=== PATIENT | male | born 1955 | race Caucasian/White ===

== ENCOUNTER 2017-02-25 15:40 | Inpatient (IN) | payer BC ==
[~2017-02-25] VITALS: Ht 188 cm; Wt 105.0 kg
[2017-02-25] MEDS ORDERED: DOPamine-D5W 1.6 MG/ML 250 ML ONE (15:47)
[2017-02-25 16:14] LABS: ABNORMAL IP MESSAGE 1; BASOPHIL # 0.1 10^3/ul (0.0-0.1); BASOPHILS % 0.8 % (0.0-2.0); EOSINOPHILS # 0.5 10^3/ul (0.0-0.5); EOSINOPHILS % 4.4 % (0.0-7.0); HEMOGLOBIN 13.5 g/dl (14.0-18.0); LYMPHOCYTES # 4.6 10^3/ul (0.8-2.9); LYMPHOCYTES % 40.2 % (15.0-51.0); MEAN CORPUSCULAR HEMOGLOBIN 30.1 pg (29.0-33.0); MEAN CORPUSCULAR VOLUME 100.4 fl (82.0-101.0); MEAN PLATELET VOLUME 11.3 fl (7.4-10.4); MONOCYTE # 1.1 10^3/ul (0.3-0.9); MONOCYTES % 9.4 % (0.0-11.0); NEUTROPHIL # 4.4 10^3/ul (1.6-7.5); NEUTROPHILS % 38.7 % (39.0-77.0); NUCLEATED RED BLOOD CELLS # 0.1 10^3/ul (0.0-0.0); NUCLEATED RED BLOOD CELLS% 0.4 /100WBC (0.0-0.0); PLATELET COUNT 245 10^3/UL (140-415); POSITIVE DIFF @See below; RED BLOOD COUNT 4.48 10^6/ul (4.70-6.10); RED CELL DISTRIBUTION WIDTH 12.8 % (11.5-14.5); WHITE BLOOD COUNT 11.4 10^3/ul (4.8-10.8)
[2017-02-25] MEDS ORDERED: NORepinephrine 8MG/250 ML (PMX 250 ML ONE (16:23)
[2017-02-25 16:29] LABS: INR 1.53; PROTIME 18.5 Sec (12.2-14.2); PT RATIO 1.4
[2017-02-25 16:30] LABS: AADO2 Arterial 571.3 mmHg (7.0-24.0); Arterial Base Excess -26.3 mmol/L (-3.0-3); Arterial COHb 0.3 % (0.0-3.0); Arterial Fraction of Oxyhgb 66.9 % (93.0-99.0); Arterial HCO3 10.1 mmol/L (22.0-26.0); Arterial MetHb 0.5 % (0.0-1.5); Arterial Total Hemglobin 13.4 g/dl (12.0-18.0); MODE VENT - AC
[2017-02-25 16:30] LABS: PARTIAL THROMBOPLASTIN TIME 65.5 Sec (25.0-35.0)
[2017-02-25] MEDS ORDERED: DOPamine-D5W 1.6 MG/ML 250 ML IV SCH (16:30)
[2017-02-25] MEDS ORDERED: NORepinephrine 8MG/250 ML (PMX 250 ML IV SCH (16:30)
[2017-02-25] MEDS ORDERED: NA BICARBONATE 8.4% 50 ML SYG IV STA (16:36)
--- NOTE | 2017-02-25 16:47 | RADRPT ---
PROCEDURE: XR Chest. CLINICAL INDICATION: Cardiac arrest. Shortness of breath TECHNIQUE: Single frontal chest x-ray. COMPARISON: None available FINDINGS: The patient is status post intubation with endotracheal tube 3.9 cm above the melvin. The heart siz e is enlarged. There are scattered interstitial opacities throughout the left lung and right upper lobe. Right mid lung subsegmental plate-like atelectasis is present. There is no evidence of effus ion or pneumothorax. A defibrillator pad overlies the left lower thorax. Tubing and a metallic dev ice overlying the lower thoracic spine is of uncertain significance. The osseous structures are phi sly intact. IMPRESSION: 1. Status post intubation with endotracheal tube in the mid thoracic trachea, 3.9 cm above the minerva na. 2. Cardiomegaly with scattered diffuse left lung and right upper lobe interstitial opacities which may represent congestion/edema or infection. 3. Right mid lung subsegmental plate-like atelectasis. RPTAT: HH .Wiliam Posada MD, MD Date Time Electronically viewed and signed by .Wiliam Posada MD, on 02/25/2017 16:47 .A/
[2017-02-25 16:52] LABS: ALANINE AMINOTRANSFERASE 108 IU/L (13-69); ALBUMIN/GLOBULIN RATIO 1.42; ALKALINE PHOSPHATASE 76 IU/L (42-121); ANION GAP 41 (8-16); ASPARTATE AMINO TRANSFERASE 108 IU/L (15-46); BILIRUBIN,INDIRECT 0.1 mg/dl (0-1.1); BILIRUBIN,TOTAL 0.1 mg/dl (0.2-1.3); BLOOD UREA NITROGEN 12 mg/dl (7-20); CALCIUM 9.8 mg/dl (8.4-10.2); CARBON DIOXIDE 14 mmol/L (21-31); CHLORIDE 100 mmol/L (97-110); CREATININE 1.34 mg/dl (0.61-1.24); GLUCOSE 284 mg/dl (70-220); POTASSIUM 4.9 mmol/L (3.5-5.1); SODIUM 150 mmol/L (135-144); TOTAL PROTEIN 6.8 g/dl (6.1-8.1)
[2017-02-25 17:10] LABS: TROPONIN-I < 0.012 ng/ml (0.00-0.12)
[2017-02-25 17:27] LABS: ETHANOL < 10.0 mg/dl
[2017-02-25] MEDS ORDERED: LORAZEPAM 2 MG INJ ONE (17:33)
[2017-02-25] MEDS ORDERED: PROPOFOL 100 ML ONE (17:46)
[2017-02-25 17:49] LABS: ADD UMIC YES; UR ASCORBIC ACID 20 mg/dL (NEGATIVE); UR BILIRUBIN (Dip) NEGATIVE (NEGATIVE); UR BLOOD (Dip) NEGATIVE (NEGATIVE); UR CLARITY SLIGHTLY CLOUDY (CLEAR); UR COLOR YELLOW (YELLOW); UR GLUCOSE (Dip) NEGATIVE (NEGATIVE); UR KETONES (Dip) TRACE mg/dL (NEGATIVE); UR LEUKOCYTE ESTERASE (Dip) NEGATIVE Leu/ul (NEGATIVE); UR MUCUS FEW /HPF (NONE SEEN); UR NITRITE (Dip) NEGATIVE (NEGATIVE); UR RBC 3 /HPF (0-5); UR SPECIFIC GRAVITY (Dip) 1.021 (1.003-1.030); UR TOTAL PROTEIN (Dip) 1+ mg/dl (NEGATIVE); UR UROBILINOGEN (Dip) NEGATIVE (NEGATIVE)
[2017-02-25] MEDS ORDERED: SOD CHLORIDE 0.9% IV ONE (18:00)
[2017-02-25] MEDS ORDERED: LORAZEPAM 2 MG INJ IV ONE (18:00)
[2017-02-25] MEDS ORDERED: PROPOFOL 100 ML IV ONE (18:00)
[2017-02-25] MEDS ORDERED: VANCOMYCIN 1 GM (PMX) 250 ML IVPB SCH ×2 (18:00→21:30)
[2017-02-25] MEDS ORDERED: PIPER-TAZO 3.375 GM IV (PMX) 100 ML IVPB ONE (18:00)
[2017-02-25] MEDS ORDERED: ROCURONIUM 50 MG INJ IV ONE (18:00)
[2017-02-25 18:11] LABS: AADO2 Arterial 553.8 mmHg (7.0-24.0); Arterial Base Excess -6.6 mmol/L (-3.0-3); Arterial COHb 0.3 % (0.0-3.0); Arterial Fraction of Oxyhgb 96.8 % (93.0-99.0); Arterial HCO3 18.8 mmol/L (22.0-26.0); Arterial MetHb 0.5 % (0.0-1.5); Arterial Total Hemglobin 14.9 g/dl (12.0-18.0); Blood Gas Low PEEP Setting 0 cmH2O; MODE VENT - AC
[2017-02-25 18:13] LABS: BARBITURATES Negative (NEGATIVE)
[2017-02-25 18:17] LABS: BENZODIAZEPINES Negative (NEGATIVE); CANNABINOIDS Negative (NEGATIVE); COCAINE Positive (NEGATIVE); OPIATES Positive (NEGATIVE)
[2017-02-25] MEDS ORDERED: DEXTROSE 50% 50 ML SYRINGE IV PRN ×2 (19:30)
[2017-02-25] MEDS ORDERED: ACETAMINOPHEN 650 MG SUPP PR PRN (19:30)
[2017-02-25] MEDS ORDERED: NA PHOSPHATE/BIPHOS 133 ML ENEMA PR PRN (19:30)
[2017-02-25] MEDS ORDERED: NACL 0.9% 3 ML SYG IV SCH (19:30)
[2017-02-25] MEDS ORDERED: VANCOMYCIN IV PER PHARMACY XX SCH (19:30)
[2017-02-25] MEDS ORDERED: INSULIN HUMAN REGULAR 100 UNIT in SOD CHLORIDE 0.9% 99 ML IV SCH (19:30)
[2017-02-25] MEDS ORDERED: ACETAMINOPHEN 650MG/20.3ML CUP PO PRN (19:30)
[2017-02-25] MEDS ORDERED: ACETAMINOPHEN 325 MG TAB PO PRN (19:30)
[2017-02-25] MEDS ORDERED: MAGNESIUM HYDROXIDE 30ML CUP PO PRN (19:30)
[2017-02-25] MEDS ORDERED: MEPERIDINE 25 MG INJ IV PRN ×2 (19:30)
[2017-02-25] MEDS ORDERED: DOCUSATE SODIUM 100 MG CAP PO PRN (19:30)
[2017-02-25] MEDS ORDERED: morphine 2 MG INJ IV PRN (19:30)
[2017-02-25] MEDS ORDERED: HYDROCODONE/APAP (5/325) TAB PO PRN (19:30)
[2017-02-25] MEDS ORDERED: NITROGLYCERIN (SL) 0.4 MG TAB SL PRN (19:30)
[2017-02-25] MEDS ORDERED: ALBUTEROL/IPRATROPIUM (NEB) 3 ML AMP HHN PRN (19:30)
[2017-02-25] MEDS ORDERED: ONDANSETRON 4 MG INJ IV PRN (19:30)
[2017-02-25] MEDS ORDERED: LORAZEPAM 2 MG INJ IV PRN (19:30)
--- NOTE | 2017-02-25 19:30 | HP ---
Date/Time of Note Date/Time of Note DATE: 02/25/17 TIME: 19:28 Assessment/Plan VTE Prophylaxis VTE Prophylaxis Intervention: heparin Lines/Catheters Central line still needed: Yes Reason Cath still needed: urinary retention Assessment/Plan Chief Complaint/Hosp Course Assessment and plan: 61-year-old male status post cardiac arrest, septic shock, lactic acidosis, intubated, on pressors. 1. Cardiac arrest: Admit patient to intensive care unit, get cardiology consult. Check echocardiogram, check TSH A1c lipid panel. Follow cardiology recommendations, continue to monitor vital signs very carefully. Hypothermia protocol as well. EEG will be ordered to be performed after hypothermia protocol. We will also get neurology consult. 2. Respiratory failure: Secondary to #1. Continue intubation, pulmonary consult, duo nebs as needed. Follow-up culture results. Given questional chest x-ray findings, start broad-spectrum antibiotics. Mechanical ventilation 3. Septic shock with lactic acidosis: Again broad-spectrum antibiotic, continue pressor support, monitor vital signs very carefully. Monitor BMP, continue aggressive IV fluid hydration, trend lactic acid levels. 4. IV drug abuse: Again monitor for signs of withdrawal. Again patient is intubated however. 5. Bipolar disorder: Continue monitor for now, again intubated 6. GI prophylaxis: H2 lora Problems: HPI/ROS Admit Date/Time Admit Date/Time ROS 61-year-old male past medical history based on ER records of bipolar disorder and IV drug abuse. Patient came in with cardiac arrest. Most of the information is obtained from the ER documentation and speaking with ER staff as the patient is presently intubated and sedated. Patient also has history of of Adderal, cocaine, viagara use. According to documentation, patient was having sexual intercourse with girlfriend when became apneic and unresponsive. EMS was called to residence. Patient became asystolic and resuscitation was started. Patient was intubated in the ER. He was found with a lactic acid of 20, given IV fluids and 3 Amps of bicarb, and started on levo fed and dopamine pressor support. Also given IV antibiotics. Head CT was performed results are still pending at this time. Full review of systems cannot be obtained at this time. U tox found to be positive for cocaine, methamphetamine, and opiates. Blood alcohol level and chest x-ray are both negative. Central line was placed in the emergency room as well. PMH/Family/Social Past Surgical History Unknown Family History Significant Family History: other (Unknown) Social History Alcohol Use: other Drug Use: cocaine, other (Opiates, methamphetamine) Exam/Review of Systems Vital Signs Vitals Vital Signs Date Time Temp Pulse Resp B/P Pulse Ox O2 Delivery O2 Flow Rate FiO2 02/25/17 18:30 89 16 113/62 100 Mechanical Ventilator 02/25/17 18:19 100 02/25/17 16:00 15.0 Exam Exam General: Lying in bed, intubated HEENT: Unable to fully assess Neck: Supple Respiratory: Distant breath sounds bilaterally Cardiovascular: S1-S2 heard GI: Soft, nontender, nondistended, normal bowel sounds Muscular skeletal: No lower extremity bilaterally Neurologic: Unable to fully assess because patient intubated Labs Result Diagram: 02/25/17 1600 02/25/17 1600 Medications Medications Current Medications Epinephrine 4 mg/ Dextrose 250 ml @ 0 mls/hr TITRATE IV ; Start 02/25/17 at 16: 30 Dopamine HCl/ Dextrose 250 ml @ 0 mls/hr TITRATE IV ; Start 02/25/17 at 16:30 Norepinephrine 250 ml @ 1.875 mls/ hr TITRATE IV ; Start 02/25/17 at 16:30 Vancomycin HCl (Vancocin) 250 ml @ 125 mls/hr ONCE IVPB ; Start 02/25/17 at 18: 00; Stop 02/25/17 at 19:59 Ondansetron HCl (Zofran Inj) 4 mg Q6H PRN IV NAUSEA AND/OR VOMITING; Start at 19:30; Status UNV Acetaminophen (Tylenol Tab) 650 mg Q6H PRN PO PAIN LEVEL 1-3 OR FEVER; Start at 19:30; Status UNV Acetaminophen/ Hydrocodone Bitart ([place] (5/325)) 1 tab Q6H PRN PO MODERATE PAIN LEVEL 4-6; Start 02/25/17 at 19:30; Status UNV Morphine Sulfate (morphine) 2 mg Q4H PRN IV SEVERE PAIN LEVEL 7-10; Start 02/25 at 19:30; Status UNV Docusate Sodium (Colace) 100 mg Q12H PRN PO CONSTIPATION; Start 02/25/17 at 19: 30; Status UNV Magnesium Hydroxide (Milk Of Mag) 30 ml DAILY PRN PO CONSTIPATION; Start at 19:30; Status UNV Sodium Biphosphate/ Sodium Phosphate (Fleet Enema) [address] CONSTIPATION; Start 02/25/17 at 19:30; Status UNV Famotidine 20 mg 20 mg Q12 IV ; Start 02/25/17 at 21:00; Status UNV Sodium Chloride (1/2 NS) 1,000 ml @ 125 mls/hr Q8H IV ; Start 02/25/17 at 19:09 Lorazepam (Ativan) 0.5 mg Q6H PRN IV ANXIETY; Start 02/25/17 at 19:30; Status UNV Vancomycin HCl (Vanco Iv Per Pharmacy) VANCOMYCIN PER PHARMACY NOTE XX ; Start 02/25/17 at 19:30; Status UNV Nitroglycerin (Nitroglycerin (Sl Tab) 0.4 Mg) 1 tab Q5M PRN SL ANGINA; Start at 19:30; Status UNV Acetaminophen (Tylenol Supp) [address] TEMP > 37C; Start 02/25/17 at 19 :30; Status UNV Acetaminophen (Tylenol Liquid) 650 mg Q4H PRN PO TEMP > 37C; Start 02/25/17 at 19:30; Status UNV Acetaminophen (Tylenol Supp) [address] ; Start 02/26/17 at 19:30; Status UNV Acetaminophen (Tylenol Liquid) 500 mg Q6H PO ; Start 02/26/17 at 19:30; Status UNV Meperidine HCl (Demerol) 12.5 mg Q4H PRN IV POST OPERATIVE SHIVERING; Start at 19:30; Status UNV Meperidine HCl (Demerol) 25 mg Q4H PRN IV POST OPERATIVE SHIVERING; Start 02/25 at 19:30; Status UNV Eye Lubricant (Akwa Oint) 1 applic Q6 BOTH EYES ; Start 02/26/17 at 00:00; Status UNV Eye Lubricant (Artificial Tears Oph) 2 drop Q6 BOTH EYES ; Start 02/26/17 at 00: 00; Status UNV Miscellaneous Information (* Miscellaneous Pharmacy Order) Discontinue all previ... PROTOCOL ONCE XX ; Start 02/25/17 at 19:30; Stop 02/25/17 at 19:31; Status UNV Diagnostic Test (Pha) (Accu-Chek) 1 ea Q1H XX ; Start 02/25/17 at 19:30; Status UNV Dextrose (D50w Syringe) 25 ml Q15M PRN IV Till BS 80 mg/dL or above x2; Start 02/25/17 at 19:30; Status UNV Dextrose 50 ml 50 ml Q15M PRN IV Till BS 80 mg/dL or above x2; Start 02/25/17 at 19:30; Status UNV Cefepime HCl (Maxipime 2gm/50 ml (Pmx)) 50 ml @ 100 mls/hr Q12 IVPB ; Start at 21:00; Status UNV YANET MTZ Feb 25, 2017 19:30
--- NOTE | 2017-02-25 19:55 | RADRPT ---
PROCEDURE: CT Head without. CLINICAL INDICATION: Altered level of consciousness. TECHNIQUE: The study was performed utilizing a multi-slice, multidetector CT scanner. Direct spira l 1 mm axial sections were obtained through the head without the use of intravenous contrast materia l. 1 or more of the following dose reduction techniques were utilized: Automated exposure control, adjustment of the mA and/or kV according to patient's size, iterative reconstruction technique. Co anny and sagittal reformations were obtained. The images were reviewed on a PACS workstation. RADIATION DOSE: CTDIvol: 44.8 mGyDLP: 720.2 mGy-cm COMPARISON: No prior studies are available for comparison. FINDINGS: There is diffuse loss of herrmann-white matter differentiation throughout the bilateral cerebral and cer ebellar hemispheres, suggestive of severe diffuse cerebral edema. There is increased density involv ing the bilateral middle and anterior cerebral arteries, suggestive of pseudo-subarachnoid hemorrhag e sign. There is no intracranial hemorrhage, extra-axial fluid collection, mass lesion, midline grey ft or hydrocephalus. There is diffuse sulcal and ventricular effacement of the cerebral edema. No definite transtentorial or foramen magnum herniation is seen at this time. The white matter is unre markable. The herrmann-white matter differentiation is preserved. The basal cisterns are patent. The midline structures are intact. The orbits, calvarium and extracranial soft tissues are normal in ap pearance. The visualized paranasal sinuses, mastoid air cells and middle ear cavities are normally a erated. IMPRESSION: 1. Diffuse severe cerebral edema with loss of herrmann-white matter differentiation throughout the bila teral cerebral and cerebellar hemispheres. MRI may be helpful for further characterization. 2. Hyperdense intracranial vessels, consistent with pseudo-subarachnoid hemorrhage sign. 3. No intracranial hemorrhage, extra-axial fluid collection, mass lesion or hydrocephalous. The above findings were discussed with Patient's physician Francis Solis by telephone on 02/25/2017 7:53:16 PM. RPTAT: [facility] .Hugo Moreland MD, Date Time Electronically viewed and signed by .Hugo Moreland MD, on 02/25/2017 19:55 .S/
--- NOTE | 2017-02-25 20:03 | ERA ---
ER Documentation Chief Complaint Date/Time DATE: 02/25/17 TIME: On arrival Chief Complaint Cardiac Arrest, BIB EMS Rescue 88, Pulseless, Apneic HPI The patient is a 61-year-old male, presenting to the ER because of cardiac arrest. 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 He took amphetamine and cocaine and alcohol prior to having sex. He collapsed during sexual activity. He was brought to the ER by ambulance. He was intubated, received epinephrine 1 mg IV 4 and sodium bicarb IV 1 prior to arrival. He was in asystole on arrival to the ER. He has history of bipolar. No further history is available ROS All systems reviewed and are negative except as per history of present illness. Medications Home Meds Unable to Obtain Active Prescriptions or Reported Meds Allergies Allergies: Coded Allergies: Unable to Assess (Verified Allergy, Severe, 02/25/17) Physical Exam Vitals Vital Signs Date Time Temp Pulse Resp B/P Pulse Ox O2 Delivery O2 Flow Rate FiO2 02/25/17 18:30 89 16 113/62 100 Mechanical Ventilator 02/25/17 18:19 97 24 96 100 02/25/17 18:00 98 24 117/41 100 Mechanical Ventilator 02/25/17 17:45 95 26 107/41 100 Mechanical Ventilator 02/25/17 17:30 93 24 112/41 98 Mechanical Ventilator 02/25/17 17:15 92 24 107/39 96 Mechanical Ventilator 02/25/17 17:00 88 24 114/43 96 Mechanical Ventilator 02/25/17 16:45 80 24 105/41 92 Mechanical Ventilator 02/25/17 16:37 67 24 86 100 02/25/17 16:30 57 16 74/45 82 Mechanical Ventilator 02/25/17 16:14 59 16 86 100 02/25/17 16:00 59 16 84/43 86 BIPAP 15.0 02/25/17 15:50 58 22 92/41 86 Ambu Bag 15.0 02/25/17 15:41 Bag Valve Mask Physical Exam Const: Acute respiratory distress Head: Atraumatic. Eyes: Normal Conjunctiva. ENT: Normal External Ears, Nose and Mouth. Neck: Full range of motion. No meningismus. Resp: Clear to auscultation bilaterally anterior and lateral Cardio: asystole Abd: Soft, non distended, non tender. Skin: No petechiae or rashes. Back: No midline or flank tenderness. Ext: No cyanosis, or edema. Neur: Unable to obtain due to his condition Psych: Unable to obtain due to his condition Result Diagram: 02/25/17 1600 02/25/17 1600 Results 24 hrs Laboratory Tests Test 02/25/17 16:00 02/25/17 16:25 02/25/17 17:10 02/25/17 17:15 White Blood Count 11.410^3/ul Red Blood Count 4.4810^6/ul Hemoglobin 13.5g/dl Hematocrit 45.0% Mean Corpuscular Volume 100.4fl Mean Corpuscular Hemoglobin 30.1pg Mean Corpuscular Hemoglobin Concent 30.0g/dl Red Cell Distribution Width 12.8% Platelet Count 78530^3/UL Mean Platelet Volume 11.3fl Neutrophils % 38.7% Lymphocytes % 40.2% Monocytes % 9.4% Eosinophils % 4.4% Basophils % 0.8% Nucleated Red Blood Cells % 0.4/100WBC Neutrophils # 4.410^3/ul Lymphocytes # 4.610^3/ul Monocytes # 1.110^3/ul Eosinophils # 0.510^3/ul Basophils # 0.110^3/ul Nucleated Red Blood Cells # 0.110^3/ul Prothrombin Time 18.5Sec Prothrombin Time Ratio 1.4 INR International Normalized Ratio 1.53 Activated Partial Thromboplast Time 65.5Sec Sodium Level 150mmol/L Potassium Level 4.9mmol/L Chloride Level 100mmol/L Carbon Dioxide Level 14mmol/L Anion Gap 41 Blood Urea Nitrogen 12mg/dl Creatinine 1.34mg/dl Glucose Level 284mg/dl Lactic Acid Level 20.2mmol/L Calcium Level 9.8mg/dl Total Bilirubin 0.1mg/dl Direct Bilirubin 0.00mg/dl Indirect Bilirubin 0.1mg/dl Aspartate Amino Transf (AST/SGOT) 108IU/L Alanine Aminotransferase (ALT/SGPT) 108IU/L Alkaline Phosphatase 76IU/L Troponin I < 0.012ng/ml Total Protein 6.8g/dl Albumin 4.0g/dl Globulin 2.80g/dl Albumin/Globulin Ratio 1.42 Ethyl Alcohol Level < 10.0mg/dl Blood Gas Specimen Source Blood arterial Blood arterial Arterial Blood Date Drawn 02/25/2017 4:20:40 PM 02/25/2017 6:00:59 PM Arterial Blood pH (Temp corrected) 6.742 7.320 Arterial Blood pCO2 (Temp correct) 75.8mmhg 37.4mmhg Arterial Blood pO2 (Temp corrected) 65.9mmHG 121.8mmHG Arterial Blood HCO3 10.1mmol/L 18.8mmol/L Arterial Blood Base Excess -26.3mmol/L -6.6mmol/L Arterial Blood Oxygen Saturation 67.4mmHG 97.6mmHG Cooper Test N/A N/A Arterial Blood Gas Puncture Site Right Brachial Right Brachial Arterial Blood Carboxyhemoglobin 0.3% 0.3% Arterial Blood Methemoglobin 0.5% 0.5% Blood Gas A-a O2 Differential 571.3mmHg 553.8mmHg Oxyhemoglobin Percent 66.9% 96.8% Total Hemoglobin 13.4g/dl 14.9g/dl Blood Gas Temperature 37.0C 37.0C Blood Gas Respiration Rate 16.0 24.0 Blood Gas Actual Respiration Rate 16 24 Blood Gas Modality VENT - AC VENT - AC FiO2 100.0% 100.0% Blood Gas Tidal Volume 600.0mL 600.0mL Blood Gas Critical Value Read Back DR. CHAN Blood Gas Notified Whom Laurie Sullivan Blood Gas Notified Time 02/25/2017 4:30:25 PM 02/25/2017 6:11:38 PM Urine Color YELLOW Urine Clarity SLIGHTLY CLOUDY Urine pH 5.0 Urine Specific [place] 1.021 Urine Ketones TRACEmg/dL Urine Nitrite NEGATIVEmg/dL Urine Bilirubin NEGATIVEmg/dL Urine Urobilinogen NEGATIVEmg/dL Urine Leukocyte Esterase NEGATIVELeu/ul Urine Microscopic RBC 3/HPF Urine Microscopic WBC 2/HPF Urine Mucus FEW/HPF Urine Hemoglobin NEGATIVEmg/dL Urine Glucose NEGATIVEmg/dL Urine Total Protein 1+mg/dl Urine Opiates Screen Positive Urine Barbiturates Negative Urine Amphetamines Screen Positive Urine Benzodiazepines Screen Negative Urine Cocaine Screen Positive Urine Cannabinoids Negative Blood Gas Low PEEP Setting 0cmH2O Test 02/25/17 18:10 Lactic Acid Level 9.7mmol/L Current Medications Medications (Trade) Dose Ordered Sig/Blanca Route PRN Reason Start Time Stop Time Status Last Admin Dose Admin Epinephrine 4 mg/ Dextrose 250 ml @ 0 mls/hr TITRATE IV 02/25/17 16:30 Dopamine HCl/ Dextrose 250 ml @ 0 mls/hr TITRATE IV 02/25/17 16:30 Norepinephrine (Levophed) 250 ml @ 1.875 mls/ hr TITRATE IV 02/25/17 16:30 Sodium Bicarbonate (Na Bicarb 8.4% Syg) 150 ml ONCE STAT IV 02/25/17 16:36 02/25/17 16:39 DC 02/25/17 18:11 Lorazepam (Ativan) 2 mg STK-MED ONCE .ROUTE 02/25/17 17:33 02/25/17 17:34 DC Lorazepam (Ativan) 2 mg ONCE ONCE IV 02/25/17 18:00 02/25/17 18:01 DC 02/25/17 18:05 Rocuronium [place] 80 mg 80 mg ONCE ONCE IV 02/25/17 18:00 02/25/17 18:01 DC 02/25/17 18:05 Propofol 100 ml @ 0 mls/hr TITRATE ONCE IV 02/25/17 18:00 02/25/17 18:01 DC 02/25/17 18:29 Sodium Chloride 3,260 ml @ 3,260 mls/hr BOLUS X1 ONCE IV 02/25/17 18:00 02/25/17 18:59 DC 02/25/17 18:06 Vancomycin HCl 250 ml @ 125 mls/hr ONCE IVPB 02/25/17 18:00 02/25/17 21:29 Piperacillin Sod/ Tazobactam Sod (Zosyn 3.375gm/ 100 ml (Pmx)) 100 ml @ 200 mls/hr ONCE ONCE IVPB 02/25/17 18:00 02/25/17 18:29 DC 02/25/17 18:14 IV Flush (NS 3 ml) 3 ml PER PROTOCOL IV 02/25/17 19:30 Ondansetron HCl (Zofran Inj) 4 mg Q6H PRN IV NAUSEA AND/OR VOMITING 02/25/17 19:30 Acetaminophen (Tylenol Tab) 650 mg Q6H PRN PO PAIN LEVEL 1-3 OR FEVER 02/25/17 19:30 Acetaminophen/ Hydrocodone Bitart ([place] (5/325)) 1 tab Q6H PRN PO MODERATE PAIN LEVEL 4-6 02/25/17 19:30 Morphine Sulfate (morphine) 2 mg Q4H PRN IV SEVERE PAIN LEVEL 7-10 02/25/17 19:30 Docusate Sodium (Colace) 100 mg Q12H PRN PO CONSTIPATION 02/25/17 19:30 Magnesium Hydroxide (Milk Of Mag) 30 ml DAILY PRN PO CONSTIPATION 02/25/17 19:30 Sodium Biphosphate/ Sodium Phosphate (Fleet Enema) 133 ml DAILY PRN TX CONSTIPATION 02/25/17 19:30 Famotidine 20 mg 20 mg Q12 IV 02/25/17 21:00 Sodium Chloride (1/2 NS) 1,000 ml @ 125 mls/hr Q8H IV 02/25/17 19:09 Lorazepam (Ativan) 0.5 mg Q6H PRN IV ANXIETY 02/25/17 19:30 Albuterol/ Ipratropium (Duoneb) 3 ml Q4H RESP THERAPY PRN HHN SHORTNESS OF BREATH 02/25/17 19:30 Vancomycin HCl (Vanco Iv Per Pharmacy) VANCOMYCIN PER PHARMACY NOTE XX 02/25/17 19:30 Nitroglycerin (Nitroglycerin (Sl Tab) 0.4 Mg) 1 tab Q5M PRN SL ANGINA 02/25/17 19:30 Acetaminophen (Tylenol Supp) 650 mg Q4H PRN TX TEMP > 37C 02/25/17 19:30 Acetaminophen (Tylenol Liquid) 650 mg Q4H PRN PO TEMP > 37C 02/25/17 19:30 Acetaminophen (Tylenol Supp) 500 mg Q6H TX 02/26/17 19:30 Acetaminophen (Tylenol Liquid) 500 mg Q6H PO 02/26/17 19:30 Meperidine HCl (Demerol) 12.5 mg Q4H PRN IV POST OPERATIVE SHIVERING 02/25/17 19:30 Meperidine HCl (Demerol) 25 mg Q4H PRN IV POST OPERATIVE SHIVERING 02/25/17 19:30 Eye Lubricant (Akwa Oint) 1 applic Q6 BOTH EYES 02/26/17 00:00 Eye Lubricant (Artificial Tears Oph) 2 drop Q6 BOTH EYES 02/26/17 00:00 Miscellaneous Information (* Miscellaneous Pharmacy Order) Discontinue all previ... PROTOCOL ONCE XX 02/25/17 19:30 02/25/17 19:32 DC Diagnostic Test (Pha) 1 ea 1 ea Q1H XX 02/25/17 19:30 Insulin Human Regular/Sodium Chloride (Novolin-R/NS) 100 ml @ 0 mls/hr PER PROTOCOL IV 02/25/17 19:30 Miscellaneous Information (* Miscellaneous Pharmacy Order) Treatment of Hypoglycemia: 1.BG 51... Per protocol XX 02/25/17 19:30 Dextrose (D50w Syringe) 25 ml Q15M PRN IV Till BS 80 mg/dL or above x2 02/25/17 19:30 Dextrose 50 ml 50 ml Q15M PRN IV Till BS 80 mg/dL or above x2 02/25/17 19:30 Cefepime HCl (Maxipime 2gm/50 ml (Pmx)) 50 ml @ 100 mls/hr Q12 IVPB 02/25/17 21:00 Heparin Sodium (Porcine) 5000 unit 5,000 unit BID SC 02/25/17 21:00 UNV Vancomycin HCl (Vancocin) 250 ml @ 125 mls/hr ONCE IVPB 02/25/17 21:30 02/25/17 23:29 Procedures/[place] [id number] Radiology Main Line: [phone] DIAGNOSTIC IMAGING REPORT Patient: YOSHI SNIDER : 1955 Age: 61 Sex: M MR #: [id number] DOS: 02/25/17 1550 Ordering MD: MARCELO CHAN MD Location: E/R Room/Bed: PROCEDURE: XR Chest. CLINICAL INDICATION: Cardiac arrest. Shortness of breath TECHNIQUE: Single frontal chest x-ray. COMPARISON: None available FINDINGS: The patient is status post intubation with endotracheal tube 3.9 cm above the melvin. The heart size is enlarged. There are scattered interstitial opacities throughout the left lung and right upper lobe. Right mid lung subsegmental plate-like atelectasis is present. There is no evidence of effusion or pneumothorax. A defibrillator pad overlies the left lower thorax. Tubing and a metallic device overlying the lower thoracic spine is of uncertain significance. The osseous structures are grossly intact. IMPRESSION: 1. Status post intubation with endotracheal tube in the mid thoracic trachea, 3.9 cm above the melvin. 2. Cardiomegaly with scattered diffuse left lung and right upper lobe interstitial opacities which may represent congestion/edema or infection. 3. Right mid lung subsegmental plate-like atelectasis. RPTAT: HH .Wiliam Posada MD, Date Time Electronically viewed and signed by .Wiliam Posada MD, MD on 02/25/2017 16:47 .A/ CC: MARCELO CHAN MD Brain CT is pending EK:13 hrs Read by emergency physician Rate/Rhythm: Normal Sinus Rhythm 62 beats/min QRS, ST, T-waves: No ST elevation, no T inversion, sinus arrhythmia, nonspecific intraventricular conduction block Impression: Abnormal EKG MEDICAL MAKING DECISION: The patient is 61-year-old male, presenting with acute cardiac arrest, acute metabolic acidosis, acute septic shock, acute hyperglycemia, acute hypernatremia. Endotracheal tube was confirmed with no breath sounds on the left lung. The endotracheal tube was pulled back d from 28 cm to 23 mm centimeter with good bilateral symmetrical breath sound and positive end-tidal CO2 He went to cardiac arrest 3 times in the ER First code began at 1537 hr and ended at 1553 hr. He received epinephrine 1 mg IV 3, Narcan 2 mg IV 1, atropine 0.5 mg IV 2 when he became sinus bradycardia and he was started on dopamine drip, Accu-Chek was 267 Second code began at 1554 and ended at 1557 hr. He received epinephrine 1 mg IV 1 and sodium bicarb IV 1 with good response. Dopamine gtt was titrated up Third code began at 1603 and ended at 1610 hrs.. He received epinephrine 1 mg IV 1 with good response. Levophed gtt was started together with dopamine drip ABG shows severe metabolic acidosis with pH of 6.7 he was treated with 3 ampule of Na bicarb IV with good response, repeat pH was 7.3 He was treated with vancomycin IV, Zosyn IV for acute septic shock and put on propofol drip for sedation Admit MDM: Patient's infectious symptoms have not stabilized and the patient is at risk of rapid decompensation. The patient will be admitted for careful hydration, antibiotic therapy, and infectious source control. Severe Sepsis criteria: Infectious source: Unknown End organ damage indicated by: Lactate > 2.0 mmol/L Hypotension (SBP < 90 or >40 mmHG drop or MAP < 65) Acute Resp Failure (sat < 92% w/o oxygen) Sepsis Management: Time of recognition of severe sepsis/septic shock:1730 Within 3 hours of recognition: Blood cultures x 2 before broad-spectrum antibiotics: Yes 30 ml/kg NS bolus completed Initial lactate 20.2 Repeat lactate pending Critical Care: Critical care time 75 minutes excluding billable procedure Emergent fluid management while maintaining close respiratory support. Provision of immediate and broad-spectrum antibiotic therapy. Simultaneous assessment for possible sources in order to direct targeted therapy. Consideration for invasive and chemical support to prevent cardiopulmonary collapse. Septic Shock Assessment: Any lactic acid > 4.0 yes Persistent hypotension (SBP < 90 or 40 mmHg drop, MAP < 65) despite 30 mL/kg IV fluid bolusyes Volume Re-assessment for Septic Shock (post 30 ml/kg bolus): Temp95, BP113/62, HR100, RR16, Pox100 Heart tachycardic & rhythm Lungs no crackles Skin Warm & dry & pink Cap Refill less than 2 seconds Peripheral pulses radially present Persistent Hypotension Treatment: Comfort care no Central line yes Vasopressor started Norepinehrine, Dopamine I considered further perfusion assessment with CVP measurement, SCVO2, bedside ultrasound volume assessment, passive leg raise, trial of further fluid bolus. And proceeded withIVF Hypothermia protocol was started. Central Line Placement by me: Patient consented, sterilely draped, full prep, gown, glove, mask, time out performed. Anesthesia: 1% lidocaine locally Location: Rt femoral v Device: Multiple lumen Technique: Seldinger technique. Secured with suture. Results: Venous return from all ports with easy saline flush. No complications. Guide wire retrieved and disposed of. [ED Ultrasound: Central line placed by me using concurrent ultrasound guidance. Real time image archived in the medical record confirms vascular anatomy. Departure Diagnosis: Primary Impression: Cardiac arrest Additional Impressions: Metabolic acidosis Septic shock Hyperglycemia Hypernatremia Anemia Transaminitis Condition: Good Patient Instructions: Laceration, All Additional Instructions: I discussed the findings with the patient family. I discussed the patient with the on-call hospitalist Dr. Hauser at 7 PM. who was made aware of the lab, the treatment, the patient condition, pending brain CT. The patient is admitted to ICU MARCELO CHAN MD Feb 25, 2017 19:49
[2017-02-25 20:55] LABS: AADO2 Arterial 608.5 mmHg (7.0-24.0); Allen Test ACCEPTAB; Arterial Base Excess -3.6 mmol/L (-3.0-3); Arterial COHb 0.3 % (0.0-3.0); Arterial Fraction of Oxyhgb 87.6 % (93.0-99.0); Arterial HCO3 22.7 mmol/L (22.0-26.0); Arterial MetHb 0.4 % (0.0-1.5); Arterial Total Hemglobin 16.4 g/dl (12.0-18.0); MODE VENT - AC
[2017-02-25] MEDS ORDERED: CEFEPIME 2GM/50 ML (PMX) 50 ML IVPB SCH (21:00)
[2017-02-25] MEDS: FAMOTIDINE 20 MG INJ IV SCH (21:00)
[2017-02-25] MEDS: SOD CHLORIDE 0.45% 1,000 ML IV SCH (21:00)
[2017-02-25] MEDS: HEPARIN 5,000 UNIT/0.5 ML VIAL SC SCH (21:00)
--- NOTE | 2017-02-25 21:42 | RADRPT ---
PROCEDURE: XR Chest. CLINICAL INDICATION: NG tube placement TECHNIQUE: 2 frontal views of the chest were obtained COMPARISON: 02/25/2017 at 04:01 p.m. FINDINGS: Nasogastric tube is coiled in the region of the cervical esophagus. The tip of the endotracheal tub e is approximately 3.2 cm above the melvin. The patient is mildly rotated to the right. There is h ypoinflation of the lungs and bibasilar atelectasis and possible infiltrates. Chronic interstitial lung changes accentuated by hypoinflation lungs are again apparent. Hypoinflation lungs and portabl e AP technique accentuates the size of the cardiac silhouette. Likely old right posterior lateral second rib fracture. External cardiac pacemaker pad projected over left lower chest left upper abdom en. IMPRESSION: Nasogastric tube is coiled in the region of the cervical esophagus. Hypoinflation of the lungs and b ibasilar atelectasis and possible infiltrates. Please see above. Discussed with Dr. Matias at 09: 40 p.m. on 02/25/2017. RPTAT: HJES .Johnathan Jiménez MD, MD Date Time Electronically viewed and signed by .Johnathan Jiménez MD, on 02/25/2017 21:42 .S/
[2017-02-25] MEDS ORDERED: VECURONIUM 100 MG in DEXTROSE 5% 100 ML IV ONE (22:14)
[2017-02-25 22:30] LABS: INR 1.25; PROTIME 15.8 Sec (12.2-14.2); PT RATIO 1.2
[2017-02-25] MEDS ORDERED: VECURONIUM 10 MG VIAL IV ONE (22:30)
[2017-02-25 22:31] LABS: PARTIAL THROMBOPLASTIN TIME 46.2 Sec (25.0-35.0)
[2017-02-25 22:47] LABS: AADO2 Arterial 596.7 mmHg (7.0-24.0); Allen Test ACCEPTAB; Arterial Base Excess -2.8 mmol/L (-3.0-3); Arterial COHb 0.3 % (0.0-3.0); Arterial Fraction of Oxyhgb 96.6 % (93.0-99.0); Arterial HCO3 22.2 mmol/L (22.0-26.0); Arterial MetHb 0.5 % (0.0-1.5); Arterial Total Hemglobin 16.3 g/dl (12.0-18.0); MODE VENT - AC
[2017-02-26] VITALS (71 sets, daily range): BP systolic 79–130; BP diastolic 32–93; PULSE 71–96; RESP 24; TEMP 89; Ht 188 cm; Wt 105.0 kg
--- NOTE | 2017-02-26 00:12 | RADRPT ---
PROCEDURE: XR Chest. CLINICAL INDICATION: NG tube placement TECHNIQUE: Single AP portable chest. COMPARISON: 02/25/2017 Chest x-ray FINDINGS: The cardiomediastinal silhouette is within normal limits of size. Endotracheal tube tip 5.3 cm above the melvin. NG tube tip overlying the fundus of the stomach. Atherosclerotic calcification of th e aorta. Marked pulmonary vascular prominence compatible with congestion. Left base linear scarring and subsegmental atelectasis. No pneumothorax. The osseous structures and soft tissues are unremark able. IMPRESSION: 1. Cardiomegaly with vascular congestion. 2. Support devices in satisfactory position as detailed above the . RPTAT:AAJJ Physician Rosa Maria Date Time Electronically viewed and signed by Physician Rosa Maria on 02/26/2017 00:12 KORY/
[2017-02-26] MEDS: ACCU-CHEK XX SCH ×5 (01:00→22:48)
[2017-02-26] MEDS: ARTIFICIAL TEARS 15 ML OPH BOTH EYES SCH ×4 (06:08→18:00)
[2017-02-26] MEDS: OCULAR LUBRICANT 3.5 GM OPH OINT BOTH EYES SCH ×4 (06:08→18:00)
[2017-02-26 06:24] LABS: CHOL/HDL RATIO 3.6 RATIO
[2017-02-26 06:53] LABS: ABNORMAL IP MESSAGE 1; BASOPHIL # 0.1 10^3/ul (0.0-0.1); BASOPHILS % 0.3 % (0.0-2.0); EOSINOPHILS % 0.2 % (0.0-7.0); HEMATOCRIT 52.1 % (42.0-52.0); HEMOGLOBIN 17.4 g/dl (14.0-18.0); LYMPHOCYTES % 5.8 % (15.0-51.0); MEAN CORPUSCULAR HEMOGLOBIN 29.6 pg (29.0-33.0); MEAN CORPUSCULAR HGB CONC 33.4 g/dl (32.0-37.0); MEAN CORPUSCULAR VOLUME 88.6 fl (82.0-101.0); MEAN PLATELET VOLUME 10.1 fl (7.4-10.4); MONOCYTE # 1.9 10^3/ul (0.3-0.9); MONOCYTES % 11.1 % (0.0-11.0); NEUTROPHIL # 14.2 10^3/ul (1.6-7.5); NEUTROPHILS % 81.6 % (39.0-77.0); PLATELET COUNT 310 10^3/UL (140-415); POSITIVE DIFF @See below; RED BLOOD COUNT 5.88 10^6/ul (4.70-6.10); RED CELL DISTRIBUTION WIDTH 12.6 % (11.5-14.5); WHITE BLOOD COUNT 17.4 10^3/ul (4.8-10.8)
[2017-02-26 06:55] LABS: THYROID STIMULATING HORMONE 1.26 MIU/L (0.465-4.680)
[2017-02-26] MEDS: SOD CHLORIDE 0.45% 1,000 ML IV SCH ×3 (07:11→19:20)
[2017-02-26 07:15] LABS: CK-MB 31.5 ng/ml (0.0-2.4)
[2017-02-26 07:16] LABS: TROPONIN-I 0.416 ng/ml (0.00-0.12)
[2017-02-26 07:24] LABS: CALCIUM 8.1 mg/dl (8.4-10.2); CREATININE 2.45 mg/dl (0.61-1.24); MAGNESIUM 2.4 mg/dl (1.7-2.5); PHOSPHORUS 1.5 mg/dl (2.5-4.9); POTASSIUM 3.5 mmol/L (3.5-5.1)
[2017-02-26] MEDS ORDERED: PROPOFOL 100 ML IV ONE (07:30)
[2017-02-26] MEDS ORDERED: DOPamine-D5W 1.6 MG/ML 250 ML ONE (07:47)
--- NOTE | 2017-02-26 08:19 | CONS ---
DATE OF ADMISSION: 02/25/2017 DATE OF CONSULTATION: 02/25/2017 REFERRING PHYSICIAN: Dr. Hauser. REASON FOR CONSULTATION: Cardiopulmonary arrest. CHIEF COMPLAINT: Cardiopulmonary arrest. HISTORY OF PRESENT ILLNESS: Thank you for this referral. History was obtained from extensive review of the chart, discussion with multiple physicians and staff. Patient, himself, on the vent and . This is an unfortunate 61-year-old gentleman with history of reportedly bipolar disorder and drug abuse, who was brought in by paramedics after a cardiac arrest. Based on information I could obtain from multiple discussions with multiple physicians and the staff and review of the chart, patient has a history of Adderall, cocaine and Viagra use. He was reportedly having sexual intercourse with his mistress and he became unresponsive. Paramedics were called. At that time, he is in asystole. CPR was done. Return of spontaneous circulation was obtained. Patient, however, was unresponsive, has been intubated and has been on the ventilator, currently placed on hypothermia protocol, nonverbal. PAST MEDICAL HISTORY: As above. FAMILY HISTORY: Unable to obtain. SOCIAL HISTORY: Patient apparently has a history of cocaine use and methamphetamine use and opiate use. ALLERGIES: UNABLE TO OBTAIN AT THIS POINT. MEDICATION: At home, unable to obtain. REVIEW OF SYSTEMS: Unable to obtain. PHYSICAL EXAMINATION: VITAL SIGNS: not available. On initial admission, heart rate was 58, blood pressure 92/40, respirations of 22, satting 86 percent. Currently intubated on the vent, status post intubation. HEENT: Eyes: Pupils are fixed and dilated. CARDIAC: rhythm. LUNGS: Mild rhonchi, diffuse. ABDOMEN: Soft, obese. EXTREMITIES: Positive for pedal edema. NEUROLOGIC: No response to verbal or painful stimuli. LABORATORY: WBC 11.4, hemoglobin 13.5, platelet of 245. Sodium 150, potassium 4.9, BUN of 12, creatinine is 1.34, glucose of 284. Lactic acid was 20. ALT of 108, AST of 108. Troponin of less than 0.012. ABG initially showed a pH of 6.7, pCO2 of 75, PO2 of 65. Chest x-ray has shown status post intubation, cardiomegaly, diffuse left lung and right upper lobe interstitial opacities. A CT of the brain shows diffuse, severe cerebral edema and loss of herrmann-white matter differentiation throughout the bilateral cerebral and cerebellar hemispheres. Hyperdense intracranial vessels consistent with pseudo-subarachnoid hemorrhage sign. EKG showed intraventricular conduction delay. ASSESSMENT AND PLAN: 1. Cardiopulmonary arrest. 2. Respiratory failure. 3. Severe encephalopathy, anoxic brain injury. 4. Shock, currently on Levophed drip. 5. History of intravenous drug abuse. 6. History of drug abuse and bipolar disorder. 7. Severe metabolic acidosis. RECOMMENDATION: The patient has been intubated, will be closely monitored on the vent, pressors as needed. Prognosis appears to be very poor. Hypothermia protocol will be completed. Echocardiogram will be checked. We will check a troponin level and check a CK-MB tomorrow. We will check the patient's also cardiac enzymes tomorrow given his clinical presentation. Prognosis appears to be very poor and not a candidate at this point for any surgery, taken to the cardiac catheterization lab. Antibiotic as needed as per Internal Medicine. We will continue to follow along with you. More than 45 minutes of critical care time was spent on management of this patient for any procedures. Dictated By: Med aKur MD /gil/tiffanie /Document#: [id number] ; Dr. Hauser
[2017-02-26 09:29] LABS: AADO2 Arterial 251.3 mmHg (7.0-24.0); Allen Test ACCEPTAB; Arterial COHb 0.3 % (0.0-3.0); Arterial Fraction of Oxyhgb 95.6 % (93.0-99.0); Arterial MetHb 0.5 % (0.0-1.5); Arterial Total Hemglobin 18.1 g/dl (12.0-18.0); MODE VENT - AC
[2017-02-26] MEDS ORDERED: POTASSIUM PHOSPHATE 40 MEQ in SOD CHLORIDE 0.9% 250 ML IVPB ONE (10:00)
[2017-02-26] MEDS: FAMOTIDINE 20 MG INJ IV SCH ×2 (10:13→20:50)
[2017-02-26] MEDS: HEPARIN 5,000 UNIT/0.5 ML VIAL SC SCH ×2 (10:16→20:51)
[2017-02-26] MEDS: CEFEPIME 2GM/50 ML (PMX) 50 ML IVPB SCH (10:34)
[2017-02-26] MEDS: NORepinephrine 32 MG in DEXTROSE 5% 218 ML IV SCH (10:44)
[2017-02-26] MEDS: DOPamine 1,600 MG in DEXTROSE 5% 210 ML IV SCH (10:46)
[2017-02-26] MEDS ORDERED: VANCOMYCIN 1.25 GM in SOD CHLORIDE 0.9% 250 ML IVPB SCH (11:00)
[2017-02-26] MEDS ORDERED: VANCOMYCIN 1 GM in NS 250 ML IVPB SCH (11:00)
--- NOTE | 2017-02-26 11:38 | CONS ---
Date/Time of Note Date/Time of Note DATE: 02/26/17 TIME: 11:32 Assessment/Plan Assessment/Plan Chief Complaint/Hosp Course 61 yo male with drug abuse history admitted with asystole, lactic acidosis. CTH shows changes consistent with diffuse edema and hypoxic injury, poor neurologic exam with absent brain stem reflexes. Recommendations: MRI Brain w/o contrast to further evaluate EEG- ECS protocol prognosis appears to be extremely poor based on exam and initial Head CT, will follow up again tomorrow Problems: Consultation Date/Type/Reason Admit Date/Time 02/26/17 Date of Consultation: Feb 26, 2017 Type of Consultation: Neurology Reason for Consultation cardiac arrest hypoxic injury Referring Provider: YANET MTZ Hx of Present Illness 61 year old male with history of IV drug abuse, bipolar disorder admitted with cardiac arrest treated with hypothermia protocol. Per history obtained from chart, patient was admitted after sexual intercourse with significant other, became apneic and unresponsive was in asystole. In the ER lactic acidosis of 20 given IV fluids started on pressors Levophed and Dopamine, IV abx. CTH: diffuse cerebral edema, possible SAH hyperdense vessels seen. No seizure activity has been seen. U tox + for cocaine, methaphetamine, opiates. Subjective hx not possible: pt non-verbal, pt critical Social History Alcohol Use: other Drug Use: cocaine, other (Opiates, methamphetamine) Exam/Review of Systems Vital Signs Vitals Vital Signs Date Time Temp Pulse Resp B/P Pulse Ox O2 Delivery O2 Flow Rate FiO2 02/26/17 11:00 89.9 82 24 102/64 96 Mechanical Ventilator 02/26/17 07:30 50 02/25/17 16:00 15.0 Exam intubated on pressors unresponsive pupils are dilated unresponsive absent corneals absent gag no withdrawal to noxious stimuli Results Result Diagram: 02/26/17 0644 02/26/17 0531 Results 24 hrs Laboratory Tests Test 02/25/17 16:00 02/25/17 16:25 02/25/17 17:10 02/25/17 17:15 White Blood Count 11.4 H Red Blood Count 4.48 L Hemoglobin 13.5 L Hematocrit 45.0 Mean Corpuscular Volume 100.4 Mean Corpuscular Hemoglobin 30.1 Mean Corpuscular Hemoglobin Concent 30.0 L Red Cell Distribution Width 12.8 Platelet Count 245 Mean Platelet Volume 11.3 H Neutrophils % 38.7 L Lymphocytes % 40.2 Monocytes % 9.4 Eosinophils % 4.4 Basophils % 0.8 Nucleated Red Blood Cells % 0.4 H Neutrophils # 4.4 Lymphocytes # 4.6 H Monocytes # 1.1 H Eosinophils # 0.5 Basophils # 0.1 Nucleated Red Blood Cells # 0.1 H Prothrombin Time 18.5 H Prothrombin Time Ratio 1.4 INR International Normalized Ratio 1.53 Activated Partial Thromboplast Time 65.5 H Sodium Level 150 H Potassium Level 4.9 Chloride Level 100 Carbon Dioxide Level 14 L Anion Gap 41 H Blood Urea Nitrogen 12 Creatinine 1.34 H Glucose Level 284 H Lactic Acid Level 20.2 *H Calcium Level 9.8 Total Bilirubin 0.1 L Direct Bilirubin 0.00 Indirect Bilirubin 0.1 Aspartate Amino Transf (AST/SGOT) 108 H Alanine Aminotransferase (ALT/SGPT) 108 H Alkaline Phosphatase 76 Troponin I < 0.012 Total Protein 6.8 Albumin 4.0 Globulin 2.80 Albumin/Globulin Ratio 1.42 Ethyl Alcohol Level < 10.0 Blood Gas Specimen Source Blood arterial Blood arterial Arterial Blood Date Drawn 02/25/2017 4:20:40 PM 02/25/2017 6:00:59 PM Arterial Blood pH (Temp corrected) 6.742 *L 7.320 L Arterial Blood pCO2 (Temp correct) 75.8 H 37.4 Arterial Blood pO2 (Temp corrected) 65.9 L 121.8 H Arterial Blood HCO3 10.1 L 18.8 L Arterial Blood Base Excess -26.3 L -6.6 L Arterial Blood Oxygen Saturation 67.4 L 97.6 Cooper Test N/A N/A Arterial Blood Gas Puncture Site Right Brachial Right Brachial Arterial Blood Carboxyhemoglobin 0.3 0.3 Arterial Blood Methemoglobin 0.5 0.5 Blood Gas A-a O2 Differential 571.3 H 553.8 H Oxyhemoglobin Percent 66.9 L 96.8 Total Hemoglobin 13.4 14.9 Blood Gas Temperature 37.0 37.0 Blood Gas Respiration Rate 16.0 24.0 Blood Gas Actual Respiration Rate 16 24 Blood Gas Modality VENT - AC VENT - AC FiO2 100.0 100.0 Blood Gas Tidal Volume 600.0 600.0 Blood Gas Critical Value Read Back DR. CHAN Blood Gas Notified Whom Laurie Sullivan Blood Gas Notified Time 02/25/2017 4:30:25 PM 02/25/2017 6:11:38 PM Urine Color YELLOW Urine Clarity SLIGHTLY CLOUDY A Urine pH 5.0 Urine Specific [place] 1.021 Urine Ketones TRACE A Urine Nitrite NEGATIVE Urine Bilirubin NEGATIVE Urine Urobilinogen NEGATIVE Urine Leukocyte Esterase NEGATIVE Urine Microscopic RBC 3 Urine Microscopic WBC 2 Urine Mucus FEW A Urine Hemoglobin NEGATIVE Urine Glucose NEGATIVE Urine Total Protein 1+ H Urine Opiates Screen Positive Urine Barbiturates Negative Urine Amphetamines Screen Positive Urine Benzodiazepines Screen Negative Urine Cocaine Screen Positive Urine Cannabinoids Negative Blood Gas Low PEEP Setting 0 Test 02/25/17 18:10 02/25/17 19:09 02/25/17 20:11 02/25/17 21:27 Lactic Acid Level 9.7 *H 4.2 *H Blood Gas Specimen Source Blood arterial Blood arterial Arterial Blood Date Drawn 02/25/2017 10:40:35 PM 02/25/2017 8:40:04 PM Arterial Blood pH (Temp corrected) 7.404 7.317 L Arterial Blood pCO2 (Temp correct) 35.3 45.4 H Arterial Blood pO2 (Temp corrected) 87.1 59.1 L Arterial Blood HCO3 22.2 22.7 Arterial Blood Base Excess -2.8 -3.6 L Arterial Blood Oxygen Saturation 97.4 88.2 L Cooper Test ACCEPTAB ACCEPTAB Arterial Blood Gas Puncture Site Right Brachial Right Radial Arterial Blood Carboxyhemoglobin 0.3 0.3 Arterial Blood Methemoglobin 0.5 0.4 Blood Gas A-a O2 Differential 596.7 H 608.5 H Oxyhemoglobin Percent 96.6 87.6 L Total Hemoglobin 16.3 16.4 Blood Gas Temperature 34.5 37.0 Blood Gas Respiration Rate 24.0 24.0 Blood Gas Actual Respiration Rate 24 24 Blood Gas Modality VENT - AC VENT - AC FiO2 100.0 100.0 Blood Gas Tidal Volume 600.0 Blood Gas High PEEP Setting 8.0 Blood Gas Notified Whom Toro MELARA Blood Gas Notified Time 02/25/2017 10:47:13 PM 02/25/2017 8:54:55 PM Prothrombin Time 15.8 H Prothrombin Time Ratio 1.2 INR International Normalized Ratio 1.25 Activated Partial Thromboplast Time 46.2 H Free Thyroxine 1.40 Test 02/26/17 00:49 02/26/17 03:23 02/26/17 05:31 02/26/17 06:44 Bedside Glucose 186 Lactic Acid Level 3.0 *H 3.9 *H Sodium Level 143 Potassium Level 3.5 Chloride Level 104 Carbon Dioxide Level 19 L Anion Gap 24 #H Blood Urea Nitrogen 25 #H Creatinine 2.45 #H Glucose Level 211 Hemoglobin A1c 5.6 Calcium Level 8.1 L Phosphorus Level 1.5 L Magnesium Level 2.4 Creatine Kinase 1325 H Creatine Kinase Index 2.4 Creatinine Kinase MB (Mass) 31.50 H Troponin I 0.416 *H Triglycerides Level 72 Cholesterol Level 173 LDL Cholesterol, Calculated 112 HDL Cholesterol 47 Cholesterol/HDL Ratio 3.6 Thyroid Stimulating Hormone (TSH) 1.260 White Blood Count 17.4 #H Red Blood Count 5.88 # Hemoglobin 17.4 # Hematocrit 52.1 H Mean Corpuscular Volume 88.6 Mean Corpuscular Hemoglobin 29.6 Mean Corpuscular Hemoglobin Concent 33.4 Red Cell Distribution Width 12.6 Platelet Count 310 # Mean Platelet Volume 10.1 Neutrophils % 81.6 H Lymphocytes % 5.8 L Monocytes % 11.1 H Eosinophils % 0.2 Basophils % 0.3 Nucleated Red Blood Cells % 0.0 Neutrophils # 14.2 H Lymphocytes # 1.0 Monocytes # 1.9 H Eosinophils # 0.0 Basophils # 0.1 Nucleated Red Blood Cells # 0.0 Test 02/26/17 07:09 02/26/17 08:51 02/26/17 10:38 Blood Gas Specimen Source Blood arterial Arterial Blood Date Drawn 02/26/2017 9:20:48 AM Arterial Blood pH (Temp corrected) 7.378 Arterial Blood pCO2 (Temp correct) 31.9 L Arterial Blood pO2 (Temp corrected) 73.1 L Arterial Blood HCO3 19.0 L Arterial Blood Base Excess -6.0 L Arterial Blood Oxygen Saturation 96.4 Cooper Test ACCEPTAB Arterial Blood Gas Puncture Site Right Radial Arterial Blood Carboxyhemoglobin 0.3 Arterial Blood Methemoglobin 0.5 Blood Gas A-a O2 Differential 251.3 H Oxyhemoglobin Percent 95.6 Total Hemoglobin 18.1 H Blood Gas Temperature 33.8 Blood Gas Respiration Rate 24.0 Blood Gas Actual Respiration Rate 24 Blood Gas Modality VENT - AC FiO2 50.0 Blood Gas Tidal Volume 600.0 Blood Gas High PEEP Setting 8.0 Blood Gas Notified Whom TM Blood Gas Notified Time 02/26/2017 9:29:29 AM Bedside Glucose 175 162 Medications Medications Current Medications Epinephrine/ Dextrose (EPINEPHrine/D5W) 250 ml @ 0 mls/hr TITRATE IV ; Start at 16:30 Ondansetron HCl (Zofran Inj) 4 mg Q6H PRN IV NAUSEA AND/OR VOMITING; Start at 19:30 Acetaminophen (Tylenol Tab) 650 mg Q6H PRN PO PAIN LEVEL 1-3 OR FEVER; Start at 19:30 Acetaminophen/ Hydrocodone Bitart ([place] (5/325)) 1 tab Q6H PRN PO MODERATE PAIN LEVEL 4-6; Start 02/25/17 at 19:30 Morphine Sulfate (morphine) 2 mg Q4H PRN IV SEVERE PAIN LEVEL 7-10; Start 02/25 at 19:30 Docusate Sodium (Colace) 100 mg Q12H PRN PO CONSTIPATION; Start 02/25/17 at 19: 30 Magnesium Hydroxide (Milk Of Mag) 30 ml DAILY PRN PO CONSTIPATION; Start at 19:30 Sodium Biphosphate/ Sodium Phosphate (Fleet Enema) 133 ml DAILY PRN NE CONSTIPATION; Start 02/25/17 at 19:30 Famotidine 20 mg 20 mg Q12 IV Last administered on 02/26/17 10:13; Admin Dose 20 MG; Start 02/25/17 at 21:00 Sodium Chloride (1/2 NS) 1,000 ml @ 125 mls/hr Q8H IV Last administered on 02/26 07:11; Admin Dose 125 MLS/HR; Start 02/25/17 at 19:09 Lorazepam (Ativan) 0.5 mg Q6H PRN IV ANXIETY; Start 02/25/17 at 19:30 Vancomycin HCl (Vanco Iv Per Pharmacy) VANCOMYCIN PER PHARMACY NOTE XX ; Start 02/25/17 at 19:30 Nitroglycerin (Nitroglycerin (Sl Tab) 0.4 Mg) 1 tab Q5M PRN SL ANGINA; Start at 19:30 Acetaminophen (Tylenol Supp) 650 mg Q4H PRN NE TEMP > 37C; Start 02/25/17 at 19 :30 Acetaminophen (Tylenol Liquid) 650 mg Q4H PRN PO TEMP > 37C; Start 02/25/17 at 19:30 Acetaminophen (Tylenol Supp) 500 mg Q6H NE ; Start 02/26/17 at 19:30 Acetaminophen (Tylenol Liquid) 500 mg Q6H PO ; Start 02/26/17 at 19:30 Meperidine HCl (Demerol) 12.5 mg Q4H PRN IV POST OPERATIVE SHIVERING; Start at 19:30 Meperidine HCl (Demerol) 25 mg Q4H PRN IV POST OPERATIVE SHIVERING; Start 02/25 at 19:30 Eye Lubricant (Akwa Oint) 1 applic Q6 BOTH EYES Last administered on 02/26/17 06:08; Admin Dose 1 APPLIC; Start 02/26/17 at 00:00 Eye Lubricant (Artificial Tears Oph) 2 drop Q6 BOTH EYES Last administered on 06:08; Admin Dose 2 DROP; Start 02/26/17 at 00:00 Diagnostic Test (Pha) (Accu-Chek) 1 ea Q1H XX Last administered on 02/26/17 10: 56; Admin Dose 1 EA; Start 02/25/17 at 19:30 Dextrose (D50w Syringe) 25 ml Q15M PRN IV Till BS 80 mg/dL or above x2; Start 02/25/17 at 19:30 Dextrose (D50w Syringe) 50 ml Q15M PRN IV Till BS 80 mg/dL or above x2; Start 02/25/17 at 19:30 Heparin Sodium (Porcine) 5000 unit 5,000 unit BID SC Last administered on 10:16; Admin Dose 5,000 UNIT; Start 02/25/17 at 21:00 Vecuronium Trilla 100 mg/ Dextrose 100 ml @ 6.3 mls/hr [id number] ONCE IV Last administered on 02/25/17 01:20; Admin Dose 6.3 MLS/HR; Start 02/25/17 at 22:14 ; Stop 02/26/17 at 14:06 Propofol 100 ml @ 3.15 mls/hr TITRATE ONCE IV Last administered on 02/26/17 07:10; Admin Dose 3.15 MLS/HR; Start 02/26/17 at 07:30; Stop 02/27/17 at 15:14 Norepinephrine 32 mg/Dextrose 250 ml @ 0.46 mls/hr TITRATE IV Last administered on 02/26/17 10:44; Admin Dose 9.37 MLS/HR; Start 02/26/17 at 09:30 Dopamine HCl 1600 mg/Dextrose 250 ml @ 1.96 mls/hr TITRATE IV Last administered on 02/26/17 10:46; Admin Dose 19.68 MLS/HR; Start 02/26/17 at 09:30 Cefepime HCl 50 ml @ 100 mls/hr Q24H IVPB Last administered on 02/26/17 10:34 ; Admin Dose 100 MLS/HR; Start 02/26/17 at 10:00 Vancomycin HCl 1.25 gm/Sodium Chloride 250 ml @ 83.333 mls/ hr Q24H IVPB Last administered on 02/26/17 10:34; Admin Dose 83.333 MLS/HR; Start 02/26/17 at 11:00 Potassium Phosphate/Sodium Chloride (K Phos (Meq)/NS) 259.0909 ml @ 64.773 m... ONCE ONCE IVPB Last administered on 02/26/17 10:33; Admin Dose 64.773 MLS /HR; Start 02/26/17 at 10:00; Stop 02/26/17 at 13:59 KIARA SANCHEZ MD Feb 26, 2017 11:38
[2017-02-26 12:25] LABS: BASOPHILS % 0.4 % (0.0-2.0); EOSINOPHILS % 0.6 % (0.0-7.0); HEMATOCRIT 48.4 % (42.0-52.0); HEMOGLOBIN 16.4 g/dl (14.0-18.0); LYMPHOCYTES # 0.7 10^3/ul (0.8-2.9); LYMPHOCYTES % 10.6 % (15.0-51.0); MEAN CORPUSCULAR HEMOGLOBIN 29.9 pg (29.0-33.0); MEAN CORPUSCULAR HGB CONC 33.9 g/dl (32.0-37.0); MEAN CORPUSCULAR VOLUME 88.3 fl (82.0-101.0); MEAN PLATELET VOLUME 10.3 fl (7.4-10.4); MONOCYTE # 0.7 10^3/ul (0.3-0.9); MONOCYTES % 9.4 % (0.0-11.0); NEUTROPHIL # 5.4 10^3/ul (1.6-7.5); NEUTROPHILS % 78.4 % (39.0-77.0); PLATELET COUNT 271 10^3/UL (140-415); RED BLOOD COUNT 5.48 10^6/ul (4.70-6.10); RED CELL DISTRIBUTION WIDTH 12.5 % (11.5-14.5); WHITE BLOOD COUNT 6.9 10^3/ul (4.8-10.8)
--- NOTE | 2017-02-26 12:57 | RADRPT ---
Echocardiogram Report Patient Name: YOSHI SNIDER Gender: Male Date: 1955 Study Date: 26-Feb-2017 Jewel Bearing Maker: Sravani Estrella RDCS Location: [facility] Ref. Physician: YANET MTZ Quality: Adequate Procedures: Transthoracic echocardiogram with complete 2D, M-Mode, and doppler examination. Indications: Cardiac Arrest. 2D/M Mode Doppler Measurement Value Normal Ranges Measurement Value Normal Ranges LVIDd 2D 3.6 3.5 - 5.6 cm AV Peak Stephen 1.1 m/sec LVIDs 2D 2.5 2.1 - 4.1 cm AV Peak PG 4.8 mmHg LVPWd 2D 1.3 0.6 - 1.1 cm LVOT Peak Stephen 0.9 m/sec IVSd 2D 1.6 0.6 - 1.1 cm LVOT Peak PG 3.1 mmHg AoR Diam 2D 3.4 2.0 - 3.7 cm MV E Peak Stephen 0.5 m/sec EDV 2D 55.9 cm3 MV A Peak Stephen 0.7 m/sec ESV 2D 15.7 cm3 MV E/A 0.7 LA Dimen 2D 2.8 2.3 - 4.0 cm MV Decel Time 143 msec MV Decel [place] 3 MV E/A 0.7 TR Peak Stephen 3.0 m/sec TR Peak PG 35.1 mmHg RVSP 45.0 mmHg Findings Left Ventricle: Hyperdynamic left ventricular systolic function. Normal left ventricular cavity size. Moderate concentric left ventricular hypertrophy. Ejection fraction is visually estimated at 70 %. Tissue Doppler/Mitral Doppler indices are consistent with impaired relaxation (Stage I diastolic dysfunction). Right Ventricle: Normal right ventricular size. Normal right ventricular systolic function. Left Atrium: The left atrium is normal in size. Right Atrium: The right atrium is normal in size. Mitral Valve: Normal appearance and function of the mitral valve with trace physiologic regurgitation. Aortic Valve: No significant aortic stenosis or insufficiency. Aortic cusps appear mildly calcified. Tricuspid Valve: Normal appearance of the tricuspid valve. Estimated peak PA systolic pressure 45 mmHg. There is mild tricuspid regurgitation. Pulmonic Valve: Pulmonic valve not well visualized. Pericardium: Normal pericardium with no significant pericardial effusion. Aorta: Normal aortic root. IVC: Dilated IVC without respiratory collapse, however, patient on ventilator. Conclusions 1.Hyperdynamic left ventricular systolic function. Normal left ventricular cavity size. Moderate concentric left ventricular hypertrophy. Ejection fraction is visually estimated at 70 %. Tissue Doppler/Mitral Doppler indices are consistent with impaired relaxation (Stage I diastolic dysfunction). 2.The left atrium is normal in size. 3.Normal appearance and function of the mitral valve with trace physiologic regurgitation. 4.No significant aortic stenosis or insufficiency. Aortic cusps appear mildly calcified. 5.Normal appearance of the tricuspid valve. Estimated peak PA systolic pressure 45 mmHg. There is mild tricuspid regurgitation. 6.Dilated IVC without respiratory collapse, however, patient on ventilator. Electronically Signed By: Med Kaur 26-Feb-2017 12:56:47 -0700 Patient Name: YOSHI SNIDER Study Date: 26-Feb-[id number]
[2017-02-26 12:58] LABS: INR 1.24; PROTIME 15.7 Sec (12.2-14.2); PT RATIO 1.2
[2017-02-26 12:59] LABS: PARTIAL THROMBOPLASTIN TIME 45.1 Sec (25.0-35.0)
[2017-02-26 13:04] LABS: CREATININE 2.75 mg/dl (0.61-1.24); MAGNESIUM 2.1 mg/dl (1.7-2.5); POTASSIUM 3.9 mmol/L (3.5-5.1)
[2017-02-26 13:15] LABS: CK-MB 34.2 ng/ml (0.0-2.4); TROPONIN-I 0.321 ng/ml (0.00-0.12)
--- NOTE | 2017-02-26 13:21 | PN ---
Date/Time of Note Date/Time of Note DATE: 02/26/17 TIME: 13:16 Assessment/Plan VTE Prophylaxis VTE Prophylaxis Intervention: other Lines/Catheters Urinary Cath still in place: Yes Reason Cath still needed: other (indicate) Assessment/Plan Assessment/Plan 1. Cardiopulmonary arrest. 2. Respiratory failure. 3. Severe encephalopathy, anoxic brain injury. 4. Shock, currently on Levophed drip. 5. History of intravenous drug abuse. 6. History of drug abuse and bipolar disorder. 7. Severe metabolic acidosis. 8. mildly abnormal troponin due to above 9. LVH on echo RECOMMENDATION: complete hypothermia protocol pressors as needed EF is normal Prognosis appears to be very poor DVT prophylaxis as per IM ABX as per IM CONT ICU CARE D/W More than 40 minutes critical care time spent in management of this patient excluding procedures. Thank you. Ashley Kaur MD [facility] Subjective 24 Hr Interval Summary Free Text/Dictation d/w staff and pt is still on hypothermia protocol in ICU on multiple pressors. nonverbal. OBJECTIVE: GEN: intubated on vent. obese man HEENT: NCAT. pupils are dilated. NECK: no stridor CV RRR. systolic murmur. PULM: no wheezes anteriorly GI; SOFT, NT EXT + LE edema neuro: sedated. ECHO personally reviewed; 1. Hyperdynamic left ventricular systolic function. Normal left ventricular cavity size. Moderate concentric left ventricular hypertrophy. Ejection fraction is visually estimated at 70 %. Tissue Doppler/Mitral Doppler indices are consistent with impaired relaxation (Stage I diastolic dysfunction). 2. The left atrium is normal in size. 3. Normal appearance and function of the mitral valve with trace physiologic regurgitation. 4. No significant aortic stenosis or insufficiency. Aortic cusps appear mildly calcified. 5. Normal appearance of the tricuspid valve. Estimated peak PA systolic pressure 45 mmHg. There is mild tricuspid regurgitation. 6. Dilated IVC without respiratory collapse, however, patient on ventilator. Exam/Review of Systems Vital Signs Vitals Vital Signs Date Time Temp Pulse Resp B/P Pulse Ox O2 Delivery O2 Flow Rate FiO2 02/26/17 11:00 89.9 82 24 102/64 96 Mechanical Ventilator 02/26/17 07:30 50 02/25/17 16:00 15.0 Results Result Diagram: 02/26/17 1213 02/26/17 0531 Results 24 hrs Laboratory Tests Test 02/25/17 16:00 7/31/17 16:25 02/25/17 17:10 02/25/17 17:15 White Blood Count 11.4 H Red Blood Count 4.48 L Hemoglobin 13.5 L Hematocrit 45.0 Mean Corpuscular Volume 100.4 Mean Corpuscular Hemoglobin 30.1 Mean Corpuscular Hemoglobin Concent 30.0 L Red Cell Distribution Width 12.8 Platelet Count 245 Mean Platelet Volume 11.3 H Neutrophils % 38.7 L Lymphocytes % 40.2 Monocytes % 9.4 Eosinophils % 4.4 Basophils % 0.8 Nucleated Red Blood Cells % 0.4 H Neutrophils # 4.4 Lymphocytes # 4.6 H Monocytes # 1.1 H Eosinophils # 0.5 Basophils # 0.1 Nucleated Red Blood Cells # 0.1 H Prothrombin Time 18.5 H Prothrombin Time Ratio 1.4 INR International Normalized Ratio 1.53 Activated Partial Thromboplast Time 65.5 H Sodium Level 150 H Potassium Level 4.9 Chloride Level 100 Carbon Dioxide Level 14 L Anion Gap 41 H Blood Urea Nitrogen 12 Creatinine 1.34 H Glucose Level 284 H Lactic Acid Level 20.2 *H Calcium Level 9.8 Total Bilirubin 0.1 L Direct Bilirubin 0.00 Indirect Bilirubin 0.1 Aspartate Amino Transf (AST/SGOT) 108 H Alanine Aminotransferase (ALT/SGPT) 108 H Alkaline Phosphatase 76 Troponin I < 0.012 Total Protein 6.8 Albumin 4.0 Globulin 2.80 Albumin/Globulin Ratio 1.42 Ethyl Alcohol Level < 10.0 Blood Gas Specimen Source Blood arterial Blood arterial Arterial Blood Date Drawn 02/25/2017 4:20:40 PM 02/25/2017 6:00:59 PM Arterial Blood pH (Temp corrected) 6.742 *L 7.320 L Arterial Blood pCO2 (Temp correct) 75.8 H 37.4 Arterial Blood pO2 (Temp corrected) 65.9 L 121.8 H Arterial Blood HCO3 10.1 L 18.8 L Arterial Blood Base Excess -26.3 L -6.6 L Arterial Blood Oxygen Saturation 67.4 L 97.6 Cooper Test N/A N/A Arterial Blood Gas Puncture Site Right Brachial Right Brachial Arterial Blood Carboxyhemoglobin 0.3 0.3 Arterial Blood Methemoglobin 0.5 0.5 Blood Gas A-a O2 Differential 571.3 H 553.8 H Oxyhemoglobin Percent 66.9 L 96.8 Total Hemoglobin 13.4 14.9 Blood Gas Temperature 37.0 37.0 Blood Gas Respiration Rate 16.0 24.0 Blood Gas Actual Respiration Rate 16 24 Blood Gas Modality VENT - AC VENT - AC FiO2 100.0 100.0 Blood Gas Tidal Volume 600.0 600.0 Blood Gas Critical Value Read Back DR. CHAN Blood Gas Notified Whom Laurie Sullivan Blood Gas Notified Time 02/25/2017 4:30:25 PM 02/25/2017 6:11:38 PM Urine Color YELLOW Urine Clarity SLIGHTLY CLOUDY A Urine pH 5.0 Urine Specific [place] 1.021 Urine Ketones TRACE A Urine Nitrite NEGATIVE Urine Bilirubin NEGATIVE Urine Urobilinogen NEGATIVE Urine Leukocyte Esterase NEGATIVE Urine Microscopic RBC 3 Urine Microscopic WBC 2 Urine Mucus FEW A Urine Hemoglobin NEGATIVE Urine Glucose NEGATIVE Urine Total Protein 1+ H Urine Opiates Screen Positive Urine Barbiturates Negative Urine Amphetamines Screen Positive Urine Benzodiazepines Screen Negative Urine Cocaine Screen Positive Urine Cannabinoids Negative Blood Gas Low PEEP Setting 0 Test 02/25/17 18:10 02/25/17 19:09 02/25/17 20:11 02/25/17 21:27 Lactic Acid Level 9.7 *H 4.2 *H Blood Gas Specimen Source Blood arterial Blood arterial Arterial Blood Date Drawn 02/25/2017 10:40:35 PM 02/25/2017 8:40:04 PM Arterial Blood pH (Temp corrected) 7.404 7.317 L Arterial Blood pCO2 (Temp correct) 35.3 45.4 H Arterial Blood pO2 (Temp corrected) 87.1 59.1 L Arterial Blood HCO3 22.2 22.7 Arterial Blood Base Excess -2.8 -3.6 L Arterial Blood Oxygen Saturation 97.4 88.2 L Cooper Test ACCEPTAB ACCEPTAB Arterial Blood Gas Puncture Site Right Brachial Right Radial Arterial Blood Carboxyhemoglobin 0.3 0.3 Arterial Blood Methemoglobin 0.5 0.4 Blood Gas A-a O2 Differential 596.7 H 608.5 H Oxyhemoglobin Percent 96.6 87.6 L Total Hemoglobin 16.3 16.4 Blood Gas Temperature 34.5 37.0 Blood Gas Respiration Rate 24.0 24.0 Blood Gas Actual Respiration Rate 24 24 Blood Gas Modality VENT - AC VENT - AC FiO2 100.0 100.0 Blood Gas Tidal Volume 600.0 Blood Gas High PEEP Setting 8.0 Blood Gas Notified Whom T SARITHA T KASSAII Blood Gas Notified Time 02/25/2017 10:47:13 PM 02/25/2017 8:54:55 PM Prothrombin Time 15.8 H Prothrombin Time Ratio 1.2 INR International Normalized Ratio 1.25 Activated Partial Thromboplast Time 46.2 H Free Thyroxine 1.40 Test 02/26/17 00:49 02/26/17 03:23 02/26/17 05:31 02/26/17 06:44 Bedside Glucose 186 Lactic Acid Level 3.0 *H 3.9 *H Sodium Level 143 Potassium Level 3.5 Chloride Level 104 Carbon Dioxide Level 19 L Anion Gap 24 #H Blood Urea Nitrogen 25 #H Creatinine 2.45 #H Glucose Level 211 Hemoglobin A1c 5.6 Calcium Level 8.1 L Phosphorus Level 1.5 L Magnesium Level 2.4 Creatine Kinase 1325 H Creatine Kinase Index 2.4 Creatinine Kinase MB (Mass) 31.50 H Troponin I 0.416 *H Triglycerides Level 72 Cholesterol Level 173 LDL Cholesterol, Calculated 112 HDL Cholesterol 47 Cholesterol/HDL Ratio 3.6 Thyroid Stimulating Hormone (TSH) 1.260 White Blood Count 17.4 #H Red Blood Count 5.88 # Hemoglobin 17.4 # Hematocrit 52.1 H Mean Corpuscular Volume 88.6 Mean Corpuscular Hemoglobin 29.6 Mean Corpuscular Hemoglobin Concent 33.4 Red Cell Distribution Width 12.6 Platelet Count 310 # Mean Platelet Volume 10.1 Neutrophils % 81.6 H Lymphocytes % 5.8 L Monocytes % 11.1 H Eosinophils % 0.2 Basophils % 0.3 Nucleated Red Blood Cells % 0.0 Neutrophils # 14.2 H Lymphocytes # 1.0 Monocytes # 1.9 H Eosinophils # 0.0 Basophils # 0.1 Nucleated Red Blood Cells # 0.0 Test 02/26/17 07:09 02/26/17 08:51 02/26/17 10:38 02/26/17 12:13 Blood Gas Specimen Source Blood arterial Arterial Blood Date Drawn 02/26/2017 9:20:48 AM Arterial Blood pH (Temp corrected) 7.378 Arterial Blood pCO2 (Temp correct) 31.9 L Arterial Blood pO2 (Temp corrected) 73.1 L Arterial Blood HCO3 19.0 L Arterial Blood Base Excess -6.0 L Arterial Blood Oxygen Saturation 96.4 Cooper Test ACCEPTAB Arterial Blood Gas Puncture Site Right Radial Arterial Blood Carboxyhemoglobin 0.3 Arterial Blood Methemoglobin 0.5 Blood Gas A-a O2 Differential 251.3 H Oxyhemoglobin Percent 95.6 Total Hemoglobin 18.1 H Blood Gas Temperature 33.8 Blood Gas Respiration Rate 24.0 Blood Gas Actual Respiration Rate 24 Blood Gas Modality VENT - AC FiO2 50.0 Blood Gas Tidal Volume 600.0 Blood Gas High PEEP Setting 8.0 Blood Gas Notified Whom TM Blood Gas Notified Time 02/26/2017 9:29:29 AM Bedside Glucose 175 162 White Blood Count 6.9 # Red Blood Count 5.48 Hemoglobin 16.4 Hematocrit 48.4 Mean Corpuscular Volume 88.3 Mean Corpuscular Hemoglobin 29.9 Mean Corpuscular Hemoglobin Concent 33.9 Red Cell Distribution Width 12.5 Platelet Count 271 Mean Platelet Volume 10.3 Neutrophils % 78.4 H Lymphocytes % 10.6 L Monocytes % 9.4 Eosinophils % 0.6 Basophils % 0.4 Nucleated Red Blood Cells % 0.0 Neutrophils # 5.4 Lymphocytes # 0.7 L Monocytes # 0.7 Eosinophils # 0.0 Basophils # 0.0 Nucleated Red Blood Cells # 0.0 Prothrombin Time 15.7 H Prothrombin Time Ratio 1.2 INR International Normalized Ratio 1.24 Activated Partial Thromboplast Time 45.1 H Sodium Level 142 Potassium Level 3.9 Chloride Level 103 Carbon Dioxide Level 20 L Anion Gap 23 H Blood Urea Nitrogen 27 H Creatinine 2.75 H Glucose Level 168 Lactic Acid Level 4.0 *H Calcium Level 8.0 L Phosphorus Level 3.0 Magnesium Level 2.1 Creatine Kinase 1087 H Creatine Kinase Index 3.1 Creatinine Kinase MB (Mass) 34.20 H Troponin I 0.321 *H Amylase Level 142 H Lipase 56 Medications Medications Current Medications Epinephrine/ Dextrose (EPINEPHrine/D5W) 250 ml @ 0 mls/hr TITRATE IV ; Start at 16:30 Ondansetron HCl (Zofran Inj) 4 mg Q6H PRN IV NAUSEA AND/OR VOMITING; Start at 19:30 Acetaminophen (Tylenol Tab) 650 mg Q6H PRN PO PAIN LEVEL 1-3 OR FEVER; Start at 19:30 Acetaminophen/ Hydrocodone Bitart ([place] (5/325)) 1 tab Q6H PRN PO MODERATE PAIN LEVEL 4-6; Start 02/25/17 at 19:30 Morphine Sulfate (morphine) 2 mg Q4H PRN IV SEVERE PAIN LEVEL 7-10; Start 02/25 at 19:30 Docusate Sodium (Colace) 100 mg Q12H PRN PO CONSTIPATION; Start 02/25/17 at 19: 30 Magnesium Hydroxide (Milk Of Mag) 30 ml DAILY PRN PO CONSTIPATION; Start at 19:30 Sodium Biphosphate/ Sodium Phosphate (Fleet Enema) 133 ml DAILY PRN VT CONSTIPATION; Start 02/25/17 at 19:30 Famotidine 20 mg 20 mg Q12 IV Last administered on 02/26/17 10:13; Admin Dose 20 MG; Start 02/25/17 at 21:00 Sodium Chloride (1/2 NS) 1,000 ml @ 125 mls/hr Q8H IV Last administered on 02/26 07:11; Admin Dose 125 MLS/HR; Start 02/25/17 at 19:09 Lorazepam (Ativan) 0.5 mg Q6H PRN IV ANXIETY; Start 02/25/17 at 19:30 Vancomycin HCl (Vanco Iv Per Pharmacy) VANCOMYCIN PER PHARMACY NOTE XX ; Start 02/25/17 at 19:30 Nitroglycerin (Nitroglycerin (Sl Tab) 0.4 Mg) 1 tab Q5M PRN SL ANGINA; Start at 19:30 Acetaminophen (Tylenol Supp) 650 mg Q4H PRN VT TEMP > 37C; Start 02/25/17 at 19 :30 Acetaminophen (Tylenol Liquid) 650 mg Q4H PRN PO TEMP > 37C; Start 02/25/17 at 19:30 Acetaminophen (Tylenol Supp) 500 mg Q6H VT ; Start 02/26/17 at 19:30 Acetaminophen (Tylenol Liquid) 500 mg Q6H PO ; Start 02/26/17 at 19:30 Meperidine HCl (Demerol) 12.5 mg Q4H PRN IV POST OPERATIVE SHIVERING; Start at 19:30 Meperidine HCl (Demerol) 25 mg Q4H PRN IV POST OPERATIVE SHIVERING; Start 02/25 at 19:30 Eye Lubricant ([place] Oint) 1 applic Q6 BOTH EYES Last administered on 02/26/17 06:08; Admin Dose 1 APPLIC; Start 02/26/17 at 00:00 Eye Lubricant (Artificial Tears Oph) 2 drop Q6 BOTH EYES Last administered on 06:08; Admin Dose 2 DROP; Start 02/26/17 at 00:00 Diagnostic Test (Pha) (Accu-Chek) 1 ea Q1H XX Last administered on 02/26/17 10: 56; Admin Dose 1 EA; Start 02/25/17 at 19:30 Dextrose (D50w Syringe) 25 ml Q15M PRN IV Till BS 80 mg/dL or above x2; Start 02/25/17 at 19:30 Dextrose (D50w Syringe) 50 ml Q15M PRN IV Till BS 80 mg/dL or above x2; Start 02/25/17 at 19:30 Heparin Sodium (Porcine) 5000 unit 5,000 unit BID SC Last administered on 10:16; Admin Dose 5,000 UNIT; Start 02/25/17 at 21:00 Vecuronium [place] 100 mg/ Dextrose 100 ml @ 6.3 mls/hr [id number] ONCE IV Last administered on 02/25/17 01:20; Admin Dose 6.3 MLS/HR; Start 02/25/17 at 22:14 ; Stop 02/26/17 at 14:06 Propofol 100 ml @ 3.15 mls/hr TITRATE ONCE IV Last administered on 02/26/17 07:10; Admin Dose 3.15 MLS/HR; Start 02/26/17 at 07:30; Stop 02/27/17 at 15:14 Norepinephrine 32 mg/Dextrose 250 ml @ 0.46 mls/hr TITRATE IV Last administered on 02/26/17 10:44; Admin Dose 9.37 MLS/HR; Start 02/26/17 at 09:30 Dopamine HCl 1600 mg/Dextrose 250 ml @ 1.96 mls/hr TITRATE IV Last administered on 02/26/17 10:46; Admin Dose 19.68 MLS/HR; Start 02/26/17 at 09:30 Cefepime HCl 50 ml @ 100 mls/hr Q24H IVPB Last administered on 02/26/17 10:34 ; Admin Dose 100 MLS/HR; Start 02/26/17 at 10:00 Vancomycin HCl 1.25 gm/Sodium Chloride 250 ml @ 83.333 mls/ hr Q24H IVPB Last administered on 02/26/17 10:34; Admin Dose 83.333 MLS/HR; Start 02/26/17 at 11:00 Potassium Phosphate/Sodium Chloride (K Phos (Meq)/NS) 259.0909 ml @ 64.773 m... ONCE ONCE IVPB Last administered on 02/26/17 10:33; Admin Dose 64.773 MLS /HR; Start 02/26/17 at 10:00; Stop 02/26/17 at 13:59 ASHLEY KAUR MD Feb 26, 2017 13:21
--- NOTE | 2017-02-26 14:47 | CONS ---
Date/Time of Note Date/Time of Note DATE: 02/26/17 TIME: 14:45 Assessment/Plan Assessment/Plan Chief Complaint/Hosp Course A/P CARDIAC ARREST\ DEVORA VDRF HX BIPOLAR DISORDER PLAN PER ORDER IV FLUID Problems: Consultation Date/Type/Reason Admit Date/Time Feb 25, 2017 at 21:43 Initial Consult Date 02/26/17 Type of Consultation: renal Referring Provider: YANET MTZ 24 HR Interval Summary Subjective hx not possible: pt non-verbal Constitutional: no complaints, other (on vent) Exam/Review of Systems Vital Signs Vitals Vital Signs Date Time Temp Pulse Resp B/P Pulse Ox O2 Delivery O2 Flow Rate FiO2 02/26/17 12:00 84 02/26/17 11:00 89.9 24 102/64 96 Mechanical Ventilator 02/26/17 07:30 50 02/25/17 16:00 15.0 Exam Neck: supple Respiratory: clear to auscultation Cardiovascular: regular rate and rhythm Gastrointestinal: nl liver, spleen, non-tender, soft Musculoskeletal: nl extremities to inspection Extremities: normal pulses, other (on vent) Results Result Diagram: 02/26/17 1213 02/26/17 1213 Results 24 hrs Laboratory Tests Test 02/25/17 16:00 02/25/17 16:25 02/25/17 17:10 02/25/17 17:15 White Blood Count 11.4 H Red Blood Count 4.48 L Hemoglobin 13.5 L Hematocrit 45.0 Mean Corpuscular Volume 100.4 Mean Corpuscular Hemoglobin 30.1 Mean Corpuscular Hemoglobin Concent 30.0 L Red Cell Distribution Width 12.8 Platelet Count 245 Mean Platelet Volume 11.3 H Neutrophils % 38.7 L Lymphocytes % 40.2 Monocytes % 9.4 Eosinophils % 4.4 Basophils % 0.8 Nucleated Red Blood Cells % 0.4 H Neutrophils # 4.4 Lymphocytes # 4.6 H Monocytes # 1.1 H Eosinophils # 0.5 Basophils # 0.1 Nucleated Red Blood Cells # 0.1 H Prothrombin Time 18.5 H Prothrombin Time Ratio 1.4 INR International Normalized Ratio 1.53 Activated Partial Thromboplast Time 65.5 H Sodium Level 150 H Potassium Level 4.9 Chloride Level 100 Carbon Dioxide Level 14 L Anion Gap 41 H Blood Urea Nitrogen 12 Creatinine 1.34 H Glucose Level 284 H Lactic Acid Level 20.2 *H Calcium Level 9.8 Total Bilirubin 0.1 L Direct Bilirubin 0.00 Indirect Bilirubin 0.1 Aspartate Amino Transf (AST/SGOT) 108 H Alanine Aminotransferase (ALT/SGPT) 108 H Alkaline Phosphatase 76 Troponin I < 0.012 Total Protein 6.8 Albumin 4.0 Globulin 2.80 Albumin/Globulin Ratio 1.42 Ethyl Alcohol Level < 10.0 Blood Gas Specimen Source Blood arterial Blood arterial Arterial Blood Date Drawn 02/25/2017 4:20:40 PM 02/25/2017 6:00:59 PM Arterial Blood pH (Temp corrected) 6.742 *L 7.320 L Arterial Blood pCO2 (Temp correct) 75.8 H 37.4 Arterial Blood pO2 (Temp corrected) 65.9 L 121.8 H Arterial Blood HCO3 10.1 L 18.8 L Arterial Blood Base Excess -26.3 L -6.6 L Arterial Blood Oxygen Saturation 67.4 L 97.6 Cooper Test N/A N/A Arterial Blood Gas Puncture Site Right Brachial Right Brachial Arterial Blood Carboxyhemoglobin 0.3 0.3 Arterial Blood Methemoglobin 0.5 0.5 Blood Gas A-a O2 Differential 571.3 H 553.8 H Oxyhemoglobin Percent 66.9 L 96.8 Total Hemoglobin 13.4 14.9 Blood Gas Temperature 37.0 37.0 Blood Gas Respiration Rate 16.0 24.0 Blood Gas Actual Respiration Rate 16 24 Blood Gas Modality VENT - AC VENT - AC FiO2 100.0 100.0 Blood Gas Tidal Volume 600.0 600.0 Blood Gas Critical Value Read Back DR. CHAN Blood Gas Notified Whom Laurie Sullivan Blood Gas Notified Time 02/25/2017 4:30:25 PM 02/25/2017 6:11:38 PM Urine Color YELLOW Urine Clarity SLIGHTLY CLOUDY A Urine pH 5.0 Urine Specific [place] 1.021 Urine Ketones TRACE A Urine Nitrite NEGATIVE Urine Bilirubin NEGATIVE Urine Urobilinogen NEGATIVE Urine Leukocyte Esterase NEGATIVE Urine Microscopic RBC 3 Urine Microscopic WBC 2 Urine Mucus FEW A Urine Hemoglobin NEGATIVE Urine Glucose NEGATIVE Urine Total Protein 1+ H Urine Opiates Screen Positive Urine Barbiturates Negative Urine Amphetamines Screen Positive Urine Benzodiazepines Screen Negative Urine Cocaine Screen Positive Urine Cannabinoids Negative Blood Gas Low PEEP Setting 0 Test 02/25/17 18:10 02/25/17 19:09 02/25/17 20:11 02/25/17 21:27 Lactic Acid Level 9.7 *H 4.2 *H Blood Gas Specimen Source Blood arterial Blood arterial Arterial Blood Date Drawn 02/25/2017 10:40:35 PM 02/25/2017 8:40:04 PM Arterial Blood pH (Temp corrected) 7.404 7.317 L Arterial Blood pCO2 (Temp correct) 35.3 45.4 H Arterial Blood pO2 (Temp corrected) 87.1 59.1 L Arterial Blood HCO3 22.2 22.7 Arterial Blood Base Excess -2.8 -3.6 L Arterial Blood Oxygen Saturation 97.4 88.2 L Cooper Test ACCEPTAB ACCEPTAB Arterial Blood Gas Puncture Site Right Brachial Right Radial Arterial Blood Carboxyhemoglobin 0.3 0.3 Arterial Blood Methemoglobin 0.5 0.4 Blood Gas A-a O2 Differential 596.7 H 608.5 H Oxyhemoglobin Percent 96.6 87.6 L Total Hemoglobin 16.3 16.4 Blood Gas Temperature 34.5 37.0 Blood Gas Respiration Rate 24.0 24.0 Blood Gas Actual Respiration Rate 24 24 Blood Gas Modality VENT - AC VENT - AC FiO2 100.0 100.0 Blood Gas Tidal Volume 600.0 Blood Gas High PEEP Setting 8.0 Blood Gas Notified Whom T KASII T KASFELICITAS Blood Gas Notified Time 02/25/2017 10:47:13 PM 02/25/2017 8:54:55 PM Prothrombin Time 15.8 H Prothrombin Time Ratio 1.2 INR International Normalized Ratio 1.25 Activated Partial Thromboplast Time 46.2 H Free Thyroxine 1.40 Test 02/26/17 00:49 02/26/17 03:23 02/26/17 05:31 02/26/17 06:44 Bedside Glucose 186 Lactic Acid Level 3.0 *H 3.9 *H Sodium Level 143 Potassium Level 3.5 Chloride Level 104 Carbon Dioxide Level 19 L Anion Gap 24 #H Blood Urea Nitrogen 25 #H Creatinine 2.45 #H Glucose Level 211 Hemoglobin A1c 5.6 Calcium Level 8.1 L Phosphorus Level 1.5 L Magnesium Level 2.4 Creatine Kinase 1325 H Creatine Kinase Index 2.4 Creatinine Kinase MB (Mass) 31.50 H Troponin I 0.416 *H Triglycerides Level 72 Cholesterol Level 173 LDL Cholesterol, Calculated 112 HDL Cholesterol 47 Cholesterol/HDL Ratio 3.6 Thyroid Stimulating Hormone (TSH) 1.260 White Blood Count 17.4 #H Red Blood Count 5.88 # Hemoglobin 17.4 # Hematocrit 52.1 H Mean Corpuscular Volume 88.6 Mean Corpuscular Hemoglobin 29.6 Mean Corpuscular Hemoglobin Concent 33.4 Red Cell Distribution Width 12.6 Platelet Count 310 # Mean Platelet Volume 10.1 Neutrophils % 81.6 H Lymphocytes % 5.8 L Monocytes % 11.1 H Eosinophils % 0.2 Basophils % 0.3 Nucleated Red Blood Cells % 0.0 Neutrophils # 14.2 H Lymphocytes # 1.0 Monocytes # 1.9 H Eosinophils # 0.0 Basophils # 0.1 Nucleated Red Blood Cells # 0.0 Test 02/26/17 07:09 02/26/17 08:51 02/26/17 10:38 02/26/17 12:13 Blood Gas Specimen Source Blood arterial Arterial Blood Date Drawn 02/26/2017 9:20:48 AM Arterial Blood pH (Temp corrected) 7.378 Arterial Blood pCO2 (Temp correct) 31.9 L Arterial Blood pO2 (Temp corrected) 73.1 L Arterial Blood HCO3 19.0 L Arterial Blood Base Excess -6.0 L Arterial Blood Oxygen Saturation 96.4 Cooper Test ACCEPTAB Arterial Blood Gas Puncture Site Right Radial Arterial Blood Carboxyhemoglobin 0.3 Arterial Blood Methemoglobin 0.5 Blood Gas A-a O2 Differential 251.3 H Oxyhemoglobin Percent 95.6 Total Hemoglobin 18.1 H Blood Gas Temperature 33.8 Blood Gas Respiration Rate 24.0 Blood Gas Actual Respiration Rate 24 Blood Gas Modality VENT - AC FiO2 50.0 Blood Gas Tidal Volume 600.0 Blood Gas High PEEP Setting 8.0 Blood Gas Notified Whom TM Blood Gas Notified Time 02/26/2017 9:29:29 AM Bedside Glucose 175 162 White Blood Count 6.9 # Red Blood Count 5.48 Hemoglobin 16.4 Hematocrit 48.4 Mean Corpuscular Volume 88.3 Mean Corpuscular Hemoglobin 29.9 Mean Corpuscular Hemoglobin Concent 33.9 Red Cell Distribution Width 12.5 Platelet Count 271 Mean Platelet Volume 10.3 Neutrophils % 78.4 H Lymphocytes % 10.6 L Monocytes % 9.4 Eosinophils % 0.6 Basophils % 0.4 Nucleated Red Blood Cells % 0.0 Neutrophils # 5.4 Lymphocytes # 0.7 L Monocytes # 0.7 Eosinophils # 0.0 Basophils # 0.0 Nucleated Red Blood Cells # 0.0 Prothrombin Time 15.7 H Prothrombin Time Ratio 1.2 INR International Normalized Ratio 1.24 Activated Partial Thromboplast Time 45.1 H Sodium Level 142 Potassium Level 3.9 Chloride Level 103 Carbon Dioxide Level 20 L Anion Gap 23 H Blood Urea Nitrogen 27 H Creatinine 2.75 H Glucose Level 168 Lactic Acid Level 4.0 *H Calcium Level 8.0 L Phosphorus Level 3.0 Magnesium Level 2.1 Creatine Kinase 1087 H Creatine Kinase Index 3.1 Creatinine Kinase MB (Mass) 34.20 H Troponin I 0.321 *H Amylase Level 142 H Lipase 56 Medications Medications Current Medications Epinephrine/ Dextrose (EPINEPHrine/D5W) 250 ml @ 0 mls/hr TITRATE IV ; Start at 16:30 Ondansetron HCl (Zofran Inj) 4 mg Q6H PRN IV NAUSEA AND/OR VOMITING; Start at 19:30 Acetaminophen (Tylenol Tab) 650 mg Q6H PRN PO PAIN LEVEL 1-3 OR FEVER; Start at 19:30 Acetaminophen/ Hydrocodone Bitart ([place] (5/325)) 1 tab Q6H PRN PO MODERATE PAIN LEVEL 4-6; Start 02/25/17 at 19:30 Morphine Sulfate (morphine) 2 mg Q4H PRN IV SEVERE PAIN LEVEL 7-10; Start 02/25 at 19:30 Docusate Sodium (Colace) 100 mg Q12H PRN PO CONSTIPATION; Start 02/25/17 at 19: 30 Magnesium Hydroxide (Milk Of Mag) 30 ml DAILY PRN PO CONSTIPATION; Start at 19:30 Sodium Biphosphate/ Sodium Phosphate (Fleet Enema) 133 ml DAILY PRN [place] CONSTIPATION; Start 02/25/17 at 19:30 Famotidine 20 mg 20 mg Q12 IV Last administered on 02/26/17 10:13; Admin Dose 20 MG; Start 02/25/17 at 21:00 Sodium Chloride (1/2 NS) 1,000 ml @ 125 mls/hr Q8H IV Last administered on 02/26 07:11; Admin Dose 125 MLS/HR; Start 02/25/17 at 19:09 Lorazepam (Ativan) 0.5 mg Q6H PRN IV ANXIETY; Start 02/25/17 at 19:30 Vancomycin HCl (Vanco Iv Per Pharmacy) VANCOMYCIN PER PHARMACY NOTE XX ; Start 02/25/17 at 19:30 Nitroglycerin (Nitroglycerin (Sl Tab) 0.4 Mg) 1 tab Q5M PRN SL ANGINA; Start at 19:30 Acetaminophen (Tylenol Supp) 650 mg Q4H PRN [place] TEMP > 37C; Start 02/25/17 at 19 :30 Acetaminophen (Tylenol Liquid) 650 mg Q4H PRN PO TEMP > 37C; Start 02/25/17 at 19:30 Acetaminophen (Tylenol Supp) 500 mg Q6H [place] ; Start 02/26/17 at 19:30 Acetaminophen (Tylenol Liquid) 500 mg Q6H PO ; Start 02/26/17 at 19:30 Meperidine HCl (Demerol) 12.5 mg Q4H PRN IV POST OPERATIVE SHIVERING; Start at 19:30 Meperidine HCl (Demerol) 25 mg Q4H PRN IV POST OPERATIVE SHIVERING; Start 02/25 at 19:30 Eye Lubricant (Akwa Oint) 1 applic Q6 BOTH EYES Last administered on 02/26/17 06:08; Admin Dose 1 APPLIC; Start 02/26/17 at 00:00 Eye Lubricant (Artificial Tears Oph) 2 drop Q6 BOTH EYES Last administered on 06:08; Admin Dose 2 DROP; Start 02/26/17 at 00:00 Diagnostic Test (Pha) (Accu-Chek) 1 ea Q1H XX Last administered on 02/26/17 10: 56; Admin Dose 1 EA; Start 02/25/17 at 19:30 Dextrose (D50w Syringe) 25 ml Q15M PRN IV Till BS 80 mg/dL or above x2; Start 02/25/17 at 19:30 Dextrose (D50w Syringe) 50 ml Q15M PRN IV Till BS 80 mg/dL or above x2; Start 02/25/17 at 19:30 Heparin Sodium (Porcine) 5000 unit 5,000 unit BID SC Last administered on 10:16; Admin Dose 5,000 UNIT; Start 02/25/17 at 21:00 Propofol 100 ml @ 3.15 mls/hr TITRATE ONCE IV Last administered on 02/26/17 07:10; Admin Dose 3.15 MLS/HR; Start 02/26/17 at 07:30; Stop 02/27/17 at 15:14 Norepinephrine 32 mg/Dextrose 250 ml @ 0.46 mls/hr TITRATE IV Last administered on 02/26/17 10:44; Admin Dose 9.37 MLS/HR; Start 02/26/17 at 09:30 Dopamine HCl 1600 mg/Dextrose 250 ml @ 1.96 mls/hr TITRATE IV Last administered on 02/26/17 10:46; Admin Dose 19.68 MLS/HR; Start 02/26/17 at 09:30 Cefepime HCl 50 ml @ 100 mls/hr Q24H IVPB Last administered on 02/26/17 10:34 ; Admin Dose 100 MLS/HR; Start 02/26/17 at 10:00 Vancomycin HCl/ Sodium Chloride (Vancocin/NS) 250 ml @ 83.333 mls/ hr Q24H IVPB Last administered on 02/26/17 10:34; Admin Dose 83.333 MLS/HR; Start at 11:00 MORRIS ANDERSON MD Feb 26, 2017 14:47
[2017-02-26 15:23] LABS: AADO2 Arterial 227.4 mmHg (7.0-24.0); Allen Test ACCEPTAB; Arterial Base Excess -5.3 mmol/L (-3.0-3); Arterial COHb 0 % (0.0-3.0); Arterial Fraction of Oxyhgb 96.8 % (93.0-99.0); Arterial HCO3 18.7 mmol/L (22.0-26.0); Arterial MetHb 0.4 % (0.0-1.5); Arterial Total Hemglobin 17.5 g/dl (12.0-18.0); MODE VENT - AC
--- NOTE | 2017-02-26 16:41 | PN ---
Date/Time of Note Date/Time of Note DATE: 02/26/17 TIME: 16:37 Assessment/Plan VTE Prophylaxis VTE Prophylaxis Intervention: heparin Lines/Catheters Urinary Cath still in place: Yes Reason Cath still needed: urinary retention Assessment/Plan Chief Complaint/Hosp Course Assessment and plan: 61-year-old male acute drug toxicity, status post cardiac arrest, septic shock, lactic acidosis, intubated, on pressors. 1. Cardiac arrest-on hypothermia protocol. Appreciate cardiology consult. Patient apparently with poor neurologic exam with absent brain stem reflexes. -Follow-up echocardiogram, TSH A1c lipid panel. - Follow cardiology recommendations, continue to monitor vital signs very carefully. - Hypothermia protocol as well. - EEG will be ordered to be performed after hypothermia protocol. -Follow-up MRI of the brain as well, per neurology consult recommendations per 2. Respiratory failure: Secondary to #1. - Continue intubation, pulmonary consult, duo nebs as needed. Follow-up culture results. Given questional chest x-ray findings, start broad-spectrum antibiotics. Mechanical ventilation 3. Septic shock with lactic acidosis: Lactic acid is trending down now, no fevers. Still on pressor support. -Continue broad-spectrum antibiotic, continue pressor support, monitor vital signs very carefully. - Monitor BMP, continue aggressive IV fluid hydration, trend lactic acid levels. 4. IV drug abuse: Positive for cocaine, methamphetamines, opiates on admission. - Again monitor for signs of withdrawal. Again patient is intubated however. 5. Bipolar disorder: Continue monitor for now, again intubated 6. GI prophylaxis: H2 lora 7. Renal failure: Likely ATN, secondary to patient's arrest. Creatinine is increasing, appreciate renal consult -Monitor urine output, follow renal recommendations. Monitor creatinine levels. Problems: Subjective 24 Hr Interval Summary Free Text/Dictation Patient still intubated, on hypothermia protocol. Seen by neurology, renal, cardiology teams. Exam/Review of Systems Vital Signs Vitals Vital Signs Date Time Temp Pulse Resp B/P Pulse Ox O2 Delivery O2 Flow Rate FiO2 02/26/17 15:00 77 24 106/57 100 Mechanical Ventilator 02/26/17 14:00 92.0 02/26/17 07:30 50 02/25/17 16:00 15.0 Exam General: Lying in bed, intubated HEENT: Unable to fully assess Neck: Supple Respiratory: Distant breath sounds bilaterally Cardiovascular: S1-S2 heard GI: Soft, nontender, nondistended, normal bowel sounds Muscular skeletal: No lower extremity bilaterally Neurologic: Unable to fully assess because patient intubated Results Result Diagram: 02/26/17 1213 02/26/17 1213 Results 24 hrs Laboratory Tests Test 02/25/17 17:10 02/25/17 17:15 02/25/17 18:10 02/25/17 19:09 Urine Color YELLOW Urine Clarity SLIGHTLY CLOUDY A Urine pH 5.0 Urine Specific [place] 1.021 Urine Ketones TRACE A Urine Nitrite NEGATIVE Urine Bilirubin NEGATIVE Urine Urobilinogen NEGATIVE Urine Leukocyte Esterase NEGATIVE Urine Microscopic RBC 3 Urine Microscopic WBC 2 Urine Mucus FEW A Urine Hemoglobin NEGATIVE Urine Glucose NEGATIVE Urine Total Protein 1+ H Urine Opiates Screen Positive Urine Barbiturates Negative Urine Amphetamines Screen Positive Urine Benzodiazepines Screen Negative Urine Cocaine Screen Positive Urine Cannabinoids Negative Blood Gas Specimen Source Blood arterial Blood arterial Arterial Blood Date Drawn 02/25/2017 6:00:59 PM 02/25/2017 10:40:35 PM Arterial Blood pH (Temp corrected) 7.320 L 7.404 Arterial Blood pCO2 (Temp correct) 37.4 35.3 Arterial Blood pO2 (Temp corrected) 121.8 H 87.1 Arterial Blood HCO3 18.8 L 22.2 Arterial Blood Base Excess -6.6 L -2.8 Arterial Blood Oxygen Saturation 97.6 97.4 Cooper Test N/A ACCEPTAB Arterial Blood Gas Puncture Site Right Brachial Right Brachial Arterial Blood Carboxyhemoglobin 0.3 0.3 Arterial Blood Methemoglobin 0.5 0.5 Blood Gas A-a O2 Differential 553.8 H 596.7 H Oxyhemoglobin Percent 96.8 96.6 Total Hemoglobin 14.9 16.3 Blood Gas Temperature 37.0 34.5 Blood Gas Respiration Rate 24.0 24.0 Blood Gas Actual Respiration Rate 24 24 Blood Gas Modality VENT - AC VENT - AC FiO2 100.0 100.0 Blood Gas Tidal Volume 600.0 600.0 Blood Gas Low PEEP Setting 0 Blood Gas Notified Franklyn MELARA Blood Gas Notified Time 02/25/2017 6:11:38 PM 02/25/2017 10:47:13 PM Lactic Acid Level 9.7 *H Blood Gas High PEEP Setting 8.0 Test 02/25/17 20:11 02/25/17 21:27 02/26/17 00:49 02/26/17 03:23 Blood Gas Specimen Source Blood arterial Arterial Blood Date Drawn 02/25/2017 8:40:04 PM Arterial Blood pH (Temp corrected) 7.317 L Arterial Blood pCO2 (Temp correct) 45.4 H Arterial Blood pO2 (Temp corrected) 59.1 L Arterial Blood HCO3 22.7 Arterial Blood Base Excess -3.6 L Arterial Blood Oxygen Saturation 88.2 L Cooper Test ACCEPTAB Arterial Blood Gas Puncture Site Right Radial Arterial Blood Carboxyhemoglobin 0.3 Arterial Blood Methemoglobin 0.4 Blood Gas A-a O2 Differential 608.5 H Oxyhemoglobin Percent 87.6 L Total Hemoglobin 16.4 Blood Gas Temperature 37.0 Blood Gas Respiration Rate 24.0 Blood Gas Actual Respiration Rate 24 Blood Gas Modality VENT - AC FiO2 100.0 Blood Gas Notified Whom Toro MELARA Blood Gas Notified Time 02/25/2017 8:54:55 PM Prothrombin Time 15.8 H Prothrombin Time Ratio 1.2 INR International Normalized Ratio 1.25 Activated Partial Thromboplast Time 46.2 H Lactic Acid Level 4.2 *H 3.0 *H Free Thyroxine 1.40 Bedside Glucose 186 Test 02/26/17 05:31 02/26/17 06:44 02/26/17 07:09 02/26/17 08:51 Sodium Level 143 Potassium Level 3.5 Chloride Level 104 Carbon Dioxide Level 19 L Anion Gap 24 #H Blood Urea Nitrogen 25 #H Creatinine 2.45 #H Glucose Level 211 Hemoglobin A1c 5.6 Lactic Acid Level 3.9 *H Calcium Level 8.1 L Phosphorus Level 1.5 L Magnesium Level 2.4 Creatine Kinase 1325 H Creatine Kinase Index 2.4 Creatinine Kinase MB (Mass) 31.50 H Troponin I 0.416 *H Triglycerides Level 72 Cholesterol Level 173 LDL Cholesterol, Calculated 112 HDL Cholesterol 47 Cholesterol/HDL Ratio 3.6 Thyroid Stimulating Hormone (TSH) 1.260 White Blood Count 17.4 #H Red Blood Count 5.88 # Hemoglobin 17.4 # Hematocrit 52.1 H Mean Corpuscular Volume 88.6 Mean Corpuscular Hemoglobin 29.6 Mean Corpuscular Hemoglobin Concent 33.4 Red Cell Distribution Width 12.6 Platelet Count 310 # Mean Platelet Volume 10.1 Neutrophils % 81.6 H Lymphocytes % 5.8 L Monocytes % 11.1 H Eosinophils % 0.2 Basophils % 0.3 Nucleated Red Blood Cells % 0.0 Neutrophils # 14.2 H Lymphocytes # 1.0 Monocytes # 1.9 H Eosinophils # 0.0 Basophils # 0.1 Nucleated Red Blood Cells # 0.0 Blood Gas Specimen Source Blood arterial Arterial Blood Date Drawn 02/26/2017 9:20:48 AM Arterial Blood pH (Temp corrected) 7.378 Arterial Blood pCO2 (Temp correct) 31.9 L Arterial Blood pO2 (Temp corrected) 73.1 L Arterial Blood HCO3 19.0 L Arterial Blood Base Excess -6.0 L Arterial Blood Oxygen Saturation 96.4 Cooper Test ACCEPTAB Arterial Blood Gas Puncture Site Right Radial Arterial Blood Carboxyhemoglobin 0.3 Arterial Blood Methemoglobin 0.5 Blood Gas A-a O2 Differential 251.3 H Oxyhemoglobin Percent 95.6 Total Hemoglobin 18.1 H Blood Gas Temperature 33.8 Blood Gas Respiration Rate 24.0 Blood Gas Actual Respiration Rate 24 Blood Gas Modality VENT - AC FiO2 50.0 Blood Gas Tidal Volume 600.0 Blood Gas High PEEP Setting 8.0 Blood Gas Notified Whom TM Blood Gas Notified Time 02/26/2017 9:29:29 AM Bedside Glucose 175 Test 02/26/17 10:38 02/26/17 12:13 02/26/17 13:09 02/26/17 15:38 Bedside Glucose 162 113 White Blood Count 6.9 # Red Blood Count 5.48 Hemoglobin 16.4 Hematocrit 48.4 Mean Corpuscular Volume 88.3 Mean Corpuscular Hemoglobin 29.9 Mean Corpuscular Hemoglobin Concent 33.9 Red Cell Distribution Width 12.5 Platelet Count 271 Mean Platelet Volume 10.3 Neutrophils % 78.4 H Lymphocytes % 10.6 L Monocytes % 9.4 Eosinophils % 0.6 Basophils % 0.4 Nucleated Red Blood Cells % 0.0 Neutrophils # 5.4 Lymphocytes # 0.7 L Monocytes # 0.7 Eosinophils # 0.0 Basophils # 0.0 Nucleated Red Blood Cells # 0.0 Prothrombin Time 15.7 H Prothrombin Time Ratio 1.2 INR International Normalized Ratio 1.24 Activated Partial Thromboplast Time 45.1 H Sodium Level 142 Potassium Level 3.9 Chloride Level 103 Carbon Dioxide Level 20 L Anion Gap 23 H Blood Urea Nitrogen 27 H Creatinine 2.75 H Glucose Level 168 Lactic Acid Level 4.0 *H Calcium Level 8.0 L Phosphorus Level 3.0 Magnesium Level 2.1 Creatine Kinase 1087 H Creatine Kinase Index 3.1 Creatinine Kinase MB (Mass) 34.20 H Troponin I 0.321 *H Amylase Level 142 H Lipase 56 Blood Gas Specimen Source Blood arterial Arterial Blood Date Drawn 02/26/2017 3:00:31 PM Arterial Blood pH (Temp corrected) 7.373 Arterial Blood pCO2 (Temp correct) 32.9 L Arterial Blood pO2 (Temp corrected) 92.1 Arterial Blood HCO3 18.7 L Arterial Blood Base Excess -5.3 L Arterial Blood Oxygen Saturation 97.2 Cooper Test ACCEPTAB Arterial Blood Gas Puncture Site Right Radial Arterial Blood Carboxyhemoglobin 0 Arterial Blood Methemoglobin 0.4 Blood Gas A-a O2 Differential 227.4 H Oxyhemoglobin Percent 96.8 Total Hemoglobin 17.5 Blood Gas Temperature 37.0 Blood Gas Respiration Rate 24.0 Blood Gas Actual Respiration Rate 24 Blood Gas Modality VENT - AC FiO2 50.0 Blood Gas Tidal Volume 600.0 Blood Gas Low PEEP Setting 8.0 Blood Gas Notified Whom TAVARES REYES Blood Gas Notified Time 02/26/2017 3:22:56 PM Medications Medications Current Medications Epinephrine/ Dextrose (EPINEPHrine/D5W) 250 ml @ 0 mls/hr TITRATE IV ; Start at 16:30 Ondansetron HCl (Zofran Inj) 4 mg Q6H PRN IV NAUSEA AND/OR VOMITING; Start at 19:30 Acetaminophen (Tylenol Tab) 650 mg Q6H PRN PO PAIN LEVEL 1-3 OR FEVER; Start at 19:30 Acetaminophen/ Hydrocodone Bitart ([place] (5/325)) 1 tab Q6H PRN PO MODERATE PAIN LEVEL 4-6; Start 02/25/17 at 19:30 Morphine Sulfate (morphine) 2 mg Q4H PRN IV SEVERE PAIN LEVEL 7-10; Start 02/25 at 19:30 Docusate Sodium (Colace) 100 mg Q12H PRN PO CONSTIPATION; Start 02/25/17 at 19: 30 Magnesium Hydroxide (Milk Of Mag) 30 ml DAILY PRN PO CONSTIPATION; Start at 19:30 Sodium Biphosphate/ Sodium Phosphate (Fleet Enema) 133 ml DAILY PRN [place] CONSTIPATION; Start 02/25/17 at 19:30 Famotidine 20 mg 20 mg Q12 IV Last administered on 02/26/17 10:13; Admin Dose 20 MG; Start 02/25/17 at 21:00 Sodium Chloride (1/2 NS) 1,000 ml @ 125 mls/hr Q8H IV Last administered on 02/26 07:11; Admin Dose 125 MLS/HR; Start 02/25/17 at 19:09 Lorazepam (Ativan) 0.5 mg Q6H PRN IV ANXIETY; Start 02/25/17 at 19:30 Vancomycin HCl (Vanco Iv Per Pharmacy) VANCOMYCIN PER PHARMACY NOTE XX ; Start 02/25/17 at 19:30 Nitroglycerin (Nitroglycerin (Sl Tab) 0.4 Mg) 1 tab Q5M PRN [place] ANGINA; Start at 19:30 Acetaminophen (Tylenol Supp) 650 mg Q4H PRN [place] TEMP > 37C; Start 02/25/17 at 19 :30 Acetaminophen (Tylenol Liquid) 650 mg Q4H PRN PO TEMP > 37C; Start 02/25/17 at 19:30 Acetaminophen (Tylenol Supp) 500 mg Q6H [place] ; Start 02/26/17 at 19:30 Acetaminophen (Tylenol Liquid) 500 mg Q6H PO ; Start 02/26/17 at 19:30 Meperidine HCl (Demerol) 12.5 mg Q4H PRN IV POST OPERATIVE SHIVERING; Start at 19:30 Meperidine HCl (Demerol) 25 mg Q4H PRN IV POST OPERATIVE SHIVERING; Start 02/25 at 19:30 Eye Lubricant (Akwa Oint) 1 applic Q6 BOTH EYES Last administered on 02/26/17 12:00; Admin Dose 1 APPLIC; Start 02/26/17 at 00:00 Eye Lubricant (Artificial Tears Oph) 2 drop Q6 BOTH EYES Last administered on 12:00; Admin Dose 2 DROP; Start 02/26/17 at 00:00 Dextrose (D50w Syringe) 25 ml Q15M PRN IV Till BS 80 mg/dL or above x2; Start 02/25/17 at 19:30 Dextrose (D50w Syringe) 50 ml Q15M PRN IV Till BS 80 mg/dL or above x2; Start 02/25/17 at 19:30 Heparin Sodium (Porcine) 5000 unit 5,000 unit BID SC Last administered on 10:16; Admin Dose 5,000 UNIT; Start 02/25/17 at 21:00 Propofol 100 ml @ 3.15 mls/hr TITRATE ONCE IV Last administered on 02/26/17 07:10; Admin Dose 3.15 MLS/HR; Start 02/26/17 at 07:30; Stop 02/27/17 at 15:14 Norepinephrine 32 mg/Dextrose 250 ml @ 0.46 mls/hr TITRATE IV Last administered on 02/26/17 10:44; Admin Dose 9.37 MLS/HR; Start 02/26/17 at 09:30 Dopamine HCl 1600 mg/Dextrose 250 ml @ 1.96 mls/hr TITRATE IV Last administered on 02/26/17 10:46; Admin Dose 19.68 MLS/HR; Start 02/26/17 at 09:30 Cefepime HCl 50 ml @ 100 mls/hr Q24H IVPB Last administered on 02/26/17 10:34 ; Admin Dose 100 MLS/HR; Start 02/26/17 at 10:00 Vancomycin HCl/ Sodium Chloride (Vancocin/NS) 250 ml @ 83.333 mls/ hr Q24H IVPB Last administered on 02/26/17 10:34; Admin Dose 83.333 MLS/HR; Start at 11:00 Diagnostic Test (Pha) (Accu-Chek) 1 ea Q2H XX ; Start 02/26/17 at 18:00 YANET MTZ Feb 26, 2017 16:41
[2017-02-26 17:41] LABS: BASOPHILS % 0.6 % (0.0-2.0); EOSINOPHILS # 0.2 10^3/ul (0.0-0.5); EOSINOPHILS % 3.2 % (0.0-7.0); HEMATOCRIT 47.6 % (42.0-52.0); HEMOGLOBIN 16.3 g/dl (14.0-18.0); LYMPHOCYTES # 0.9 10^3/ul (0.8-2.9); LYMPHOCYTES % 17.3 % (15.0-51.0); MEAN CORPUSCULAR HGB CONC 34.2 g/dl (32.0-37.0); MEAN CORPUSCULAR VOLUME 87.5 fl (82.0-101.0); MEAN PLATELET VOLUME 10.5 fl (7.4-10.4); MONOCYTE # 0.7 10^3/ul (0.3-0.9); MONOCYTES % 12.4 % (0.0-11.0); NEUTROPHIL # 3.5 10^3/ul (1.6-7.5); NEUTROPHILS % 65.9 % (39.0-77.0); PLATELET COUNT 259 10^3/UL (140-415); RED BLOOD COUNT 5.44 10^6/ul (4.70-6.10); RED CELL DISTRIBUTION WIDTH 12.9 % (11.5-14.5); WHITE BLOOD COUNT 5.3 10^3/ul (4.8-10.8)
[2017-02-26] MEDS ORDERED: ACCU-CHEK XX SCH (18:00)
[2017-02-26 18:05] LABS: INR 1.2; PROTIME 15.3 Sec (12.2-14.2); PT RATIO 1.2
[2017-02-26 18:06] LABS: PARTIAL THROMBOPLASTIN TIME 45.4 Sec (25.0-35.0)
[2017-02-26 18:08] LABS: CALCIUM 7.8 mg/dl (8.4-10.2); CREATININE 3.02 mg/dl (0.61-1.24); PHOSPHORUS 3.8 mg/dl (2.5-4.9); POTASSIUM 3.9 mmol/L (3.5-5.1)
[2017-02-26 18:24] LABS: TROPONIN-I 0.266 ng/ml (0.00-0.12)
[2017-02-26] MEDS: ACETAMINOPHEN 650 MG SUPP PR SCH (19:30)
[2017-02-26] MEDS: ACETAMINOPHEN 650MG/20.3ML CUP PO SCH (20:50)
[2017-02-26] MEDS: PROPOFOL 100 ML IV SCH (22:57)
[2017-02-26] MEDS ORDERED: SOD CHLORIDE 0.9% 500 ML IV ONE (23:00)
[2017-02-26] MEDS ORDERED: VECURONIUM 100 MG in DEXTROSE 5% 100 ML IV SCH (23:00)
[2017-02-26] MEDS: EPINEPHrine 4 MG in DEXTROSE 5% 246 ML IV SCH (23:06)
[2017-02-27] VITALS (101 sets, daily range): BP systolic 58–131; BP diastolic 36–67; PULSE 80–92; RESP 24
[2017-02-27] MEDS: DOPamine 1,600 MG in DEXTROSE 5% 210 ML IV SCH ×2 (01:00→23:25)
[2017-02-27 01:10] LABS: BASOPHILS % 0.7 % (0.0-2.0); EOSINOPHILS # 0.3 10^3/ul (0.0-0.5); EOSINOPHILS % 5.6 % (0.0-7.0); HEMATOCRIT 45.2 % (42.0-52.0); HEMOGLOBIN 15.6 g/dl (14.0-18.0); LYMPHOCYTES % 17.1 % (15.0-51.0); MEAN CORPUSCULAR HGB CONC 34.5 g/dl (32.0-37.0); MEAN CORPUSCULAR VOLUME 86.9 fl (82.0-101.0); MEAN PLATELET VOLUME 10.6 fl (7.4-10.4); MONOCYTE # 0.5 10^3/ul (0.3-0.9); MONOCYTES % 8.6 % (0.0-11.0); NEUTROPHIL # 4.1 10^3/ul (1.6-7.5); NEUTROPHILS % 67.3 % (39.0-77.0); PLATELET COUNT 255 10^3/UL (140-415); RED CELL DISTRIBUTION WIDTH 12.9 % (11.5-14.5)
[2017-02-27] MEDS: SOD CHLORIDE 0.45% 1,000 ML IV SCH ×3 (01:22→20:47)
[2017-02-27] MEDS: ACETAMINOPHEN 650MG/20.3ML CUP PO SCH ×4 (01:22→20:45)
[2017-02-27] MEDS: ACCU-CHEK XX SCH ×6 (01:24→22:00)
[2017-02-27] MEDS: ACETAMINOPHEN 650 MG SUPP PR SCH ×4 (01:24→19:30)
[2017-02-27 01:25] LABS: INR 1.29; PROTIME 16.2 Sec (12.2-14.2); PT RATIO 1.3
[2017-02-27 01:26] LABS: PARTIAL THROMBOPLASTIN TIME 42.8 Sec (25.0-35.0)
[2017-02-27] MEDS ORDERED: SOD CHLORIDE 0.9% 1,000 ML IV ONE (01:30)
[2017-02-27 01:34] LABS: CALCIUM 7.6 mg/dl (8.4-10.2); CREATININE 3.34 mg/dl (0.61-1.24); MAGNESIUM 1.9 mg/dl (1.7-2.5); PHOSPHORUS 4.9 mg/dl (2.5-4.9); POTASSIUM 3.8 mmol/L (3.5-5.1)
[2017-02-27 01:52] LABS: CK-MB 27.5 ng/ml (0.0-2.4); TROPONIN-I 0.249 ng/ml (0.00-0.12)
[2017-02-27 05:32] LABS: BASOPHILS % 0.4 % (0.0-2.0); EOSINOPHILS # 0.3 10^3/ul (0.0-0.5); EOSINOPHILS % 5.3 % (0.0-7.0); HEMATOCRIT 44.6 % (42.0-52.0); HEMOGLOBIN 14.9 g/dl (14.0-18.0); LYMPHOCYTES # 0.7 10^3/ul (0.8-2.9); LYMPHOCYTES % 13.6 % (15.0-51.0); MEAN CORPUSCULAR HEMOGLOBIN 29.4 pg (29.0-33.0); MEAN CORPUSCULAR HGB CONC 33.4 g/dl (32.0-37.0); MEAN CORPUSCULAR VOLUME 88.1 fl (82.0-101.0); MONOCYTE # 0.3 10^3/ul (0.3-0.9); MONOCYTES % 5.9 % (0.0-11.0); NEUTROPHIL # 3.8 10^3/ul (1.6-7.5); PLATELET COUNT 239 10^3/UL (140-415); POSITIVE DIFF @See below; RED BLOOD COUNT 5.06 10^6/ul (4.70-6.10); RED CELL DISTRIBUTION WIDTH 13.2 % (11.5-14.5); WHITE BLOOD COUNT 5.1 10^3/ul (4.8-10.8)
[2017-02-27 05:45] LABS: INR 1.38; PT RATIO 1.3
[2017-02-27 05:46] LABS: PARTIAL THROMBOPLASTIN TIME 44.2 Sec (25.0-35.0)
[2017-02-27] MEDS: ARTIFICIAL TEARS 15 ML OPH BOTH EYES SCH ×4 (05:59→17:21)
[2017-02-27] MEDS: OCULAR LUBRICANT 3.5 GM OPH OINT BOTH EYES SCH ×4 (05:59→17:21)
[2017-02-27 06:05] LABS: ALBUMIN 2.7 g/dl (3.3-4.9); ALBUMIN/GLOBULIN RATIO 1.03; BILIRUBIN,INDIRECT 0.1 mg/dl (0-1.1); BILIRUBIN,TOTAL 0.1 mg/dl (0.2-1.3); CALCIUM 7.4 mg/dl (8.4-10.2); CREATININE 3.51 mg/dl (0.61-1.24); POTASSIUM 4.1 mmol/L (3.5-5.1); TOTAL PROTEIN 5.3 g/dl (6.1-8.1)
[2017-02-27] MEDS ORDERED: ALBUMIN HUMAN 25% 100 ML ONE (06:50)
[2017-02-27] MEDS ORDERED: ALBUMIN HUMAN 25% 100 ML IV ONE (07:00)
[2017-02-27] MEDS: VASOPRESSIN 60 UNIT in DEXTROSE 5% 57 ML IV SCH ×2 (07:00→18:58)
[2017-02-27 07:02] LABS: MAGNESIUM 1.8 mg/dl (1.7-2.5); PHOSPHORUS 5.6 mg/dl (2.5-4.9)
[2017-02-27] MEDS: EPINEPHrine 4 MG in DEXTROSE 5% 246 ML IV SCH (07:13)
[2017-02-27 07:15] LABS: CK-MB 25.1 ng/ml (0.0-2.4); TROPONIN-I 0.228 ng/ml (0.00-0.12)
--- NOTE | 2017-02-27 07:48 | CONS ---
DATE OF ADMISSION: 02/25/2017 DATE OF CONSULTATION: 02/26/[address] Raza Hauser for kindly asking me to see this patient in nephrology consultation. HISTORY OF PRESENT ILLNESS: The patient is a 61-year-old male who presented with cardiac arrest. The patient has a history of psychiatric disorder. No history of CKD per family who is at bedside. The patient also has a history of IV drug abuse. The patient presented with cardiac arrest. The patient has a history of use of , cocaine, Viagra. The patient had lactic acidosis of 20. He received bicarb and started on levophed and dobutamine drip. The patient is currently on hypokalemia protocol. In view of patient's abnormal electrolytes, a nephrology consultation was requested. PAST MEDICAL HISTORY: Bipolar disorder. ALLERGIES: CANNOT BE OBTAINED. SOCIAL HISTORY: Cannot be obtained. FAMILY HISTORY: Cannot be obtained. MEDICATION: Patient is on: 1. [place]. 2. DuoNeb. 3. Patient is on Colace. 4. Patient is on Pepcid. 5. Ativan. 6. Milk of magnesia. 7. Demerol. 8. Nitro. 9. Zofran. 10. Patient is on vancomycin. REVIEW OF SYSTEMS: Cannot be obtained. PHYSICAL EXAMINATION: GENERAL: The patient is intubated and sedated. VITAL SIGNS: Pulse 75, blood pressure 111/93. HEENT: Head is atraumatic, normocephalic. Pupils are round, reactive minimally. NECK: Supple. LUNGS: Clear. CVS: S1, S2 normal. ABDOMEN: Soft, obese. Bowel sounds +. EXTREMITIES: No cyanosis, clubbing, or edema. LEAD DATA ARCHITECT: Patient is intubated and sedated. LABORATORY: WBC 11.4, hematocrit 45, platelet count of 245, hematocrit 48.4. Patient has normal LFTs. Lactic acid 20. Sodium 150, potassium . BUN 12, creatinine 1.34. Repeat one shows a sodium of 142, potassium 3.0, BUN 47, creatinine 2.75. Patient has calcium of 8.1, phosphorus of 1.5. Troponin 0.4, . Repeat magnesium 2.1, phosphorus 2.0. IMPRESSION: 1. Cardiorespiratory arrest. 2. Acute kidney injury. 3. Acute tubular necrosis. 4. The patient has metabolic acidosis, lactic acidosis, hypomagnesemia, hypophosphatemia, drug abuse, history of bipolar disorder. PLAN: Continue sodium and creatinine. Continue IV fluids. Hemodynamic support. The patient will have ultrasound of the kidney once stable. Other recommendations per neurologist and content architect on the case. CT of the brain shows diffuse severe cerebellar edema with loss of herrmann-white matter differentiation throughout the bilateral cerebellar hemisphere. Hyperdense intracranial vessels consistent with pseudocellular hemorrhage sign. Dictated By: Glen Rojas MD /gil/sukhi /Document#: [id number] CARLOS
--- NOTE | 2017-02-27 07:53 | PN ---
Date/Time of Note Date/Time of Note DATE: 02/27/17 TIME: 07:49 Assessment/Plan VTE Prophylaxis VTE Prophylaxis Intervention: other Lines/Catheters IV [facility] Type [facility] Peripheral IV Urinary Cath still in place: Yes Reason Cath still needed: other (indicate) Assessment/Plan Assessment/Plan Assessment/Plan 1. Cardiopulmonary arrest. 2. Respiratory failure. 3. Severe encephalopathy, anoxic brain injury. 4. Shock, currently on multiple pressors/ drip. 5. History of intravenous drug abuse. 6. History of drug abuse and bipolar disorder. 7. Severe metabolic acidosis. 8. mildly abnormal troponin due to above 9. LVH on echo 10. Acute renal failure RECOMMENDATION: complete hypothermia protocol cont pressors and IV fluid. EF is normal Prognosis appears to be very poor DVT prophylaxis as per IM ABX as per IM CONT ICU CARE neuro work up including EEG once completely off of pressors. consider CT head again if stable to go to CT. More than 35 minutes critical care time spent in management of this patient excluding procedures. Thank you. Subjective 24 Hr Interval Summary Free Text/Dictation d/w staff and pt is still on hypothermia protocol in ICU on multiple pressors now but remains hypotensive. nonverbal. OBJECTIVE: GEN: intubated on vent. obese man HEENT: NCAT. pupils are dilated. NECK: no stridor CV RRR. systolic murmur. PULM: no wheezes anteriorly GI; SOFT, NT EXT + LE edema neuro: sedated. ECHO personally reviewed; 1. Hyperdynamic left ventricular systolic function. Normal left ventricular cavity size. Moderate concentric left ventricular hypertrophy. Ejection fraction is visually estimated at 70 %. Tissue Doppler/Mitral Doppler indices are consistent with impaired relaxation (Stage I diastolic dysfunction). 2. The left atrium is normal in size. 3. Normal appearance and function of the mitral valve with trace physiologic regurgitation. 4. No significant aortic stenosis or insufficiency. Aortic cusps appear mildly calcified. 5. Normal appearance of the tricuspid valve. Estimated peak PA systolic pressure 45 mmHg. There is mild tricuspid regurgitation. 6. Dilated IVC without respiratory collapse, however, patient on ventilator. Exam/Review of Systems Vital Signs Vitals Vital Signs Date Time Temp Pulse Resp B/P Pulse Ox O2 Delivery O2 Flow Rate FiO2 02/27/17 06:30 87 109/60 96 02/27/17 06:17 60 02/27/17 06:00 95.9 24 02/27/17 01:00 Mechanical Ventilator 02/25/17 16:00 15.0 Intake and Output 02/26/17 02/26/17 02/27/17 15:00 23:00 07:00 Intake Total 1239.50 ml 831.80 ml 2894.2 ml Output Total 500 ml 30 ml 20 ml Balance 739.50 ml 801.80 ml 2874.2 ml Results Result Diagram: 02/27/17 0430 02/27/17 0430 Results 24 hrs Laboratory Tests Test 02/26/17 08:51 02/26/17 10:38 02/26/17 12:13 02/26/17 13:09 Bedside Glucose 175 162 White Blood Count 6.9 # Red Blood Count 5.48 Hemoglobin 16.4 Hematocrit 48.4 Mean Corpuscular Volume 88.3 Mean Corpuscular Hemoglobin 29.9 Mean Corpuscular Hemoglobin Concent 33.9 Red Cell Distribution Width 12.5 Platelet Count 271 Mean Platelet Volume 10.3 Neutrophils % 78.4 H Lymphocytes % 10.6 L Monocytes % 9.4 Eosinophils % 0.6 Basophils % 0.4 Nucleated Red Blood Cells % 0.0 Neutrophils # 5.4 Lymphocytes # 0.7 L Monocytes # 0.7 Eosinophils # 0.0 Basophils # 0.0 Nucleated Red Blood Cells # 0.0 Prothrombin Time 15.7 H Prothrombin Time Ratio 1.2 INR International Normalized Ratio 1.24 Activated Partial Thromboplast Time 45.1 H Sodium Level 142 Potassium Level 3.9 Chloride Level 103 Carbon Dioxide Level 20 L Anion Gap 23 H Blood Urea Nitrogen 27 H Creatinine 2.75 H Glucose Level 168 Lactic Acid Level 4.0 *H Calcium Level 8.0 L Phosphorus Level 3.0 Magnesium Level 2.1 Creatine Kinase 1087 H Creatine Kinase Index 3.1 Creatinine Kinase MB (Mass) 34.20 H Troponin I 0.321 *H Amylase Level 142 H Lipase 56 Blood Gas Specimen Source Blood arterial Arterial Blood Date Drawn 02/26/2017 3:00:31 PM Arterial Blood pH (Temp corrected) 7.373 Arterial Blood pCO2 (Temp correct) 32.9 L Arterial Blood pO2 (Temp corrected) 92.1 Arterial Blood HCO3 18.7 L Arterial Blood Base Excess -5.3 L Arterial Blood Oxygen Saturation 97.2 Cooper Test ACCEPTAB Arterial Blood Gas Puncture Site Right Radial Arterial Blood Carboxyhemoglobin 0 Arterial Blood Methemoglobin 0.4 Blood Gas A-a O2 Differential 227.4 H Oxyhemoglobin Percent 96.8 Total Hemoglobin 17.5 Blood Gas Temperature 37.0 Blood Gas Respiration Rate 24.0 Blood Gas Actual Respiration Rate 24 Blood Gas Modality VENT - AC FiO2 50.0 Blood Gas Tidal Volume 600.0 Blood Gas Low PEEP Setting 8.0 Blood Gas Notified Whom TAVARES REYES Blood Gas Notified Time 02/26/2017 3:22:56 PM Test 02/26/17 15:38 02/26/17 17:30 02/26/17 17:40 02/26/17 21:56 Bedside Glucose 113 92 116 White Blood Count 5.3 # Red Blood Count 5.44 Hemoglobin 16.3 Hematocrit 47.6 Mean Corpuscular Volume 87.5 Mean Corpuscular Hemoglobin 30.0 Mean Corpuscular Hemoglobin Concent 34.2 Red Cell Distribution Width 12.9 Platelet Count 259 Mean Platelet Volume 10.5 H Neutrophils % 65.9 Lymphocytes % 17.3 Monocytes % 12.4 H Eosinophils % 3.2 Basophils % 0.6 Nucleated Red Blood Cells % 0.0 Neutrophils # 3.5 Lymphocytes # 0.9 Monocytes # 0.7 Eosinophils # 0.2 Basophils # 0.0 Nucleated Red Blood Cells # 0.0 Prothrombin Time 15.3 H Prothrombin Time Ratio 1.2 INR International Normalized Ratio 1.20 Activated Partial Thromboplast Time 45.4 H Sodium Level 140 Potassium Level 3.9 Chloride Level 103 Carbon Dioxide Level 20 L Anion Gap 21 H Blood Urea Nitrogen 30 H Creatinine 3.02 H Glucose Level 114 # Lactic Acid Level 2.7 *H Calcium Level 7.8 L Phosphorus Level 3.8 Magnesium Level 2.0 Creatine Kinase 944 H Creatine Kinase Index 3.4 Creatinine Kinase MB (Mass) 32.00 H Troponin I 0.266 *H Amylase Level 158 H Lipase 48 Test 02/27/17 00:50 02/27/17 01:29 02/27/17 04:30 02/27/17 06:06 White Blood Count 6.0 5.1 Red Blood Count 5.20 5.06 Hemoglobin 15.6 14.9 Hematocrit 45.2 44.6 Mean Corpuscular Volume 86.9 88.1 Mean Corpuscular Hemoglobin 30.0 29.4 Mean Corpuscular Hemoglobin Concent 34.5 33.4 Red Cell Distribution Width 12.9 13.2 Platelet Count 255 239 Mean Platelet Volume 10.6 H 11.0 H Neutrophils % 67.3 74.0 Lymphocytes % 17.1 13.6 L Monocytes % 8.6 5.9 Eosinophils % 5.6 5.3 Basophils % 0.7 0.4 Nucleated Red Blood Cells % 0.0 0.0 Neutrophils # 4.1 3.8 Lymphocytes # 1.0 0.7 L Monocytes # 0.5 0.3 Eosinophils # 0.3 0.3 Basophils # 0.0 0.0 Nucleated Red Blood Cells # 0.0 0.0 Prothrombin Time 16.2 H 17.0 H Prothrombin Time Ratio 1.3 1.3 INR International Normalized Ratio 1.29 1.38 Activated Partial Thromboplast Time 42.8 H 44.2 H Sodium Level 139 138 Potassium Level 3.8 4.1 Chloride Level 101 101 Carbon Dioxide Level 20 L 18 L Anion Gap 22 H 23 H Blood Urea Nitrogen 33 H 34 H Creatinine 3.34 H 3.51 H Glucose Level 146 192 Calcium Level 7.6 L 7.4 L Phosphorus Level 4.9 5.6 H Magnesium Level 1.9 1.8 Creatine Kinase 749 H 635 H Creatine Kinase Index 3.7 4.0 Creatinine Kinase MB (Mass) 27.50 H 25.10 H Troponin I 0.249 *H 0.228 *H Amylase Level 158 H 148 H Lipase 60 71 Bedside Glucose 117 132 Total Bilirubin 0.1 L Direct Bilirubin 0.00 Indirect Bilirubin 0.1 Aspartate Amino Transf (AST/SGOT) 123 H Alanine Aminotransferase (ALT/SGPT) 126 H Alkaline Phosphatase 58 Total Protein 5.3 #L Albumin 2.7 #L Globulin 2.60 Albumin/Globulin Ratio 1.03 Medications Medications Current Medications Epinephrine/ Dextrose (EPINEPHrine/D5W) 250 ml @ 0 mls/hr TITRATE IV Last administered on 02/27/17t 07:13; Admin Dose 37.5 MLS/HR; Start 02/25/17 at 16:30 Ondansetron HCl (Zofran Inj) 4 mg Q6H PRN IV NAUSEA AND/OR VOMITING; Start at 19:30 Acetaminophen (Tylenol Tab) 650 mg Q6H PRN PO PAIN LEVEL 1-3 OR FEVER; Start at 19:30 Acetaminophen/ Hydrocodone Bitart ([place] (5/325)) 1 tab Q6H PRN PO MODERATE PAIN LEVEL 4-6; Start 02/25/17 at 19:30 Morphine Sulfate (morphine) 2 mg Q4H PRN IV SEVERE PAIN LEVEL 7-10; Start 02/25 at 19:30 Docusate Sodium (Colace) 100 mg Q12H PRN PO CONSTIPATION; Start 02/25/17 at 19: 30 Magnesium Hydroxide (Milk Of Mag) 30 ml DAILY PRN PO CONSTIPATION; Start at 19:30 Sodium Biphosphate/ Sodium Phosphate (Fleet Enema) 133 ml DAILY PRN [place] CONSTIPATION; Start 02/25/17 at 19:30 Famotidine 20 mg 20 mg Q12 IV Last administered on 02/26/17 20:50; Admin Dose 20 MG; Start 02/25/17 at 21:00 Sodium Chloride (1/2 NS) 1,000 ml @ 125 mls/hr Q8H IV Last administered on 02/27 01:22; Admin Dose 125 MLS/HR; Start 02/25/17 at 19:09 Lorazepam (Ativan) 0.5 mg Q6H PRN IV ANXIETY; Start 02/25/17 at 19:30 Vancomycin HCl (Vanco Iv Per Pharmacy) VANCOMYCIN PER PHARMACY NOTE XX ; Start 02/25/17 at 19:30 Nitroglycerin (Nitroglycerin (Sl Tab) 0.4 Mg) 1 tab Q5M PRN SL ANGINA; Start at 19:30 Acetaminophen (Tylenol Supp) 650 mg Q4H PRN [place] TEMP > 37C; Start 02/25/17 at 19 :30 Acetaminophen (Tylenol Liquid) 650 mg Q4H PRN PO TEMP > 37C; Start 02/25/17 at 19:30 Acetaminophen (Tylenol Supp) 500 mg Q6H [place] ; Start 02/26/17 at 19:30 Acetaminophen (Tylenol Liquid) 500 mg Q6H PO Last administered on 02/27/17 01: 22; Admin Dose 500 MG; Start 02/26/17 at 19:30 Meperidine HCl (Demerol) 12.5 mg Q4H PRN IV POST OPERATIVE SHIVERING; Start at 19:30 Meperidine HCl (Demerol) 25 mg Q4H PRN IV POST OPERATIVE SHIVERING; Start 02/25 at 19:30 Eye Lubricant ([place] Oint) 1 applic Q6 BOTH EYES Last administered on 02/27/17 05:59; Admin Dose 1 APPLIC; Start 02/26/17 at 00:00 Eye Lubricant (Artificial Tears Oph) 2 drop Q6 BOTH EYES Last administered on 05:59; Admin Dose 2 DROP; Start 02/26/17 at 00:00 Dextrose (D50w Syringe) 25 ml Q15M PRN IV Till BS 80 mg/dL or above x2; Start 02/25/17 at 19:30 Dextrose (D50w Syringe) 50 ml Q15M PRN IV Till BS 80 mg/dL or above x2; Start 02/25/17 at 19:30 Heparin Sodium (Porcine) 5000 unit 5,000 unit BID SC Last administered on 20:51; Admin Dose 5,000 UNIT; Start 02/25/17 at 21:00 Propofol 100 ml @ 3.15 mls/hr TITRATE ONCE IV Last administered on 02/26/17 07:10; Admin Dose 3.15 MLS/HR; Start 02/26/17 at 07:30; Stop 02/27/17 at 15:14 Norepinephrine 32 mg/Dextrose 250 ml @ 0.46 mls/hr TITRATE IV Last administered on 02/26/17 10:44; Admin Dose 9.37 MLS/HR; Start 02/26/17 at 09:30 Dopamine HCl 1600 mg/Dextrose 250 ml @ 1.96 mls/hr TITRATE IV Last administered on 02/27/17 01:00; Admin Dose 19.68 MLS/HR; Start 02/26/17 at 09:30 Cefepime HCl 50 ml @ 100 mls/hr Q24H IVPB Last administered on 02/26/17 10:34 ; Admin Dose 100 MLS/HR; Start 02/26/17 at 10:00 Vancomycin HCl/ Sodium Chloride (Vancocin/NS) 250 ml @ 83.333 mls/ hr Q24H IVPB Last administered on 02/26/17 10:34; Admin Dose 83.333 MLS/HR; Start at 11:00 Diagnostic Test (Pha) 1 ea 1 ea Q4H XX Last administered on 02/27/17 06:00; Admin Dose 1 EA; Start 02/26/17 at 22:00 Propofol 100 ml @ 3.15 mls/hr Q12H IV Last administered on 02/26/17 22:57; Admin Dose 3.15 MLS/HR; Start 02/26/17 at 23:00 Vecuronium [place] 100 mg/ Dextrose 100 ml @ 5.25 mls/hr TITRATE IV Last administered on 02/26/17 20:00; Admin Dose 5.25 MLS/HR; Start 02/26/17 at 23:00 Vasopressin 60 unit/Dextrose 60 ml @ 1.2 mls/hr Q12H IV ; Start 02/27/17 at 07: 00 Phenylephrine HCl 80 mg/Dextrose 250 ml @ 18.75 mls/ hr TITRATE IV ; Start 02/27 at 07:00 Albumin Human (Albumin Human 25%) 100 ml @ 100 mls/hr ONCE ONCE IV Last administered on 02/27/17 07:01; Admin Dose 100 MLS/HR; Start 02/27/17 at 07:00; Stop 02/27/17 at 07:59 ASHLEY DE DIOS MD Feb 27, 2017 07:52
[2017-02-27] MEDS: PHENYLephrine 80 MG in DEXTROSE 5% 242 ML IV SCH ×3 (07:58→19:31)
[2017-02-27] MEDS: FAMOTIDINE 20 MG INJ IV SCH ×2 (08:56→20:45)
[2017-02-27] MEDS: CEFEPIME 2GM/50 ML (PMX) 50 ML IVPB SCH (08:58)
[2017-02-27] MEDS: HEPARIN 5,000 UNIT/0.5 ML VIAL SC SCH ×2 (09:04→20:47)
--- NOTE | 2017-02-27 09:35 | CONS ---
Date/Time of Note Date/Time of Note DATE: 02/27/17 TIME: 09:28 Consultation Date/Type/Reason Admit Date/Time Feb 25, 2017 at 21:43 Date of Consultation: Feb 26, 2017 Reason for Consultation Palliative care Hx of Present Illness 61-year-old male admitted to the intensive care unit [facility] after found down for an unknown period of time. EMS called found to be pulseless ACLS begun patient was transferred to the emergency room coded once again. Patient was begun on hypothermia protocol. Patient's and son have been available since admission. We other dickson have a an incomplete database. Constitutional: no complaints, other (on vent) Social History Alcohol Use: other Smoking Status: Current some day smoker Drug Use: cocaine, other (Opiates, methamphetamine) Exam/Review of Systems Vital Signs Vitals Vital Signs Date Time Temp Pulse Resp B/P Pulse Ox O2 Delivery O2 Flow Rate FiO2 02/27/17 09:00 96.2 87 24 87/54 96 Mechanical Ventilator 02/27/17 06:17 60 02/25/17 16:00 15.0 Intake and Output 02/26/17 02/26/17 02/27/17 15:00 23:00 07:00 Intake Total 1239.50 ml 831.80 ml 2894.2 ml Output Total 500 ml 30 ml 20 ml Balance 739.50 ml 801.80 ml 2874.2 ml Exam Constitutional: other (Sedated) Respiratory: clear to auscultation, normal air movement Cardiovascular: nl pulses, regular rate and rhythm Extremities: No calf tenderness, No clubbing, No cyanosis, No edema, No normal pulses, No other, No palpable cord, No pitting pedal edema, No tenderness Neurological: other (Sluggish oculocephalics positive cough, ) Results Result Diagram: 02/27/17 0430 02/27/17 0430 Results 24 hrs Laboratory Tests Test 02/26/17 10:38 02/26/17 12:13 02/26/17 13:09 02/26/17 15:38 Bedside Glucose 162 113 White Blood Count 6.9 # Red Blood Count 5.48 Hemoglobin 16.4 Hematocrit 48.4 Mean Corpuscular Volume 88.3 Mean Corpuscular Hemoglobin 29.9 Mean Corpuscular Hemoglobin Concent 33.9 Red Cell Distribution Width 12.5 Platelet Count 271 Mean Platelet Volume 10.3 Neutrophils % 78.4 H Lymphocytes % 10.6 L Monocytes % 9.4 Eosinophils % 0.6 Basophils % 0.4 Nucleated Red Blood Cells % 0.0 Neutrophils # 5.4 Lymphocytes # 0.7 L Monocytes # 0.7 Eosinophils # 0.0 Basophils # 0.0 Nucleated Red Blood Cells # 0.0 Prothrombin Time 15.7 H Prothrombin Time Ratio 1.2 INR International Normalized Ratio 1.24 Activated Partial Thromboplast Time 45.1 H Sodium Level 142 Potassium Level 3.9 Chloride Level 103 Carbon Dioxide Level 20 L Anion Gap 23 H Blood Urea Nitrogen 27 H Creatinine 2.75 H Glucose Level 168 Lactic Acid Level 4.0 *H Calcium Level 8.0 L Phosphorus Level 3.0 Magnesium Level 2.1 Creatine Kinase 1087 H Creatine Kinase Index 3.1 Creatinine Kinase MB (Mass) 34.20 H Troponin I 0.321 *H Amylase Level 142 H Lipase 56 Blood Gas Specimen Source Blood arterial Arterial Blood Date Drawn 02/26/2017 3:00:31 PM Arterial Blood pH (Temp corrected) 7.373 Arterial Blood pCO2 (Temp correct) 32.9 L Arterial Blood pO2 (Temp corrected) 92.1 Arterial Blood HCO3 18.7 L Arterial Blood Base Excess -5.3 L Arterial Blood Oxygen Saturation 97.2 Cooper Test ACCEPTAB Arterial Blood Gas Puncture Site Right Radial Arterial Blood Carboxyhemoglobin 0 Arterial Blood Methemoglobin 0.4 Blood Gas A-a O2 Differential 227.4 H Oxyhemoglobin Percent 96.8 Total Hemoglobin 17.5 Blood Gas Temperature 37.0 Blood Gas Respiration Rate 24.0 Blood Gas Actual Respiration Rate 24 Blood Gas Modality VENT - AC FiO2 50.0 Blood Gas Tidal Volume 600.0 Blood Gas Low PEEP Setting 8.0 Blood Gas Notified Whom TAVARES REYES Blood Gas Notified Time 02/26/2017 3:22:56 PM Test 02/26/17 17:30 02/26/17 17:40 02/26/17 21:56 02/27/17 00:50 White Blood Count 5.3 # 6.0 Red Blood Count 5.44 5.20 Hemoglobin 16.3 15.6 Hematocrit 47.6 45.2 Mean Corpuscular Volume 87.5 86.9 Mean Corpuscular Hemoglobin 30.0 30.0 Mean Corpuscular Hemoglobin Concent 34.2 34.5 Red Cell Distribution Width 12.9 12.9 Platelet Count 259 255 Mean Platelet Volume 10.5 H 10.6 H Neutrophils % 65.9 67.3 Lymphocytes % 17.3 17.1 Monocytes % 12.4 H 8.6 Eosinophils % 3.2 5.6 Basophils % 0.6 0.7 Nucleated Red Blood Cells % 0.0 0.0 Neutrophils # 3.5 4.1 Lymphocytes # 0.9 1.0 Monocytes # 0.7 0.5 Eosinophils # 0.2 0.3 Basophils # 0.0 0.0 Nucleated Red Blood Cells # 0.0 0.0 Prothrombin Time 15.3 H 16.2 H Prothrombin Time Ratio 1.2 1.3 INR International Normalized Ratio 1.20 1.29 Activated Partial Thromboplast Time 45.4 H 42.8 H Sodium Level 140 139 Potassium Level 3.9 3.8 Chloride Level 103 101 Carbon Dioxide Level 20 L 20 L Anion Gap 21 H 22 H Blood Urea Nitrogen 30 H 33 H Creatinine 3.02 H 3.34 H Glucose Level 114 # 146 Lactic Acid Level 2.7 *H Calcium Level 7.8 L 7.6 L Phosphorus Level 3.8 4.9 Magnesium Level 2.0 1.9 Creatine Kinase 944 H 749 H Creatine Kinase Index 3.4 3.7 Creatinine Kinase MB (Mass) 32.00 H 27.50 H Troponin I 0.266 *H 0.249 *H Amylase Level 158 H 158 H Lipase 48 60 Bedside Glucose 92 116 Test 02/27/17 01:29 02/27/17 04:30 02/27/17 06:06 02/27/17 09:02 Bedside Glucose 117 132 150 White Blood Count 5.1 Red Blood Count 5.06 Hemoglobin 14.9 Hematocrit 44.6 Mean Corpuscular Volume 88.1 Mean Corpuscular Hemoglobin 29.4 Mean Corpuscular Hemoglobin Concent 33.4 Red Cell Distribution Width 13.2 Platelet Count 239 Mean Platelet Volume 11.0 H Neutrophils % 74.0 Lymphocytes % 13.6 L Monocytes % 5.9 Eosinophils % 5.3 Basophils % 0.4 Nucleated Red Blood Cells % 0.0 Neutrophils # 3.8 Lymphocytes # 0.7 L Monocytes # 0.3 Eosinophils # 0.3 Basophils # 0.0 Nucleated Red Blood Cells # 0.0 Prothrombin Time 17.0 H Prothrombin Time Ratio 1.3 INR International Normalized Ratio 1.38 Activated Partial Thromboplast Time 44.2 H Sodium Level 138 Potassium Level 4.1 Chloride Level 101 Carbon Dioxide Level 18 L Anion Gap 23 H Blood Urea Nitrogen 34 H Creatinine 3.51 H Glucose Level 192 Calcium Level 7.4 L Phosphorus Level 5.6 H Magnesium Level 1.8 Total Bilirubin 0.1 L Direct Bilirubin 0.00 Indirect Bilirubin 0.1 Aspartate Amino Transf (AST/SGOT) 123 H Alanine Aminotransferase (ALT/SGPT) 126 H Alkaline Phosphatase 58 Creatine Kinase 635 H Creatine Kinase Index 4.0 Creatinine Kinase MB (Mass) 25.10 H Troponin I 0.228 *H Total Protein 5.3 #L Albumin 2.7 #L Globulin 2.60 Albumin/Globulin Ratio 1.03 Amylase Level 148 H Lipase 71 Medications Medications Current Medications Epinephrine/ Dextrose (EPINEPHrine/D5W) 250 ml @ 0 mls/hr TITRATE IV Last administered on 02/27/17 07:13; Admin Dose 37.5 MLS/HR; Start 02/25/17 at 16:30 Ondansetron HCl (Zofran Inj) 4 mg Q6H PRN IV NAUSEA AND/OR VOMITING; Start at 19:30 Acetaminophen (Tylenol Tab) 650 mg Q6H PRN PO PAIN LEVEL 1-3 OR FEVER; Start at 19:30 Acetaminophen/ Hydrocodone Bitart ([place] (5/325)) 1 tab Q6H PRN PO MODERATE PAIN LEVEL 4-6; Start 02/25/17 at 19:30 Morphine Sulfate (morphine) 2 mg Q4H PRN IV SEVERE PAIN LEVEL 7-10; Start 02/25 at 19:30 Docusate Sodium (Colace) 100 mg Q12H PRN PO CONSTIPATION; Start 02/25/17 at 19: 30 Magnesium Hydroxide (Milk Of Mag) 30 ml DAILY PRN PO CONSTIPATION; Start at 19:30 Sodium Biphosphate/ Sodium Phosphate (Fleet Enema) 133 ml DAILY PRN [place] CONSTIPATION; Start 02/25/17 at 19:30 Famotidine 20 mg 20 mg Q12 IV Last administered on 02/27/17 08:56; Admin Dose 20 MG; Start 02/25/17 at 21:00 Sodium Chloride (1/2 NS) 1,000 ml @ 125 mls/hr Q8H IV Last administered on 02/27 01:22; Admin Dose 125 MLS/HR; Start 02/25/17 at 19:09 Lorazepam (Ativan) 0.5 mg Q6H PRN IV ANXIETY; Start 02/25/17 at 19:30 Vancomycin HCl (Vanco Iv Per Pharmacy) VANCOMYCIN PER PHARMACY NOTE XX ; Start 02/25/17 at 19:30 Nitroglycerin (Nitroglycerin (Sl Tab) 0.4 Mg) 1 tab Q5M PRN SL ANGINA; Start at 19:30 Acetaminophen (Tylenol Supp) 650 mg Q4H PRN NV TEMP > 37C; Start 02/25/17 at 19 :30 Acetaminophen (Tylenol Liquid) 650 mg Q4H PRN PO TEMP > 37C; Start 02/25/17 at 19:30 Acetaminophen (Tylenol Supp) 500 mg Q6H [place] ; Start 02/26/17 at 19:30 Acetaminophen (Tylenol Liquid) 500 mg Q6H PO Last administered on 02/27/17 08: 56; Admin Dose 500 MG; Start 02/26/17 at 19:30 Meperidine HCl (Demerol) 12.5 mg Q4H PRN IV POST OPERATIVE SHIVERING; Start at 19:30 Meperidine HCl (Demerol) 25 mg Q4H PRN IV POST OPERATIVE SHIVERING; Start 02/25 at 19:30 Eye Lubricant (Akwa Oint) 1 applic Q6 BOTH EYES Last administered on 02/27/17 05:59; Admin Dose 1 APPLIC; Start 02/26/17 at 00:00 Eye Lubricant (Artificial Tears Oph) 2 drop Q6 BOTH EYES Last administered on 05:59; Admin Dose 2 DROP; Start 02/26/17 at 00:00 Dextrose (D50w Syringe) 25 ml Q15M PRN IV Till BS 80 mg/dL or above x2; Start 02/25/17 at 19:30 Dextrose (D50w Syringe) 50 ml Q15M PRN IV Till BS 80 mg/dL or above x2; Start 02/25/17 at 19:30 Heparin Sodium (Porcine) 5000 unit 5,000 unit BID SC Last administered on 09:04; Admin Dose 5,000 UNIT; Start 02/25/17 at 21:00 Propofol 100 ml @ 3.15 mls/hr TITRATE ONCE IV Last administered on 02/26/17 07:10; Admin Dose 3.15 MLS/HR; Start 02/26/17 at 07:30; Stop 02/27/17 at 15:14 Norepinephrine 32 mg/Dextrose 250 ml @ 0.46 mls/hr TITRATE IV Last administered on 02/26/17 10:44; Admin Dose 9.37 MLS/HR; Start 02/26/17 at 09:30 Dopamine HCl 1600 mg/Dextrose 250 ml @ 1.96 mls/hr TITRATE IV Last administered on 02/27/17 01:00; Admin Dose 19.68 MLS/HR; Start 02/26/17 at 09:30 Cefepime HCl 50 ml @ 100 mls/hr Q24H IVPB Last administered on 02/27/17 08:58 ; Admin Dose 100 MLS/HR; Start 02/26/17 at 10:00 Vancomycin HCl/ Sodium Chloride (Vancocin/NS) 250 ml @ 83.333 mls/ hr Q24H IVPB Last administered on 02/26/17 10:34; Admin Dose 83.333 MLS/HR; Start at 11:00 Diagnostic Test (Pha) 1 ea 1 ea Q4H XX Last administered on 02/27/17 06:00; Admin Dose 1 EA; Start 02/26/17 at 22:00 Propofol 100 ml @ 3.15 mls/hr Q12H IV Last administered on 02/26/17 22:57; Admin Dose 3.15 MLS/HR; Start 02/26/17 at 23:00 Vecuronium [place] 100 mg/ Dextrose 100 ml @ 5.25 mls/hr TITRATE IV Last administered on 02/26/17 20:00; Admin Dose 5.25 MLS/HR; Start 02/26/17 at 23:00 Vasopressin 60 unit/Dextrose 60 ml @ 1.2 mls/hr Q12H IV ; Start 02/27/17 at 07: 00 Phenylephrine HCl/ Dextrose (Jr-Syneph/D5W) 250 ml @ 18.75 mls/ hr TITRATE IV Last administered on 02/27/17 07:58; Admin Dose 18.75 MLS/HR; Start 02/27/17 at 07:00 REED NIELSEN Feb 27, 2017 09:35
--- NOTE | 2017-02-27 09:43 | PN ---
Date/Time of Note Date/Time of Note DATE: 02/27/17 TIME: 09:38 Assessment/Plan VTE Prophylaxis VTE Prophylaxis Intervention: heparin Lines/Catheters IV C[facility] Type [facility] Peripheral IV Urinary Cath still in place: Yes Reason Cath still needed: urinary retention Assessment/Plan Chief Complaint/Hosp Course Assessment and plan: 61-year-old male acute drug toxicity, status post cardiac arrest, septic shock, lactic acidosis, intubated, on pressors. 1. Cardiac arrest-on hypothermia protocol. Appreciate cardiology consult. Patient apparently with poor neurologic exam with absent brain stem reflexes. - Follow cardiology recommendations, continue to monitor vital signs very carefully. -Weaning off hypothermia protocol as well. - EEG will be ordered to be performed after hypothermia protocol. -Follow-up MRI of the brain as well, per neurology consult recommendations ( pending) 2. Respiratory failure: Secondary to #1. - Continue intubation, pulmonary consult, duo nebs as needed. Follow-up culture results. Given questional chest x-ray findings, start broad-spectrum antibiotics. Mechanical ventilation 3. Septic shock with lactic acidosis: Lactic acid is trending down now, no fevers. Still on pressor support x 4 now. -Continue broad-spectrum antibiotic, continue pressor support, monitor vital signs very carefully. - Monitor BMP, continue aggressive IV fluid hydration, trend lactic acid levels. 4. IV drug abuse: Positive for cocaine, methamphetamines, opiates on admission. - Again monitor for signs of withdrawal. Again patient is intubated however. 5. Bipolar disorder: Continue monitor for now, again intubated 6. GI prophylaxis: H2 lora 7. Renal failure: Likely ATN, secondary to patient's arrest. Creatinine is increasing, appreciate renal consult. Overall very poor urine output. -Monitor urine output, follow renal recommendations. Monitor creatinine levels. Dispo: Overall very poor prognosis. Appreciate palliative care team consult. They have been speaking to the family as well. We will continue to follow their wishes. Patient is full code as of now. Problems: Subjective 24 Hr Interval Summary Free Text/Dictation Patient still intubated, still on hypothermia protocol. Had to be started on 2 more pressors since last night. Seen by cardiology team this morning. Exam/Review of Systems Vital Signs Vitals Vital Signs Date Time Temp Pulse Resp B/P Pulse Ox O2 Delivery O2 Flow Rate FiO2 02/27/17 09:00 96.2 87 24 87/54 96 Mechanical Ventilator 02/27/17 06:17 60 02/25/17 16:00 15.0 Intake and Output 02/26/17 02/26/17 02/27/17 15:00 23:00 07:00 Intake Total 1239.50 ml 831.80 ml 2894.2 ml Output Total 500 ml 30 ml 20 ml Balance 739.50 ml 801.80 ml 2874.2 ml Exam General: Lying in bed, intubated HEENT: Unable to fully assess Neck: Supple Respiratory: Distant breath sounds bilaterally Cardiovascular: S1-S2 heard GI: Soft, nontender, nondistended, normal bowel sounds Muscular skeletal: No lower extremity bilaterally Neurologic: Unable to fully assess because patient intubated Results Result Diagram: 02/27/17 0430 02/27/17 0430 Results 24 hrs Laboratory Tests Test 02/26/17 10:38 02/26/17 12:13 02/26/17 13:09 02/26/17 15:38 Bedside Glucose 162 113 White Blood Count 6.9 # Red Blood Count 5.48 Hemoglobin 16.4 Hematocrit 48.4 Mean Corpuscular Volume 88.3 Mean Corpuscular Hemoglobin 29.9 Mean Corpuscular Hemoglobin Concent 33.9 Red Cell Distribution Width 12.5 Platelet Count 271 Mean Platelet Volume 10.3 Neutrophils % 78.4 H Lymphocytes % 10.6 L Monocytes % 9.4 Eosinophils % 0.6 Basophils % 0.4 Nucleated Red Blood Cells % 0.0 Neutrophils # 5.4 Lymphocytes # 0.7 L Monocytes # 0.7 Eosinophils # 0.0 Basophils # 0.0 Nucleated Red Blood Cells # 0.0 Prothrombin Time 15.7 H Prothrombin Time Ratio 1.2 INR International Normalized Ratio 1.24 Activated Partial Thromboplast Time 45.1 H Sodium Level 142 Potassium Level 3.9 Chloride Level 103 Carbon Dioxide Level 20 L Anion Gap 23 H Blood Urea Nitrogen 27 H Creatinine 2.75 H Glucose Level 168 Lactic Acid Level 4.0 *H Calcium Level 8.0 L Phosphorus Level 3.0 Magnesium Level 2.1 Creatine Kinase 1087 H Creatine Kinase Index 3.1 Creatinine Kinase MB (Mass) 34.20 H Troponin I 0.321 *H Amylase Level 142 H Lipase 56 Blood Gas Specimen Source Blood arterial Arterial Blood Date Drawn 02/26/2017 3:00:31 PM Arterial Blood pH (Temp corrected) 7.373 Arterial Blood pCO2 (Temp correct) 32.9 L Arterial Blood pO2 (Temp corrected) 92.1 Arterial Blood HCO3 18.7 L Arterial Blood Base Excess -5.3 L Arterial Blood Oxygen Saturation 97.2 Cooper Test ACCEPTAB Arterial Blood Gas Puncture Site Right Radial Arterial Blood Carboxyhemoglobin 0 Arterial Blood Methemoglobin 0.4 Blood Gas A-a O2 Differential 227.4 H Oxyhemoglobin Percent 96.8 Total Hemoglobin 17.5 Blood Gas Temperature 37.0 Blood Gas Respiration Rate 24.0 Blood Gas Actual Respiration Rate 24 Blood Gas Modality VENT - AC FiO2 50.0 Blood Gas Tidal Volume 600.0 Blood Gas Low PEEP Setting 8.0 Blood Gas Notified Whom TAVARES REYES Blood Gas Notified Time 02/26/2017 3:22:56 PM Test 02/26/17 17:30 02/26/17 17:40 02/26/17 21:56 02/27/17 00:50 White Blood Count 5.3 # 6.0 Red Blood Count 5.44 5.20 Hemoglobin 16.3 15.6 Hematocrit 47.6 45.2 Mean Corpuscular Volume 87.5 86.9 Mean Corpuscular Hemoglobin 30.0 30.0 Mean Corpuscular Hemoglobin Concent 34.2 34.5 Red Cell Distribution Width 12.9 12.9 Platelet Count 259 255 Mean Platelet Volume 10.5 H 10.6 H Neutrophils % 65.9 67.3 Lymphocytes % 17.3 17.1 Monocytes % 12.4 H 8.6 Eosinophils % 3.2 5.6 Basophils % 0.6 0.7 Nucleated Red Blood Cells % 0.0 0.0 Neutrophils # 3.5 4.1 Lymphocytes # 0.9 1.0 Monocytes # 0.7 0.5 Eosinophils # 0.2 0.3 Basophils # 0.0 0.0 Nucleated Red Blood Cells # 0.0 0.0 Prothrombin Time 15.3 H 16.2 H Prothrombin Time Ratio 1.2 1.3 INR International Normalized Ratio 1.20 1.29 Activated Partial Thromboplast Time 45.4 H 42.8 H Sodium Level 140 139 Potassium Level 3.9 3.8 Chloride Level 103 101 Carbon Dioxide Level 20 L 20 L Anion Gap 21 H 22 H Blood Urea Nitrogen 30 H 33 H Creatinine 3.02 H 3.34 H Glucose Level 114 # 146 Lactic Acid Level 2.7 *H Calcium Level 7.8 L 7.6 L Phosphorus Level 3.8 4.9 Magnesium Level 2.0 1.9 Creatine Kinase 944 H 749 H Creatine Kinase Index 3.4 3.7 Creatinine Kinase MB (Mass) 32.00 H 27.50 H Troponin I 0.266 *H 0.249 *H Amylase Level 158 H 158 H Lipase 48 60 Bedside Glucose 92 116 Test 02/27/17 01:29 02/27/17 04:30 02/27/17 06:06 02/27/17 09:02 Bedside Glucose 117 132 150 White Blood Count 5.1 Red Blood Count 5.06 Hemoglobin 14.9 Hematocrit 44.6 Mean Corpuscular Volume 88.1 Mean Corpuscular Hemoglobin 29.4 Mean Corpuscular Hemoglobin Concent 33.4 Red Cell Distribution Width 13.2 Platelet Count 239 Mean Platelet Volume 11.0 H Neutrophils % 74.0 Lymphocytes % 13.6 L Monocytes % 5.9 Eosinophils % 5.3 Basophils % 0.4 Nucleated Red Blood Cells % 0.0 Neutrophils # 3.8 Lymphocytes # 0.7 L Monocytes # 0.3 Eosinophils # 0.3 Basophils # 0.0 Nucleated Red Blood Cells # 0.0 Prothrombin Time 17.0 H Prothrombin Time Ratio 1.3 INR International Normalized Ratio 1.38 Activated Partial Thromboplast Time 44.2 H Sodium Level 138 Potassium Level 4.1 Chloride Level 101 Carbon Dioxide Level 18 L Anion Gap 23 H Blood Urea Nitrogen 34 H Creatinine 3.51 H Glucose Level 192 Calcium Level 7.4 L Phosphorus Level 5.6 H Magnesium Level 1.8 Total Bilirubin 0.1 L Direct Bilirubin 0.00 Indirect Bilirubin 0.1 Aspartate Amino Transf (AST/SGOT) 123 H Alanine Aminotransferase (ALT/SGPT) 126 H Alkaline Phosphatase 58 Creatine Kinase 635 H Creatine Kinase Index 4.0 Creatinine Kinase MB (Mass) 25.10 H Troponin I 0.228 *H Total Protein 5.3 #L Albumin 2.7 #L Globulin 2.60 Albumin/Globulin Ratio 1.03 Amylase Level 148 H Lipase 71 Medications Medications Current Medications Epinephrine/ Dextrose (EPINEPHrine/D5W) 250 ml @ 0 mls/hr TITRATE IV Last administered on 02/27/17t 07:13; Admin Dose 37.5 MLS/HR; Start 02/25/17 at 16:30 Ondansetron HCl (Zofran Inj) 4 mg Q6H PRN IV NAUSEA AND/OR VOMITING; Start at 19:30 Acetaminophen (Tylenol Tab) 650 mg Q6H PRN PO PAIN LEVEL 1-3 OR FEVER; Start at 19:30 Acetaminophen/ Hydrocodone Bitart ([place] (5/325)) 1 tab Q6H PRN PO MODERATE PAIN LEVEL 4-6; Start 02/25/17 at 19:30 Morphine Sulfate (morphine) 2 mg Q4H PRN IV SEVERE PAIN LEVEL 7-10; Start 02/25 at 19:30 Docusate Sodium (Colace) 100 mg Q12H PRN PO CONSTIPATION; Start 02/25/17 at 19: 30 Magnesium Hydroxide (Milk Of Mag) 30 ml DAILY PRN PO CONSTIPATION; Start at 19:30 Sodium Biphosphate/ Sodium Phosphate (Fleet Enema) 133 ml DAILY PRN IN CONSTIPATION; Start 02/25/17 at 19:30 Famotidine 20 mg 20 mg Q12 IV Last administered on 02/27/17 08:56; Admin Dose 20 MG; Start 02/25/17 at 21:00 Sodium Chloride (1/2 NS) 1,000 ml @ 125 mls/hr Q8H IV Last administered on 02/27 01:22; Admin Dose 125 MLS/HR; Start 02/25/17 at 19:09 Lorazepam (Ativan) 0.5 mg Q6H PRN IV ANXIETY; Start 02/25/17 at 19:30 Vancomycin HCl (Vanco Iv Per Pharmacy) VANCOMYCIN PER PHARMACY NOTE XX ; Start 02/25/17 at 19:30 Nitroglycerin (Nitroglycerin (Sl Tab) 0.4 Mg) 1 tab Q5M PRN SL ANGINA; Start at 19:30 Acetaminophen (Tylenol Supp) 650 mg Q4H PRN IN TEMP > 37C; Start 02/25/17 at 19 :30 Acetaminophen (Tylenol Liquid) 650 mg Q4H PRN PO TEMP > 37C; Start 02/25/17 at 19:30 Acetaminophen (Tylenol Supp) 500 mg Q6H IN ; Start 02/26/17 at 19:30 Acetaminophen (Tylenol Liquid) 500 mg Q6H PO Last administered on 02/27/17 08: 56; Admin Dose 500 MG; Start 02/26/17 at 19:30 Meperidine HCl (Demerol) 12.5 mg Q4H PRN IV POST OPERATIVE SHIVERING; Start at 19:30 Meperidine HCl (Demerol) 25 mg Q4H PRN IV POST OPERATIVE SHIVERING; Start 02/25 at 19:30 Eye Lubricant (Akwa Oint) 1 applic Q6 BOTH EYES Last administered on 02/27/17 05:59; Admin Dose 1 APPLIC; Start 02/26/17 at 00:00 Eye Lubricant (Artificial Tears Oph) 2 drop Q6 BOTH EYES Last administered on 05:59; Admin Dose 2 DROP; Start 02/26/17 at 00:00 Dextrose (D50w Syringe) 25 ml Q15M PRN IV Till BS 80 mg/dL or above x2; Start 02/25/17 at 19:30 Dextrose (D50w Syringe) 50 ml Q15M PRN IV Till BS 80 mg/dL or above x2; Start 02/25/17 at 19:30 Heparin Sodium (Porcine) 5000 unit 5,000 unit BID SC Last administered on 09:04; Admin Dose 5,000 UNIT; Start 02/25/17 at 21:00 Propofol 100 ml @ 3.15 mls/hr TITRATE ONCE IV Last administered on 02/26/17 07:10; Admin Dose 3.15 MLS/HR; Start 02/26/17 at 07:30; Stop 02/27/17 at 15:14 Norepinephrine 32 mg/Dextrose 250 ml @ 0.46 mls/hr TITRATE IV Last administered on 02/26/17 10:44; Admin Dose 9.37 MLS/HR; Start 02/26/17 at 09:30 Dopamine HCl 1600 mg/Dextrose 250 ml @ 1.96 mls/hr TITRATE IV Last administered on 02/27/17 01:00; Admin Dose 19.68 MLS/HR; Start 02/26/17 at 09:30 Cefepime HCl 50 ml @ 100 mls/hr Q24H IVPB Last administered on 02/27/17 08:58 ; Admin Dose 100 MLS/HR; Start 02/26/17 at 10:00 Vancomycin HCl/ Sodium Chloride (Vancocin/NS) 250 ml @ 83.333 mls/ hr Q24H IVPB Last administered on 02/26/17 10:34; Admin Dose 83.333 MLS/HR; Start at 11:00 Diagnostic Test (Pha) 1 ea 1 ea Q4H XX Last administered on 02/27/17 06:00; Admin Dose 1 EA; Start 02/26/17 at 22:00 Propofol 100 ml @ 3.15 mls/hr Q12H IV Last administered on 02/26/17 22:57; Admin Dose 3.15 MLS/HR; Start 02/26/17 at 23:00 Vecuronium [place] 100 mg/ Dextrose 100 ml @ 5.25 mls/hr TITRATE IV Last administered on 02/26/17 20:00; Admin Dose 5.25 MLS/HR; Start 02/26/17 at 23:00 Vasopressin 60 unit/Dextrose 60 ml @ 1.2 mls/hr Q12H IV ; Start 02/27/17 at 07: 00 Phenylephrine HCl/ Dextrose (Jr-Syneph/D5W) 250 ml @ 18.75 mls/ hr TITRATE IV Last administered on 02/27/17 07:58; Admin Dose 18.75 MLS/HR; Start 02/27/17 at 07:00 Procedures Procedures 2D ECHO: Conclusions 1. Hyperdynamic left ventricular systolic function. Normal left ventricular cavity size. Moderate concentric left ventricular hypertrophy. Ejection fraction is visually estimated at 70 %. Tissue Doppler/Mitral Doppler indices are consistent with impaired relaxation (Stage I diastolic dysfunction). 2. The left atrium is normal in size. 3. Normal appearance and function of the mitral valve with trace physiologic regurgitation. 4. No significant aortic stenosis or insufficiency. Aortic cusps appear mildly calcified. 5. Normal appearance of the tricuspid valve. Estimated peak PA systolic pressure 45 mmHg. There is mild tricuspid regurgitation. 6. Dilated IVC without respiratory collapse, however, patient on ventilator. YANET MTZ Feb 27, 2017 09:43
--- NOTE | 2017-02-27 09:48 | CONS ---
Date/Time of Note Date/Time of Note DATE: 02/27/17 TIME: 09:48 Assessment/Plan Assessment/Plan Additional Assessment/Plan Assessment/Plan Chief Complaint/Hosp Course 61-year-old male admitted to the intensive care unit [facility] after found down for an unknown period of time. EMS called found to be pulseless ACLS begun patient was transferred to the emergency room coded once again. Patient was begun on hypothermia protocol. Patient's and son have been available since admission. We other d[place]on have a an incomplete database. Problems: Additional Assessment/Plan Spoke to patient's and brother who is a physician. We explained to him that patient is currently on 4 pressors is not expected to survive over the next 24 hours. Both he and patient's understand the severity of the situation and are on their way to the hospital. He is early in the course of patient's family's complete understanding of palliative care issues at this time however I will address his CODE STATUS since we are not expecting him to survive. Patient's is spokesperson for family and agent for his ongoing level of care once again she understands that he is critically ill and will not survive. When they arrived we will discuss acceptable quality of life there communications preference. Consultation Date/Type/Reason Admit Date/Time Feb 25, 2017 at 21:43 Initial Consult Date 02/26/17 Type of Consultation: Palliative Care Referring Provider: YANET MTZ Exam/Review of Systems Vital Signs Vitals Vital Signs Date Time Temp Pulse Resp B/P Pulse Ox O2 Delivery O2 Flow Rate FiO2 02/27/17 09:00 96.2 87 24 87/54 96 Mechanical Ventilator 02/27/17 06:17 60 02/25/17 16:00 15.0 Intake and Output 02/26/17 02/26/17 02/27/17 15:00 23:00 07:00 Intake Total 1239.50 ml 831.80 ml 2894.2 ml Output Total 500 ml 30 ml 20 ml Balance 739.50 ml 801.80 ml 2874.2 ml Results Result Diagram: 02/27/17 0430 02/27/17 0430 Results 24 hrs Laboratory Tests Test 02/26/17 10:38 02/26/17 12:13 02/26/17 13:09 02/26/17 15:38 Bedside Glucose 162 113 White Blood Count 6.9 # Red Blood Count 5.48 Hemoglobin 16.4 Hematocrit 48.4 Mean Corpuscular Volume 88.3 Mean Corpuscular Hemoglobin 29.9 Mean Corpuscular Hemoglobin Concent 33.9 Red Cell Distribution Width 12.5 Platelet Count 271 Mean Platelet Volume 10.3 Neutrophils % 78.4 H Lymphocytes % 10.6 L Monocytes % 9.4 Eosinophils % 0.6 Basophils % 0.4 Nucleated Red Blood Cells % 0.0 Neutrophils # 5.4 Lymphocytes # 0.7 L Monocytes # 0.7 Eosinophils # 0.0 Basophils # 0.0 Nucleated Red Blood Cells # 0.0 Prothrombin Time 15.7 H Prothrombin Time Ratio 1.2 INR International Normalized Ratio 1.24 Activated Partial Thromboplast Time 45.1 H Sodium Level 142 Potassium Level 3.9 Chloride Level 103 Carbon Dioxide Level 20 L Anion Gap 23 H Blood Urea Nitrogen 27 H Creatinine 2.75 H Glucose Level 168 Lactic Acid Level 4.0 *H Calcium Level 8.0 L Phosphorus Level 3.0 Magnesium Level 2.1 Creatine Kinase 1087 H Creatine Kinase Index 3.1 Creatinine Kinase MB (Mass) 34.20 H Troponin I 0.321 *H Amylase Level 142 H Lipase 56 Blood Gas Specimen Source Blood arterial Arterial Blood Date Drawn 02/26/2017 3:00:31 PM Arterial Blood pH (Temp corrected) 7.373 Arterial Blood pCO2 (Temp correct) 32.9 L Arterial Blood pO2 (Temp corrected) 92.1 Arterial Blood HCO3 18.7 L Arterial Blood Base Excess -5.3 L Arterial Blood Oxygen Saturation 97.2 Cooper Test ACCEPTAB Arterial Blood Gas Puncture Site Right Radial Arterial Blood Carboxyhemoglobin 0 Arterial Blood Methemoglobin 0.4 Blood Gas A-a O2 Differential 227.4 H Oxyhemoglobin Percent 96.8 Total Hemoglobin 17.5 Blood Gas Temperature 37.0 Blood Gas Respiration Rate 24.0 Blood Gas Actual Respiration Rate 24 Blood Gas Modality VENT - AC FiO2 50.0 Blood Gas Tidal Volume 600.0 Blood Gas Low PEEP Setting 8.0 Blood Gas Notified Whom TAVARES REYES Blood Gas Notified Time 02/26/2017 3:22:56 PM Test 02/26/17 17:30 02/26/17 17:40 02/26/17 21:56 02/27/17 00:50 White Blood Count 5.3 # 6.0 Red Blood Count 5.44 5.20 Hemoglobin 16.3 15.6 Hematocrit 47.6 45.2 Mean Corpuscular Volume 87.5 86.9 Mean Corpuscular Hemoglobin 30.0 30.0 Mean Corpuscular Hemoglobin Concent 34.2 34.5 Red Cell Distribution Width 12.9 12.9 Platelet Count 259 255 Mean Platelet Volume 10.5 H 10.6 H Neutrophils % 65.9 67.3 Lymphocytes % 17.3 17.1 Monocytes % 12.4 H 8.6 Eosinophils % 3.2 5.6 Basophils % 0.6 0.7 Nucleated Red Blood Cells % 0.0 0.0 Neutrophils # 3.5 4.1 Lymphocytes # 0.9 1.0 Monocytes # 0.7 0.5 Eosinophils # 0.2 0.3 Basophils # 0.0 0.0 Nucleated Red Blood Cells # 0.0 0.0 Prothrombin Time 15.3 H 16.2 H Prothrombin Time Ratio 1.2 1.3 INR International Normalized Ratio 1.20 1.29 Activated Partial Thromboplast Time 45.4 H 42.8 H Sodium Level 140 139 Potassium Level 3.9 3.8 Chloride Level 103 101 Carbon Dioxide Level 20 L 20 L Anion Gap 21 H 22 H Blood Urea Nitrogen 30 H 33 H Creatinine 3.02 H 3.34 H Glucose Level 114 # 146 Lactic Acid Level 2.7 *H Calcium Level 7.8 L 7.6 L Phosphorus Level 3.8 4.9 Magnesium Level 2.0 1.9 Creatine Kinase 944 H 749 H Creatine Kinase Index 3.4 3.7 Creatinine Kinase MB (Mass) 32.00 H 27.50 H Troponin I 0.266 *H 0.249 *H Amylase Level 158 H 158 H Lipase 48 60 Bedside Glucose 92 116 Test 02/27/17 01:29 02/27/17 04:30 02/27/17 06:06 02/27/17 09:02 Bedside Glucose 117 132 150 White Blood Count 5.1 Red Blood Count 5.06 Hemoglobin 14.9 Hematocrit 44.6 Mean Corpuscular Volume 88.1 Mean Corpuscular Hemoglobin 29.4 Mean Corpuscular Hemoglobin Concent 33.4 Red Cell Distribution Width 13.2 Platelet Count 239 Mean Platelet Volume 11.0 H Neutrophils % 74.0 Lymphocytes % 13.6 L Monocytes % 5.9 Eosinophils % 5.3 Basophils % 0.4 Nucleated Red Blood Cells % 0.0 Neutrophils # 3.8 Lymphocytes # 0.7 L Monocytes # 0.3 Eosinophils # 0.3 Basophils # 0.0 Nucleated Red Blood Cells # 0.0 Prothrombin Time 17.0 H Prothrombin Time Ratio 1.3 INR International Normalized Ratio 1.38 Activated Partial Thromboplast Time 44.2 H Sodium Level 138 Potassium Level 4.1 Chloride Level 101 Carbon Dioxide Level 18 L Anion Gap 23 H Blood Urea Nitrogen 34 H Creatinine 3.51 H Glucose Level 192 Calcium Level 7.4 L Phosphorus Level 5.6 H Magnesium Level 1.8 Total Bilirubin 0.1 L Direct Bilirubin 0.00 Indirect Bilirubin 0.1 Aspartate Amino Transf (AST/SGOT) 123 H Alanine Aminotransferase (ALT/SGPT) 126 H Alkaline Phosphatase 58 Creatine Kinase 635 H Creatine Kinase Index 4.0 Creatinine Kinase MB (Mass) 25.10 H Troponin I 0.228 *H Total Protein 5.3 #L Albumin 2.7 #L Globulin 2.60 Albumin/Globulin Ratio 1.03 Amylase Level 148 H Lipase 71 Medications Medications Current Medications Epinephrine/ Dextrose (EPINEPHrine/D5W) 250 ml @ 0 mls/hr TITRATE IV Last administered on 02/27/17t 07:13; Admin Dose 37.5 MLS/HR; Start 02/25/17 at 16:30 Ondansetron HCl (Zofran Inj) 4 mg Q6H PRN IV NAUSEA AND/OR VOMITING; Start at 19:30 Acetaminophen (Tylenol Tab) 650 mg Q6H PRN PO PAIN LEVEL 1-3 OR FEVER; Start at 19:30 Acetaminophen/ Hydrocodone Bitart ([place] (5/325)) 1 tab Q6H PRN PO MODERATE PAIN LEVEL 4-6; Start 02/25/17 at 19:30 Morphine Sulfate (morphine) 2 mg Q4H PRN IV SEVERE PAIN LEVEL 7-10; Start 02/25 at 19:30 Docusate Sodium (Colace) 100 mg Q12H PRN PO CONSTIPATION; Start 02/25/17 at 19: 30 Magnesium Hydroxide (Milk Of Mag) 30 ml DAILY PRN PO CONSTIPATION; Start at 19:30 Sodium Biphosphate/ Sodium Phosphate (Fleet Enema) 133 ml DAILY PRN [place] CONSTIPATION; Start 02/25/17 at 19:30 Famotidine 20 mg 20 mg Q12 IV Last administered on 02/27/17 08:56; Admin Dose 20 MG; Start 02/25/17 at 21:00 Sodium Chloride (1/2 NS) 1,000 ml @ 125 mls/hr Q8H IV Last administered on 02/27 01:22; Admin Dose 125 MLS/HR; Start 02/25/17 at 19:09 Lorazepam (Ativan) 0.5 mg Q6H PRN IV ANXIETY; Start 02/25/17 at 19:30 Vancomycin HCl (Vanco Iv Per Pharmacy) VANCOMYCIN PER PHARMACY NOTE XX ; Start 02/25/17 at 19:30 Nitroglycerin (Nitroglycerin (Sl Tab) 0.4 Mg) 1 tab Q5M PRN SL ANGINA; Start at 19:30 Acetaminophen (Tylenol Supp) 650 mg Q4H PRN [place] TEMP > 37C; Start 02/25/17 at 19 :30 Acetaminophen (Tylenol Liquid) 650 mg Q4H PRN PO TEMP > 37C; Start 02/25/17 at 19:30 Acetaminophen (Tylenol Supp) 500 mg Q6H [place] ; Start 02/26/17 at 19:30 Acetaminophen (Tylenol Liquid) 500 mg Q6H PO Last administered on 02/27/17 08: 56; Admin Dose 500 MG; Start 02/26/17 at 19:30 Meperidine HCl (Demerol) 12.5 mg Q4H PRN IV POST OPERATIVE SHIVERING; Start at 19:30 Meperidine HCl (Demerol) 25 mg Q4H PRN IV POST OPERATIVE SHIVERING; Start 02/25 at 19:30 Eye Lubricant (Akwa Oint) 1 applic Q6 BOTH EYES Last administered on 02/27/17 05:59; Admin Dose 1 APPLIC; Start 02/26/17 at 00:00 Eye Lubricant (Artificial Tears Oph) 2 drop Q6 BOTH EYES Last administered on 05:59; Admin Dose 2 DROP; Start 02/26/17 at 00:00 Dextrose (D50w Syringe) 25 ml Q15M PRN IV Till BS 80 mg/dL or above x2; Start 02/25/17 at 19:30 Dextrose (D50w Syringe) 50 ml Q15M PRN IV Till BS 80 mg/dL or above x2; Start 02/25/17 at 19:30 Heparin Sodium (Porcine) 5000 unit 5,000 unit BID SC Last administered on 09:04; Admin Dose 5,000 UNIT; Start 02/25/17 at 21:00 Propofol 100 ml @ 3.15 mls/hr TITRATE ONCE IV Last administered on 02/26/17 07:10; Admin Dose 3.15 MLS/HR; Start 02/26/17 at 07:30; Stop 02/27/17 at 15:14 Norepinephrine 32 mg/Dextrose 250 ml @ 0.46 mls/hr TITRATE IV Last administered on 02/26/17 10:44; Admin Dose 9.37 MLS/HR; Start 02/26/17 at 09:30 Dopamine HCl 1600 mg/Dextrose 250 ml @ 1.96 mls/hr TITRATE IV Last administered on 02/27/17 01:00; Admin Dose 19.68 MLS/HR; Start 02/26/17 at 09:30 Cefepime HCl 50 ml @ 100 mls/hr Q24H IVPB Last administered on 02/27/17 08:58 ; Admin Dose 100 MLS/HR; Start 02/26/17 at 10:00 Vancomycin HCl/ Sodium Chloride (Vancocin/NS) 250 ml @ 83.333 mls/ hr Q24H IVPB Last administered on 02/26/17 10:34; Admin Dose 83.333 MLS/HR; Start at 11:00 Diagnostic Test (Pha) 1 ea 1 ea Q4H XX Last administered on 02/27/17 06:00; Admin Dose 1 EA; Start 02/26/17 at 22:00 Propofol 100 ml @ 3.15 mls/hr Q12H IV Last administered on 02/26/17 22:57; Admin Dose 3.15 MLS/HR; Start 02/26/17 at 23:00 Vecuronium [place] 100 mg/ Dextrose 100 ml @ 5.25 mls/hr TITRATE IV Last administered on 02/26/17 20:00; Admin Dose 5.25 MLS/HR; Start 02/26/17 at 23:00 Vasopressin 60 unit/Dextrose 60 ml @ 1.2 mls/hr Q12H IV ; Start 02/27/17 at 07: 00 Phenylephrine HCl/ Dextrose (Jr-Syneph/D5W) 250 ml @ 18.75 mls/ hr TITRATE IV Last administered on 02/27/17 07:58; Admin Dose 18.75 MLS/HR; Start 02/27/17 at 07:00 REED NIELSEN Feb 27, 2017 09:48 00 Phenylephrine HCl/ Dextrose (Jr-Syneph/D5W) 250 ml @ 18.75 mls/ hr TITRATE IV Last administered on 02/27/17 07:58; Admin Dose 18.75 MLS/HR; Start 02/27/17 at 07:00 REED NIELSEN Feb 27, 2017 09:48
[2017-02-27] MEDS: PROPOFOL 100 ML IV SCH ×2 (11:00→23:00)
[2017-02-27] MEDS: NORepinephrine 32 MG in DEXTROSE 5% 218 ML IV SCH (12:00)
--- NOTE | 2017-02-27 12:32 | CONS ---
Date/Time of Note Date/Time of Note DATE: 02/27/17 TIME: 12:28 Assessment/Plan Assessment/Plan Additional Assessment/Plan Ventilator settings are AC of 24, tidal volume 600, PEEP of 5, 60% FiO2. Patient currently on phenylephrine drip to 50 mics per minute, Levophed 30 mics per minute, as well as epinephrine drip at 4 mics per minute. Patient is off Versed. Chest x-ray was reviewed from of last month which is showing patchy bilateral alveolar infiltrates. Assessment and recommendations; 1. Patient admitted for cardiac arrest with long CPR with likely resulting severe anoxic brain injury. 2. Bilateral pneumonia likely aspiration. 3. Worsening renal failure. 4. Profound shock. Continue current treatment. Will obtain follow-up chest x-ray. Obtain a follow -up ABG as well. I did have a very lengthy discussion with the patient's children at bedside and also patient's physician friend who is visiting from [place] and apprised him of the overall condition of the patient. Prognosis remains extremely guarded at this point. Consultation Date/Type/Reason Admit Date/Time Feb 25, 2017 at 21:43 Date of Consultation: Feb 27, 2017 Type of Consultation: Pulmonary/critical care Reason for Consultation Pulmonary consultation requested for evaluation of respiratory failure, status post cardiac arrest. 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 The patient however remains critically ill remains intubated requiring full ventilator support with multiple pressor agents for blood pressure maintenance. Patient has just been taken off hypothermia protocol and is currently exhibiting profound mental unresponsiveness. History was obtained from medical records as well as from patient's multiple children who were present in the room. Past medical history; 1. Patient with history of apparent drug abuse. 2. No other comorbid conditions. Medications; reviewed. Allergies; not available. Social history; positive for drug abuse. Family history; patient has multiple children. Most of them are present in the room currently. 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 Review of systems; unable to be obtained. General exam; elderly male, orally intubated, unresponsive. Currently in no distress. Constitutional: no complaints, other (on vent) Social History Alcohol Use: other Smoking Status: Current some day smoker Drug Use: cocaine, other (Opiates, methamphetamine) Exam/Review of Systems Vital Signs Vitals Vital Signs Date Time Temp Pulse Resp B/P Pulse Ox O2 Delivery O2 Flow Rate FiO2 02/27/17 09:00 96.2 87 24 87/54 96 Mechanical Ventilator 02/27/17 06:17 60 02/25/17 16:00 15.0 Intake and Output 02/26/17 02/26/17 02/27/17 15:00 23:00 07:00 Intake Total 1239.50 ml 831.80 ml 2894.2 ml Output Total 500 ml 30 ml 20 ml Balance 739.50 ml 801.80 ml 2874.2 ml Exam HEENT exam; supple neck, no JVD. No lymphadenopathy. Midline trachea. No thyromegaly. Pupils are dilated bilaterally and nonreactive to light. Patient has fair dentition. Orally intubated. Chest exam; diminished but clear breath sound. S1-S2 audible, no murmurs. Regular rhythm. Abdomen exam; soft, no organomegaly. Bowel sounds are absent. Extremity exam; no peripheral edema. 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 Results Result Diagram: 02/27/17 0430 02/27/17 0430 Results 24 hrs Laboratory Tests Test 02/26/17 13:09 02/26/17 15:38 02/26/17 17:30 02/26/17 17:40 Blood Gas Specimen Source Blood arterial Arterial Blood Date Drawn 02/26/2017 3:00:31 PM Arterial Blood pH (Temp corrected) 7.373 Arterial Blood pCO2 (Temp correct) 32.9 L Arterial Blood pO2 (Temp corrected) 92.1 Arterial Blood HCO3 18.7 L Arterial Blood Base Excess -5.3 L Arterial Blood Oxygen Saturation 97.2 Cooper Test ACCEPTAB Arterial Blood Gas Puncture Site Right Radial Arterial Blood Carboxyhemoglobin 0 Arterial Blood Methemoglobin 0.4 Blood Gas A-a O2 Differential 227.4 H Oxyhemoglobin Percent 96.8 Total Hemoglobin 17.5 Blood Gas Temperature 37.0 Blood Gas Respiration Rate 24.0 Blood Gas Actual Respiration Rate 24 Blood Gas Modality VENT - AC FiO2 50.0 Blood Gas Tidal Volume 600.0 Blood Gas Low PEEP Setting 8.0 Blood Gas Notified Whom TAVARES REYES Blood Gas Notified Time 02/26/2017 3:22:56 PM Bedside Glucose 113 92 White Blood Count 5.3 # Red Blood Count 5.44 Hemoglobin 16.3 Hematocrit 47.6 Mean Corpuscular Volume 87.5 Mean Corpuscular Hemoglobin 30.0 Mean Corpuscular Hemoglobin Concent 34.2 Red Cell Distribution Width 12.9 Platelet Count 259 Mean Platelet Volume 10.5 H Neutrophils % 65.9 Lymphocytes % 17.3 Monocytes % 12.4 H Eosinophils % 3.2 Basophils % 0.6 Nucleated Red Blood Cells % 0.0 Neutrophils # 3.5 Lymphocytes # 0.9 Monocytes # 0.7 Eosinophils # 0.2 Basophils # 0.0 Nucleated Red Blood Cells # 0.0 Prothrombin Time 15.3 H Prothrombin Time Ratio 1.2 INR International Normalized Ratio 1.20 Activated Partial Thromboplast Time 45.4 H Sodium Level 140 Potassium Level 3.9 Chloride Level 103 Carbon Dioxide Level 20 L Anion Gap 21 H Blood Urea Nitrogen 30 H Creatinine 3.02 H Glucose Level 114 # Lactic Acid Level 2.7 *H Calcium Level 7.8 L Phosphorus Level 3.8 Magnesium Level 2.0 Creatine Kinase 944 H Creatine Kinase Index 3.4 Creatinine Kinase MB (Mass) 32.00 H Troponin I 0.266 *H Amylase Level 158 H Lipase 48 Test 02/26/17 21:56 02/27/17 00:50 02/27/17 01:29 02/27/17 04:30 Bedside Glucose 116 117 White Blood Count 6.0 5.1 Red Blood Count 5.20 5.06 Hemoglobin 15.6 14.9 Hematocrit 45.2 44.6 Mean Corpuscular Volume 86.9 88.1 Mean Corpuscular Hemoglobin 30.0 29.4 Mean Corpuscular Hemoglobin Concent 34.5 33.4 Red Cell Distribution Width 12.9 13.2 Platelet Count 255 239 Mean Platelet Volume 10.6 H 11.0 H Neutrophils % 67.3 74.0 Lymphocytes % 17.1 13.6 L Monocytes % 8.6 5.9 Eosinophils % 5.6 5.3 Basophils % 0.7 0.4 Nucleated Red Blood Cells % 0.0 0.0 Neutrophils # 4.1 3.8 Lymphocytes # 1.0 0.7 L Monocytes # 0.5 0.3 Eosinophils # 0.3 0.3 Basophils # 0.0 0.0 Nucleated Red Blood Cells # 0.0 0.0 Prothrombin Time 16.2 H 17.0 H Prothrombin Time Ratio 1.3 1.3 INR International Normalized Ratio 1.29 1.38 Activated Partial Thromboplast Time 42.8 H 44.2 H Sodium Level 139 138 Potassium Level 3.8 4.1 Chloride Level 101 101 Carbon Dioxide Level 20 L 18 L Anion Gap 22 H 23 H Blood Urea Nitrogen 33 H 34 H Creatinine 3.34 H 3.51 H Glucose Level 146 192 Calcium Level 7.6 L 7.4 L Phosphorus Level 4.9 5.6 H Magnesium Level 1.9 1.8 Creatine Kinase 749 H 635 H Creatine Kinase Index 3.7 4.0 Creatinine Kinase MB (Mass) 27.50 H 25.10 H Troponin I 0.249 *H 0.228 *H Amylase Level 158 H 148 H Lipase 60 71 Total Bilirubin 0.1 L Direct Bilirubin 0.00 Indirect Bilirubin 0.1 Aspartate Amino Transf (AST/SGOT) 123 H Alanine Aminotransferase (ALT/SGPT) 126 H Alkaline Phosphatase 58 Total Protein 5.3 #L Albumin 2.7 #L Globulin 2.60 Albumin/Globulin Ratio 1.03 Test 02/27/17 06:06 02/27/17 09:02 Bedside Glucose 132 150 Medications Medications Current Medications Epinephrine/ Dextrose (EPINEPHrine/D5W) 250 ml @ 0 mls/hr TITRATE IV Last administered on 02/27/17t 07:13; Admin Dose 37.5 MLS/HR; Start 02/25/17 at 16:30 Ondansetron HCl (Zofran Inj) 4 mg Q6H PRN IV NAUSEA AND/OR VOMITING; Start at 19:30 Acetaminophen (Tylenol Tab) 650 mg Q6H PRN PO PAIN LEVEL 1-3 OR FEVER; Start at 19:30 Acetaminophen/ Hydrocodone Bitart ([place] (5/325)) 1 tab Q6H PRN PO MODERATE PAIN LEVEL 4-6; Start 02/25/17 at 19:30 Morphine Sulfate (morphine) 2 mg Q4H PRN IV SEVERE PAIN LEVEL 7-10; Start 02/25 at 19:30 Docusate Sodium (Colace) 100 mg Q12H PRN PO CONSTIPATION; Start 02/25/17 at 19: 30 Magnesium Hydroxide (Milk Of Mag) 30 ml DAILY PRN PO CONSTIPATION; Start at 19:30 Sodium Biphosphate/ Sodium Phosphate (Fleet Enema) 133 ml DAILY PRN [place] CONSTIPATION; Start 02/25/17 at 19:30 Famotidine 20 mg 20 mg Q12 IV Last administered on 02/27/17 08:56; Admin Dose 20 MG; Start 02/25/17 at 21:00 Sodium Chloride (1/2 NS) 1,000 ml @ 125 mls/hr Q8H IV Last administered on 02/27 01:22; Admin Dose 125 MLS/HR; Start 02/25/17 at 19:09 Lorazepam (Ativan) 0.5 mg Q6H PRN IV ANXIETY; Start 02/25/17 at 19:30 Vancomycin HCl (Vanco Iv Per Pharmacy) VANCOMYCIN PER PHARMACY NOTE XX ; Start 02/25/17 at 19:30 Nitroglycerin (Nitroglycerin (Sl Tab) 0.4 Mg) 1 tab Q5M PRN SL ANGINA; Start at 19:30 Acetaminophen (Tylenol Supp) 650 mg Q4H PRN [place] TEMP > 37C; Start 02/25/17 at 19 :30 Acetaminophen (Tylenol Liquid) 650 mg Q4H PRN PO TEMP > 37C; Start 02/25/17 at 19:30 Acetaminophen (Tylenol Supp) 500 mg Q6H [place] ; Start 02/26/17 at 19:30 Acetaminophen (Tylenol Liquid) 500 mg Q6H PO Last administered on 02/27/17 08: 56; Admin Dose 500 MG; Start 02/26/17 at 19:30 Meperidine HCl (Demerol) 12.5 mg Q4H PRN IV POST OPERATIVE SHIVERING; Start at 19:30 Meperidine HCl (Demerol) 25 mg Q4H PRN IV POST OPERATIVE SHIVERING; Start 02/25 at 19:30 Eye Lubricant (Akwa Oint) 1 applic Q6 BOTH EYES Last administered on 02/27/17 05:59; Admin Dose 1 APPLIC; Start 02/26/17 at 00:00 Eye Lubricant (Artificial Tears Oph) 2 drop Q6 BOTH EYES Last administered on 05:59; Admin Dose 2 DROP; Start 02/26/17 at 00:00 Dextrose (D50w Syringe) 25 ml Q15M PRN IV Till BS 80 mg/dL or above x2; Start 02/25/17 at 19:30 Dextrose (D50w Syringe) 50 ml Q15M PRN IV Till BS 80 mg/dL or above x2; Start 02/25/17 at 19:30 Heparin Sodium (Porcine) 5000 unit 5,000 unit BID SC Last administered on 09:04; Admin Dose 5,000 UNIT; Start 02/25/17 at 21:00 Propofol 100 ml @ 3.15 mls/hr TITRATE ONCE IV Last administered on 02/26/17 07:10; Admin Dose 3.15 MLS/HR; Start 02/26/17 at 07:30; Stop 02/27/17 at 15:14 Norepinephrine 32 mg/Dextrose 250 ml @ 0.46 mls/hr TITRATE IV Last administered on 02/26/17 10:44; Admin Dose 9.37 MLS/HR; Start 02/26/17 at 09:30 Dopamine HCl 1600 mg/Dextrose 250 ml @ 1.96 mls/hr TITRATE IV Last administered on 02/27/17 01:00; Admin Dose 19.68 MLS/HR; Start 02/26/17 at 09:30 Cefepime HCl (Maxipime 2gm/50 ml (Pmx)) 50 ml @ 100 mls/hr Q24H IVPB Last administered on 02/27/17 08:58; Admin Dose 100 MLS/HR; Start 02/26/17 at 10:00 Diagnostic Test (Pha) 1 ea 1 ea Q4H XX Last administered on 02/27/17 10:28; Admin Dose 1 EA; Start 02/26/17 at 22:00 Propofol 100 ml @ 3.15 mls/hr Q12H IV Last administered on 02/26/17 22:57; Admin Dose 3.15 MLS/HR; Start 02/26/17 at 23:00 Vecuronium [place] 100 mg/ Dextrose 100 ml @ 5.25 mls/hr TITRATE IV Last administered on 02/26/17 20:00; Admin Dose 5.25 MLS/HR; Start 02/26/17 at 23:00 Vasopressin 60 unit/Dextrose 60 ml @ 1.2 mls/hr Q12H IV ; Start 02/27/17 at 07: 00 Phenylephrine HCl/ Dextrose (Jr-Syneph/D5W) 250 ml @ 18.75 mls/ hr TITRATE IV Last administered on 02/27/17t 07:58; Admin Dose 18.75 MLS/HR; Start 02/27/17 at 07:00 JUAN R GRAVES Feb 27, 2017 12:32
[2017-02-27 13:25] LABS: BASOPHIL # 0.1 10^3/ul (0.0-0.1); BASOPHILS % 0.8 % (0.0-2.0); EOSINOPHILS # 0.4 10^3/ul (0.0-0.5); EOSINOPHILS % 5.2 % (0.0-7.0); HEMATOCRIT 42.1 % (42.0-52.0); LYMPHOCYTES % 12.1 % (15.0-51.0); MEAN CORPUSCULAR HEMOGLOBIN 29.3 pg (29.0-33.0); MEAN CORPUSCULAR HGB CONC 33.3 g/dl (32.0-37.0); MEAN CORPUSCULAR VOLUME 88.1 fl (82.0-101.0); MEAN PLATELET VOLUME 10.8 fl (7.4-10.4); MONOCYTE # 0.5 10^3/ul (0.3-0.9); MONOCYTES % 6.3 % (0.0-11.0); NEUTROPHIL # 5.9 10^3/ul (1.6-7.5); NEUTROPHILS % 75.1 % (39.0-77.0); PLATELET COUNT 231 10^3/UL (140-415); RED BLOOD COUNT 4.78 10^6/ul (4.70-6.10); RED CELL DISTRIBUTION WIDTH 13.4 % (11.5-14.5); WHITE BLOOD COUNT 7.9 10^3/ul (4.8-10.8)
--- NOTE | 2017-02-27 13:35 | CONS ---
Date/Time of Note Date/Time of Note DATE: 02/27/17 TIME: 13:33 Consult Date/Type/Reason Admit Date/Time Feb 25, 2017 at 21:43 Initial Consult Date 02/27/17 Type of Consultation: Neurology Reason for Consultation hypoxic injury Ordering Provider: YANET MTZ Subjective reexamined patient today absent brainstem responses EEG done- consistent with ECS, brain Objective Vital Signs Date Time Temp Pulse Resp B/P Pulse Ox O2 Delivery O2 Flow Rate FiO2 02/27/17 12:00 89 02/27/17 09:00 96.2 24 87/54 96 Mechanical Ventilator 02/27/17 06:17 60 02/25/17 16:00 15.0 Intake and Output 02/26/17 02/26/17 02/27/17 15:00 23:00 07:00 Intake Total 1239.50 ml 831.80 ml 2894.2 ml Output Total 500 ml 30 ml 20 ml Balance 739.50 ml 801.80 ml 2874.2 ml Exam absent responses pupils are dilated NR, EOMI absent Dolls absent corneals, absent gag absent withdrawal in extremities exam c/w brain (Cold-calorics not performed as propofol was held only 3 mins prior to exam) Results/Medications Result Diagram: 02/27/17 1254 02/27/17 0430 Results 24 hrs Laboratory Tests Test 02/26/17 15:38 02/26/17 17:30 02/26/17 17:40 02/26/17 21:56 Bedside Glucose 113 92 116 White Blood Count 5.3 # Red Blood Count 5.44 Hemoglobin 16.3 Hematocrit 47.6 Mean Corpuscular Volume 87.5 Mean Corpuscular Hemoglobin 30.0 Mean Corpuscular Hemoglobin Concent 34.2 Red Cell Distribution Width 12.9 Platelet Count 259 Mean Platelet Volume 10.5 H Neutrophils % 65.9 Lymphocytes % 17.3 Monocytes % 12.4 H Eosinophils % 3.2 Basophils % 0.6 Nucleated Red Blood Cells % 0.0 Neutrophils # 3.5 Lymphocytes # 0.9 Monocytes # 0.7 Eosinophils # 0.2 Basophils # 0.0 Nucleated Red Blood Cells # 0.0 Prothrombin Time 15.3 H Prothrombin Time Ratio 1.2 INR International Normalized Ratio 1.20 Activated Partial Thromboplast Time 45.4 H Sodium Level 140 Potassium Level 3.9 Chloride Level 103 Carbon Dioxide Level 20 L Anion Gap 21 H Blood Urea Nitrogen 30 H Creatinine 3.02 H Glucose Level 114 # Lactic Acid Level 2.7 *H Calcium Level 7.8 L Phosphorus Level 3.8 Magnesium Level 2.0 Creatine Kinase 944 H Creatine Kinase Index 3.4 Creatinine Kinase MB (Mass) 32.00 H Troponin I 0.266 *H Amylase Level 158 H Lipase 48 Test 02/27/17 00:50 02/27/17 01:29 02/27/17 04:30 02/27/17 06:06 White Blood Count 6.0 5.1 Red Blood Count 5.20 5.06 Hemoglobin 15.6 14.9 Hematocrit 45.2 44.6 Mean Corpuscular Volume 86.9 88.1 Mean Corpuscular Hemoglobin 30.0 29.4 Mean Corpuscular Hemoglobin Concent 34.5 33.4 Red Cell Distribution Width 12.9 13.2 Platelet Count 255 239 Mean Platelet Volume 10.6 H 11.0 H Neutrophils % 67.3 74.0 Lymphocytes % 17.1 13.6 L Monocytes % 8.6 5.9 Eosinophils % 5.6 5.3 Basophils % 0.7 0.4 Nucleated Red Blood Cells % 0.0 0.0 Neutrophils # 4.1 3.8 Lymphocytes # 1.0 0.7 L Monocytes # 0.5 0.3 Eosinophils # 0.3 0.3 Basophils # 0.0 0.0 Nucleated Red Blood Cells # 0.0 0.0 Prothrombin Time 16.2 H 17.0 H Prothrombin Time Ratio 1.3 1.3 INR International Normalized Ratio 1.29 1.38 Activated Partial Thromboplast Time 42.8 H 44.2 H Sodium Level 139 138 Potassium Level 3.8 4.1 Chloride Level 101 101 Carbon Dioxide Level 20 L 18 L Anion Gap 22 H 23 H Blood Urea Nitrogen 33 H 34 H Creatinine 3.34 H 3.51 H Glucose Level 146 192 Calcium Level 7.6 L 7.4 L Phosphorus Level 4.9 5.6 H Magnesium Level 1.9 1.8 Creatine Kinase 749 H 635 H Creatine Kinase Index 3.7 4.0 Creatinine Kinase MB (Mass) 27.50 H 25.10 H Troponin I 0.249 *H 0.228 *H Amylase Level 158 H 148 H Lipase 60 71 Bedside Glucose 117 132 Total Bilirubin 0.1 L Direct Bilirubin 0.00 Indirect Bilirubin 0.1 Aspartate Amino Transf (AST/SGOT) 123 H Alanine Aminotransferase (ALT/SGPT) 126 H Alkaline Phosphatase 58 Total Protein 5.3 #L Albumin 2.7 #L Globulin 2.60 Albumin/Globulin Ratio 1.03 Test 02/27/17 09:02 02/27/17 12:54 Bedside Glucose 150 White Blood Count 7.9 # Red Blood Count 4.78 Hemoglobin 14.0 Hematocrit 42.1 Mean Corpuscular Volume 88.1 Mean Corpuscular Hemoglobin 29.3 Mean Corpuscular Hemoglobin Concent 33.3 Red Cell Distribution Width 13.4 Platelet Count 231 Mean Platelet Volume 10.8 H Neutrophils % 75.1 Lymphocytes % 12.1 L Monocytes % 6.3 Eosinophils % 5.2 Basophils % 0.8 Nucleated Red Blood Cells % 0.0 Neutrophils # 5.9 Lymphocytes # 1.0 Monocytes # 0.5 Eosinophils # 0.4 Basophils # 0.1 Nucleated Red Blood Cells # 0.0 Medications Current Medications Epinephrine/ Dextrose (EPINEPHrine/D5W) 250 ml @ 0 mls/hr TITRATE IV Last administered on 02/27/17 07:13; Admin Dose 37.5 MLS/HR; Start 02/25/17 at 16:30 Ondansetron HCl (Zofran Inj) 4 mg Q6H PRN IV NAUSEA AND/OR VOMITING; Start at 19:30 Acetaminophen (Tylenol Tab) 650 mg Q6H PRN PO PAIN LEVEL 1-3 OR FEVER; Start at 19:30 Acetaminophen/ Hydrocodone Bitart ([place] (5/325)) 1 tab Q6H PRN PO MODERATE PAIN LEVEL 4-6; Start 02/25/17 at 19:30 Morphine Sulfate (morphine) 2 mg Q4H PRN IV SEVERE PAIN LEVEL 7-10; Start 02/25 at 19:30 Docusate Sodium (Colace) 100 mg Q12H PRN PO CONSTIPATION; Start 02/25/17 at 19: 30 Magnesium Hydroxide (Milk Of Mag) 30 ml DAILY PRN PO CONSTIPATION; Start at 19:30 Sodium Biphosphate/ Sodium Phosphate (Fleet Enema) 133 ml DAILY PRN [place] CONSTIPATION; Start 02/25/17 at 19:30 Famotidine 20 mg 20 mg Q12 IV Last administered on 02/27/17 08:56; Admin Dose 20 MG; Start 02/25/17 at 21:00 Sodium Chloride (1/2 NS) 1,000 ml @ 125 mls/hr Q8H IV Last administered on 02/27 11:09; Admin Dose 125 MLS/HR; Start 02/25/17 at 19:09 Lorazepam (Ativan) 0.5 mg Q6H PRN IV ANXIETY; Start 02/25/17 at 19:30 Vancomycin HCl (Vanco Iv Per Pharmacy) VANCOMYCIN PER PHARMACY NOTE XX ; Start 02/25/17 at 19:30 Nitroglycerin (Nitroglycerin (Sl Tab) 0.4 Mg) 1 tab Q5M PRN SL ANGINA; Start at 19:30 Acetaminophen (Tylenol Supp) 650 mg Q4H PRN OR TEMP > 37C; Start 02/25/17 at 19 :30 Acetaminophen (Tylenol Liquid) 650 mg Q4H PRN PO TEMP > 37C; Start 02/25/17 at 19:30 Acetaminophen (Tylenol Supp) 500 mg Q6H OR Last administered on 02/27/17 13:23 ; Admin Dose 500 MG; Start 02/26/17 at 19:30 Acetaminophen (Tylenol Liquid) 500 mg Q6H PO Last administered on 02/27/17 13: 23; Admin Dose 500 MG; Start 02/26/17 at 19:30 Meperidine HCl (Demerol) 12.5 mg Q4H PRN IV POST OPERATIVE SHIVERING; Start at 19:30 Meperidine HCl (Demerol) 25 mg Q4H PRN IV POST OPERATIVE SHIVERING; Start 02/25 at 19:30 Eye Lubricant (Akwa Oint) 1 applic Q6 BOTH EYES Last administered on 02/27/17 12:00; Admin Dose 1 APPLIC; Start 02/26/17 at 00:00 Eye Lubricant (Artificial Tears Oph) 2 drop Q6 BOTH EYES Last administered on 12:00; Admin Dose 2 DROP; Start 02/26/17 at 00:00 Dextrose (D50w Syringe) 25 ml Q15M PRN IV Till BS 80 mg/dL or above x2; Start 02/25/17 at 19:30 Dextrose (D50w Syringe) 50 ml Q15M PRN IV Till BS 80 mg/dL or above x2; Start 02/25/17 at 19:30 Heparin Sodium (Porcine) 5000 unit 5,000 unit BID SC Last administered on 09:04; Admin Dose 5,000 UNIT; Start 02/25/17 at 21:00 Propofol 100 ml @ 3.15 mls/hr TITRATE ONCE IV Last administered on 02/26/17 07:10; Admin Dose 3.15 MLS/HR; Start 02/26/17 at 07:30; Stop 02/27/17 at 15:14 Norepinephrine 32 mg/Dextrose 250 ml @ 0.46 mls/hr TITRATE IV Last administered on 02/26/17 10:44; Admin Dose 9.37 MLS/HR; Start 02/26/17 at 09:30 Dopamine HCl 1600 mg/Dextrose 250 ml @ 1.96 mls/hr TITRATE IV Last administered on 02/27/17 01:00; Admin Dose 19.68 MLS/HR; Start 02/26/17 at 09:30 Cefepime HCl (Maxipime 2gm/50 ml (Pmx)) 50 ml @ 100 mls/hr Q24H IVPB Last administered on 02/27/17 08:58; Admin Dose 100 MLS/HR; Start 02/26/17 at 10:00 Diagnostic Test (Pha) 1 ea 1 ea Q4H XX Last administered on 02/27/17 13:27; Admin Dose 1 EA; Start 02/26/17 at 22:00 Propofol 100 ml @ 3.15 mls/hr Q12H IV Last administered on 02/26/17 22:57; Admin Dose 3.15 MLS/HR; Start 02/26/17 at 23:00 Vecuronium [place] 100 mg/ Dextrose 100 ml @ 5.25 mls/hr TITRATE IV Last administered on 02/26/17 20:00; Admin Dose 5.25 MLS/HR; Start 02/26/17 at 23:00 Vasopressin 60 unit/Dextrose 60 ml @ 1.2 mls/hr Q12H IV ; Start 02/27/17 at 07: 00 Phenylephrine HCl/ Dextrose (Jr-Syneph/D5W) 250 ml @ 18.75 mls/ hr TITRATE IV Last administered on 8/2/17at 07:58; Admin Dose 18.75 MLS/HR; Start 02/27/17 at 07:00 Assessment/Plan Chief Complaint/Hosp Course 61 yo male with drug abuse history admitted with asystole, lactic acidosis. CTH shows changes consistent with diffuse edema and hypoxic injury, poor neurologic exam with absent brain stem reflexes. dc propofol Exam consistent with brain , EEG consistent with brain . Discussed with brother likelihood of brain , EEG had not been done to confirm at that time, appreciate palliative care involvement, may await further family members prior to palliative extubation. i will follow again tomorrow. Problems: KIARA SANCHEZ MD Feb 27, 2017 13:35
[2017-02-27 13:41] LABS: INR 1.43; PROTIME 17.5 Sec (12.2-14.2); PT RATIO 1.4
[2017-02-27 13:42] LABS: PARTIAL THROMBOPLASTIN TIME 43.9 Sec (25.0-35.0)
[2017-02-27 13:49] LABS: CALCIUM 7.5 mg/dl (8.4-10.2); CREATININE 4.27 mg/dl (0.61-1.24); MAGNESIUM 1.7 mg/dl (1.7-2.5); PHOSPHORUS 5.2 mg/dl (2.5-4.9); POTASSIUM 4.8 mmol/L (3.5-5.1)
[2017-02-27 14:10] LABS: CK-MB 18.8 ng/ml (0.0-2.4); TROPONIN-I 0.208 ng/ml (0.00-0.12)
--- NOTE | 2017-02-27 14:59 | RADRPT ---
PROCEDURE: Chest radiograph. CLINICAL INDICATION: Pneumonia. TECHNIQUE: Single portable frontal view. COMPARISON: Radiograph 02/25/2017. FINDINGS: The endotracheal tube terminates above 4 cm above the melvin. An enteric tube terminates in the gastric body. Cutaneous cardioverter defibrillator pad has been placed. Overall, decreased aeration of the left lung base since 02/25/2017. The left diaphragm and costophrenic sulcus as effaced which may be due to a small effusion, atelecta sis, pneumonia. The subsegmental linear atelectasis within the right lower lung. No suspicious bone lesion. Old right second rib fracture. IMPRESSION: Overall, decreased aeration in the left lung base since 02/25/2017. An opacity at the left lung bas e may represent any combination of pneumonia, pleural effusion, and atelectasis. RPTAT: PP Physician Winsome Date Time Electronically viewed and signed by Physician Winsome on 02/27/2017 14:58 LG/
--- NOTE | 2017-02-27 15:35 | RADRPT ---
Vent Rate: 84 bpm RR Interval: 0 msec MS Interval: 136 msec QRS Duration: 94 msec QT Interval: 414 msec QTC Interval: 489 msec P-R-T [place]: 61 - 57 - 41 degrees Normal sinus rhythm Prolonged QT Abnormal ECG Electronically Signed By: eRza Alfonso [id number]
[2017-02-27 17:54] LABS: BASOPHIL # 0.1 10^3/ul (0.0-0.1); BASOPHILS % 0.7 % (0.0-2.0); EOSINOPHILS # 0.5 10^3/ul (0.0-0.5); EOSINOPHILS % 5.4 % (0.0-7.0); HEMATOCRIT 40.9 % (42.0-52.0); HEMOGLOBIN 13.9 g/dl (14.0-18.0); MEAN CORPUSCULAR HEMOGLOBIN 29.4 pg (29.0-33.0); MEAN CORPUSCULAR VOLUME 86.7 fl (82.0-101.0); MEAN PLATELET VOLUME 10.5 fl (7.4-10.4); MONOCYTE # 0.7 10^3/ul (0.3-0.9); MONOCYTES % 7.5 % (0.0-11.0); NEUTROPHIL # 7.1 10^3/ul (1.6-7.5); NEUTROPHILS % 74.8 % (39.0-77.0); PLATELET COUNT 226 10^3/UL (140-415); RED BLOOD COUNT 4.72 10^6/ul (4.70-6.10); RED CELL DISTRIBUTION WIDTH 13.5 % (11.5-14.5); WHITE BLOOD COUNT 9.5 10^3/ul (4.8-10.8)
[2017-02-27 18:10] LABS: INR 1.49; PROTIME 18.1 Sec (12.2-14.2); PT RATIO 1.4
[2017-02-27 18:11] LABS: PARTIAL THROMBOPLASTIN TIME 45.1 Sec (25.0-35.0)
[2017-02-27 18:20] LABS: CALCIUM 7.6 mg/dl (8.4-10.2); CREATININE 4.69 mg/dl (0.61-1.24); MAGNESIUM 1.7 mg/dl (1.7-2.5); PHOSPHORUS 5.6 mg/dl (2.5-4.9); POTASSIUM 5.1 mmol/L (3.5-5.1)
[2017-02-27 18:38] LABS: CK-MB 15.7 ng/ml (0.0-2.4); TROPONIN-I 0.194 ng/ml (0.00-0.12)
[2017-02-28] VITALS (100 sets, daily range): BP systolic 70–147; BP diastolic 42–104; PULSE 89–105; RESP 24
--- NOTE | 2017-02-28 00:16 | CONS ---
Date/Time of Note Date/Time of Note DATE: 02/28/17 TIME: 00:15 Assessment/Plan Assessment/Plan Chief Complaint/Hosp Course A/P CARDIAC ARREST DEVORA ATN POST ARREST VDRF HX BIPOLAR DISORDER PLAN PER ORDER IV FLUID Problems: Consultation Date/Type/Reason Admit Date/Time Feb 25, 2017 at 21:43 Initial Consult Date 02/26/17 Type of Consultation: RENAL Referring Provider: YANET MTZ 24 HR Interval Summary Subjective hx not possible: pt non-verbal Exam/Review of Systems Vital Signs Vitals Vital Signs Date Time Temp Pulse Resp B/P Pulse Ox O2 Delivery O2 Flow Rate FiO2 02/27/17 23:05 86 24 100 50 02/27/17 22:15 106/49 02/27/17 22:00 Mechanical Ventilator 02/27/17 19:30 98.6 02/25/17 16:00 15.0 Intake and Output 02/27/17 02/27/17 02/28/17 15:00 23:00 07:00 Intake Total 923 ml 529 ml Output Total 0 ml 5 ml Balance 923 ml 524 ml Exam Respiratory: diminished breath sounds Cardiovascular: regular rate and rhythm Gastrointestinal: soft Musculoskeletal: nl extremities to inspection Extremities: normal pulses Results Result Diagram: 02/27/17 1747 02/27/17 1747 Results 24 hrs Laboratory Tests Test 02/27/17 00:50 02/27/17 01:29 02/27/17 04:30 02/27/17 06:06 White Blood Count 6.0 5.1 Red Blood Count 5.20 5.06 Hemoglobin 15.6 14.9 Hematocrit 45.2 44.6 Mean Corpuscular Volume 86.9 88.1 Mean Corpuscular Hemoglobin 30.0 29.4 Mean Corpuscular Hemoglobin Concent 34.5 33.4 Red Cell Distribution Width 12.9 13.2 Platelet Count 255 239 Mean Platelet Volume 10.6 H 11.0 H Neutrophils % 67.3 74.0 Lymphocytes % 17.1 13.6 L Monocytes % 8.6 5.9 Eosinophils % 5.6 5.3 Basophils % 0.7 0.4 Nucleated Red Blood Cells % 0.0 0.0 Neutrophils # 4.1 3.8 Lymphocytes # 1.0 0.7 L Monocytes # 0.5 0.3 Eosinophils # 0.3 0.3 Basophils # 0.0 0.0 Nucleated Red Blood Cells # 0.0 0.0 Prothrombin Time 16.2 H 17.0 H Prothrombin Time Ratio 1.3 1.3 INR International Normalized Ratio 1.29 1.38 Activated Partial Thromboplast Time 42.8 H 44.2 H Sodium Level 139 138 Potassium Level 3.8 4.1 Chloride Level 101 101 Carbon Dioxide Level 20 L 18 L Anion Gap 22 H 23 H Blood Urea Nitrogen 33 H 34 H Creatinine 3.34 H 3.51 H Glucose Level 146 192 Calcium Level 7.6 L 7.4 L Phosphorus Level 4.9 5.6 H Magnesium Level 1.9 1.8 Creatine Kinase 749 H 635 H Creatine Kinase Index 3.7 4.0 Creatinine Kinase MB (Mass) 27.50 H 25.10 H Troponin I 0.249 *H 0.228 *H Amylase Level 158 H 148 H Lipase 60 71 Bedside Glucose 117 132 Total Bilirubin 0.1 L Direct Bilirubin 0.00 Indirect Bilirubin 0.1 Aspartate Amino Transf (AST/SGOT) 123 H Alanine Aminotransferase (ALT/SGPT) 126 H Alkaline Phosphatase 58 Total Protein 5.3 #L Albumin 2.7 #L Globulin 2.60 Albumin/Globulin Ratio 1.03 Test 02/27/17 09:02 02/27/17 12:54 02/27/17 13:27 02/27/17 17:47 Bedside Glucose 150 130 White Blood Count 7.9 # 9.5 # Red Blood Count 4.78 4.72 Hemoglobin 14.0 13.9 L Hematocrit 42.1 40.9 L Mean Corpuscular Volume 88.1 86.7 Mean Corpuscular Hemoglobin 29.3 29.4 Mean Corpuscular Hemoglobin Concent 33.3 34.0 Red Cell Distribution Width 13.4 13.5 Platelet Count 231 226 Mean Platelet Volume 10.8 H 10.5 H Neutrophils % 75.1 74.8 Lymphocytes % 12.1 L 11.0 L Monocytes % 6.3 7.5 Eosinophils % 5.2 5.4 Basophils % 0.8 0.7 Nucleated Red Blood Cells % 0.0 0.0 Neutrophils # 5.9 7.1 Lymphocytes # 1.0 1.0 Monocytes # 0.5 0.7 Eosinophils # 0.4 0.5 Basophils # 0.1 0.1 Nucleated Red Blood Cells # 0.0 0.0 Prothrombin Time 17.5 H 18.1 H Prothrombin Time Ratio 1.4 1.4 INR International Normalized Ratio 1.43 1.49 Activated Partial Thromboplast Time 43.9 H 45.1 H Sodium Level 137 134 L Potassium Level 4.8 5.1 Chloride Level 100 100 Carbon Dioxide Level 20 L 20 L Anion Gap 22 H 19 H Blood Urea Nitrogen 38 H 40 H Creatinine 4.27 H 4.69 H Glucose Level 128 # 130 Calcium Level 7.5 L 7.6 L Phosphorus Level 5.2 H 5.6 H Magnesium Level 1.7 1.7 Creatine Kinase 438 #H 399 H Creatine Kinase Index 4.3 3.9 Creatinine Kinase MB (Mass) 18.80 H 15.70 H Troponin I 0.208 *H 0.194 *H Amylase Level 143 H 137 H Lipase 61 42 Test 02/27/17 20:35 02/27/17 23:27 Bedside Glucose 110 107 Medications Medications Current Medications Epinephrine/ Dextrose (EPINEPHrine/D5W) 250 ml @ 0 mls/hr TITRATE IV Last administered on 02/27/17 07:13; Admin Dose 37.5 MLS/HR; Start 02/25/17 at 16:30 Ondansetron HCl (Zofran Inj) 4 mg Q6H PRN IV NAUSEA AND/OR VOMITING; Start at 19:30 Acetaminophen (Tylenol Tab) 650 mg Q6H PRN PO PAIN LEVEL 1-3 OR FEVER; Start at 19:30 Acetaminophen/ Hydrocodone Bitart ([place] (5/325)) 1 tab Q6H PRN PO MODERATE PAIN LEVEL 4-6; Start 02/25/17 at 19:30 Morphine Sulfate (morphine) 2 mg Q4H PRN IV SEVERE PAIN LEVEL 7-10; Start 02/25 at 19:30 Docusate Sodium (Colace) 100 mg Q12H PRN PO CONSTIPATION; Start 02/25/17 at 19: 30 Magnesium Hydroxide (Milk Of Mag) 30 ml DAILY PRN PO CONSTIPATION; Start at 19:30 Sodium Biphosphate/ Sodium Phosphate (Fleet Enema) 133 ml DAILY PRN [place] CONSTIPATION; Start 02/25/17 at 19:30 Famotidine 20 mg 20 mg Q12 IV Last administered on 02/27/17 20:45; Admin Dose 20 MG; Start 02/25/17 at 21:00 Sodium Chloride (1/2 NS) 1,000 ml @ 125 mls/hr Q8H IV Last administered on 02/27 20:47; Admin Dose 125 MLS/HR; Start 02/25/17 at 19:09 Lorazepam (Ativan) 0.5 mg Q6H PRN IV ANXIETY; Start 02/25/17 at 19:30 Vancomycin HCl (Vanco Iv Per Pharmacy) VANCOMYCIN PER PHARMACY NOTE XX ; Start 02/25/17 at 19:30 Nitroglycerin (Nitroglycerin (Sl Tab) 0.4 Mg) 1 tab Q5M PRN SL ANGINA; Start at 19:30 Acetaminophen (Tylenol Supp) 650 mg Q4H PRN [place] TEMP > 37C; Start 02/25/17 at 19 :30 Acetaminophen (Tylenol Liquid) 650 mg Q4H PRN PO TEMP > 37C; Start 02/25/17 at 19:30 Acetaminophen (Tylenol Supp) 500 mg Q6H [place] Last administered on 02/27/17 13:23 ; Admin Dose 500 MG; Start 02/26/17 at 19:30 Acetaminophen (Tylenol Liquid) 500 mg Q6H PO Last administered on 02/27/17 20: 45; Admin Dose 500 MG; Start 02/26/17 at 19:30 Meperidine HCl (Demerol) 12.5 mg Q4H PRN IV POST OPERATIVE SHIVERING; Start at 19:30 Meperidine HCl (Demerol) 25 mg Q4H PRN IV POST OPERATIVE SHIVERING; Start 02/25 at 19:30 Eye Lubricant (Akwa Oint) 1 applic Q6 BOTH EYES Last administered on 02/27/17 17:21; Admin Dose 1 APPLIC; Start 02/26/17 at 00:00 Eye Lubricant (Artificial Tears Oph) 2 drop Q6 BOTH EYES Last administered on 17:21; Admin Dose 2 DROP; Start 02/26/17 at 00:00 Dextrose (D50w Syringe) 25 ml Q15M PRN IV Till BS 80 mg/dL or above x2; Start 02/25/17 at 19:30 Dextrose (D50w Syringe) 50 ml Q15M PRN IV Till BS 80 mg/dL or above x2; Start 02/25/17 at 19:30 Heparin Sodium (Porcine) 5000 unit 5,000 unit BID SC Last administered on 20:47; Admin Dose 5,000 UNIT; Start 02/25/17 at 21:00 Norepinephrine 32 mg/Dextrose 250 ml @ 0.46 mls/hr TITRATE IV Last administered on 02/27/17 12:00; Admin Dose 14.06 MLS/HR; Start 02/26/17 at 09:30 Dopamine HCl/ Dextrose (D5W) 250 ml @ 1.96 mls/hr TITRATE IV Last administered on 02/27/17 23:25; Admin Dose 19.68 MLS/HR; Start 02/26/17 at 09:30 Diagnostic Test (Pha) 1 ea 1 ea Q4H XX Last administered on 02/27/17 17:21; Admin Dose 1 EA; Start 02/26/17 at 22:00 Propofol 100 ml @ 3.15 mls/hr Q12H IV Last administered on 02/26/17 22:57; Admin Dose 3.15 MLS/HR; Start 02/26/17 at 23:00 Vecuronium [place] 100 mg/ Dextrose 100 ml @ 5.25 mls/hr TITRATE IV Last administered on 02/26/17 20:00; Admin Dose 5.25 MLS/HR; Start 02/26/17 at 23:00 Vasopressin 60 unit/Dextrose 60 ml @ 1.2 mls/hr Q12H IV ; Start 02/27/17 at 07: 00 Phenylephrine HCl/ Dextrose (Jr-Syneph/D5W) 250 ml @ 18.75 mls/ hr TITRATE IV Last administered on 02/27/17 19:31; Admin Dose 56.25 MLS/HR; Start 02/27/17 at 07:00 Miscellaneous Information VANCO RANDOM LEVEL... ONCE ONCE XX ; Start 02/28/17 at 05:00; Stop 02/28/17 at 05:01 Cefepime HCl (Maxipime 1gm/50 ml (Pmx)) 50 ml @ 100 mls/hr Q24H IVPB ; Start at 10:00 MORRIS ANDERSON MD Feb 28, 2017 00:16
[2017-02-28] MEDS: NORepinephrine 32 MG in DEXTROSE 5% 218 ML IV SCH ×2 (00:34→21:35)
[2017-02-28] MEDS: OCULAR LUBRICANT 3.5 GM OPH OINT BOTH EYES SCH ×3 (00:57→12:20)
[2017-02-28] MEDS: ARTIFICIAL TEARS 15 ML OPH BOTH EYES SCH ×3 (00:57→12:20)
[2017-02-28] MEDS: PHENYLephrine 80 MG in DEXTROSE 5% 242 ML IV SCH ×4 (01:05→21:38)
[2017-02-28] MEDS: ACETAMINOPHEN 650 MG SUPP PR SCH ×2 (01:30→07:30)
[2017-02-28] MEDS: ACCU-CHEK XX SCH ×6 (02:00→22:00)
[2017-02-28] MEDS: ACETAMINOPHEN 650MG/20.3ML CUP PO SCH ×2 (03:00→07:30)
[2017-02-28 03:13] LABS: ADD UMIC YES; UR ASCORBIC ACID NEGATIVE (NEGATIVE); UR BACTERIA FEW /HPF (NONE SEEN); UR BILIRUBIN (Dip) NEGATIVE (NEGATIVE); UR BLOOD (Dip) 2+ mg/dL (NEGATIVE); UR BUDDING YEAST MODERATE /HPF (NONE SEEN); UR CLARITY CLOUDY (CLEAR); UR COLOR YELLOW (YELLOW); UR GLUCOSE (Dip) NEGATIVE (NEGATIVE); UR KETONES (Dip) NEGATIVE (NEGATIVE); UR LEUKOCYTE ESTERASE (Dip) 2+ Leu/ul (NEGATIVE); UR NITRITE (Dip) NEGATIVE (NEGATIVE); UR RBC 11 /HPF (0-5); UR SPECIFIC GRAVITY (Dip) 1.009 (1.003-1.030); UR TOTAL PROTEIN (Dip) 2+ mg/dl (NEGATIVE); UR UROBILINOGEN (Dip) NEGATIVE (NEGATIVE)
[2017-02-28 03:49] LABS: PROTEIN/CREAT RATIO 4.58 RATIO
[2017-02-28 05:42] LABS: BASOPHIL # 0.1 10^3/ul (0.0-0.1); BASOPHILS % 0.5 % (0.0-2.0); EOSINOPHILS # 0.5 10^3/ul (0.0-0.5); EOSINOPHILS % 4.3 % (0.0-7.0); HEMATOCRIT 39.8 % (42.0-52.0); HEMOGLOBIN 13.4 g/dl (14.0-18.0); LYMPHOCYTES # 0.9 10^3/ul (0.8-2.9); LYMPHOCYTES % 8.3 % (15.0-51.0); MEAN CORPUSCULAR HEMOGLOBIN 29.7 pg (29.0-33.0); MEAN CORPUSCULAR HGB CONC 33.7 g/dl (32.0-37.0); MEAN CORPUSCULAR VOLUME 88.2 fl (82.0-101.0); MEAN PLATELET VOLUME 11.6 fl (7.4-10.4); MONOCYTE # 0.9 10^3/ul (0.3-0.9); NEUTROPHIL # 8.3 10^3/ul (1.6-7.5); PLATELET COUNT 225 10^3/UL (140-415); RED BLOOD COUNT 4.51 10^6/ul (4.70-6.10); RED CELL DISTRIBUTION WIDTH 13.7 % (11.5-14.5); WHITE BLOOD COUNT 10.7 10^3/ul (4.8-10.8)
--- NOTE | 2017-02-28 05:46 | PRO ---
DATE OF PROCEDURE: 02/27/2017 INDICATION: This is a 61-year-old male who was admitted following cardiorespiratory arrest and was found to be in septic shock. His current temperature is 98.2, and his EEG is as per protocol. CURRENT MEDICATIONS: 1. Vecuronium. 2. Pepcid. 3. [place]. 4. Demerol. DESCRIPTION OF PROCEDURE: Utilizing a 16-channel EEG machine, cap scalp electrodes were applied in accordance with international 10-20 system. Scalp montages were displayed. Electrical impedances were measured and reported. This procedure was done per ECS protocol. The patient's temperature was 98.2 degrees Fahrenheit, blood pressure of 99/41, and heart rate was 91 with a respiratory rate of 24. During the resting stage, no descernible rhythm was noted throughout the tracing. By decreasing sensitivity, EKG artifact was noted throughout the tracing. Integrity of the recording system was obtained, which had no response. Hyperventilation and photic stimulation were not performed. INTERPRETATION: This is an abnormal EEG, consistent with brain . Please correlate these findings with patient's clinical picture, apnea test, and cord test. Dictated By: Fanny Armijo MD /gil/hussein /Document#: [id number] CARLOS
[2017-02-28 06:03] LABS: CALCIUM 7.6 mg/dl (8.4-10.2); CREATININE 5.52 mg/dl (0.61-1.24)
[2017-02-28] MEDS: SOD CHLORIDE 0.45% 1,000 ML IV SCH ×3 (06:17→21:33)
[2017-02-28] MEDS: VASOPRESSIN 60 UNIT in DEXTROSE 5% 57 ML IV SCH ×2 (06:26→19:00)
[2017-02-28 06:32] LABS: POTASSIUM 5.7 mmol/L (3.5-5.1)
--- NOTE | 2017-02-28 07:24 | CONS ---
Date/Time of Note Date/Time of Note DATE: 02/28/17 TIME: 07:19 Assessment/Plan Assessment/Plan Additional Assessment/Plan There is been no signal change in patient's overall neurological condition overnight. However he is making urine today and he is down to 2 pressors compared to 4 yesterday, he is on 60% FiO2. From a palliative care standpoint I had a long discussion yesterday with patient's brother physician and . Patient's father and mother are in route from [facility] however they are aware of the severity of his current condition. Patient's did not want other families to know the details of results of toxicology, we should respect her decision. Patient's brother is very aware of the fact that Mr. Shell will not survive. Today I will schedule another family conference. Although his condition is somewhat improved his overall prognosis remains grim. Consultation Date/Type/Reason Admit Date/Time Feb 25, 2017 at 21:43 Initial Consult Date 02/26/17 Type of Consultation: Palliative care Referring Provider: YANET MTZ Exam/Review of Systems Vital Signs Vitals Vital Signs Date Time Temp Pulse Resp B/P Pulse Ox O2 Delivery O2 Flow Rate FiO2 02/28/17 06:15 90 134/70 98 02/28/17 06:00 99.4 24 Mechanical Ventilator 02/28/17 05:36 50 02/25/17 16:00 15.0 Intake and Output 02/27/17 02/27/17 02/28/17 15:00 23:00 07:00 Intake Total 923 ml 1414.50 ml 1419 ml Output Total 0 ml 5 ml 266 ml Balance 923 ml 1409.50 ml 1153 ml Results Result Diagram: 02/28/17 0420 02/28/17 0420 Results 24 hrs Laboratory Tests Test 02/27/17 09:02 02/27/17 12:54 02/27/17 13:27 02/27/17 17:47 Bedside Glucose 150 130 White Blood Count 7.9 # 9.5 # Red Blood Count 4.78 4.72 Hemoglobin 14.0 13.9 L Hematocrit 42.1 40.9 L Mean Corpuscular Volume 88.1 86.7 Mean Corpuscular Hemoglobin 29.3 29.4 Mean Corpuscular Hemoglobin Concent 33.3 34.0 Red Cell Distribution Width 13.4 13.5 Platelet Count 231 226 Mean Platelet Volume 10.8 H 10.5 H Neutrophils % 75.1 74.8 Lymphocytes % 12.1 L 11.0 L Monocytes % 6.3 7.5 Eosinophils % 5.2 5.4 Basophils % 0.8 0.7 Nucleated Red Blood Cells % 0.0 0.0 Neutrophils # 5.9 7.1 Lymphocytes # 1.0 1.0 Monocytes # 0.5 0.7 Eosinophils # 0.4 0.5 Basophils # 0.1 0.1 Nucleated Red Blood Cells # 0.0 0.0 Prothrombin Time 17.5 H 18.1 H Prothrombin Time Ratio 1.4 1.4 INR International Normalized Ratio 1.43 1.49 Activated Partial Thromboplast Time 43.9 H 45.1 H Sodium Level 137 134 L Potassium Level 4.8 5.1 Chloride Level 100 100 Carbon Dioxide Level 20 L 20 L Anion Gap 22 H 19 H Blood Urea Nitrogen 38 H 40 H Creatinine 4.27 H 4.69 H Glucose Level 128 # 130 Calcium Level 7.5 L 7.6 L Phosphorus Level 5.2 H 5.6 H Magnesium Level 1.7 1.7 Creatine Kinase 438 #H 399 H Creatine Kinase Index 4.3 3.9 Creatinine Kinase MB (Mass) 18.80 H 15.70 H Troponin I 0.208 *H 0.194 *H Amylase Level 143 H 137 H Lipase 61 42 Test 02/27/17 20:35 02/27/17 23:27 02/28/17 02:00 02/28/17 02:56 Bedside Glucose 110 107 123 Urine Color YELLOW Urine Clarity CLOUDY A Urine pH 5.0 Urine Specific [place] 1.009 Urine Ketones NEGATIVE Urine Nitrite NEGATIVE Urine Bilirubin NEGATIVE Urine Urobilinogen NEGATIVE Urine Leukocyte Esterase 2+ H Urine Microscopic RBC 11 H Urine Microscopic WBC 18 H Urine Bacteria FEW A Urine Yeast (Budding) MODERATE A Urine Hemoglobin 2+ H Urine Random Creatinine 31.82 Urine Random Sodium 27 L Urine Protein/Creatinine Ratio 4.58 Urine Glucose NEGATIVE Urine Total Protein 146.0 H Test 02/28/17 04:20 02/28/17 06:18 White Blood Count 10.7 Red Blood Count 4.51 L Hemoglobin 13.4 L Hematocrit 39.8 L Mean Corpuscular Volume 88.2 Mean Corpuscular Hemoglobin 29.7 Mean Corpuscular Hemoglobin Concent 33.7 Red Cell Distribution Width 13.7 Platelet Count 225 Mean Platelet Volume 11.6 H Neutrophils % 78.0 H Lymphocytes % 8.3 L Monocytes % 8.0 Eosinophils % 4.3 Basophils % 0.5 Nucleated Red Blood Cells % 0.0 Neutrophils # 8.3 H Lymphocytes # 0.9 Monocytes # 0.9 Eosinophils # 0.5 Basophils # 0.1 Nucleated Red Blood Cells # 0.0 Sodium Level 132 L Potassium Level 5.7 H Chloride Level 99 Carbon Dioxide Level 17 L Anion Gap 22 H Blood Urea Nitrogen 45 H Creatinine 5.52 H Glucose Level 107 Calcium Level 7.6 L Random Vancomycin Level 15.5 Bedside Glucose 93 Medications Medications Current Medications Epinephrine/ Dextrose (EPINEPHrine/D5W) 250 ml @ 0 mls/hr TITRATE IV Last administered on 02/27/17 07:13; Admin Dose 37.5 MLS/HR; Start 02/25/17 at 16:30 Ondansetron HCl (Zofran Inj) 4 mg Q6H PRN IV NAUSEA AND/OR VOMITING; Start at 19:30 Acetaminophen (Tylenol Tab) 650 mg Q6H PRN PO PAIN LEVEL 1-3 OR FEVER; Start at 19:30 Acetaminophen/ Hydrocodone Bitart ([place] (5/325)) 1 tab Q6H PRN PO MODERATE PAIN LEVEL 4-6; Start 02/25/17 at 19:30 Morphine Sulfate (morphine) 2 mg Q4H PRN IV SEVERE PAIN LEVEL 7-10; Start 02/25 at 19:30 Docusate Sodium (Colace) 100 mg Q12H PRN PO CONSTIPATION; Start 02/25/17 at 19: 30 Magnesium Hydroxide (Milk Of Mag) 30 ml DAILY PRN PO CONSTIPATION; Start at 19:30 Sodium Biphosphate/ Sodium Phosphate (Fleet Enema) 133 ml DAILY PRN [place] CONSTIPATION; Start 02/25/17 at 19:30 Famotidine 20 mg 20 mg Q12 IV Last administered on 02/27/17 20:45; Admin Dose 20 MG; Start 02/25/17 at 21:00 Sodium Chloride (1/2 NS) 1,000 ml @ 125 mls/hr Q8H IV Last administered on 02/28 06:17; Admin Dose 125 MLS/HR; Start 02/25/17 at 19:09 Lorazepam (Ativan) 0.5 mg Q6H PRN IV ANXIETY; Start 02/25/17 at 19:30 Vancomycin HCl (Vanco Iv Per Pharmacy) VANCOMYCIN PER PHARMACY NOTE XX ; Start 02/25/17 at 19:30 Nitroglycerin (Nitroglycerin (Sl Tab) 0.4 Mg) 1 tab Q5M PRN SL ANGINA; Start at 19:30 Acetaminophen (Tylenol Supp) 650 mg Q4H PRN [place] TEMP > 37C; Start 02/25/17 at 19 :30 Acetaminophen (Tylenol Liquid) 650 mg Q4H PRN PO TEMP > 37C; Start 02/25/17 at 19:30 Acetaminophen (Tylenol Supp) 500 mg Q6H NM Last administered on 02/27/17 13:23 ; Admin Dose 500 MG; Start 02/26/17 at 19:30 Acetaminophen (Tylenol Liquid) 500 mg Q6H PO Last administered on 02/28/17 03: 00; Admin Dose 500 MG; Start 02/26/17 at 19:30 Meperidine HCl (Demerol) 12.5 mg Q4H PRN IV POST OPERATIVE SHIVERING; Start at 19:30 Meperidine HCl (Demerol) 25 mg Q4H PRN IV POST OPERATIVE SHIVERING; Start 02/25 at 19:30 Eye Lubricant (Akwa Oint) 1 applic Q6 BOTH EYES Last administered on 02/28/17 06:17; Admin Dose 1 APPLIC; Start 02/26/17 at 00:00 Eye Lubricant (Artificial Tears Oph) 2 drop Q6 BOTH EYES Last administered on 06:17; Admin Dose 2 DROP; Start 02/26/17 at 00:00 Dextrose (D50w Syringe) 25 ml Q15M PRN IV Till BS 80 mg/dL or above x2; Start 02/25/17 at 19:30 Dextrose (D50w Syringe) 50 ml Q15M PRN IV Till BS 80 mg/dL or above x2; Start 02/25/17 at 19:30 Heparin Sodium (Porcine) 5000 unit 5,000 unit BID SC Last administered on 20:47; Admin Dose 5,000 UNIT; Start 02/25/17 at 21:00 Norepinephrine 32 mg/Dextrose 250 ml @ 0.46 mls/hr TITRATE IV Last administered on 02/28/17 00:34; Admin Dose 14.06 MLS/HR; Start 02/26/17 at 09:30 Dopamine HCl/ Dextrose (D5W) 250 ml @ 1.96 mls/hr TITRATE IV Last administered on 02/27/17 23:25; Admin Dose 19.68 MLS/HR; Start 02/26/17 at 09:30 Diagnostic Test (Pha) 1 ea 1 ea Q4H XX Last administered on 02/28/17 06:17; Admin Dose 1 EA; Start 02/26/17 at 22:00 Propofol 100 ml @ 3.15 mls/hr Q12H IV Last administered on 02/26/17 22:57; Admin Dose 3.15 MLS/HR; Start 02/26/17 at 23:00 Vecuronium [place] 100 mg/ Dextrose 100 ml @ 5.25 mls/hr TITRATE IV Last administered on 02/26/17 20:00; Admin Dose 5.25 MLS/HR; Start 02/26/17 at 23:00 Vasopressin 60 unit/Dextrose 60 ml @ 1.2 mls/hr Q12H IV ; Start 02/27/17 at 07: 00 Phenylephrine HCl 80 mg/Dextrose 250 ml @ 18.75 mls/ hr TITRATE IV Last administered on 02/28/17 05:28; Admin Dose 52.5 MLS/HR; Start 02/27/17 at 07:00 Cefepime HCl (Maxipime 1gm/50 ml (Pmx)) 50 ml @ 100 mls/hr Q24H IVPB ; Start at 10:00 REED NIELSEN Feb 28, 2017 07:24
--- NOTE | 2017-02-28 07:46 | PN ---
Date/Time of Note Date/Time of Note DATE: 02/28/17 TIME: 07:43 Assessment/Plan VTE Prophylaxis VTE Prophylaxis Intervention: other Lines/Catheters IV Catheter Type (from [facility]): Peripheral IV Urinary Cath still in place: Yes Reason Cath still needed: other (indicate) Assessment/Plan Assessment/Plan Assessment/Plan 1. Cardiopulmonary arrest. 2. Respiratory failure: intubated now 3. Severe encephalopathy, anoxic brain injury. 4. Shock, currently on multiple pressors/ drip. 5. History of intravenous drug abuse. 6. History of drug abuse and bipolar disorder. 7. Severe metabolic acidosis. 8. mildly abnormal troponin due to above 9. LVH on echo 10. Acute renal failure RECOMMENDATION: completed hypothermia protocol cont pressors and IV fluid. EF is normal Prognosis appears to be very poor DVT prophylaxis as per IM ABX as per IM CONT ICU CARE neuro work up is pending More than 36 minutes critical care time spent in management of this patient excluding procedures. Subjective 24 Hr Interval Summary Free Text/Dictation d/w staff and pt has completed hypothermia protocol in ICU BP is better today and is only on 2 pressors now. nonverbal. OBJECTIVE: GEN: intubated on vent. obese man HEENT: NCAT. pupils are dilated. NECK: no stridor CV RRR. systolic murmur. PULM: no wheezes anteriorly GI; SOFT, NT EXT + LE edema neuro: unresponsive ECHO personally reviewed; 1. Hyperdynamic left ventricular systolic function. Normal left ventricular cavity size. Moderate concentric left ventricular hypertrophy. Ejection fraction is visually estimated at 70 %. Tissue Doppler/Mitral Doppler indices are consistent with impaired relaxation (Stage I diastolic dysfunction). 2. The left atrium is normal in size. 3. Normal appearance and function of the mitral valve with trace physiologic regurgitation. 4. No significant aortic stenosis or insufficiency. Aortic cusps appear mildly calcified. 5. Normal appearance of the tricuspid valve. Estimated peak PA systolic pressure 45 mmHg. There is mild tricuspid regurgitation. 6. Dilated IVC without respiratory collapse, however, patient on ventilator. Exam/Review of Systems Vital Signs Vitals Vital Signs Date Time Temp Pulse Resp B/P Pulse Ox O2 Delivery O2 Flow Rate FiO2 02/28/17 06:15 90 134/70 98 02/28/17 06:00 99.4 24 Mechanical Ventilator 02/28/17 05:36 50 02/25/17 16:00 15.0 Intake and Output 02/27/17 02/27/17 02/28/17 15:00 23:00 07:00 Intake Total 923 ml 1414.50 ml 1419 ml Output Total 0 ml 5 ml 266 ml Balance 923 ml 1409.50 ml 1153 ml Results Result Diagram: 02/28/17 0420 02/28/17 0420 Results 24 hrs Laboratory Tests Test 02/27/17 09:02 02/27/17 12:54 02/27/17 13:27 02/27/17 17:47 Bedside Glucose 150 130 White Blood Count 7.9 # 9.5 # Red Blood Count 4.78 4.72 Hemoglobin 14.0 13.9 L Hematocrit 42.1 40.9 L Mean Corpuscular Volume 88.1 86.7 Mean Corpuscular Hemoglobin 29.3 29.4 Mean Corpuscular Hemoglobin Concent 33.3 34.0 Red Cell Distribution Width 13.4 13.5 Platelet Count 231 226 Mean Platelet Volume 10.8 H 10.5 H Neutrophils % 75.1 74.8 Lymphocytes % 12.1 L 11.0 L Monocytes % 6.3 7.5 Eosinophils % 5.2 5.4 Basophils % 0.8 0.7 Nucleated Red Blood Cells % 0.0 0.0 Neutrophils # 5.9 7.1 Lymphocytes # 1.0 1.0 Monocytes # 0.5 0.7 Eosinophils # 0.4 0.5 Basophils # 0.1 0.1 Nucleated Red Blood Cells # 0.0 0.0 Prothrombin Time 17.5 H 18.1 H Prothrombin Time Ratio 1.4 1.4 INR International Normalized Ratio 1.43 1.49 Activated Partial Thromboplast Time 43.9 H 45.1 H Sodium Level 137 134 L Potassium Level 4.8 5.1 Chloride Level 100 100 Carbon Dioxide Level 20 L 20 L Anion Gap 22 H 19 H Blood Urea Nitrogen 38 H 40 H Creatinine 4.27 H 4.69 H Glucose Level 128 # 130 Calcium Level 7.5 L 7.6 L Phosphorus Level 5.2 H 5.6 H Magnesium Level 1.7 1.7 Creatine Kinase 438 #H 399 H Creatine Kinase Index 4.3 3.9 Creatinine Kinase MB (Mass) 18.80 H 15.70 H Troponin I 0.208 *H 0.194 *H Amylase Level 143 H 137 H Lipase 61 42 Test 02/27/17 20:35 02/27/17 23:27 02/28/17 02:00 02/28/17 02:56 Bedside Glucose 110 107 123 Urine Color YELLOW Urine Clarity CLOUDY A Urine pH 5.0 Urine Specific [place] 1.009 Urine Ketones NEGATIVE Urine Nitrite NEGATIVE Urine Bilirubin NEGATIVE Urine Urobilinogen NEGATIVE Urine Leukocyte Esterase 2+ H Urine Microscopic RBC 11 H Urine Microscopic WBC 18 H Urine Bacteria FEW A Urine Yeast (Budding) MODERATE A Urine Hemoglobin 2+ H Urine Random Creatinine 31.82 Urine Random Sodium 27 L Urine Protein/Creatinine Ratio 4.58 Urine Glucose NEGATIVE Urine Total Protein 146.0 H Test 02/28/17 04:20 02/28/17 06:18 White Blood Count 10.7 Red Blood Count 4.51 L Hemoglobin 13.4 L Hematocrit 39.8 L Mean Corpuscular Volume 88.2 Mean Corpuscular Hemoglobin 29.7 Mean Corpuscular Hemoglobin Concent 33.7 Red Cell Distribution Width 13.7 Platelet Count 225 Mean Platelet Volume 11.6 H Neutrophils % 78.0 H Lymphocytes % 8.3 L Monocytes % 8.0 Eosinophils % 4.3 Basophils % 0.5 Nucleated Red Blood Cells % 0.0 Neutrophils # 8.3 H Lymphocytes # 0.9 Monocytes # 0.9 Eosinophils # 0.5 Basophils # 0.1 Nucleated Red Blood Cells # 0.0 Sodium Level 132 L Potassium Level 5.7 H Chloride Level 99 Carbon Dioxide Level 17 L Anion Gap 22 H Blood Urea Nitrogen 45 H Creatinine 5.52 H Glucose Level 107 Calcium Level 7.6 L Random Vancomycin Level 15.5 Bedside Glucose 93 Medications Medications Current Medications Epinephrine/ Dextrose (EPINEPHrine/D5W) 250 ml @ 0 mls/hr TITRATE IV Last administered on 02/27/17t 07:13; Admin Dose 37.5 MLS/HR; Start 02/25/17 at 16:30 Ondansetron HCl (Zofran Inj) 4 mg Q6H PRN IV NAUSEA AND/OR VOMITING; Start at 19:30 Acetaminophen (Tylenol Tab) 650 mg Q6H PRN PO PAIN LEVEL 1-3 OR FEVER; Start at 19:30 Acetaminophen/ Hydrocodone Bitart ([place] (5/325)) 1 tab Q6H PRN PO MODERATE PAIN LEVEL 4-6; Start 02/25/17 at 19:30 Morphine Sulfate (morphine) 2 mg Q4H PRN IV SEVERE PAIN LEVEL 7-10; Start 02/25 at 19:30 Docusate Sodium (Colace) 100 mg Q12H PRN PO CONSTIPATION; Start 02/25/17 at 19: 30 Magnesium Hydroxide (Milk Of Mag) 30 ml DAILY PRN PO CONSTIPATION; Start at 19:30 Sodium Biphosphate/ Sodium Phosphate (Fleet Enema) 133 ml DAILY PRN [place] CONSTIPATION; Start 02/25/17 at 19:30 Famotidine 20 mg 20 mg Q12 IV Last administered on 02/27/17 20:45; Admin Dose 20 MG; Start 02/25/17 at 21:00 Sodium Chloride (1/2 NS) 1,000 ml @ 125 mls/hr Q8H IV Last administered on 02/28 06:17; Admin Dose 125 MLS/HR; Start 02/25/17 at 19:09 Lorazepam (Ativan) 0.5 mg Q6H PRN IV ANXIETY; Start 02/25/17 at 19:30 Vancomycin HCl (Vanco Iv Per Pharmacy) VANCOMYCIN PER PHARMACY NOTE XX ; Start 02/25/17 at 19:30 Nitroglycerin (Nitroglycerin (Sl Tab) 0.4 Mg) 1 tab Q5M PRN SL ANGINA; Start at 19:30 Acetaminophen (Tylenol Supp) 650 mg Q4H PRN [place] TEMP > 37C; Start 02/25/17 at 19 :30 Acetaminophen (Tylenol Liquid) 650 mg Q4H PRN PO TEMP > 37C; Start 02/25/17 at 19:30 Acetaminophen (Tylenol Supp) 500 mg Q6H [place] Last administered on 02/27/17 13:23 ; Admin Dose 500 MG; Start 02/26/17 at 19:30 Acetaminophen (Tylenol Liquid) 500 mg Q6H PO Last administered on 02/28/17 03: 00; Admin Dose 500 MG; Start 02/26/17 at 19:30 Meperidine HCl (Demerol) 12.5 mg Q4H PRN IV POST OPERATIVE SHIVERING; Start at 19:30 Meperidine HCl (Demerol) 25 mg Q4H PRN IV POST OPERATIVE SHIVERING; Start 02/25 at 19:30 Eye Lubricant (Akwa Oint) 1 applic Q6 BOTH EYES Last administered on 02/28/17 06:17; Admin Dose 1 APPLIC; Start 02/26/17 at 00:00 Eye Lubricant (Artificial Tears Oph) 2 drop Q6 BOTH EYES Last administered on 06:17; Admin Dose 2 DROP; Start 02/26/17 at 00:00 Dextrose (D50w Syringe) 25 ml Q15M PRN IV Till BS 80 mg/dL or above x2; Start 02/25/17 at 19:30 Dextrose (D50w Syringe) 50 ml Q15M PRN IV Till BS 80 mg/dL or above x2; Start 02/25/17 at 19:30 Heparin Sodium (Porcine) 5000 unit 5,000 unit BID SC Last administered on 20:47; Admin Dose 5,000 UNIT; Start 02/25/17 at 21:00 Norepinephrine 32 mg/Dextrose 250 ml @ 0.46 mls/hr TITRATE IV Last administered on 02/28/17 00:34; Admin Dose 14.06 MLS/HR; Start 02/26/17 at 09:30 Dopamine HCl/ Dextrose (D5W) 250 ml @ 1.96 mls/hr TITRATE IV Last administered on 02/27/17 23:25; Admin Dose 19.68 MLS/HR; Start 02/26/17 at 09:30 Diagnostic Test (Pha) 1 ea 1 ea Q4H XX Last administered on 02/28/17 06:17; Admin Dose 1 EA; Start 02/26/17 at 22:00 Propofol 100 ml @ 3.15 mls/hr Q12H IV Last administered on 02/26/17 22:57; Admin Dose 3.15 MLS/HR; Start 02/26/17 at 23:00 Vecuronium [place] 100 mg/ Dextrose 100 ml @ 5.25 mls/hr TITRATE IV Last administered on 02/26/17 20:00; Admin Dose 5.25 MLS/HR; Start 02/26/17 at 23:00 Vasopressin 60 unit/Dextrose 60 ml @ 1.2 mls/hr Q12H IV ; Start 02/27/17 at 07: 00 Phenylephrine HCl 80 mg/Dextrose 250 ml @ 18.75 mls/ hr TITRATE IV Last administered on 02/28/17t 05:28; Admin Dose 52.5 MLS/HR; Start 02/27/17 at 07:00 Cefepime HCl (Maxipime 1gm/50 ml (Pmx)) 50 ml @ 100 mls/hr Q24H IVPB ; Start at 10:00 ASHLEY DE DIOS MD Feb 28, 2017 07:46
--- NOTE | 2017-02-28 10:11 | PN ---
Date/Time of Note Date/Time of Note DATE: 02/28/17 TIME: 10:03 Assessment/Plan VTE Prophylaxis VTE Prophylaxis Intervention: heparin Lines/Catheters IV C[facility]ter Type (from [facility]): Peripheral IV Urinary Cath still in place: Yes Reason Cath still needed: urinary retention Assessment/Plan Chief Complaint/Hosp Course Assessment and plan: 61-year-old male acute drug toxicity, status post cardiac arrest, septic shock, lactic acidosis, intubated, on pressors. 1. Cardiac arrest-completed hypothermia protocol. Appreciate cardiology and neurology consult. Patient apparently with poor neurologic exam with absent brain stem reflexes. EEG was performed, findings consistent with brain . - Follow up neurology and cardiology recommendations, continue to monitor vital signs very carefully. -Follow-up MRI of the brain as well, per neurology consult recommendations ( pending) -Per palliative care team, another family conference scheduled for today. 2. Respiratory failure: Secondary to #1. - Continue intubation, pulmonary consult, duo nebs as needed. Follow-up culture results. -Continue broad-spectrum antibiotics. Mechanical ventilation 3. Septic shock with lactic acidosis: Lactic acid is trending down now, no fevers. Still on pressor support x 2 now. -Continue broad-spectrum antibiotic, continue pressor support, monitor vital signs very carefully. - Monitor BMP, continue aggressive IV fluid hydration, trend lactic acid levels. 4. IV drug abuse: Positive for cocaine, methamphetamines, opiates on admission. - Again monitor for signs of withdrawal. Again patient is intubated however. 5. Bipolar disorder: Continue monitor for now, again intubated 6. GI prophylaxis: H2 lora 7. Renal failure: Likely ATN, secondary to patient's arrest. Creatinine is still increasing, appreciate renal consult. Overall very poor urine output. -Monitor urine output, follow renal recommendations. Monitor creatinine levels. Dispo: Overall very poor prognosis, especially given the EEG findings. Appreciate palliative care team consult, for another family conference today. We will continue to follow their wishes. Patient is full code as of now. Critical care time spent on patient care today equals 45 minutes. Problems: Subjective 24 Hr Interval Summary Free Text/Dictation EEG performed. Off hypothermia protocol now. Down from 4 to 2 pressors presently. Still intubated. Exam/Review of Systems Vital Signs Vitals Vital Signs Date Time Temp Pulse Resp B/P Pulse Ox O2 Delivery O2 Flow Rate FiO2 02/28/17 09:30 92 24 96 50 02/28/17 06:15 134/70 02/28/17 06:00 99.4 Mechanical Ventilator 02/25/17 16:00 15.0 Intake and Output 02/27/17 02/27/17 02/28/17 15:00 23:00 07:00 Intake Total 923 ml 1414.50 ml 1419 ml Output Total 0 ml 5 ml 266 ml Balance 923 ml 1409.50 ml 1153 ml Exam General: Lying in bed, intubated HEENT: Unable to fully assess Neck: Supple Respiratory: some distant breath sounds bilaterally Cardiovascular: S1-S2 heard GI: Soft, nontender, nondistended, normal bowel sounds Muscular skeletal: No lower extremity bilaterally Neurologic: Unable to fully assess because patient intubated Results Result Diagram: 02/28/17 0420 02/28/17 0420 Results 24 hrs Laboratory Tests Test 02/27/17 12:54 02/27/17 13:27 02/27/17 17:47 02/27/17 20:35 White Blood Count 7.9 # 9.5 # Red Blood Count 4.78 4.72 Hemoglobin 14.0 13.9 L Hematocrit 42.1 40.9 L Mean Corpuscular Volume 88.1 86.7 Mean Corpuscular Hemoglobin 29.3 29.4 Mean Corpuscular Hemoglobin Concent 33.3 34.0 Red Cell Distribution Width 13.4 13.5 Platelet Count 231 226 Mean Platelet Volume 10.8 H 10.5 H Neutrophils % 75.1 74.8 Lymphocytes % 12.1 L 11.0 L Monocytes % 6.3 7.5 Eosinophils % 5.2 5.4 Basophils % 0.8 0.7 Nucleated Red Blood Cells % 0.0 0.0 Neutrophils # 5.9 7.1 Lymphocytes # 1.0 1.0 Monocytes # 0.5 0.7 Eosinophils # 0.4 0.5 Basophils # 0.1 0.1 Nucleated Red Blood Cells # 0.0 0.0 Prothrombin Time 17.5 H 18.1 H Prothrombin Time Ratio 1.4 1.4 INR International Normalized Ratio 1.43 1.49 Activated Partial Thromboplast Time 43.9 H 45.1 H Sodium Level 137 134 L Potassium Level 4.8 5.1 Chloride Level 100 100 Carbon Dioxide Level 20 L 20 L Anion Gap 22 H 19 H Blood Urea Nitrogen 38 H 40 H Creatinine 4.27 H 4.69 H Glucose Level 128 # 130 Calcium Level 7.5 L 7.6 L Phosphorus Level 5.2 H 5.6 H Magnesium Level 1.7 1.7 Creatine Kinase 438 #H 399 H Creatine Kinase Index 4.3 3.9 Creatinine Kinase MB (Mass) 18.80 H 15.70 H Troponin I 0.208 *H 0.194 *H Amylase Level 143 H 137 H Lipase 61 42 Bedside Glucose 130 110 Test 02/27/17 23:27 02/28/17 02:00 02/28/17 02:56 02/28/17 04:20 Bedside Glucose 107 123 Urine Color YELLOW Urine Clarity CLOUDY A Urine pH 5.0 Urine Specific [place] 1.009 Urine Ketones NEGATIVE Urine Nitrite NEGATIVE Urine Bilirubin NEGATIVE Urine Urobilinogen NEGATIVE Urine Leukocyte Esterase 2+ H Urine Microscopic RBC 11 H Urine Microscopic WBC 18 H Urine Bacteria FEW A Urine Yeast (Budding) MODERATE A Urine Hemoglobin 2+ H Urine Random Creatinine 31.82 Urine Random Sodium 27 L Urine Protein/Creatinine Ratio 4.58 Urine Glucose NEGATIVE Urine Total Protein 146.0 H White Blood Count 10.7 Red Blood Count 4.51 L Hemoglobin 13.4 L Hematocrit 39.8 L Mean Corpuscular Volume 88.2 Mean Corpuscular Hemoglobin 29.7 Mean Corpuscular Hemoglobin Concent 33.7 Red Cell Distribution Width 13.7 Platelet Count 225 Mean Platelet Volume 11.6 H Neutrophils % 78.0 H Lymphocytes % 8.3 L Monocytes % 8.0 Eosinophils % 4.3 Basophils % 0.5 Nucleated Red Blood Cells % 0.0 Neutrophils # 8.3 H Lymphocytes # 0.9 Monocytes # 0.9 Eosinophils # 0.5 Basophils # 0.1 Nucleated Red Blood Cells # 0.0 Sodium Level 132 L Potassium Level 5.7 H Chloride Level 99 Carbon Dioxide Level 17 L Anion Gap 22 H Blood Urea Nitrogen 45 H Creatinine 5.52 H Glucose Level 107 Calcium Level 7.6 L Random Vancomycin Level 15.5 Test 02/28/17 06:18 Bedside Glucose 93 Medications Medications Current Medications Epinephrine/ Dextrose (EPINEPHrine/D5W) 250 ml @ 0 mls/hr TITRATE IV Last administered on 02/27/17t 07:13; Admin Dose 37.5 MLS/HR; Start 02/25/17 at 16:30 Ondansetron HCl (Zofran Inj) 4 mg Q6H PRN IV NAUSEA AND/OR VOMITING; Start at 19:30 Acetaminophen (Tylenol Tab) 650 mg Q6H PRN PO PAIN LEVEL 1-3 OR FEVER; Start at 19:30 Acetaminophen/ Hydrocodone Bitart ([place] (5/325)) 1 tab Q6H PRN PO MODERATE PAIN LEVEL 4-6; Start 02/25/17 at 19:30 Morphine Sulfate (morphine) 2 mg Q4H PRN IV SEVERE PAIN LEVEL 7-10; Start 02/25 at 19:30 Docusate Sodium (Colace) 100 mg Q12H PRN PO CONSTIPATION; Start 02/25/17 at 19: 30 Magnesium Hydroxide (Milk Of Mag) 30 ml DAILY PRN PO CONSTIPATION; Start at 19:30 Sodium Biphosphate/ Sodium Phosphate (Fleet Enema) 133 ml DAILY PRN [place] CONSTIPATION; Start 02/25/17 at 19:30 Famotidine 20 mg 20 mg Q12 IV Last administered on 02/27/17 20:45; Admin Dose 20 MG; Start 02/25/17 at 21:00 Sodium Chloride (1/2 NS) 1,000 ml @ 125 mls/hr Q8H IV Last administered on 02/28 06:17; Admin Dose 125 MLS/HR; Start 02/25/17 at 19:09 Lorazepam (Ativan) 0.5 mg Q6H PRN IV ANXIETY; Start 02/25/17 at 19:30 Vancomycin HCl (Vanco Iv Per Pharmacy) VANCOMYCIN PER PHARMACY NOTE XX ; Start 02/25/17 at 19:30 Nitroglycerin (Nitroglycerin (Sl Tab) 0.4 Mg) 1 tab Q5M PRN SL ANGINA; Start at 19:30 Acetaminophen (Tylenol Supp) 650 mg Q4H PRN [place] TEMP > 37C; Start 02/25/17 at 19 :30 Acetaminophen (Tylenol Liquid) 650 mg Q4H PRN PO TEMP > 37C; Start 02/25/17 at 19:30 Acetaminophen (Tylenol Supp) 500 mg Q6H [place] Last administered on 02/27/17 13:23 ; Admin Dose 500 MG; Start 02/26/17 at 19:30 Acetaminophen (Tylenol Liquid) 500 mg Q6H PO Last administered on 02/28/17 03: 00; Admin Dose 500 MG; Start 02/26/17 at 19:30 Meperidine HCl (Demerol) 12.5 mg Q4H PRN IV POST OPERATIVE SHIVERING; Start at 19:30 Meperidine HCl (Demerol) 25 mg Q4H PRN IV POST OPERATIVE SHIVERING; Start 02/25 at 19:30 Eye Lubricant (Akwa Oint) 1 applic Q6 BOTH EYES Last administered on 02/28/17 06:17; Admin Dose 1 APPLIC; Start 02/26/17 at 00:00 Eye Lubricant (Artificial Tears Oph) 2 drop Q6 BOTH EYES Last administered on 06:17; Admin Dose 2 DROP; Start 02/26/17 at 00:00 Dextrose (D50w Syringe) 25 ml Q15M PRN IV Till BS 80 mg/dL or above x2; Start 02/25/17 at 19:30 Dextrose (D50w Syringe) 50 ml Q15M PRN IV Till BS 80 mg/dL or above x2; Start 02/25/17 at 19:30 Heparin Sodium (Porcine) 5000 unit 5,000 unit BID SC Last administered on 20:47; Admin Dose 5,000 UNIT; Start 02/25/17 at 21:00 Norepinephrine 32 mg/Dextrose 250 ml @ 0.46 mls/hr TITRATE IV Last administered on 02/28/17 00:34; Admin Dose 14.06 MLS/HR; Start 02/26/17 at 09:30 Dopamine HCl/ Dextrose (D5W) 250 ml @ 1.96 mls/hr TITRATE IV Last administered on 02/27/17 23:25; Admin Dose 19.68 MLS/HR; Start 02/26/17 at 09:30 Diagnostic Test (Pha) 1 ea 1 ea Q4H XX Last administered on 02/28/17 06:17; Admin Dose 1 EA; Start 02/26/17 at 22:00 Propofol 100 ml @ 3.15 mls/hr Q12H IV Last administered on 02/26/17 22:57; Admin Dose 3.15 MLS/HR; Start 02/26/17 at 23:00 Vecuronium [place] 100 mg/ Dextrose 100 ml @ 5.25 mls/hr TITRATE IV Last administered on 02/26/17 20:00; Admin Dose 5.25 MLS/HR; Start 02/26/17 at 23:00 Vasopressin 60 unit/Dextrose 60 ml @ 1.2 mls/hr Q12H IV ; Start 02/27/17 at 07: 00 Phenylephrine HCl 80 mg/Dextrose 250 ml @ 18.75 mls/ hr TITRATE IV Last administered on 02/28/17 05:28; Admin Dose 52.5 MLS/HR; Start 02/27/17 at 07:00 Cefepime HCl (Maxipime 1gm/50 ml (Pmx)) 50 ml @ 100 mls/hr Q24H IVPB ; Start at 10:00 YANET MTZ Feb 28, 2017 10:11
--- NOTE | 2017-02-28 10:53 | CONS ---
Date/Time of Note Date/Time of Note DATE: 02/28/17 TIME: 10:52 Consult Date/Type/Reason Admit Date/Time Feb 25, 2017 at 21:43 Initial Consult Date 02/27/17 Type of Consultation: Neurology Reason for Consultation hypoxic injury Ordering Provider: YANET MTZ Subjective EEG consistent with brain exam consistent with brain Objective Vital Signs Date Time Temp Pulse Resp B/P Pulse Ox O2 Delivery O2 Flow Rate FiO2 02/28/17 09:30 92 24 96 50 02/28/17 06:15 134/70 02/28/17 06:00 99.4 Mechanical Ventilator 02/25/17 16:00 15.0 Intake and Output 02/27/17 02/27/17 02/28/17 15:00 23:00 07:00 Intake Total 923 ml 1414.50 ml 1419 ml Output Total 0 ml 5 ml 266 ml Balance 923 ml 1409.50 ml 1153 ml Exam CN: dilated pupils absent corneals absent gag absent dolls Motor: absent response to noxious stimuli Results/Medications Result Diagram: 02/28/17 0420 02/28/17 0420 Results 24 hrs Laboratory Tests Test 02/27/17 12:54 02/27/17 13:27 02/27/17 17:47 02/27/17 20:35 White Blood Count 7.9 # 9.5 # Red Blood Count 4.78 4.72 Hemoglobin 14.0 13.9 L Hematocrit 42.1 40.9 L Mean Corpuscular Volume 88.1 86.7 Mean Corpuscular Hemoglobin 29.3 29.4 Mean Corpuscular Hemoglobin Concent 33.3 34.0 Red Cell Distribution Width 13.4 13.5 Platelet Count 231 226 Mean Platelet Volume 10.8 H 10.5 H Neutrophils % 75.1 74.8 Lymphocytes % 12.1 L 11.0 L Monocytes % 6.3 7.5 Eosinophils % 5.2 5.4 Basophils % 0.8 0.7 Nucleated Red Blood Cells % 0.0 0.0 Neutrophils # 5.9 7.1 Lymphocytes # 1.0 1.0 Monocytes # 0.5 0.7 Eosinophils # 0.4 0.5 Basophils # 0.1 0.1 Nucleated Red Blood Cells # 0.0 0.0 Prothrombin Time 17.5 H 18.1 H Prothrombin Time Ratio 1.4 1.4 INR International Normalized Ratio 1.43 1.49 Activated Partial Thromboplast Time 43.9 H 45.1 H Sodium Level 137 134 L Potassium Level 4.8 5.1 Chloride Level 100 100 Carbon Dioxide Level 20 L 20 L Anion Gap 22 H 19 H Blood Urea Nitrogen 38 H 40 H Creatinine 4.27 H 4.69 H Glucose Level 128 # 130 Calcium Level 7.5 L 7.6 L Phosphorus Level 5.2 H 5.6 H Magnesium Level 1.7 1.7 Creatine Kinase 438 #H 399 H Creatine Kinase Index 4.3 3.9 Creatinine Kinase MB (Mass) 18.80 H 15.70 H Troponin I 0.208 *H 0.194 *H Amylase Level 143 H 137 H Lipase 61 42 Bedside Glucose 130 110 Test 02/27/17 23:27 02/28/17 02:00 02/28/17 02:56 02/28/17 04:20 Bedside Glucose 107 123 Urine Color YELLOW Urine Clarity CLOUDY A Urine pH 5.0 Urine Specific [place] 1.009 Urine Ketones NEGATIVE Urine Nitrite NEGATIVE Urine Bilirubin NEGATIVE Urine Urobilinogen NEGATIVE Urine Leukocyte Esterase 2+ H Urine Microscopic RBC 11 H Urine Microscopic WBC 18 H Urine Bacteria FEW A Urine Yeast (Budding) MODERATE A Urine Hemoglobin 2+ H Urine Random Creatinine 31.82 Urine Random Sodium 27 L Urine Protein/Creatinine Ratio 4.58 Urine Glucose NEGATIVE Urine Total Protein 146.0 H White Blood Count 10.7 Red Blood Count 4.51 L Hemoglobin 13.4 L Hematocrit 39.8 L Mean Corpuscular Volume 88.2 Mean Corpuscular Hemoglobin 29.7 Mean Corpuscular Hemoglobin Concent 33.7 Red Cell Distribution Width 13.7 Platelet Count 225 Mean Platelet Volume 11.6 H Neutrophils % 78.0 H Lymphocytes % 8.3 L Monocytes % 8.0 Eosinophils % 4.3 Basophils % 0.5 Nucleated Red Blood Cells % 0.0 Neutrophils # 8.3 H Lymphocytes # 0.9 Monocytes # 0.9 Eosinophils # 0.5 Basophils # 0.1 Nucleated Red Blood Cells # 0.0 Sodium Level 132 L Potassium Level 5.7 H Chloride Level 99 Carbon Dioxide Level 17 L Anion Gap 22 H Blood Urea Nitrogen 45 H Creatinine 5.52 H Glucose Level 107 Calcium Level 7.6 L Random Vancomycin Level 15.5 Test 02/28/17 06:18 Bedside Glucose 93 Medications Current Medications Epinephrine/ Dextrose (EPINEPHrine/D5W) 250 ml @ 0 mls/hr TITRATE IV Last administered on 02/27/17 07:13; Admin Dose 37.5 MLS/HR; Start 02/25/17 at 16:30 Ondansetron HCl (Zofran Inj) 4 mg Q6H PRN IV NAUSEA AND/OR VOMITING; Start at 19:30 Acetaminophen (Tylenol Tab) 650 mg Q6H PRN PO PAIN LEVEL 1-3 OR FEVER; Start at 19:30 Acetaminophen/ Hydrocodone Bitart ([place] (5/325)) 1 tab Q6H PRN PO MODERATE PAIN LEVEL 4-6; Start 02/25/17 at 19:30 Morphine Sulfate (morphine) 2 mg Q4H PRN IV SEVERE PAIN LEVEL 7-10; Start 02/25 at 19:30 Docusate Sodium (Colace) 100 mg Q12H PRN PO CONSTIPATION; Start 02/25/17 at 19: 30 Magnesium Hydroxide (Milk Of Mag) 30 ml DAILY PRN PO CONSTIPATION; Start at 19:30 Sodium Biphosphate/ Sodium Phosphate (Fleet Enema) 133 ml DAILY PRN [place] CONSTIPATION; Start 02/25/17 at 19:30 Famotidine 20 mg 20 mg Q12 IV Last administered on 02/27/17 20:45; Admin Dose 20 MG; Start 02/25/17 at 21:00 Sodium Chloride (1/2 NS) 1,000 ml @ 125 mls/hr Q8H IV Last administered on 02/28 06:17; Admin Dose 125 MLS/HR; Start 02/25/17 at 19:09 Lorazepam (Ativan) 0.5 mg Q6H PRN IV ANXIETY; Start 02/25/17 at 19:30 Vancomycin HCl (Vanco Iv Per Pharmacy) VANCOMYCIN PER PHARMACY NOTE XX ; Start 02/25/17 at 19:30 Nitroglycerin (Nitroglycerin (Sl Tab) 0.4 Mg) 1 tab Q5M PRN SL ANGINA; Start at 19:30 Acetaminophen (Tylenol Supp) 650 mg Q4H PRN [place] TEMP > 37C; Start 02/25/17 at 19 :30 Acetaminophen (Tylenol Liquid) 650 mg Q4H PRN PO TEMP > 37C; Start 02/25/17 at 19:30 Acetaminophen (Tylenol Supp) 500 mg Q6H [place] Last administered on 02/27/17 13:23 ; Admin Dose 500 MG; Start 02/26/17 at 19:30 Acetaminophen (Tylenol Liquid) 500 mg Q6H PO Last administered on 02/28/17 03: 00; Admin Dose 500 MG; Start 02/26/17 at 19:30 Meperidine HCl (Demerol) 12.5 mg Q4H PRN IV POST OPERATIVE SHIVERING; Start at 19:30 Meperidine HCl (Demerol) 25 mg Q4H PRN IV POST OPERATIVE SHIVERING; Start 02/25 at 19:30 Eye Lubricant (Akwa Oint) 1 applic Q6 BOTH EYES Last administered on 02/28/17 06:17; Admin Dose 1 APPLIC; Start 02/26/17 at 00:00 Eye Lubricant (Artificial Tears Oph) 2 drop Q6 BOTH EYES Last administered on 06:17; Admin Dose 2 DROP; Start 02/26/17 at 00:00 Dextrose (D50w Syringe) 25 ml Q15M PRN IV Till BS 80 mg/dL or above x2; Start 02/25/17 at 19:30 Dextrose (D50w Syringe) 50 ml Q15M PRN IV Till BS 80 mg/dL or above x2; Start 02/25/17 at 19:30 Heparin Sodium (Porcine) 5000 unit 5,000 unit BID SC Last administered on 20:47; Admin Dose 5,000 UNIT; Start 02/25/17 at 21:00 Norepinephrine 32 mg/Dextrose 250 ml @ 0.46 mls/hr TITRATE IV Last administered on 02/28/17 00:34; Admin Dose 14.06 MLS/HR; Start 02/26/17 at 09:30 Dopamine HCl/ Dextrose (D5W) 250 ml @ 1.96 mls/hr TITRATE IV Last administered on 02/27/17 23:25; Admin Dose 19.68 MLS/HR; Start 02/26/17 at 09:30 Diagnostic Test (Pha) 1 ea 1 ea Q4H XX Last administered on 02/28/17 06:17; Admin Dose 1 EA; Start 8/1/17 at 22:00 Propofol 100 ml @ 3.15 mls/hr Q12H IV Last administered on 02/26/17 22:57; Admin Dose 3.15 MLS/HR; Start 02/26/17 at 23:00 Vecuronium [place] 100 mg/ Dextrose 100 ml @ 5.25 mls/hr TITRATE IV Last administered on 02/26/17 20:00; Admin Dose 5.25 MLS/HR; Start 02/26/17 at 23:00 Vasopressin 60 unit/Dextrose 60 ml @ 1.2 mls/hr Q12H IV ; Start 02/27/17 at 07: 00 Phenylephrine HCl 80 mg/Dextrose 250 ml @ 18.75 mls/ hr TITRATE IV Last administered on 02/28/17 05:28; Admin Dose 52.5 MLS/HR; Start 02/27/17 at 07:00 Cefepime HCl (Maxipime 1gm/50 ml (Pmx)) 50 ml @ 100 mls/hr Q24H IVPB ; Start at 10:00 Assessment/Plan Chief Complaint/Hosp Course 61 yo male with drug abuse history admitted with asystole, lactic acidosis. CTH shows changes consistent with diffuse edema and hypoxic injury, poor neurologic exam with absent brain stem reflexes. EEG confirms brain . Recommendations: discussed exam findings and EEG results with 2 children at bedside, would plan towards palliative extubation once all family members arrive Problems: KIARA SANCHEZ MD Feb 28, 2017 10:53
[2017-02-28] MEDS: PROPOFOL 100 ML IV SCH (11:00)
--- NOTE | 2017-02-28 11:29 | CONS ---
Date/Time of Note Date/Time of Note DATE: 02/28/17 TIME: 11:22 Assessment/Plan Assessment/Plan Additional Assessment/Plan Ventilator setting; AC of 24, tidal volume 500, PEEP of 5, 30% FiO2. Patient currently on combination Levophed and phenylephrine drips. Assessment and recommendations; 1. Patient admitted with cardiac arrest with long CPR resulting in severe anoxic brain injury. 2. Renal failure, patient however having increasing urine output. Continue current supportive care. Patient's family requesting another EEG. Initial EKG showing almost no brain activity. Family also requesting another neurology opinion. Prognosis is extremely poor. This was conveyed to the family in detail. I did have a very lengthy and extended discussion with the patient's ex- his children and the patient's brother at bedside. 50 minutes of critical care time was spent evaluating the patient. Consultation Date/Type/Reason Admit Date/Time Feb 25, 2017 at 21:43 Initial Consult Date 02/27/17 Type of Consultation: Pulmonary/critical care Referring Provider: YANET MTZ 24 HR Interval Summary Free Text/Dictation Patient condition remains extremely critical. Still requiring high-dose pressor support for blood pressure maintenance. No overt seizure activity noted. Still requiring full ventilator support. General exam; elderly male, orally intubated, unresponsive. Currently in no distress. Exam/Review of Systems Vital Signs Vitals Vital Signs Date Time Temp Pulse Resp B/P Pulse Ox O2 Delivery O2 Flow Rate FiO2 02/28/17 09:30 92 24 96 50 02/28/17 06:15 134/70 02/28/17 06:00 99.4 Mechanical Ventilator 02/25/17 16:00 15.0 Intake and Output 02/27/17 02/27/17 02/28/17 15:00 23:00 07:00 Intake Total 923 ml 1414.50 ml 1419 ml Output Total 0 ml 5 ml 266 ml Balance 923 ml 1409.50 ml 1153 ml Exam HEENT exam; supple neck, no JVD. No lymphadenopathy. Midline trachea. No thyromegaly. Orally intubated. Pupils are dilated and nonreactive to light bilaterally. Doll's eyes movements are absent. Chest exam; diminished but clear breath sounds. S1-S2 audible, no murmurs. Regular rhythm. Abdomen exam; soft, no organomegaly. Bowel sounds audible. Extremity exam; trace peripheral edema. L[employer] W[employer] P[employer]ER exam; patient remains completely unresponsive. Results Result Diagram: 02/28/17 0420 02/28/17 0420 Results 24 hrs Laboratory Tests Test 02/27/17 12:54 02/27/17 13:27 02/27/17 17:47 02/27/17 20:35 White Blood Count 7.9 # 9.5 # Red Blood Count 4.78 4.72 Hemoglobin 14.0 13.9 L Hematocrit 42.1 40.9 L Mean Corpuscular Volume 88.1 86.7 Mean Corpuscular Hemoglobin 29.3 29.4 Mean Corpuscular Hemoglobin Concent 33.3 34.0 Red Cell Distribution Width 13.4 13.5 Platelet Count 231 226 Mean Platelet Volume 10.8 H 10.5 H Neutrophils % 75.1 74.8 Lymphocytes % 12.1 L 11.0 L Monocytes % 6.3 7.5 Eosinophils % 5.2 5.4 Basophils % 0.8 0.7 Nucleated Red Blood Cells % 0.0 0.0 Neutrophils # 5.9 7.1 Lymphocytes # 1.0 1.0 Monocytes # 0.5 0.7 Eosinophils # 0.4 0.5 Basophils # 0.1 0.1 Nucleated Red Blood Cells # 0.0 0.0 Prothrombin Time 17.5 H 18.1 H Prothrombin Time Ratio 1.4 1.4 INR International Normalized Ratio 1.43 1.49 Activated Partial Thromboplast Time 43.9 H 45.1 H Sodium Level 137 134 L Potassium Level 4.8 5.1 Chloride Level 100 100 Carbon Dioxide Level 20 L 20 L Anion Gap 22 H 19 H Blood Urea Nitrogen 38 H 40 H Creatinine 4.27 H 4.69 H Glucose Level 128 # 130 Calcium Level 7.5 L 7.6 L Phosphorus Level 5.2 H 5.6 H Magnesium Level 1.7 1.7 Creatine Kinase 438 #H 399 H Creatine Kinase Index 4.3 3.9 Creatinine Kinase MB (Mass) 18.80 H 15.70 H Troponin I 0.208 *H 0.194 *H Amylase Level 143 H 137 H Lipase 61 42 Bedside Glucose 130 110 Test 02/27/17 23:27 02/28/17 02:00 02/28/17 02:56 02/28/17 04:20 Bedside Glucose 107 123 Urine Color YELLOW Urine Clarity CLOUDY A Urine pH 5.0 Urine Specific [place] 1.009 Urine Ketones NEGATIVE Urine Nitrite NEGATIVE Urine Bilirubin NEGATIVE Urine Urobilinogen NEGATIVE Urine Leukocyte Esterase 2+ H Urine Microscopic RBC 11 H Urine Microscopic WBC 18 H Urine Bacteria FEW A Urine Yeast (Budding) MODERATE A Urine Hemoglobin 2+ H Urine Random Creatinine 31.82 Urine Random Sodium 27 L Urine Protein/Creatinine Ratio 4.58 Urine Glucose NEGATIVE Urine Total Protein 146.0 H White Blood Count 10.7 Red Blood Count 4.51 L Hemoglobin 13.4 L Hematocrit 39.8 L Mean Corpuscular Volume 88.2 Mean Corpuscular Hemoglobin 29.7 Mean Corpuscular Hemoglobin Concent 33.7 Red Cell Distribution Width 13.7 Platelet Count 225 Mean Platelet Volume 11.6 H Neutrophils % 78.0 H Lymphocytes % 8.3 L Monocytes % 8.0 Eosinophils % 4.3 Basophils % 0.5 Nucleated Red Blood Cells % 0.0 Neutrophils # 8.3 H Lymphocytes # 0.9 Monocytes # 0.9 Eosinophils # 0.5 Basophils # 0.1 Nucleated Red Blood Cells # 0.0 Sodium Level 132 L Potassium Level 5.7 H Chloride Level 99 Carbon Dioxide Level 17 L Anion Gap 22 H Blood Urea Nitrogen 45 H Creatinine 5.52 H Glucose Level 107 Calcium Level 7.6 L Random Vancomycin Level 15.5 Test 02/28/17 06:18 Bedside Glucose 93 Medications Medications Current Medications Epinephrine/ Dextrose (EPINEPHrine/D5W) 250 ml @ 0 mls/hr TITRATE IV Last administered on 02/27/17t 07:13; Admin Dose 37.5 MLS/HR; Start 02/25/17 at 16:30 Ondansetron HCl (Zofran Inj) 4 mg Q6H PRN IV NAUSEA AND/OR VOMITING; Start at 19:30 Acetaminophen (Tylenol Tab) 650 mg Q6H PRN PO PAIN LEVEL 1-3 OR FEVER; Start at 19:30 Acetaminophen/ Hydrocodone Bitart ([place] (5/325)) 1 tab Q6H PRN PO MODERATE PAIN LEVEL 4-6; Start 02/25/17 at 19:30 Morphine Sulfate (morphine) 2 mg Q4H PRN IV SEVERE PAIN LEVEL 7-10; Start 02/25 at 19:30 Docusate Sodium (Colace) 100 mg Q12H PRN PO CONSTIPATION; Start 02/25/17 at 19: 30 Magnesium Hydroxide (Milk Of Mag) 30 ml DAILY PRN PO CONSTIPATION; Start at 19:30 Sodium Biphosphate/ Sodium Phosphate (Fleet Enema) 133 ml DAILY PRN [place] CONSTIPATION; Start 02/25/17 at 19:30 Famotidine 20 mg 20 mg Q12 IV Last administered on 02/27/17 20:45; Admin Dose 20 MG; Start 02/25/17 at 21:00 Sodium Chloride (1/2 NS) 1,000 ml @ 125 mls/hr Q8H IV Last administered on 02/28 06:17; Admin Dose 125 MLS/HR; Start 02/25/17 at 19:09 Lorazepam (Ativan) 0.5 mg Q6H PRN IV ANXIETY; Start 02/25/17 at 19:30 Vancomycin HCl (Vanco Iv Per Pharmacy) VANCOMYCIN PER PHARMACY NOTE XX ; Start 02/25/17 at 19:30 Nitroglycerin (Nitroglycerin (Sl Tab) 0.4 Mg) 1 tab Q5M PRN SL ANGINA; Start at 19:30 Acetaminophen (Tylenol Supp) 650 mg Q4H PRN [place] TEMP > 37C; Start 02/25/17 at 19 :30 Acetaminophen (Tylenol Liquid) 650 mg Q4H PRN PO TEMP > 37C; Start 02/25/17 at 19:30 Acetaminophen (Tylenol Supp) 500 mg Q6H GA Last administered on 02/27/17 13:23 ; Admin Dose 500 MG; Start 02/26/17 at 19:30 Acetaminophen (Tylenol Liquid) 500 mg Q6H PO Last administered on 02/28/17 03: 00; Admin Dose 500 MG; Start 02/26/17 at 19:30 Meperidine HCl (Demerol) 12.5 mg Q4H PRN IV POST OPERATIVE SHIVERING; Start at 19:30 Meperidine HCl (Demerol) 25 mg Q4H PRN IV POST OPERATIVE SHIVERING; Start 02/25 at 19:30 Eye Lubricant ([place]wa Oint) 1 applic Q6 BOTH EYES Last administered on 02/28/17 06:17; Admin Dose 1 APPLIC; Start 02/26/17 at 00:00 Eye Lubricant (Artificial Tears Oph) 2 drop Q6 BOTH EYES Last administered on 06:17; Admin Dose 2 DROP; Start 02/26/17 at 00:00 Dextrose (D50w Syringe) 25 ml Q15M PRN IV Till BS 80 mg/dL or above x2; Start 02/25/17 at 19:30 Dextrose (D50w Syringe) 50 ml Q15M PRN IV Till BS 80 mg/dL or above x2; Start 02/25/17 at 19:30 Heparin Sodium (Porcine) 5000 unit 5,000 unit BID SC Last administered on 20:47; Admin Dose 5,000 UNIT; Start 02/25/17 at 21:00 Norepinephrine 32 mg/Dextrose 250 ml @ 0.46 mls/hr TITRATE IV Last administered on 02/28/17 00:34; Admin Dose 14.06 MLS/HR; Start 02/26/17 at 09:30 Dopamine HCl/ Dextrose (D5W) 250 ml @ 1.96 mls/hr TITRATE IV Last administered on 02/27/17 23:25; Admin Dose 19.68 MLS/HR; Start 02/26/17 at 09:30 Diagnostic Test (Pha) 1 ea 1 ea Q4H XX Last administered on 02/28/17 06:17; Admin Dose 1 EA; Start 02/26/17 at 22:00 Propofol 100 ml @ 3.15 mls/hr Q12H IV Last administered on 02/26/17 22:57; Admin Dose 3.15 MLS/HR; Start 02/26/17 at 23:00 Vecuronium [place] 100 mg/ Dextrose 100 ml @ 5.25 mls/hr TITRATE IV Last administered on 02/26/17 20:00; Admin Dose 5.25 MLS/HR; Start 02/26/17 at 23:00 Vasopressin 60 unit/Dextrose 60 ml @ 1.2 mls/hr Q12H IV ; Start 02/27/17 at 07: 00 Phenylephrine HCl 80 mg/Dextrose 250 ml @ 18.75 mls/ hr TITRATE IV Last administered on 02/28/17 05:28; Admin Dose 52.5 MLS/HR; Start 02/27/17 at 07:00 Cefepime HCl (Maxipime 1gm/50 ml (Pmx)) 50 ml @ 100 mls/hr Q24H IVPB ; Start at 10:00 JUAN R GRAVES Feb 28, 2017 11:29
[2017-02-28] MEDS: CEFEPIME 1GM/50 ML IVPB SCH (11:41)
[2017-02-28] MEDS: HEPARIN 5,000 UNIT/0.5 ML VIAL SC SCH ×2 (11:47→21:36)
[2017-02-28] MEDS: FAMOTIDINE 20 MG INJ IV SCH (11:48)
[2017-02-28] MEDS ORDERED: VANCOMYCIN 1 GM in NS 250 ML IVPB SCH (13:00)
--- NOTE | 2017-02-28 15:09 | CONS ---
Date/Time of Note Date/Time of Note DATE: 02/28/17 TIME: 15:01 Assessment/Plan Assessment/Plan Additional Assessment/Plan Family conference done with patient's , ex-, children, DPOA, and Rabbi. I explained his current clinical condition the medical interventions that were done when patient presented to this hospital and most importantly that [place] has not shown any signs of neurological improvement. The results of the EEG was discussed with family members as well as neurological consultations physical finding and interpretation of the EEG. My own physical examination is consistent with brain also. Family members now understanding futility of continuing this level of care. I also explained to them that we could not keep him on the ventilator with life support brain . Apnea test has been ordered by myself, EEG has been cancelled. Other palliative issues were addressed including patient's agent Jamie family' s understanding of his current condition there is strengths hopes fears communication prep there are no pain or symptom management issues to be addressed legal issues have been addressed with patients POA. 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 Consultation Date/Type/Reason Admit Date/Time Feb 25, 2017 at 21:43 Initial Consult Date 02/26/17 Type of Consultation: Palliative care Referring Provider: YANET MTZ Exam/Review of Systems Vital Signs Vitals Vital Signs Date Time Temp Pulse Resp B/P Pulse Ox O2 Delivery O2 Flow Rate FiO2 02/28/17 11:56 94 24 94 50 02/28/17 06:15 134/70 02/28/17 06:00 99.4 Mechanical Ventilator 02/25/17 16:00 15.0 Intake and Output 02/27/17 02/27/17 02/28/17 15:00 23:00 07:00 Intake Total 923 ml 1414.50 ml 1419 ml Output Total 0 ml 5 ml 266 ml Balance 923 ml 1409.50 ml 1153 ml Exam Neurological: other (No pupillary light reflex corneal reflex or doll's patient is not overbreathing the ventilator he has no gag reflex bilateral pupils are fixed and dilated) Results Result Diagram: 02/28/17 0420 02/28/17 0420 Results 24 hrs Laboratory Tests Test 02/27/17 17:47 02/27/17 20:35 02/27/17 23:27 02/28/17 02:00 White Blood Count 9.5 # Red Blood Count 4.72 Hemoglobin 13.9 L Hematocrit 40.9 L Mean Corpuscular Volume 86.7 Mean Corpuscular Hemoglobin 29.4 Mean Corpuscular Hemoglobin Concent 34.0 Red Cell Distribution Width 13.5 Platelet Count 226 Mean Platelet Volume 10.5 H Neutrophils % 74.8 Lymphocytes % 11.0 L Monocytes % 7.5 Eosinophils % 5.4 Basophils % 0.7 Nucleated Red Blood Cells % 0.0 Neutrophils # 7.1 Lymphocytes # 1.0 Monocytes # 0.7 Eosinophils # 0.5 Basophils # 0.1 Nucleated Red Blood Cells # 0.0 Prothrombin Time 18.1 H Prothrombin Time Ratio 1.4 INR International Normalized Ratio 1.49 Activated Partial Thromboplast Time 45.1 H Sodium Level 134 L Potassium Level 5.1 Chloride Level 100 Carbon Dioxide Level 20 L Anion Gap 19 H Blood Urea Nitrogen 40 H Creatinine 4.69 H Glucose Level 130 Calcium Level 7.6 L Phosphorus Level 5.6 H Magnesium Level 1.7 Creatine Kinase 399 H Creatine Kinase Index 3.9 Creatinine Kinase MB (Mass) 15.70 H Troponin I 0.194 *H Amylase Level 137 H Lipase 42 Bedside Glucose 110 107 Urine Color YELLOW Urine Clarity CLOUDY A Urine pH 5.0 Urine Specific [place] 1.009 Urine Ketones NEGATIVE Urine Nitrite NEGATIVE Urine Bilirubin NEGATIVE Urine Urobilinogen NEGATIVE Urine Leukocyte Esterase 2+ H Urine Microscopic RBC 11 H Urine Microscopic WBC 18 H Urine Bacteria FEW A Urine Yeast (Budding) MODERATE A Urine Hemoglobin 2+ H Urine Random Creatinine 31.82 Urine Random Sodium 27 L Urine Protein/Creatinine Ratio 4.58 Urine Glucose NEGATIVE Urine Total Protein 146.0 H Test 02/28/17 02:56 02/28/17 04:20 02/28/17 06:18 02/28/17 11:39 Bedside Glucose 123 93 95 White Blood Count 10.7 Red Blood Count 4.51 L Hemoglobin 13.4 L Hematocrit 39.8 L Mean Corpuscular Volume 88.2 Mean Corpuscular Hemoglobin 29.7 Mean Corpuscular Hemoglobin Concent 33.7 Red Cell Distribution Width 13.7 Platelet Count 225 Mean Platelet Volume 11.6 H Neutrophils % 78.0 H Lymphocytes % 8.3 L Monocytes % 8.0 Eosinophils % 4.3 Basophils % 0.5 Nucleated Red Blood Cells % 0.0 Neutrophils # 8.3 H Lymphocytes # 0.9 Monocytes # 0.9 Eosinophils # 0.5 Basophils # 0.1 Nucleated Red Blood Cells # 0.0 Sodium Level 132 L Potassium Level 5.7 H Chloride Level 99 Carbon Dioxide Level 17 L Anion Gap 22 H Blood Urea Nitrogen 45 H Creatinine 5.52 H Glucose Level 107 Calcium Level 7.6 L Random Vancomycin Level 15.5 Test 02/28/17 14:43 Bedside Glucose 83 Medications Medications Current Medications Epinephrine/ Dextrose (EPINEPHrine/D5W) 250 ml @ 0 mls/hr TITRATE IV Last administered on 02/27/17 07:13; Admin Dose 37.5 MLS/HR; Start 02/25/17 at 16:30 Ondansetron HCl (Zofran Inj) 4 mg Q6H PRN IV NAUSEA AND/OR VOMITING; Start at 19:30 Acetaminophen (Tylenol Tab) 650 mg Q6H PRN PO PAIN LEVEL 1-3 OR FEVER; Start at 19:30 Acetaminophen/ Hydrocodone Bitart ([place] (5/325)) 1 tab Q6H PRN PO MODERATE PAIN LEVEL 4-6; Start 02/25/17 at 19:30 Morphine Sulfate (morphine) 2 mg Q4H PRN IV SEVERE PAIN LEVEL 7-10; Start 02/25 at 19:30 Docusate Sodium (Colace) 100 mg Q12H PRN PO CONSTIPATION; Start 02/25/17 at 19: 30 Magnesium Hydroxide (Milk Of Mag) 30 ml DAILY PRN PO CONSTIPATION; Start at 19:30 Sodium Biphosphate/ Sodium Phosphate 133 ml 133 ml DAILY PRN [place] CONSTIPATION; Start 02/25/17 at 19:30 Sodium Chloride (1/2 NS) 1,000 ml @ 125 mls/hr Q8H IV Last administered on 02/28 06:17; Admin Dose 125 MLS/HR; Start 02/25/17 at 19:09 Lorazepam (Ativan) 0.5 mg Q6H PRN IV ANXIETY; Start 02/25/17 at 19:30 Vancomycin HCl (Vanco Iv Per Pharmacy) VANCOMYCIN PER PHARMACY NOTE XX ; Start 02/25/17 at 19:30 Nitroglycerin (Nitroglycerin (Sl Tab) 0.4 Mg) 1 tab Q5M PRN SL ANGINA; Start at 19:30 Acetaminophen (Tylenol Liquid) 650 mg Q4H PRN PO TEMP > 37C; Start 02/25/17 at 19:30 Dextrose (D50w Syringe) 25 ml Q15M PRN IV Till BS 80 mg/dL or above x2; Start 02/25/17 at 19:30 Dextrose (D50w Syringe) 50 ml Q15M PRN IV Till BS 80 mg/dL or above x2; Start 02/25/17 at 19:30 Heparin Sodium (Porcine) 5000 unit 5,000 unit BID SC Last administered on 11:47; Admin Dose 5,000 UNIT; Start 02/25/17 at 21:00 Norepinephrine 32 mg/Dextrose 250 ml @ 0.46 mls/hr TITRATE IV Last administered on 02/28/17 00:34; Admin Dose 14.06 MLS/HR; Start 02/26/17 at 09:30 Dopamine HCl/ Dextrose (D5W) 250 ml @ 1.96 mls/hr TITRATE IV Last administered on 02/27/17 23:25; Admin Dose 19.68 MLS/HR; Start 02/26/17 at 09:30 Diagnostic Test (Pha) 1 ea 1 ea Q4H XX Last administered on 02/28/17 14:43; Admin Dose 1 EA; Start 02/26/17 at 22:00 Propofol 100 ml @ 3.15 mls/hr Q12H IV Last administered on 02/26/17 22:57; Admin Dose 3.15 MLS/HR; Start 02/26/17 at 23:00 Vecuronium [place] 100 mg/ Dextrose 100 ml @ 5.25 mls/hr TITRATE IV Last administered on 02/26/17 20:00; Admin Dose 5.25 MLS/HR; Start 02/26/17 at 23:00 Vasopressin 60 unit/Dextrose 60 ml @ 1.2 mls/hr Q12H IV ; Start 02/27/17 at 07: 00 Phenylephrine HCl 80 mg/Dextrose 250 ml @ 18.75 mls/ hr TITRATE IV Last administered on 02/28/17 05:28; Admin Dose 52.5 MLS/HR; Start 02/27/17 at 07:00 Cefepime HCl 50 ml @ 100 mls/hr Q24H IVPB Last administered on 8/3/17at 11:41 ; Admin Dose 100 MLS/HR; Start 02/28/17 at 10:00 Vancomycin HCl (Vancocin) 250 ml @ 125 mls/hr ONCE IVPB Last administered on t 14:42; Admin Dose 125 MLS/HR; Start 02/28/17 at 13:00; Stop 02/28/17 at 17 :00 Famotidine (Pepcid Iv) 20 mg DAILY IV ; Start 03/01/17 at 09:00 REED NIELSEN Feb 28, 2017 15:09
[2017-02-28 15:31] LABS: AADO2 Arterial 393.1 mmHg (7.0-24.0); Allen Test ACCEPTAB; Arterial Base Excess -8.7 mmol/L (-3.0-3); Arterial COHb 0.3 % (0.0-3.0); Arterial Fraction of Oxyhgb 88.6 % (93.0-99.0); Arterial MetHb 0.6 % (0.0-1.5); Arterial Total Hemglobin 13.3 g/dl (12.0-18.0); MODE VENT - AC
[2017-02-28 16:15] LABS: AADO2 Arterial 609.9 mmHg (7.0-24.0); Allen Test ACCEPTAB; Arterial Base Excess -12.3 mmol/L (-3.0-3); Arterial COHb 0.1 % (0.0-3.0); Arterial Fraction of Oxyhgb 84.8 % (93.0-99.0); Arterial MetHb 0.5 % (0.0-1.5); Arterial Total Hemglobin 13.5 g/dl (12.0-18.0); MODE NASAL CANNULA
[2017-02-28 17:37] LABS: AADO2 Arterial 606.4 mmHg (7.0-24.0); Allen Test ACCEPTAB; Arterial Base Excess -14.8 mmol/L (-3.0-3); Arterial COHb 0.3 % (0.0-3.0); Arterial Fraction of Oxyhgb 79.5 % (93.0-99.0); Arterial HCO3 15.1 mmol/L (22.0-26.0); Arterial MetHb 0.6 % (0.0-1.5); Arterial Total Hemglobin 13.5 g/dl (12.0-18.0); MODE NASAL CANNULA
[2017-03-01] VITALS (68 sets, daily range): BP systolic 91–199; BP diastolic 60–125; PULSE 84–101; RESP 22–24
--- NOTE | 2017-03-01 00:24 | CONS ---
Date/Time of Note Date/Time of Note DATE: 03/01/17 TIME: 00:23 Assessment/Plan Assessment/Plan Chief Complaint/Hosp Course A/P CARDIAC ARREST DEVORA ATN POST ARREST VDRF HX BIPOLAR DISORDER hyperkalemia PLAN PER ORDER palliative care poor prognosis Problems: Consultation Date/Type/Reason Admit Date/Time Feb 25, 2017 at 21:43 Initial Consult Date 02/26/17 Type of Consultation: renal Referring Provider: YANET MTZ Exam/Review of Systems Vital Signs Vitals Vital Signs Date Time Temp Pulse Resp B/P Pulse Ox O2 Delivery O2 Flow Rate FiO2 02/28/17 23:00 98 24 94 100 02/28/17 22:30 136/71 02/28/17 22:00 100.7 Mechanical Ventilator 02/25/17 16:00 15.0 Intake and Output 02/28/17 02/28/17 03/01/17 15:00 23:00 07:00 Intake Total 1539.8 ml 1647.8 ml Output Total 243 ml 557 ml Balance 1296.8 ml 1090.8 ml Exam Respiratory: diminished breath sounds Cardiovascular: regular rate and rhythm Gastrointestinal: soft Results Result Diagram: 02/28/17 0420 02/28/17 0420 Results 24 hrs Laboratory Tests Test 02/28/17 02:00 02/28/17 02:56 02/28/17 04:20 02/28/17 06:18 Urine Color YELLOW Urine Clarity CLOUDY A Urine pH 5.0 Urine Specific [place] 1.009 Urine Ketones NEGATIVE Urine Nitrite NEGATIVE Urine Bilirubin NEGATIVE Urine Urobilinogen NEGATIVE Urine Leukocyte Esterase 2+ H Urine Microscopic RBC 11 H Urine Microscopic WBC 18 H Urine Bacteria FEW A Urine Yeast (Budding) MODERATE A Urine Hemoglobin 2+ H Urine Random Creatinine 31.82 Urine Random Sodium 27 L Urine Protein/Creatinine Ratio 4.58 Urine Glucose NEGATIVE Urine Total Protein 146.0 H Bedside Glucose 123 93 White Blood Count 10.7 Red Blood Count 4.51 L Hemoglobin 13.4 L Hematocrit 39.8 L Mean Corpuscular Volume 88.2 Mean Corpuscular Hemoglobin 29.7 Mean Corpuscular Hemoglobin Concent 33.7 Red Cell Distribution Width 13.7 Platelet Count 225 Mean Platelet Volume 11.6 H Neutrophils % 78.0 H Lymphocytes % 8.3 L Monocytes % 8.0 Eosinophils % 4.3 Basophils % 0.5 Nucleated Red Blood Cells % 0.0 Neutrophils # 8.3 H Lymphocytes # 0.9 Monocytes # 0.9 Eosinophils # 0.5 Basophils # 0.1 Nucleated Red Blood Cells # 0.0 Sodium Level 132 L Potassium Level 5.7 H Chloride Level 99 Carbon Dioxide Level 17 L Anion Gap 22 H Blood Urea Nitrogen 45 H Creatinine 5.52 H Glucose Level 107 Calcium Level 7.6 L Random Vancomycin Level 15.5 Test 02/28/17 11:39 02/28/17 14:43 02/28/17 15:00 02/28/17 16:03 Bedside Glucose 95 83 Blood Gas Specimen Source Blood arterial Blood arterial Arterial Blood Date Drawn 02/28/2017 3:15:57 PM 02/28/2017 4:01:25 PM Arterial Blood pH (Temp corrected) 7.256 *L 7.167 *L Arterial Blood pCO2 (Temp correct) 41.3 45.1 H Arterial Blood pO2 (Temp corrected) 61.6 L 58.0 L Arterial Blood HCO3 18.0 L 16.0 L Arterial Blood Base Excess -8.7 L -12.3 L Arterial Blood Oxygen Saturation 89.4 L 85.3 L Cooper Test ACCEPTAB ACCEPTAB Arterial Blood Gas Puncture Site Right Radial Right Radial Arterial Blood Carboxyhemoglobin 0.3 0.1 Arterial Blood Methemoglobin 0.6 0.5 Blood Gas A-a O2 Differential 393.1 H 609.9 H Oxyhemoglobin Percent 88.6 L 84.8 L Total Hemoglobin 13.3 13.5 Blood Gas Temperature 37.0 37.0 Blood Gas Respiration Rate 24.0 Blood Gas Modality VENT - AC NASAL CANNULA FiO2 70.0 100.0 Blood Gas Tidal Volume 600.0 Blood Gas Low PEEP Setting 8.0 Blood Gas Critical Value Read Back Shree MACK RN Blood Gas Notified Whom LS LS Blood Gas Notified Time 02/28/2017 3:30:57 PM 02/28/2017 4:15:11 PM Test 02/28/17 17:30 02/28/17 18:22 02/28/17 21:40 Blood Gas Specimen Source Blood arterial Arterial Blood Date Drawn 02/28/2017 5:24:58 PM Arterial Blood pH (Temp corrected) 7.084 *L Arterial Blood pCO2 (Temp correct) 51.6 H Arterial Blood pO2 (Temp corrected) 55.0 L Arterial Blood HCO3 15.1 L Arterial Blood Base Excess -14.8 L Arterial Blood Oxygen Saturation 80.2 L Cooper Test ACCEPTAB Arterial Blood Gas Puncture Site Left Radial Arterial Blood Carboxyhemoglobin 0.3 Arterial Blood Methemoglobin 0.6 Blood Gas A-a O2 Differential 606.4 H Oxyhemoglobin Percent 79.5 L Total Hemoglobin 13.5 Blood Gas Temperature 37.0 Blood Gas Modality NASAL CANNULA FiO2 100.0 Blood Gas Critical Value Read Back LISANDRA Swann RN Blood Gas Notified Whom LS Blood Gas Notified Time 02/28/2017 5:35:52 PM Bedside Glucose 96 79 Medications Medications Current Medications Epinephrine/ Dextrose (EPINEPHrine/D5W) 250 ml @ 0 mls/hr TITRATE IV Last administered on 02/27/17 07:13; Admin Dose 37.5 MLS/HR; Start 02/25/17 at 16:30 Ondansetron HCl (Zofran Inj) 4 mg Q6H PRN IV NAUSEA AND/OR VOMITING; Start at 19:30 Acetaminophen (Tylenol Tab) 650 mg Q6H PRN PO PAIN LEVEL 1-3 OR FEVER; Start at 19:30 Acetaminophen/ Hydrocodone Bitart ([place] (5/325)) 1 tab Q6H PRN PO MODERATE PAIN LEVEL 4-6; Start 02/25/17 at 19:30 Morphine Sulfate (morphine) 2 mg Q4H PRN IV SEVERE PAIN LEVEL 7-10; Start 02/25 at 19:30 Docusate Sodium (Colace) 100 mg Q12H PRN PO CONSTIPATION; Start 02/25/17 at 19: 30 Magnesium Hydroxide (Milk Of Mag) 30 ml DAILY PRN PO CONSTIPATION; Start at 19:30 Sodium Biphosphate/ Sodium Phosphate 133 ml 133 ml DAILY PRN [place] CONSTIPATION; Start 02/25/17 at 19:30 Sodium Chloride (1/2 NS) 1,000 ml @ 125 mls/hr Q8H IV Last administered on 02/28 21:33; Admin Dose 125 MLS/HR; Start 02/25/17 at 19:09 Lorazepam (Ativan) 0.5 mg Q6H PRN IV ANXIETY; Start 02/25/17 at 19:30 Vancomycin HCl (Vanco Iv Per Pharmacy) VANCOMYCIN PER PHARMACY NOTE XX ; Start 02/25/17 at 19:30 Nitroglycerin (Nitroglycerin (Sl Tab) 0.4 Mg) 1 tab Q5M PRN SL ANGINA; Start at 19:30 Acetaminophen (Tylenol Liquid) 650 mg Q4H PRN PO TEMP > 37C; Start 02/25/17 at 19:30 Dextrose (D50w Syringe) 25 ml Q15M PRN IV Till BS 80 mg/dL or above x2; Start 02/25/17 at 19:30 Dextrose (D50w Syringe) 50 ml Q15M PRN IV Till BS 80 mg/dL or above x2; Start 02/25/17 at 19:30 Heparin Sodium (Porcine) 5000 unit 5,000 unit BID SC Last administered on 21:36; Admin Dose 5,000 UNIT; Start 02/25/17 at 21:00 Norepinephrine 32 mg/Dextrose 250 ml @ 0.46 mls/hr TITRATE IV Last administered on 02/28/17 21:35; Admin Dose 11.71 MLS/HR; Start 02/26/17 at 09:30 Dopamine HCl/ Dextrose (D5W) 250 ml @ 1.96 mls/hr TITRATE IV Last administered on 02/27/17 23:25; Admin Dose 19.68 MLS/HR; Start 02/26/17 at 09:30 Diagnostic Test (Pha) 1 ea 1 ea Q4H XX Last administered on 02/28/17 18:33; Admin Dose 1 EA; Start 02/26/17 at 22:00 Propofol 100 ml @ 3.15 mls/hr Q12H IV Last administered on 02/26/17 22:57; Admin Dose 3.15 MLS/HR; Start 02/26/17 at 23:00 Vecuronium [place] 100 mg/ Dextrose 100 ml @ 5.25 mls/hr TITRATE IV Last administered on 02/26/17 20:00; Admin Dose 5.25 MLS/HR; Start 02/26/17 at 23:00 Vasopressin 60 unit/Dextrose 60 ml @ 1.2 mls/hr Q12H IV ; Start 02/27/17 at 07: 00 Phenylephrine HCl 80 mg/Dextrose 250 ml @ 18.75 mls/ hr TITRATE IV Last administered on 02/28/17 21:38; Admin Dose 21.56 MLS/HR; Start 02/27/17 at 07:00 Cefepime HCl (Maxipime 1gm/50 ml (Pmx)) 50 ml @ 100 mls/hr Q24H IVPB Last administered on 02/28/17t 11:41; Admin Dose 100 MLS/HR; Start 02/28/17 at 10:00 Famotidine (Pepcid Iv) 20 mg DAILY IV ; Start 03/01/17 at 09:00 MORRIS ANDERSON MD Mar 01, 2017 00:24
[2017-03-01] MEDS: SOD CHLORIDE 0.45% 1,000 ML IV SCH ×3 (00:32→20:48)
[2017-03-01] MEDS: ACCU-CHEK XX SCH ×5 (02:00→18:10)
[2017-03-01 05:18] LABS: ABNORMAL IP MESSAGE 1; BASOPHILS % 0.2 % (0.0-2.0); EOSINOPHILS # 0.1 10^3/ul (0.0-0.5); EOSINOPHILS % 0.5 % (0.0-7.0); HEMATOCRIT 35.2 % (42.0-52.0); HEMOGLOBIN 11.3 g/dl (14.0-18.0); LYMPHOCYTES # 0.5 10^3/ul (0.8-2.9); LYMPHOCYTES % 3.9 % (15.0-51.0); MEAN CORPUSCULAR HEMOGLOBIN 29.3 pg (29.0-33.0); MEAN CORPUSCULAR HGB CONC 32.1 g/dl (32.0-37.0); MEAN CORPUSCULAR VOLUME 91.2 fl (82.0-101.0); MEAN PLATELET VOLUME 11.4 fl (7.4-10.4); MONOCYTE # 0.9 10^3/ul (0.3-0.9); MONOCYTES % 7.7 % (0.0-11.0); NEUTROPHIL # 10.5 10^3/ul (1.6-7.5); NEUTROPHILS % 87.1 % (39.0-77.0); PLATELET COUNT 197 10^3/UL (140-415); POSITIVE DIFF @See below; RED BLOOD COUNT 3.86 10^6/ul (4.70-6.10); RED CELL DISTRIBUTION WIDTH 13.9 % (11.5-14.5)
[2017-03-01 05:43] LABS: CALCIUM 7.8 mg/dl (8.4-10.2); CREATININE 7.29 mg/dl (0.61-1.24)
[2017-03-01] MEDS ORDERED: NA POLYST SULFON 15 GM/60 ML BTL NGT ONE (06:30)
[2017-03-01] MEDS ORDERED: CALCIUM GLUCONATE 10% 2 GM in SOD CHLORIDE 0.9% 100 ML IVPB ONE (06:30)
[2017-03-01] MEDS ORDERED: NA BICARBONATE 8.4% 50 ML SYG IV STA (06:30)
[2017-03-01] MEDS ORDERED: DEXTROSE 50% 50 ML SYRINGE IV ONE (06:47)
[2017-03-01] MEDS ORDERED: INSULIN REGULAR, HUMAN 100 UNIT/1 ML 3ML VIAL SC ONE (06:50)
[2017-03-01] MEDS ORDERED: INSULIN REGULAR 10 ML INJ IV ONE (06:50)
[2017-03-01] MEDS ORDERED: ATROPINE 1 MG/10 ML SYRINGE ONE (07:00)
[2017-03-01] MEDS ORDERED: NA BICARBONATE 8.4% 50 ML SYG ONE (07:00)
[2017-03-01] MEDS ORDERED: EPINEPHrine 100 MCG/10 ML SYG IV ONE (07:00)
[2017-03-01] MEDS ORDERED: NALOXONE 2 MG SYG ONE (07:00)
--- NOTE | 2017-03-01 07:39 | CONS ---
Date/Time of Note Date/Time of Note DATE: 03/01/17 TIME: 07:35 Consultation Date/Type/Reason Admit Date/Time Feb 25, 2017 at 21:43 Initial Consult Date 02/26/17 Type of Consultation: Palliative care Referring Provider: YANET MTZ 24 HR Interval Summary Free Text/Dictation Apnea test 2 done yesterday evening was inconclusive. Reason no studies were done because some hesitation on the part of family members to stop all current care. Order was given to have a cerebral flow study for some reason not done last evening, I have been in communication with patient's agent and last spoke to him yesterday evening about ordering the flow study and results of apnea test. I will meet with family members today after cerebral flow study is completed, will speak to all other consultants involved with patient's care. Strongly recommend no dialysis until flow study is complete and to speak with patient's agent once again. Exam/Review of Systems Vital Signs Vitals Vital Signs Date Time Temp Pulse Resp B/P Pulse Ox O2 Delivery O2 Flow Rate FiO2 03/01/17 06:00 Mechanical Ventilator 03/01/17 05:30 96 24 94 03/01/17 05:12 100 03/01/17 04:00 101.1 02/25/17 16:00 15.0 Intake and Output 02/28/17 02/28/17 03/01/17 15:00 23:00 07:00 Intake Total 1539.8 ml 1647.8 ml 992.95 ml Output Total 243 ml 557 ml 549 ml Balance 1296.8 ml 1090.8 ml 443.95 ml Results Result Diagram: 03/01/17 0430 03/01/17 0430 Results 24 hrs Laboratory Tests Test 02/28/17 11:39 02/28/17 14:43 02/28/17 15:00 02/28/17 16:03 Bedside Glucose 95 83 Blood Gas Specimen Source Blood arterial Blood arterial Arterial Blood Date Drawn 02/28/2017 3:15:57 PM 02/28/2017 4:01:25 PM Arterial Blood pH (Temp corrected) 7.256 *L 7.167 *L Arterial Blood pCO2 (Temp correct) 41.3 45.1 H Arterial Blood pO2 (Temp corrected) 61.6 L 58.0 L Arterial Blood HCO3 18.0 L 16.0 L Arterial Blood Base Excess -8.7 L -12.3 L Arterial Blood Oxygen Saturation 89.4 L 85.3 L Cooper Test ACCEPTAB ACCEPTAB Arterial Blood Gas Puncture Site Right Radial Right Radial Arterial Blood Carboxyhemoglobin 0.3 0.1 Arterial Blood Methemoglobin 0.6 0.5 Blood Gas A-a O2 Differential 393.1 H 609.9 H Oxyhemoglobin Percent 88.6 L 84.8 L Total Hemoglobin 13.3 13.5 Blood Gas Temperature 37.0 37.0 Blood Gas Respiration Rate 24.0 Blood Gas Modality VENT - AC NASAL CANNULA FiO2 70.0 100.0 Blood Gas Tidal Volume 600.0 Blood Gas Low PEEP Setting 8.0 Blood Gas Critical Value Read Back Shree MACK RN Blood Gas Notified Whom [facility] Blood Gas Notified Time 02/28/2017 3:30:57 PM 02/28/2017 4:15:11 PM Test 02/28/17 17:30 02/28/17 18:22 02/28/17 21:40 03/01/17 01:41 Blood Gas Specimen Source Blood arterial Arterial Blood Date Drawn 02/28/2017 5:24:58 PM Arterial Blood pH (Temp corrected) 7.084 *L Arterial Blood pCO2 (Temp correct) 51.6 H Arterial Blood pO2 (Temp corrected) 55.0 L Arterial Blood HCO3 15.1 L Arterial Blood Base Excess -14.8 L Arterial Blood Oxygen Saturation 80.2 L Cooper Test ACCEPTAB Arterial Blood Gas Puncture Site Left Radial Arterial Blood Carboxyhemoglobin 0.3 Arterial Blood Methemoglobin 0.6 Blood Gas A-a O2 Differential 606.4 H Oxyhemoglobin Percent 79.5 L Total Hemoglobin 13.5 Blood Gas Temperature 37.0 Blood Gas Modality NASAL CANNULA FiO2 100.0 Blood Gas Critical Value Read Back LISANDRA Swann RN Blood Gas Notified Whom LS Blood Gas Notified Time 02/28/2017 5:35:52 PM Bedside Glucose 96 79 81 Test 03/01/17 04:24 03/01/17 04:30 Bedside Glucose 87 White Blood Count 12.0 H Red Blood Count 3.86 L Hemoglobin 11.3 L Hematocrit 35.2 L Mean Corpuscular Volume 91.2 Mean Corpuscular Hemoglobin 29.3 Mean Corpuscular Hemoglobin Concent 32.1 Red Cell Distribution Width 13.9 Platelet Count 197 Mean Platelet Volume 11.4 H Neutrophils % 87.1 H Lymphocytes % 3.9 L Monocytes % 7.7 Eosinophils % 0.5 Basophils % 0.2 Nucleated Red Blood Cells % 0.0 Neutrophils # 10.5 H Lymphocytes # 0.5 L Monocytes # 0.9 Eosinophils # 0.1 Basophils # 0.0 Nucleated Red Blood Cells # 0.0 Sodium Level 130 L Potassium Level 7.0 *H Chloride Level 96 L Carbon Dioxide Level 19 L Anion Gap 22 H Blood Urea Nitrogen 59 H Creatinine 7.29 H Glucose Level 85 Calcium Level 7.8 L Medications Medications Current Medications Epinephrine/ Dextrose (EPINEPHrine/D5W) 250 ml @ 0 mls/hr TITRATE IV Last administered on 02/27/17 07:13; Admin Dose 37.5 MLS/HR; Start 02/25/17 at 16:30 Ondansetron HCl (Zofran Inj) 4 mg Q6H PRN IV NAUSEA AND/OR VOMITING; Start at 19:30 Acetaminophen (Tylenol Tab) 650 mg Q6H PRN PO PAIN LEVEL 1-3 OR FEVER; Start at 19:30 Acetaminophen/ Hydrocodone Bitart ([place] (5/325)) 1 tab Q6H PRN PO MODERATE PAIN LEVEL 4-6; Start 02/25/17 at 19:30 Morphine Sulfate (morphine) 2 mg Q4H PRN IV SEVERE PAIN LEVEL 7-10; Start 02/25 at 19:30 Docusate Sodium (Colace) 100 mg Q12H PRN PO CONSTIPATION; Start 02/25/17 at 19: 30 Magnesium Hydroxide (Milk Of Mag) 30 ml DAILY PRN PO CONSTIPATION; Start at 19:30 Sodium Biphosphate/ Sodium Phosphate 133 ml 133 ml DAILY PRN [place] CONSTIPATION; Start 02/25/17 at 19:30 Sodium Chloride (1/2 NS) 1,000 ml @ 125 mls/hr Q8H IV Last administered on 03/01 00:32; Admin Dose 125 MLS/HR; Start 02/25/17 at 19:09 Lorazepam (Ativan) 0.5 mg Q6H PRN IV ANXIETY; Start 02/25/17 at 19:30 Vancomycin HCl (Vanco Iv Per Pharmacy) VANCOMYCIN PER PHARMACY NOTE XX ; Start 02/25/17 at 19:30 Nitroglycerin (Nitroglycerin (Sl Tab) 0.4 Mg) 1 tab Q5M PRN SL ANGINA; Start at 19:30 Acetaminophen (Tylenol Liquid) 650 mg Q4H PRN PO TEMP > 37C; Start 02/25/17 at 19:30 Dextrose (D50w Syringe) 25 ml Q15M PRN IV Till BS 80 mg/dL or above x2; Start 02/25/17 at 19:30 Dextrose (D50w Syringe) 50 ml Q15M PRN IV Till BS 80 mg/dL or above x2; Start 02/25/17 at 19:30 Heparin Sodium (Porcine) 5000 unit 5,000 unit BID SC Last administered on 21:36; Admin Dose 5,000 UNIT; Start 02/25/17 at 21:00 Norepinephrine 32 mg/Dextrose 250 ml @ 0.46 mls/hr TITRATE IV Last administered on 02/28/17 21:35; Admin Dose 11.71 MLS/HR; Start 02/26/17 at 09:30 Dopamine HCl/ Dextrose (D5W) 250 ml @ 1.96 mls/hr TITRATE IV Last administered on 02/27/17 23:25; Admin Dose 19.68 MLS/HR; Start 02/26/17 at 09:30 Diagnostic Test (Pha) 1 ea 1 ea Q4H XX Last administered on 02/28/17 18:33; Admin Dose 1 EA; Start 02/26/17 at 22:00 Propofol 100 ml @ 3.15 mls/hr Q12H IV Last administered on 02/26/17 22:57; Admin Dose 3.15 MLS/HR; Start 02/26/17 at 23:00 Vecuronium [place] 100 mg/ Dextrose 100 ml @ 5.25 mls/hr TITRATE IV Last administered on 02/26/17 20:00; Admin Dose 5.25 MLS/HR; Start 02/26/17 at 23:00 Vasopressin 60 unit/Dextrose 60 ml @ 1.2 mls/hr Q12H IV ; Start 02/27/17 at 07: 00 Phenylephrine HCl 80 mg/Dextrose 250 ml @ 18.75 mls/ hr TITRATE IV Last administered on 02/28/17 21:38; Admin Dose 21.56 MLS/HR; Start 02/27/17 at 07:00 Cefepime HCl (Maxipime 1gm/50 ml (Pmx)) 50 ml @ 100 mls/hr Q24H IVPB Last administered on 02/28/17t 11:41; Admin Dose 100 MLS/HR; Start 02/28/17 at 10:00 Famotidine 20 mg 20 mg DAILY IV ; Start 03/01/17 at 09:00 Calcium Gluconate/ Sodium Chloride (Ca Gluc/NS) 120 ml @ 60 mls/hr ONCE ONCE IVPB ; Start 03/01/17 at 06:30; Stop 03/01/17 at 08:29 Sodium Polystyrene Sulfonate (Kayexalate) 30 gm Q4 PO ; Start 03/01/17 at 09:00; Stop 03/01/17 at 18:00 REED NIELSEN Mar 01, 2017 07:39
[2017-03-01] MEDS: PROPOFOL 100 ML IV SCH ×2 (08:24→10:49)
[2017-03-01] MEDS: VASOPRESSIN 60 UNIT in DEXTROSE 5% 57 ML IV SCH ×2 (08:25→19:00)
[2017-03-01] MEDS ORDERED: FAMOTIDINE 20 MG INJ IV SCH (09:00)
--- NOTE | 2017-03-01 09:22 | PN ---
Date/Time of Note Date/Time of Note DATE: 03/01/17 TIME: 09:18 Assessment/Plan VTE Prophylaxis VTE Prophylaxis Intervention: heparin Lines/Catheters IV [facility] Peripheral IV Urinary Cath still in place: Yes Reason Cath still needed: urinary retention Assessment/Plan Chief Complaint/Hosp Course Assessment and plan: 61-year-old male acute drug toxicity, status post cardiac arrest, septic shock, lactic acidosis, intubated, on pressors. 1. Cardiac arrest-completed hypothermia protocol. Appreciate cardiology and neurology consult. Patient apparently with poor neurologic exam with absent brain stem reflexes. EEG was performed, findings consistent with brain . Apnea test 2 inconclusive. Cerebral flow study still pending. - Follow up neurology and cardiology recommendations, continue to monitor vital signs very carefully. -Follow-up vertebral flow study -Per palliative care team, recommending against dialysis until cerebral flow study performed. 2. Respiratory failure: Secondary to #1. -Continue intubation, pulmonary consult, duo nebs as needed. Follow-up culture results. -Continue broad-spectrum antibiotics. Mechanical ventilation 3. Septic shock with lactic acidosis: Lactic acid slowly trending down, still elevated. Still on pressor support x 2. -Continue broad-spectrum antibiotic, continue pressor support, monitor vital signs very carefully. - Monitor BMP, continue aggressive IV fluid hydration, trend lactic acid levels. 4. IV drug abuse: Positive for cocaine, methamphetamines, opiates on admission. - monitor for signs of withdrawal. Again patient is intubated however. 5. Bipolar disorder: Continue monitor for now, again intubated 6. GI prophylaxis: H2 lora 7. Renal failure: Likely ATN, secondary to patient's arrest. Creatinine is still increasing, appreciate renal consult. Overall very poor urine output. -Monitor urine output, follow renal recommendations. Monitor creatinine levels. -Palliative care team recommending against dialysis at this point until cerebral flow study is performed Dispo: Overall very poor prognosis, especially given the EEG findings, discussed with palliative care team today. Family yesterday had also requested another neurology consult, but apparently after the family meeting yesterday have a better understanding of likely futility of care at this point. Awaiting results of cerebral flow study. Patient is full code as of now. Critical care time spent on patient care today equals 45 minutes. Problems: Subjective 24 Hr Interval Summary Free Text/Dictation Still on pressor support 2, still intubated with high oxygen requirements. Apnea test 2 performed yesterday, inconclusive results. Cerebral flow study still pending. Family meeting held with palliative care team, [employer]GIENIST, and siblings yesterday. Exam/Review of Systems Vital Signs Vitals Vital Signs Date Time Temp Pulse Resp B/P Pulse Ox O2 Delivery O2 Flow Rate FiO2 03/01/17 08:45 90 154/78 96 Mechanical Ventilator 03/01/17 08:15 99.8 24 03/01/17 05:12 100 02/25/17 16:00 15.0 Intake and Output 02/28/17 02/28/17 03/01/17 15:00 23:00 07:00 Intake Total 1539.8 ml 1647.8 ml 1060.15 ml Output Total 243 ml 557 ml 549 ml Balance 1296.8 ml 1090.8 ml 511.15 ml Exam General: Lying in bed, intubated HEENT: Unable to fully assess Neck: Supple Respiratory: some distant breath sounds bilaterally Cardiovascular: S1-S2 heard GI: Soft, nontender, nondistended, normal bowel sounds Muscular skeletal: No lower extremity bilaterally Neurologic: Unable to fully assess because patient intubated Results Result Diagram: 03/01/17 0430 03/01/17 0430 Results 24 hrs Laboratory Tests Test 02/28/17 11:39 02/28/17 14:43 02/28/17 15:00 02/28/17 16:03 Bedside Glucose 95 83 Blood Gas Specimen Source Blood arterial Blood arterial Arterial Blood Date Drawn 02/28/2017 3:15:57 PM 02/28/2017 4:01:25 PM Arterial Blood pH (Temp corrected) 7.256 *L 7.167 *L Arterial Blood pCO2 (Temp correct) 41.3 45.1 H Arterial Blood pO2 (Temp corrected) 61.6 L 58.0 L Arterial Blood HCO3 18.0 L 16.0 L Arterial Blood Base Excess -8.7 L -12.3 L Arterial Blood Oxygen Saturation 89.4 L 85.3 L Cooper Test ACCEPTAB ACCEPTAB Arterial Blood Gas Puncture Site Right Radial Right Radial Arterial Blood Carboxyhemoglobin 0.3 0.1 Arterial Blood Methemoglobin 0.6 0.5 Blood Gas A-a O2 Differential 393.1 H 609.9 H Oxyhemoglobin Percent 88.6 L 84.8 L Total Hemoglobin 13.3 13.5 Blood Gas Temperature 37.0 37.0 Blood Gas Respiration Rate 24.0 Blood Gas Modality VENT - AC NASAL CANNULA FiO2 70.0 100.0 Blood Gas Tidal Volume 600.0 Blood Gas Low PEEP Setting 8.0 Blood Gas Critical Value Read Back Shree MACK RN Blood Gas Notified Whom LS LS Blood Gas Notified Time 02/28/2017 3:30:57 PM 02/28/2017 4:15:11 PM Test 02/28/17 17:30 02/28/17 18:22 02/28/17 21:40 03/01/17 01:41 Blood Gas Specimen Source Blood arterial Arterial Blood Date Drawn 02/28/2017 5:24:58 PM Arterial Blood pH (Temp corrected) 7.084 *L Arterial Blood pCO2 (Temp correct) 51.6 H Arterial Blood pO2 (Temp corrected) 55.0 L Arterial Blood HCO3 15.1 L Arterial Blood Base Excess -14.8 L Arterial Blood Oxygen Saturation 80.2 L Cooper Test ACCEPTAB Arterial Blood Gas Puncture Site Left Radial Arterial Blood Carboxyhemoglobin 0.3 Arterial Blood Methemoglobin 0.6 Blood Gas A-a O2 Differential 606.4 H Oxyhemoglobin Percent 79.5 L Total Hemoglobin 13.5 Blood Gas Temperature 37.0 Blood Gas Modality NASAL CANNULA FiO2 100.0 Blood Gas Critical Value Read Back LISANDRA Swann RN Blood Gas Notified Whom LS Blood Gas Notified Time 02/28/2017 5:35:52 PM Bedside Glucose 96 79 81 Test 03/01/17 04:24 03/01/17 04:30 03/01/17 09:00 Bedside Glucose 87 111 White Blood Count 12.0 H Red Blood Count 3.86 L Hemoglobin 11.3 L Hematocrit 35.2 L Mean Corpuscular Volume 91.2 Mean Corpuscular Hemoglobin 29.3 Mean Corpuscular Hemoglobin Concent 32.1 Red Cell Distribution Width 13.9 Platelet Count 197 Mean Platelet Volume 11.4 H Neutrophils % 87.1 H Lymphocytes % 3.9 L Monocytes % 7.7 Eosinophils % 0.5 Basophils % 0.2 Nucleated Red Blood Cells % 0.0 Neutrophils # 10.5 H Lymphocytes # 0.5 L Monocytes # 0.9 Eosinophils # 0.1 Basophils # 0.0 Nucleated Red Blood Cells # 0.0 Sodium Level 130 L Potassium Level 7.0 *H Chloride Level 96 L Carbon Dioxide Level 19 L Anion Gap 22 H Blood Urea Nitrogen 59 H Creatinine 7.29 H Glucose Level 85 Calcium Level 7.8 L Medications Medications Current Medications Epinephrine/ Dextrose (EPINEPHrine/D5W) 250 ml @ 0 mls/hr TITRATE IV Last administered on 02/27/17 07:13; Admin Dose 37.5 MLS/HR; Start 02/25/17 at 16:30 Ondansetron HCl (Zofran Inj) 4 mg Q6H PRN IV NAUSEA AND/OR VOMITING; Start at 19:30 Acetaminophen (Tylenol Tab) 650 mg Q6H PRN PO PAIN LEVEL 1-3 OR FEVER; Start at 19:30 Acetaminophen/ Hydrocodone Bitart ([place] (5/325)) 1 tab Q6H PRN PO MODERATE PAIN LEVEL 4-6; Start 02/25/17 at 19:30 Morphine Sulfate (morphine) 2 mg Q4H PRN IV SEVERE PAIN LEVEL 7-10; Start 02/25 at 19:30 Docusate Sodium (Colace) 100 mg Q12H PRN PO CONSTIPATION; Start 02/25/17 at 19: 30 Magnesium Hydroxide (Milk Of Mag) 30 ml DAILY PRN PO CONSTIPATION; Start at 19:30 Sodium Biphosphate/ Sodium Phosphate 133 ml 133 ml DAILY PRN [place] CONSTIPATION; Start 02/25/17 at 19:30 Sodium Chloride (1/2 NS) 1,000 ml @ 125 mls/hr Q8H IV Last administered on 03/01 00:32; Admin Dose 125 MLS/HR; Start 02/25/17 at 19:09 Lorazepam (Ativan) 0.5 mg Q6H PRN IV ANXIETY; Start 02/25/17 at 19:30 Vancomycin HCl (Vanco Iv Per Pharmacy) VANCOMYCIN PER PHARMACY NOTE XX ; Start 02/25/17 at 19:30 Nitroglycerin (Nitroglycerin (Sl Tab) 0.4 Mg) 1 tab Q5M PRN SL ANGINA; Start at 19:30 Acetaminophen (Tylenol Liquid) 650 mg Q4H PRN PO TEMP > 37C; Start 02/25/17 at 19:30 Dextrose (D50w Syringe) 25 ml Q15M PRN IV Till BS 80 mg/dL or above x2; Start 02/25/17 at 19:30 Dextrose (D50w Syringe) 50 ml Q15M PRN IV Till BS 80 mg/dL or above x2; Start 02/25/17 at 19:30 Heparin Sodium (Porcine) 5000 unit 5,000 unit BID SC Last administered on 21:36; Admin Dose 5,000 UNIT; Start 02/25/17 at 21:00 Norepinephrine 32 mg/Dextrose 250 ml @ 0.46 mls/hr TITRATE IV Last administered on 02/28/17 21:35; Admin Dose 11.71 MLS/HR; Start 02/26/17 at 09:30 Dopamine HCl/ Dextrose (D5W) 250 ml @ 1.96 mls/hr TITRATE IV Last administered on 02/27/17 23:25; Admin Dose 19.68 MLS/HR; Start 02/26/17 at 09:30 Diagnostic Test (Pha) 1 ea 1 ea Q4H XX Last administered on 02/28/17 18:33; Admin Dose 1 EA; Start 02/26/17 at 22:00 Propofol 100 ml @ 3.15 mls/hr Q12H IV Last administered on 02/26/17 22:57; Admin Dose 3.15 MLS/HR; Start 02/26/17 at 23:00 Vecuronium [place] 100 mg/ Dextrose 100 ml @ 5.25 mls/hr TITRATE IV Last administered on 02/26/17 20:00; Admin Dose 5.25 MLS/HR; Start 02/26/17 at 23:00 Vasopressin 60 unit/Dextrose 60 ml @ 1.2 mls/hr Q12H IV ; Start 02/27/17 at 07: 00 Phenylephrine HCl 80 mg/Dextrose 250 ml @ 18.75 mls/ hr TITRATE IV Last administered on 02/28/17 21:38; Admin Dose 21.56 MLS/HR; Start 02/27/17 at 07:00 Cefepime HCl (Maxipime 1gm/50 ml (Pmx)) 50 ml @ 100 mls/hr Q24H IVPB Last administered on 02/28/17 11:41; Admin Dose 100 MLS/HR; Start 02/28/17 at 10:00 Famotidine (Pepcid Iv) 20 mg DAILY IV ; Start 03/01/17 at 09:00 Sodium Polystyrene Sulfonate (Kayexalate) 30 gm Q4 PO ; Start 03/01/17 at 09:00; Stop 03/01/17 at 18:00 YANET MTZ Mar 01, 2017 09:22
[2017-03-01] MEDS: NA POLYST SULFON 15 GM/60 ML BTL PO SCH ×3 (09:48→18:20)
[2017-03-01] MEDS: CEFEPIME 1GM/50 ML IVPB SCH (09:48)
[2017-03-01] MEDS: HEPARIN 5,000 UNIT/0.5 ML VIAL SC SCH ×2 (09:49→22:44)
--- NOTE | 2017-03-01 11:32 | CONS ---
Date/Time of Note Date/Time of Note DATE: 03/01/17 TIME: 11:30 Assessment/Plan Assessment/Plan Additional Assessment/Plan Ventilator setting; AC of 24, tidal volume 500, PEEP of 8, 100% FiO2. Patient currently on Levophed at 2 mics per minute. Assessment and recommendations; 1. Patient admitted with cardiac arrest with prolonged CPR causing severe anoxic brain injury with the patient now being essentially brain . 2. Worsening hypoxemia. 3. Worsening renal failure. 4. Hyperkalemia. Prognosis is dismal. The family now has opted against having hemodialysis. Potassium was corrected with administration of insulin, glucose and Kayexalate. Another repeat EEG is being requested by the family. Consultation Date/Type/Reason Admit Date/Time Feb 25, 2017 at 21:43 Initial Consult Date 02/27/17 Type of Consultation: Pulmonary/critical care Referring Provider: YANET MTZ 24 HR Interval Summary Free Text/Dictation Patient condition remains critical. Remains unresponsive. Has occasional spontaneous limb reflex activity. Hypotension is improving. General exam; elderly male, orally intubated, unresponsive. Currently in no distress. Exam/Review of Systems Vital Signs Vitals Vital Signs Date Time Temp Pulse Resp B/P Pulse Ox O2 Delivery O2 Flow Rate FiO2 03/01/17 10:30 90 24 164/75 97 Mechanical Ventilator 03/01/17 08:15 99.8 03/01/17 08:00 100 02/25/17 16:00 15.0 Intake and Output 02/28/17 02/28/17 03/01/17 15:00 23:00 07:00 Intake Total 1539.8 ml 1647.8 ml 1060.15 ml Output Total 243 ml 557 ml 549 ml Balance 1296.8 ml 1090.8 ml 511.15 ml Exam HEENT exam; supple neck, no JVD. No lymphadenopathy. Midline trachea. Orally intubated. Pupils are widely dilated and nonreactive to light. Chest exam; diminished but clear breath sounds. S1-S2 audible, no murmurs. Regular rhythm. Abdomen exam; soft, no organomegaly. Bowel sounds audible. Extremity exam; trace edema. 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 Results Result Diagram: 03/01/17 0430 03/01/17 0430 Results 24 hrs Laboratory Tests Test 02/28/17 11:39 02/28/17 14:43 02/28/17 15:00 02/28/17 16:03 Bedside Glucose 95 83 Blood Gas Specimen Source Blood arterial Blood arterial Arterial Blood Date Drawn 02/28/2017 3:15:57 PM 02/28/2017 4:01:25 PM Arterial Blood pH (Temp corrected) 7.256 *L 7.167 *L Arterial Blood pCO2 (Temp correct) 41.3 45.1 H Arterial Blood pO2 (Temp corrected) 61.6 L 58.0 L Arterial Blood HCO3 18.0 L 16.0 L Arterial Blood Base Excess -8.7 L -12.3 L Arterial Blood Oxygen Saturation 89.4 L 85.3 L Cooper Test ACCEPTAB ACCEPTAB Arterial Blood Gas Puncture Site Right Radial Right Radial Arterial Blood Carboxyhemoglobin 0.3 0.1 Arterial Blood Methemoglobin 0.6 0.5 Blood Gas A-a O2 Differential 393.1 H 609.9 H Oxyhemoglobin Percent 88.6 L 84.8 L Total Hemoglobin 13.3 13.5 Blood Gas Temperature 37.0 37.0 Blood Gas Respiration Rate 24.0 Blood Gas Modality VENT - AC NASAL CANNULA FiO2 70.0 100.0 Blood Gas Tidal Volume 600.0 Blood Gas Low PEEP Setting 8.0 Blood Gas Critical Value Read Back Shree MACK RN Blood Gas Notified Whom LS Blood Gas Notified Time 02/28/2017 3:30:57 PM 02/28/2017 4:15:11 PM Test 02/28/17 17:30 02/28/17 18:22 02/28/17 21:40 03/01/17 01:41 Blood Gas Specimen Source Blood arterial Arterial Blood Date Drawn 02/28/2017 5:24:58 PM Arterial Blood pH (Temp corrected) 7.084 *L Arterial Blood pCO2 (Temp correct) 51.6 H Arterial Blood pO2 (Temp corrected) 55.0 L Arterial Blood HCO3 15.1 L Arterial Blood Base Excess -14.8 L Arterial Blood Oxygen Saturation 80.2 L Cooper Test ACCEPTAB Arterial Blood Gas Puncture Site Left Radial Arterial Blood Carboxyhemoglobin 0.3 Arterial Blood Methemoglobin 0.6 Blood Gas A-a O2 Differential 606.4 H Oxyhemoglobin Percent 79.5 L Total Hemoglobin 13.5 Blood Gas Temperature 37.0 Blood Gas Modality NASAL CANNULA FiO2 100.0 Blood Gas Critical Value Read Back LISANDRA Swann RN Blood Gas Notified Whom LS Blood Gas Notified Time 02/28/2017 5:35:52 PM Bedside Glucose 96 79 81 Test 03/01/17 04:24 03/01/17 04:30 03/01/17 09:00 Bedside Glucose 87 111 White Blood Count 12.0 H Red Blood Count 3.86 L Hemoglobin 11.3 L Hematocrit 35.2 L Mean Corpuscular Volume 91.2 Mean Corpuscular Hemoglobin 29.3 Mean Corpuscular Hemoglobin Concent 32.1 Red Cell Distribution Width 13.9 Platelet Count 197 Mean Platelet Volume 11.4 H Neutrophils % 87.1 H Lymphocytes % 3.9 L Monocytes % 7.7 Eosinophils % 0.5 Basophils % 0.2 Nucleated Red Blood Cells % 0.0 Neutrophils # 10.5 H Lymphocytes # 0.5 L Monocytes # 0.9 Eosinophils # 0.1 Basophils # 0.0 Nucleated Red Blood Cells # 0.0 Sodium Level 130 L Potassium Level 7.0 *H Chloride Level 96 L Carbon Dioxide Level 19 L Anion Gap 22 H Blood Urea Nitrogen 59 H Creatinine 7.29 H Glucose Level 85 Calcium Level 7.8 L Medications Medications Current Medications Epinephrine/ Dextrose (EPINEPHrine/D5W) 250 ml @ 0 mls/hr TITRATE IV Last administered on 02/27/17t 07:13; Admin Dose 37.5 MLS/HR; Start 02/25/17 at 16:30 Ondansetron HCl (Zofran Inj) 4 mg Q6H PRN IV NAUSEA AND/OR VOMITING; Start at 19:30 Acetaminophen (Tylenol Tab) 650 mg Q6H PRN PO PAIN LEVEL 1-3 OR FEVER; Start at 19:30 Acetaminophen/ Hydrocodone Bitart ([place] (5/325)) 1 tab Q6H PRN PO MODERATE PAIN LEVEL 4-6; Start 02/25/17 at 19:30 Morphine Sulfate (morphine) 2 mg Q4H PRN IV SEVERE PAIN LEVEL 7-10; Start 02/25 at 19:30 Docusate Sodium (Colace) 100 mg Q12H PRN PO CONSTIPATION; Start 02/25/17 at 19: 30 Magnesium Hydroxide (Milk Of Mag) 30 ml DAILY PRN PO CONSTIPATION; Start at 19:30 Sodium Biphosphate/ Sodium Phosphate 133 ml 133 ml DAILY PRN [place] CONSTIPATION; Start 02/25/17 at 19:30 Sodium Chloride (1/2 NS) 1,000 ml @ 125 mls/hr Q8H IV Last administered on 03/01 00:32; Admin Dose 125 MLS/HR; Start 02/25/17 at 19:09 Lorazepam (Ativan) 0.5 mg Q6H PRN IV ANXIETY; Start 02/25/17 at 19:30 Vancomycin HCl (Vanco Iv Per Pharmacy) VANCOMYCIN PER PHARMACY NOTE XX ; Start 02/25/17 at 19:30 Nitroglycerin (Nitroglycerin (Sl Tab) 0.4 Mg) 1 tab Q5M PRN SL ANGINA; Start at 19:30 Acetaminophen (Tylenol Liquid) 650 mg Q4H PRN PO TEMP > 37C; Start 02/25/17 at 19:30 Dextrose (D50w Syringe) 25 ml Q15M PRN IV Till BS 80 mg/dL or above x2; Start 02/25/17 at 19:30 Dextrose (D50w Syringe) 50 ml Q15M PRN IV Till BS 80 mg/dL or above x2; Start 02/25/17 at 19:30 Heparin Sodium (Porcine) 5000 unit 5,000 unit BID SC Last administered on 09:49; Admin Dose 5,000 UNIT; Start 02/25/17 at 21:00 Norepinephrine 32 mg/Dextrose 250 ml @ 0.46 mls/hr TITRATE IV Last administered on 02/28/17 21:35; Admin Dose 11.71 MLS/HR; Start 02/26/17 at 09:30 Dopamine HCl/ Dextrose (D5W) 250 ml @ 1.96 mls/hr TITRATE IV Last administered on 02/27/17 23:25; Admin Dose 19.68 MLS/HR; Start 02/26/17 at 09:30 Diagnostic Test (Pha) 1 ea 1 ea Q4H XX Last administered on 02/28/17 18:33; Admin Dose 1 EA; Start 02/26/17 at 22:00 Propofol 100 ml @ 3.15 mls/hr Q12H IV Last administered on 02/26/17 22:57; Admin Dose 3.15 MLS/HR; Start 02/26/17 at 23:00 Vecuronium [place] 100 mg/ Dextrose 100 ml @ 5.25 mls/hr TITRATE IV Last administered on 02/26/17 20:00; Admin Dose 5.25 MLS/HR; Start 02/26/17 at 23:00 Vasopressin 60 unit/Dextrose 60 ml @ 1.2 mls/hr Q12H IV ; Start 02/27/17 at 07: 00 Phenylephrine HCl 80 mg/Dextrose 250 ml @ 18.75 mls/ hr TITRATE IV Last administered on 02/28/17 21:38; Admin Dose 21.56 MLS/HR; Start 02/27/17 at 07:00 Cefepime HCl (Maxipime 1gm/50 ml (Pmx)) 50 ml @ 100 mls/hr Q24H IVPB Last administered on 03/01/17 09:48; Admin Dose 100 MLS/HR; Start 02/28/17 at 10:00 Famotidine (Pepcid Iv) 20 mg DAILY IV Last administered on 03/01/17 09:48; Admin Dose 20 MG; Start 03/01/17 at 09:00 Sodium Polystyrene Sulfonate (Kayexalate) 30 gm Q4 PO Last administered on 09:48; Admin Dose 30 GM; Start 03/01/17 at 09:00; Stop 03/01/17 at 18:00 JUAN R GRAVES Mar 01, 2017 11:32
--- NOTE | 2017-03-01 12:42 | CONS ---
Date/Time of Note Date/Time of Note DATE: 03/01/17 TIME: 12:40 Consultation Date/Type/Reason Admit Date/Time Feb 25, 2017 at 21:43 Initial Consult Date 02/26/17 Type of Consultation: Palliative care Referring Provider: YANET MTZ 24 HR Interval Summary Free Text/Dictation I have asked case management to assess for risk management and patient relations involvement at this time. I do not believe there are major issues but I do believe family members have been given mixed messages which may have contributed to some difficulty on their part to make decisions on end-of-life care and their understanding of brain . I will contact restaurant mgr of bioethics and keep him informed of any situations that occur during this patient 's hospital course. Exam/Review of Systems Vital Signs Vitals Vital Signs Date Time Temp Pulse Resp B/P Pulse Ox O2 Delivery O2 Flow Rate FiO2 03/01/17 12:15 90 24 141/66 98 Mechanical Ventilator 03/01/17 12:00 99.9 03/01/17 11:00 100 02/25/17 16:00 15.0 Intake and Output 02/28/17 02/28/17 03/01/17 15:00 23:00 07:00 Intake Total 1539.8 ml 1647.8 ml 1060.15 ml Output Total 243 ml 557 ml 549 ml Balance 1296.8 ml 1090.8 ml 511.15 ml Results Result Diagram: 03/01/17 0430 03/01/17 0430 Results 24 hrs Laboratory Tests Test 02/28/17 14:43 02/28/17 15:00 02/28/17 16:03 02/28/17 17:30 Bedside Glucose 83 Blood Gas Specimen Source Blood arterial Blood arterial Blood arterial Arterial Blood Date Drawn 02/28/2017 3:15:57 PM 02/28/2017 4:01:25 PM 02/28/2017 5:24:58 PM Arterial Blood pH (Temp corrected) 7.256 *L 7.167 *L 7.084 *L Arterial Blood pCO2 (Temp correct) 41.3 45.1 H 51.6 H Arterial Blood pO2 (Temp corrected) 61.6 L 58.0 L 55.0 L Arterial Blood HCO3 18.0 L 16.0 L 15.1 L Arterial Blood Base Excess -8.7 L -12.3 L -14.8 L Arterial Blood Oxygen Saturation 89.4 L 85.3 L 80.2 L Cooper Test ACCEPTAB ACCEPTAB ACCEPTAB Arterial Blood Gas Puncture Site Right Radial Right Radial Left Radial Arterial Blood Carboxyhemoglobin 0.3 0.1 0.3 Arterial Blood Methemoglobin 0.6 0.5 0.6 Blood Gas A-a O2 Differential 393.1 H 609.9 H 606.4 H Oxyhemoglobin Percent 88.6 L 84.8 L 79.5 L Total Hemoglobin 13.3 13.5 13.5 Blood Gas Temperature 37.0 37.0 37.0 Blood Gas Respiration Rate 24.0 Blood Gas Modality VENT - AC NASAL CANNULA NASAL CANNULA FiO2 70.0 100.0 100.0 Blood Gas Tidal Volume 600.0 Blood Gas Low PEEP Setting 8.0 Blood Gas Critical Value Read Back E FRANNIE MERINO RN, BLAIR RN Blood Gas Notified Whom LS LS LS Blood Gas Notified Time 02/28/2017 3:30:57 PM 02/28/2017 4:15:11 PM 02/28/2017 5:35:52 PM Test 02/28/17 18:22 02/28/17 21:40 03/01/17 01:41 03/01/17 04:24 Bedside Glucose 96 79 81 87 Test 03/01/17 04:30 03/01/17 09:00 03/01/17 12:08 White Blood Count 12.0 H Red Blood Count 3.86 L Hemoglobin 11.3 L Hematocrit 35.2 L Mean Corpuscular Volume 91.2 Mean Corpuscular Hemoglobin 29.3 Mean Corpuscular Hemoglobin Concent 32.1 Red Cell Distribution Width 13.9 Platelet Count 197 Mean Platelet Volume 11.4 H Neutrophils % 87.1 H Lymphocytes % 3.9 L Monocytes % 7.7 Eosinophils % 0.5 Basophils % 0.2 Nucleated Red Blood Cells % 0.0 Neutrophils # 10.5 H Lymphocytes # 0.5 L Monocytes # 0.9 Eosinophils # 0.1 Basophils # 0.0 Nucleated Red Blood Cells # 0.0 Sodium Level 130 L Potassium Level 7.0 *H Chloride Level 96 L Carbon Dioxide Level 19 L Anion Gap 22 H Blood Urea Nitrogen 59 H Creatinine 7.29 H Glucose Level 85 Calcium Level 7.8 L Bedside Glucose 111 91 Medications Medications Current Medications Epinephrine/ Dextrose (EPINEPHrine/D5W) 250 ml @ 0 mls/hr TITRATE IV Last administered on 02/27/17 07:13; Admin Dose 37.5 MLS/HR; Start 02/25/17 at 16:30 Ondansetron HCl (Zofran Inj) 4 mg Q6H PRN IV NAUSEA AND/OR VOMITING; Start at 19:30 Acetaminophen (Tylenol Tab) 650 mg Q6H PRN PO PAIN LEVEL 1-3 OR FEVER; Start at 19:30 Acetaminophen/ Hydrocodone Bitart ([place] (5/325)) 1 tab Q6H PRN PO MODERATE PAIN LEVEL 4-6; Start 02/25/17 at 19:30 Morphine Sulfate (morphine) 2 mg Q4H PRN IV SEVERE PAIN LEVEL 7-10; Start 02/25 at 19:30 Docusate Sodium (Colace) 100 mg Q12H PRN PO CONSTIPATION; Start 02/25/17 at 19: 30 Magnesium Hydroxide (Milk Of Mag) 30 ml DAILY PRN PO CONSTIPATION; Start at 19:30 Sodium Biphosphate/ Sodium Phosphate 133 ml 133 ml DAILY PRN [place] CONSTIPATION; Start 02/25/17 at 19:30 Sodium Chloride (1/2 NS) 1,000 ml @ 125 mls/hr Q8H IV Last administered on 03/01 00:32; Admin Dose 125 MLS/HR; Start 02/25/17 at 19:09 Lorazepam (Ativan) 0.5 mg Q6H PRN IV ANXIETY; Start 02/25/17 at 19:30 Vancomycin HCl (Vanco Iv Per Pharmacy) VANCOMYCIN PER PHARMACY NOTE XX ; Start 02/25/17 at 19:30 Nitroglycerin (Nitroglycerin (Sl Tab) 0.4 Mg) 1 tab Q5M PRN SL ANGINA; Start at 19:30 Acetaminophen (Tylenol Liquid) 650 mg Q4H PRN PO TEMP > 37C; Start 02/25/17 at 19:30 Dextrose (D50w Syringe) 25 ml Q15M PRN IV Till BS 80 mg/dL or above x2; Start 02/25/17 at 19:30 Dextrose (D50w Syringe) 50 ml Q15M PRN IV Till BS 80 mg/dL or above x2; Start 02/25/17 at 19:30 Heparin Sodium (Porcine) 5000 unit 5,000 unit BID SC Last administered on 09:49; Admin Dose 5,000 UNIT; Start 02/25/17 at 21:00 Norepinephrine 32 mg/Dextrose 250 ml @ 0.46 mls/hr TITRATE IV Last administered on 02/28/17 21:35; Admin Dose 11.71 MLS/HR; Start 02/26/17 at 09:30 Dopamine HCl/ Dextrose (D5W) 250 ml @ 1.96 mls/hr TITRATE IV Last administered on 02/27/17 23:25; Admin Dose 19.68 MLS/HR; Start 02/26/17 at 09:30 Diagnostic Test (Pha) 1 ea 1 ea Q4H XX Last administered on 03/01/17 10:00; Admin Dose 1 EA; Start 02/26/17 at 22:00 Propofol 100 ml @ 3.15 mls/hr Q12H IV Last administered on 02/26/17 22:57; Admin Dose 3.15 MLS/HR; Start 02/26/17 at 23:00 Vecuronium [place] 100 mg/ Dextrose 100 ml @ 5.25 mls/hr TITRATE IV Last administered on 02/26/17 20:00; Admin Dose 5.25 MLS/HR; Start 02/26/17 at 23:00 Vasopressin 60 unit/Dextrose 60 ml @ 1.2 mls/hr Q12H IV ; Start 02/27/17 at 07: 00 Phenylephrine HCl 80 mg/Dextrose 250 ml @ 18.75 mls/ hr TITRATE IV Last administered on 02/28/17 21:38; Admin Dose 21.56 MLS/HR; Start 02/27/17 at 07:00 Cefepime HCl (Maxipime 1gm/50 ml (Pmx)) 50 ml @ 100 mls/hr Q24H IVPB Last administered on 03/01/17 09:48; Admin Dose 100 MLS/HR; Start 02/28/17 at 10:00 Famotidine (Pepcid Iv) 20 mg DAILY IV Last administered on 03/01/17 09:48; Admin Dose 20 MG; Start 03/01/17 at 09:00 Sodium Polystyrene Sulfonate (Kayexalate) 30 gm Q4 PO Last administered on t 09:48; Admin Dose 30 GM; Start 03/01/17 at 09:00; Stop 03/01/17 at 18:00 REED NIELSEN Mar 01, 2017 12:42
--- NOTE | 2017-03-01 13:27 | CONS ---
Date/Time of Note Date/Time of Note DATE: 03/01/17 TIME: 13:25 Assessment/Plan Assessment/Plan Chief Complaint/Hosp Course 1. S/P CARDIAC ARREST 2. DEVORA 3. HX BIPOLAR DISORDER 4. RESPIRATORY FAILURE Problems: Additional Assessment/Plan 1. PALLIATIVE CARE 2. NO HD 3. KAYAXALATE Q 4 HOURS Consultation Date/Type/Reason Admit Date/Time Feb 25, 2017 at 21:43 Initial Consult Date 02/27/17 Type of Consultation: Nephrology Reason for Consultation dr Rojas Referring Provider: YANET MTZ 24 HR Interval Summary Subjective hx not possible: pt non-verbal, pt critical status Exam/Review of Systems Vital Signs Vitals Vital Signs Date Time Temp Pulse Resp B/P Pulse Ox O2 Delivery O2 Flow Rate FiO2 03/01/17 12:15 90 24 141/66 98 Mechanical Ventilator 03/01/17 12:00 99.9 03/01/17 11:00 100 02/25/17 16:00 15.0 Intake and Output 02/28/17 02/28/17 03/01/17 15:00 23:00 07:00 Intake Total 1539.8 ml 1647.8 ml 1060.15 ml Output Total 243 ml 557 ml 549 ml Balance 1296.8 ml 1090.8 ml 511.15 ml Exam Constitutional: other (NONRESPONSIVE) Head: normocephalic Cardiovascular: regular rate and rhythm Genitourinary - Male: nl penis Results Result Diagram: 03/01/17 0430 03/01/17 0430 Results 24 hrs Laboratory Tests Test 02/28/17 14:43 02/28/17 15:00 02/28/17 16:03 02/28/17 17:30 Bedside Glucose 83 Blood Gas Specimen Source Blood arterial Blood arterial Blood arterial Arterial Blood Date Drawn 02/28/2017 3:15:57 PM 02/28/2017 4:01:25 PM 02/28/2017 5:24:58 PM Arterial Blood pH (Temp corrected) 7.256 *L 7.167 *L 7.084 *L Arterial Blood pCO2 (Temp correct) 41.3 45.1 H 51.6 H Arterial Blood pO2 (Temp corrected) 61.6 L 58.0 L 55.0 L Arterial Blood HCO3 18.0 L 16.0 L 15.1 L Arterial Blood Base Excess -8.7 L -12.3 L -14.8 L Arterial Blood Oxygen Saturation 89.4 L 85.3 L 80.2 L Cooper Test ACCEPTAB ACCEPTAB ACCEPTAB Arterial Blood Gas Puncture Site Right Radial Right Radial Left Radial Arterial Blood Carboxyhemoglobin 0.3 0.1 0.3 Arterial Blood Methemoglobin 0.6 0.5 0.6 Blood Gas A-a O2 Differential 393.1 H 609.9 H 606.4 H Oxyhemoglobin Percent 88.6 L 84.8 L 79.5 L Total Hemoglobin 13.3 13.5 13.5 Blood Gas Temperature 37.0 37.0 37.0 Blood Gas Respiration Rate 24.0 Blood Gas Modality VENT - AC NASAL CANNULA NASAL CANNULA FiO2 70.0 100.0 100.0 Blood Gas Tidal Volume 600.0 Blood Gas Low PEEP Setting 8.0 Blood Gas Critical Value Read Back E LISANDRA Swann. FRANNIE MACK ELISANDRA RN Blood Gas Notified Whom LS LS LS Blood Gas Notified Time 02/28/2017 3:30:57 PM 02/28/2017 4:15:11 PM 02/28/2017 5:35:52 PM Test 02/28/17 18:22 02/28/17 21:40 03/01/17 01:41 03/01/17 04:24 Bedside Glucose 96 79 81 87 Test 03/01/17 04:30 03/01/17 09:00 03/01/17 12:08 White Blood Count 12.0 H Red Blood Count 3.86 L Hemoglobin 11.3 L Hematocrit 35.2 L Mean Corpuscular Volume 91.2 Mean Corpuscular Hemoglobin 29.3 Mean Corpuscular Hemoglobin Concent 32.1 Red Cell Distribution Width 13.9 Platelet Count 197 Mean Platelet Volume 11.4 H Neutrophils % 87.1 H Lymphocytes % 3.9 L Monocytes % 7.7 Eosinophils % 0.5 Basophils % 0.2 Nucleated Red Blood Cells % 0.0 Neutrophils # 10.5 H Lymphocytes # 0.5 L Monocytes # 0.9 Eosinophils # 0.1 Basophils # 0.0 Nucleated Red Blood Cells # 0.0 Sodium Level 130 L Potassium Level 7.0 *H Chloride Level 96 L Carbon Dioxide Level 19 L Anion Gap 22 H Blood Urea Nitrogen 59 H Creatinine 7.29 H Glucose Level 85 Calcium Level 7.8 L Bedside Glucose 111 91 Medications Medications Current Medications Epinephrine/ Dextrose (EPINEPHrine/D5W) 250 ml @ 0 mls/hr TITRATE IV Last administered on 02/27/17 07:13; Admin Dose 37.5 MLS/HR; Start 02/25/17 at 16:30 Ondansetron HCl (Zofran Inj) 4 mg Q6H PRN IV NAUSEA AND/OR VOMITING; Start at 19:30 Acetaminophen (Tylenol Tab) 650 mg Q6H PRN PO PAIN LEVEL 1-3 OR FEVER; Start at 19:30 Acetaminophen/ Hydrocodone Bitart ([place] (5/325)) 1 tab Q6H PRN PO MODERATE PAIN LEVEL 4-6; Start 02/25/17 at 19:30 Morphine Sulfate (morphine) 2 mg Q4H PRN IV SEVERE PAIN LEVEL 7-10; Start 02/25 at 19:30 Docusate Sodium (Colace) 100 mg Q12H PRN PO CONSTIPATION; Start 02/25/17 at 19: 30 Magnesium Hydroxide (Milk Of Mag) 30 ml DAILY PRN PO CONSTIPATION; Start at 19:30 Sodium Biphosphate/ Sodium Phosphate 133 ml 133 ml DAILY PRN [place] CONSTIPATION; Start 02/25/17 at 19:30 Sodium Chloride (1/2 NS) 1,000 ml @ 125 mls/hr Q8H IV Last administered on 03/01 12:50; Admin Dose 125 MLS/HR; Start 02/25/17 at 19:09 Lorazepam (Ativan) 0.5 mg Q6H PRN IV ANXIETY; Start 02/25/17 at 19:30 Vancomycin HCl (Vanco Iv Per Pharmacy) VANCOMYCIN PER PHARMACY NOTE XX ; Start 02/25/17 at 19:30 Nitroglycerin (Nitroglycerin (Sl Tab) 0.4 Mg) 1 tab Q5M PRN SL ANGINA; Start at 19:30 Acetaminophen (Tylenol Liquid) 650 mg Q4H PRN PO TEMP > 37C; Start 02/25/17 at 19:30 Dextrose (D50w Syringe) 25 ml Q15M PRN IV Till BS 80 mg/dL or above x2; Start 02/25/17 at 19:30 Dextrose (D50w Syringe) 50 ml Q15M PRN IV Till BS 80 mg/dL or above x2; Start 02/25/17 at 19:30 Heparin Sodium (Porcine) 5000 unit 5,000 unit BID SC Last administered on 09:49; Admin Dose 5,000 UNIT; Start 02/25/17 at 21:00 Norepinephrine 32 mg/Dextrose 250 ml @ 0.46 mls/hr TITRATE IV Last administered on 02/28/17 21:35; Admin Dose 11.71 MLS/HR; Start 02/26/17 at 09:30 Dopamine HCl/ Dextrose (D5W) 250 ml @ 1.96 mls/hr TITRATE IV Last administered on 02/27/17 23:25; Admin Dose 19.68 MLS/HR; Start 02/26/17 at 09:30 Diagnostic Test (Pha) 1 ea 1 ea Q4H XX Last administered on 03/01/17 10:00; Admin Dose 1 EA; Start 02/26/17 at 22:00 Propofol 100 ml @ 3.15 mls/hr Q12H IV Last administered on 02/26/17 22:57; Admin Dose 3.15 MLS/HR; Start 02/26/17 at 23:00 Vecuronium [place] 100 mg/ Dextrose 100 ml @ 5.25 mls/hr TITRATE IV Last administered on 02/26/17 20:00; Admin Dose 5.25 MLS/HR; Start 02/26/17 at 23:00 Vasopressin 60 unit/Dextrose 60 ml @ 1.2 mls/hr Q12H IV ; Start 02/27/17 at 07: 00 Phenylephrine HCl 80 mg/Dextrose 250 ml @ 18.75 mls/ hr TITRATE IV Last administered on 02/28/17 21:38; Admin Dose 21.56 MLS/HR; Start 02/27/17 at 07:00 Cefepime HCl (Maxipime 1gm/50 ml (Pmx)) 50 ml @ 100 mls/hr Q24H IVPB Last administered on 03/01/17 09:48; Admin Dose 100 MLS/HR; Start 02/28/17 at 10:00 Famotidine (Pepcid Iv) 20 mg DAILY IV Last administered on 03/01/17 09:48; Admin Dose 20 MG; Start 03/01/17 at 09:00 Sodium Polystyrene Sulfonate (Kayexalate) 30 gm Q4 PO Last administered on t 09:48; Admin Dose 30 GM; Start 03/01/17 at 09:00; Stop 03/01/17 at 18:00 SILVESTRE HOLDER Mar 01, 2017 13:27
--- NOTE | 2017-03-01 14:12 | PN ---
Date/Time of Note Date/Time of Note DATE: 03/01/17 TIME: 14:08 Assessment/Plan VTE Prophylaxis VTE Prophylaxis Intervention: other Lines/Catheters IV Catheter Type (from Nrs): Central Line Central line still needed: Yes Urinary Cath still in place: Yes Reason Cath still needed: other (indicate) Assessment/Plan Chief Complaint/Hosp Course 1. Cardiopulmonary arrest. 2. Respiratory failure: intubated now 3. Severe encephalopathy, anoxic brain injury. 4. Shock, currently off multiple pressors/ drip. 5. History of intravenous drug abuse. 6. History of drug abuse and bipolar disorder. 7. Severe metabolic acidosis. 8. mildly abnormal troponin due to above 9. LVH on echo 10. Acute renal failure 11. severe hyper K: family refused HD. s/p Kayaxalate. RECOMMENDATION: completed hypothermia protocol EF is normal on echo. Prognosis appears to be very poor DVT prophylaxis as per IM ABX as per IM CONT ICU CARE neuro work up is pending More than 38 minutes critical care time spent in management of this patient excluding procedures. Problems: Subjective 24 Hr Interval Summary Free Text/Dictation d/w staff and FAMILY. pt is still nonresponsive in ICU BP is better today and is off of pressors now. nonverbal. OBJECTIVE: GEN: intubated on vent. obese man HEENT: NCAT. pupils are dilated. NECK: no stridor CV RRR. systolic murmur. PULM: no wheezes anteriorly GI; SOFT, NT EXT + LE edema neuro: unresponsive but appears to have some arm movement with painful stimuli ECHO personally reviewed; 1. Hyperdynamic left ventricular systolic function. Normal left ventricular cavity size. Moderate concentric left ventricular hypertrophy. Ejection fraction is visually estimated at 70 %. Tissue Doppler/Mitral Doppler indices are consistent with impaired relaxation (Stage I diastolic dysfunction). 2. The left atrium is normal in size. 3. Normal appearance and function of the mitral valve with trace physiologic regurgitation. 4. No significant aortic stenosis or insufficiency. Aortic cusps appear mildly calcified. 5. Normal appearance of the tricuspid valve. Estimated peak PA systolic pressure 45 mmHg. There is mild tricuspid regurgitation. 6. Dilated IVC without respiratory collapse, however, patient on ventilator. Exam/Review of Systems Vital Signs Vitals Vital Signs Date Time Temp Pulse Resp B/P Pulse Ox O2 Delivery O2 Flow Rate FiO2 03/01/17 12:15 90 24 141/66 98 Mechanical Ventilator 03/01/17 12:00 99.9 03/01/17 11:00 100 02/25/17 16:00 15.0 Intake and Output 02/28/17 02/28/17 03/01/17 15:00 23:00 07:00 Intake Total 1539.8 ml 1647.8 ml 1060.15 ml Output Total 243 ml 557 ml 549 ml Balance 1296.8 ml 1090.8 ml 511.15 ml Results Result Diagram: 03/01/17 0430 03/01/17 0430 Results 24 hrs Laboratory Tests Test 02/28/17 14:43 02/28/17 15:00 02/28/17 16:03 02/28/17 17:30 Bedside Glucose 83 Blood Gas Specimen Source Blood arterial Blood arterial Blood arterial Arterial Blood Date Drawn 02/28/2017 3:15:57 PM 02/28/2017 4:01:25 PM 02/28/2017 5:24:58 PM Arterial Blood pH (Temp corrected) 7.256 *L 7.167 *L 7.084 *L Arterial Blood pCO2 (Temp correct) 41.3 45.1 H 51.6 H Arterial Blood pO2 (Temp corrected) 61.6 L 58.0 L 55.0 L Arterial Blood HCO3 18.0 L 16.0 L 15.1 L Arterial Blood Base Excess -8.7 L -12.3 L -14.8 L Arterial Blood Oxygen Saturation 89.4 L 85.3 L 80.2 L Cooper Test ACCEPTAB ACCEPTAB ACCEPTAB Arterial Blood Gas Puncture Site Right Radial Right Radial Left Radial Arterial Blood Carboxyhemoglobin 0.3 0.1 0.3 Arterial Blood Methemoglobin 0.6 0.5 0.6 Blood Gas A-a O2 Differential 393.1 H 609.9 H 606.4 H Oxyhemoglobin Percent 88.6 L 84.8 L 79.5 L Total Hemoglobin 13.3 13.5 13.5 Blood Gas Temperature 37.0 37.0 37.0 Blood Gas Respiration Rate 24.0 Blood Gas Modality VENT - AC NASAL CANNULA NASAL CANNULA FiO2 70.0 100.0 100.0 Blood Gas Tidal Volume 600.0 Blood Gas Low PEEP Setting 8.0 Blood Gas Critical Value Read Back FRANNIE IGNACIO RN, BLAIR RN Blood Gas Notified Whom LS LS LS Blood Gas Notified Time 02/28/2017 3:30:57 PM 02/28/2017 4:15:11 PM 02/28/2017 5:35:52 PM Test 02/28/17 18:22 02/28/17 21:40 03/01/17 01:41 03/01/17 04:24 Bedside Glucose 96 79 81 87 Test 03/01/17 04:30 03/01/17 09:00 03/01/17 12:08 White Blood Count 12.0 H Red Blood Count 3.86 L Hemoglobin 11.3 L Hematocrit 35.2 L Mean Corpuscular Volume 91.2 Mean Corpuscular Hemoglobin 29.3 Mean Corpuscular Hemoglobin Concent 32.1 Red Cell Distribution Width 13.9 Platelet Count 197 Mean Platelet Volume 11.4 H Neutrophils % 87.1 H Lymphocytes % 3.9 L Monocytes % 7.7 Eosinophils % 0.5 Basophils % 0.2 Nucleated Red Blood Cells % 0.0 Neutrophils # 10.5 H Lymphocytes # 0.5 L Monocytes # 0.9 Eosinophils # 0.1 Basophils # 0.0 Nucleated Red Blood Cells # 0.0 Sodium Level 130 L Potassium Level 7.0 *H Chloride Level 96 L Carbon Dioxide Level 19 L Anion Gap 22 H Blood Urea Nitrogen 59 H Creatinine 7.29 H Glucose Level 85 Calcium Level 7.8 L Bedside Glucose 111 91 Medications Medications Current Medications Epinephrine/ Dextrose (EPINEPHrine/D5W) 250 ml @ 0 mls/hr TITRATE IV Last administered on 02/27/17t 07:13; Admin Dose 37.5 MLS/HR; Start 02/25/17 at 16:30 Ondansetron HCl (Zofran Inj) 4 mg Q6H PRN IV NAUSEA AND/OR VOMITING; Start at 19:30 Acetaminophen (Tylenol Tab) 650 mg Q6H PRN PO PAIN LEVEL 1-3 OR FEVER; Start at 19:30 Acetaminophen/ Hydrocodone Bitart ([place] (5/325)) 1 tab Q6H PRN PO MODERATE PAIN LEVEL 4-6; Start 02/25/17 at 19:30 Morphine Sulfate (morphine) 2 mg Q4H PRN IV SEVERE PAIN LEVEL 7-10; Start 02/25 at 19:30 Docusate Sodium (Colace) 100 mg Q12H PRN PO CONSTIPATION; Start 02/25/17 at 19: 30 Magnesium Hydroxide (Milk Of Mag) 30 ml DAILY PRN PO CONSTIPATION; Start at 19:30 Sodium Biphosphate/ Sodium Phosphate 133 ml 133 ml DAILY PRN [place] CONSTIPATION; Start 02/25/17 at 19:30 Sodium Chloride (1/2 NS) 1,000 ml @ 125 mls/hr Q8H IV Last administered on 03/01 12:50; Admin Dose 125 MLS/HR; Start 02/25/17 at 19:09 Lorazepam (Ativan) 0.5 mg Q6H PRN IV ANXIETY; Start 02/25/17 at 19:30 Vancomycin HCl (Vanco Iv Per Pharmacy) VANCOMYCIN PER PHARMACY NOTE XX ; Start 02/25/17 at 19:30 Nitroglycerin (Nitroglycerin (Sl Tab) 0.4 Mg) 1 tab Q5M PRN SL ANGINA; Start at 19:30 Acetaminophen (Tylenol Liquid) 650 mg Q4H PRN PO TEMP > 37C; Start 02/25/17 at 19:30 Dextrose (D50w Syringe) 25 ml Q15M PRN IV Till BS 80 mg/dL or above x2; Start 02/25/17 at 19:30 Dextrose (D50w Syringe) 50 ml Q15M PRN IV Till BS 80 mg/dL or above x2; Start 02/25/17 at 19:30 Heparin Sodium (Porcine) 5000 unit 5,000 unit BID SC Last administered on 09:49; Admin Dose 5,000 UNIT; Start 02/25/17 at 21:00 Norepinephrine 32 mg/Dextrose 250 ml @ 0.46 mls/hr TITRATE IV Last administered on 02/28/17 21:35; Admin Dose 11.71 MLS/HR; Start 02/26/17 at 09:30 Dopamine HCl/ Dextrose (D5W) 250 ml @ 1.96 mls/hr TITRATE IV Last administered on 02/27/17 23:25; Admin Dose 19.68 MLS/HR; Start 02/26/17 at 09:30 Diagnostic Test (Pha) 1 ea 1 ea Q4H XX Last administered on 03/01/17 10:00; Admin Dose 1 EA; Start 02/26/17 at 22:00 Propofol 100 ml @ 3.15 mls/hr Q12H IV Last administered on 02/26/17 22:57; Admin Dose 3.15 MLS/HR; Start 02/26/17 at 23:00 Vecuronium [place] 100 mg/ Dextrose 100 ml @ 5.25 mls/hr TITRATE IV Last administered on 02/26/17 20:00; Admin Dose 5.25 MLS/HR; Start 02/26/17 at 23:00 Vasopressin 60 unit/Dextrose 60 ml @ 1.2 mls/hr Q12H IV ; Start 02/27/17 at 07: 00 Phenylephrine HCl 80 mg/Dextrose 250 ml @ 18.75 mls/ hr TITRATE IV Last administered on 02/28/17 21:38; Admin Dose 21.56 MLS/HR; Start 02/27/17 at 07:00 Cefepime HCl (Maxipime 1gm/50 ml (Pmx)) 50 ml @ 100 mls/hr Q24H IVPB Last administered on 03/01/17 09:48; Admin Dose 100 MLS/HR; Start 02/28/17 at 10:00 Famotidine (Pepcid Iv) 20 mg DAILY IV Last administered on 03/01/17 09:48; Admin Dose 20 MG; Start 03/01/17 at 09:00 Sodium Polystyrene Sulfonate (Kayexalate) 30 gm Q4 PO Last administered on 09:48; Admin Dose 30 GM; Start 03/01/17 at 09:00; Stop 03/01/17 at 18:00 ASHLEY DE DIOS MD Mar 01, 2017 14:12
--- NOTE | 2017-03-01 19:13 | CONS ---
Date/Time of Note Date/Time of Note DATE: 03/01/17 TIME: 19:08 Assessment/Plan Assessment/Plan Additional Assessment/Plan Examination patient today shows no evidence of oculocephalic he has no doll's eyes no pupillary light reflex no corneal reflex is not overbreathing the ventilator and he does not have a gag. EEG was done today consistent with brain yesterday's EEG was also consistent with brain my clinical examination is consistent with brain . Patient did not tolerate apnea test twice therefore EEG was repeated results as above. Consultation Date/Type/Reason Admit Date/Time Feb 25, 2017 at 21:43 Initial Consult Date 02/26/17 Type of Consultation: Palliative Referring Provider: YANET MTZ Exam/Review of Systems Vital Signs Vitals Vital Signs Date Time Temp Pulse Resp B/P Pulse Ox O2 Delivery O2 Flow Rate FiO2 03/01/17 18:00 87 24 121/72 99 Mechanical Ventilator 03/01/17 17:00 100 03/01/17 16:00 99.5 02/25/17 16:00 15.0 Intake and Output 02/28/17 02/28/17 03/01/17 15:00 23:00 07:00 Intake Total 1539.8 ml 1647.8 ml 1060.15 ml Output Total 243 ml 557 ml 549 ml Balance 1296.8 ml 1090.8 ml 511.15 ml Exam Neurological: other (Examination no oculocephalics no corneal or pupillary light reflex no doll's eyes patient is not overbreathing the ventilator negative gag) Results Result Diagram: 03/01/17 0430 03/01/17 0430 Results 24 hrs Laboratory Tests Test 02/28/17 21:40 03/01/17 01:41 03/01/17 04:24 03/01/17 04:30 Bedside Glucose 79 81 87 White Blood Count 12.0 H Red Blood Count 3.86 L Hemoglobin 11.3 L Hematocrit 35.2 L Mean Corpuscular Volume 91.2 Mean Corpuscular Hemoglobin 29.3 Mean Corpuscular Hemoglobin Concent 32.1 Red Cell Distribution Width 13.9 Platelet Count 197 Mean Platelet Volume 11.4 H Neutrophils % 87.1 H Lymphocytes % 3.9 L Monocytes % 7.7 Eosinophils % 0.5 Basophils % 0.2 Nucleated Red Blood Cells % 0.0 Neutrophils # 10.5 H Lymphocytes # 0.5 L Monocytes # 0.9 Eosinophils # 0.1 Basophils # 0.0 Nucleated Red Blood Cells # 0.0 Sodium Level 130 L Potassium Level 7.0 *H Chloride Level 96 L Carbon Dioxide Level 19 L Anion Gap 22 H Blood Urea Nitrogen 59 H Creatinine 7.29 H Glucose Level 85 Calcium Level 7.8 L Test 03/01/17 09:00 03/01/17 12:08 03/01/17 14:15 03/01/17 18:02 Bedside Glucose 111 91 94 93 Medications Medications Current Medications Epinephrine/ Dextrose (EPINEPHrine/D5W) 250 ml @ 0 mls/hr TITRATE IV Last administered on 02/27/17 07:13; Admin Dose 37.5 MLS/HR; Start 02/25/17 at 16:30 Ondansetron HCl (Zofran Inj) 4 mg Q6H PRN IV NAUSEA AND/OR VOMITING; Start at 19:30 Acetaminophen (Tylenol Tab) 650 mg Q6H PRN PO PAIN LEVEL 1-3 OR FEVER; Start at 19:30 Acetaminophen/ Hydrocodone Bitart ([place] (5/325)) 1 tab Q6H PRN PO MODERATE PAIN LEVEL 4-6; Start 02/25/17 at 19:30 Morphine Sulfate (morphine) 2 mg Q4H PRN IV SEVERE PAIN LEVEL 7-10; Start 02/25 at 19:30 Docusate Sodium (Colace) 100 mg Q12H PRN PO CONSTIPATION; Start 02/25/17 at 19: 30 Magnesium Hydroxide (Milk Of Mag) 30 ml DAILY PRN PO CONSTIPATION; Start at 19:30 Sodium Biphosphate/ Sodium Phosphate 133 ml 133 ml DAILY PRN [place] CONSTIPATION; Start 02/25/17 at 19:30 Sodium Chloride (1/2 NS) 1,000 ml @ 125 mls/hr Q8H IV Last administered on 03/01 12:50; Admin Dose 125 MLS/HR; Start 02/25/17 at 19:09 Lorazepam (Ativan) 0.5 mg Q6H PRN IV ANXIETY; Start 02/25/17 at 19:30 Vancomycin HCl (Vanco Iv Per Pharmacy) VANCOMYCIN PER PHARMACY NOTE XX ; Start 02/25/17 at 19:30 Nitroglycerin (Nitroglycerin (Sl Tab) 0.4 Mg) 1 tab Q5M PRN SL ANGINA; Start at 19:30 Acetaminophen (Tylenol Liquid) 650 mg Q4H PRN PO TEMP > 37C; Start 02/25/17 at 19:30 Dextrose (D50w Syringe) 25 ml Q15M PRN IV Till BS 80 mg/dL or above x2; Start 02/25/17 at 19:30 Dextrose (D50w Syringe) 50 ml Q15M PRN IV Till BS 80 mg/dL or above x2; Start 02/25/17 at 19:30 Heparin Sodium (Porcine) 5000 unit 5,000 unit BID SC Last administered on 09:49; Admin Dose 5,000 UNIT; Start 02/25/17 at 21:00 Norepinephrine 32 mg/Dextrose 250 ml @ 0.46 mls/hr TITRATE IV Last administered on 02/28/17 21:35; Admin Dose 11.71 MLS/HR; Start 02/26/17 at 09:30 Dopamine HCl/ Dextrose (D5W) 250 ml @ 1.96 mls/hr TITRATE IV Last administered on 02/27/17 23:25; Admin Dose 19.68 MLS/HR; Start 02/26/17 at 09:30 Diagnostic Test (Pha) 1 ea 1 ea Q4H XX Last administered on 03/01/17 18:10; Admin Dose 1 EA; Start 02/26/17 at 22:00 Propofol 100 ml @ 3.15 mls/hr Q12H IV Last administered on 02/26/17 22:57; Admin Dose 3.15 MLS/HR; Start 02/26/17 at 23:00 Vecuronium [place] 100 mg/ Dextrose 100 ml @ 5.25 mls/hr TITRATE IV Last administered on 02/26/17 20:00; Admin Dose 5.25 MLS/HR; Start 02/26/17 at 23:00 Vasopressin 60 unit/Dextrose 60 ml @ 1.2 mls/hr Q12H IV ; Start 02/27/17 at 07: 00 Phenylephrine HCl 80 mg/Dextrose 250 ml @ 18.75 mls/ hr TITRATE IV Last administered on 02/28/17 21:38; Admin Dose 21.56 MLS/HR; Start 02/27/17 at 07:00 Cefepime HCl (Maxipime 1gm/50 ml (Pmx)) 50 ml @ 100 mls/hr Q24H IVPB Last administered on 03/01/17 09:48; Admin Dose 100 MLS/HR; Start 02/28/17 at 10:00 Famotidine (Pepcid Iv) 20 mg DAILY IV Last administered on 03/01/17 09:48; Admin Dose 20 MG; Start 03/01/17 at 09:00 REED NIELSEN Mar 01, 2017 19:12
--- NOTE | 2017-03-01 20:14 | CONS ---
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 has been using drugs including cocaine and Viagra had a cardiac arrest was found to be apneic and unresponsive CPR was initiated patient is now being evaluated for possible transplant donation patient will be needing arterial line and dialysis access for acute dialysis Constitutional: no complaints, other (on vent) Cardiovascular: no complaints Gastrointestinal: no complaints Genitourinary: no complaints Musculoskeletal: no complaints Skin: no complaints Neurologic: no complaints Past Medical History Medical History: no pertinent history Past Surgical History Past Surgical Hx: no surgical history Family History Significant Family History: no pertinent family hx Social History Alcohol Use: other Smoking Status: Current some day smoker Drug Use: cocaine, other (Opiates, methamphetamine) Exam/Review of Systems Vital Signs Vitals Vital Signs Date Time Temp Pulse Resp B/P Pulse Ox O2 Delivery O2 Flow Rate FiO2 03/01/17 18:00 87 24 121/72 99 Mechanical Ventilator 03/01/17 17:00 100 03/01/17 16:00 99.5 02/25/17 16:00 15.0 Intake and Output 02/28/17 02/28/17 03/01/17 15:00 23:00 07:00 Intake Total 1539.8 ml 1647.8 ml 1060.15 ml Output Total 243 ml 557 ml 549 ml Balance 1296.8 ml 1090.8 ml 511.15 ml Exam ENMT: nl external ears & nose, nl lips & teeth, nl nasal mucosa & septum Neck: non-tender, supple Respiratory: clear to auscultation, normal air movement Cardiovascular: nl pulses, regular rate and rhythm Gastrointestinal: nl liver, spleen, non-tender, soft Results Result Diagram: 03/01/17 0430 03/01/17 0430 Results 24 hrs Laboratory Tests Test 02/28/17 21:40 03/01/17 01:41 03/01/17 04:24 03/01/17 04:30 Bedside Glucose 79 81 87 White Blood Count 12.0 H Red Blood Count 3.86 L Hemoglobin 11.3 L Hematocrit 35.2 L Mean Corpuscular Volume 91.2 Mean Corpuscular Hemoglobin 29.3 Mean Corpuscular Hemoglobin Concent 32.1 Red Cell Distribution Width 13.9 Platelet Count 197 Mean Platelet Volume 11.4 H Neutrophils % 87.1 H Lymphocytes % 3.9 L Monocytes % 7.7 Eosinophils % 0.5 Basophils % 0.2 Nucleated Red Blood Cells % 0.0 Neutrophils # 10.5 H Lymphocytes # 0.5 L Monocytes # 0.9 Eosinophils # 0.1 Basophils # 0.0 Nucleated Red Blood Cells # 0.0 Sodium Level 130 L Potassium Level 7.0 *H Chloride Level 96 L Carbon Dioxide Level 19 L Anion Gap 22 H Blood Urea Nitrogen 59 H Creatinine 7.29 H Glucose Level 85 Calcium Level 7.8 L Test 03/01/17 09:00 03/01/17 12:08 03/01/17 14:15 03/01/17 18:02 Bedside Glucose 111 91 94 93 Medications Medications Current Medications Epinephrine/ Dextrose (EPINEPHrine/D5W) 250 ml @ 0 mls/hr TITRATE IV Last administered on 02/27/17t 07:13; Admin Dose 37.5 MLS/HR; Start 02/25/17 at 16:30 Ondansetron HCl (Zofran Inj) 4 mg Q6H PRN IV NAUSEA AND/OR VOMITING; Start at 19:30 Acetaminophen (Tylenol Tab) 650 mg Q6H PRN PO PAIN LEVEL 1-3 OR FEVER; Start at 19:30 Acetaminophen/ Hydrocodone Bitart ([place] (5/325)) 1 tab Q6H PRN PO MODERATE PAIN LEVEL 4-6; Start 02/25/17 at 19:30 Morphine Sulfate (morphine) 2 mg Q4H PRN IV SEVERE PAIN LEVEL 7-10; Start 02/25 at 19:30 Docusate Sodium (Colace) 100 mg Q12H PRN PO CONSTIPATION; Start 02/25/17 at 19: 30 Magnesium Hydroxide (Milk Of Mag) 30 ml DAILY PRN PO CONSTIPATION; Start at 19:30 Sodium Biphosphate/ Sodium Phosphate 133 ml 133 ml DAILY PRN [place] CONSTIPATION; Start 02/25/17 at 19:30 Sodium Chloride (1/2 NS) 1,000 ml @ 125 mls/hr Q8H IV Last administered on 03/01 12:50; Admin Dose 125 MLS/HR; Start 02/25/17 at 19:09 Lorazepam (Ativan) 0.5 mg Q6H PRN IV ANXIETY; Start 02/25/17 at 19:30 Vancomycin HCl (Vanco Iv Per Pharmacy) VANCOMYCIN PER PHARMACY NOTE XX ; Start 02/25/17 at 19:30 Nitroglycerin (Nitroglycerin (Sl Tab) 0.4 Mg) 1 tab Q5M PRN SL ANGINA; Start at 19:30 Acetaminophen (Tylenol Liquid) 650 mg Q4H PRN PO TEMP > 37C; Start 02/25/17 at 19:30 Dextrose (D50w Syringe) 25 ml Q15M PRN IV Till BS 80 mg/dL or above x2; Start 02/25/17 at 19:30 Dextrose (D50w Syringe) 50 ml Q15M PRN IV Till BS 80 mg/dL or above x2; Start 02/25/17 at 19:30 Heparin Sodium (Porcine) 5000 unit 5,000 unit BID SC Last administered on 09:49; Admin Dose 5,000 UNIT; Start 02/25/17 at 21:00 Norepinephrine 32 mg/Dextrose 250 ml @ 0.46 mls/hr TITRATE IV Last administered on 02/28/17 21:35; Admin Dose 11.71 MLS/HR; Start 02/26/17 at 09:30 Dopamine HCl/ Dextrose (D5W) 250 ml @ 1.96 mls/hr TITRATE IV Last administered on 02/27/17 23:25; Admin Dose 19.68 MLS/HR; Start 02/26/17 at 09:30 Diagnostic Test (Pha) 1 ea 1 ea Q4H XX Last administered on 03/01/17 18:10; Admin Dose 1 EA; Start 02/26/17 at 22:00 Propofol 100 ml @ 3.15 mls/hr Q12H IV Last administered on 02/26/17 22:57; Admin Dose 3.15 MLS/HR; Start 02/26/17 at 23:00 Vecuronium [place] 100 mg/ Dextrose 100 ml @ 5.25 mls/hr TITRATE IV Last administered on 02/26/17 20:00; Admin Dose 5.25 MLS/HR; Start 02/26/17 at 23:00 Vasopressin 60 unit/Dextrose 60 ml @ 1.2 mls/hr Q12H IV ; Start 02/27/17 at 07: 00 Phenylephrine HCl 80 mg/Dextrose 250 ml @ 18.75 mls/ hr TITRATE IV Last administered on 02/28/17 21:38; Admin Dose 21.56 MLS/HR; Start 02/27/17 at 07:00 Cefepime HCl (Maxipime 1gm/50 ml (Pmx)) 50 ml @ 100 mls/hr Q24H IVPB Last administered on 03/01/17 09:48; Admin Dose 100 MLS/HR; Start 02/28/17 at 10:00 Famotidine (Pepcid Iv) 20 mg DAILY IV Last administered on 03/01/17 09:48; Admin Dose 20 MG; Start 03/01/17 at 09:00 ISRAEL KUNZ MD Mar 01, 2017 20:14
--- NOTE | 2017-03-01 20:34 | OPR ---
Date/Time of Note Date/Time of Note DATE: 03/01/17 TIME: 20:32 Operative Report Procedure Date: Mar 01, 2017 Preoperative Diagnosis Cardiac arrest Postoperative Diagnosis Cardiac arrest Operation Performed Right radial arterial line placement Ultrasound guidance into the radial artery Surgeon: ISRAEL KUNZ MD Estimated Blood Loss: none Specimens None Grafts/Implants None Tubes/Drains None Pt Condition Post Procedure: critical Indications Cardiac arrest Operative\Procedure Findings Patient was placed supine position prepped and draped in usual sterile fashion using the ultrasound guidance access was gained the right radial artery guidewire was advanced through without any difficulty subcutaneous tissues dilated arterial line advanced over a guidewire secured to skin using silk sutures Patient tolerated procedure well ISRAEL KUNZ MD Mar 01, 2017 20:34
--- NOTE | 2017-03-01 20:36 | OPR ---
Date/Time of Note Date/Time of Note DATE: 03/01/17 TIME: 20:34 Operative Report Procedure Date: Mar 01, 2017 Preoperative Diagnosis Cardiac arrest Postoperative Diagnosis Cardiac arrest Operation Performed 1 Left femoral hemodialysis catheter placement 2 ultrasound guidance into the central vein Surgeon: ISRAEL KUNZ MD Estimated Blood Loss: none Specimens None Grafts/Implants None Tubes/Drains None Pt Condition Post Procedure: critical Indications Cardiac arrest Operative\Procedure Findings Patient was placed placed in supine position prepped and draped in usual sterile fashion using ultrasound guidance access was gained in the left common femoral vein guidewire was advanced without any difficulty subcutaneous tissues dilated 25 cm dialysis catheter advanced over a guidewire secured to skin using silk sutures both ports of the catheter were aspirated and injected using heparinized saline solution patient tolerated procedure well ISRAEL KUNZ MD Mar 01, 2017 20:36
[2017-03-02] VITALS: BP 127/71; PULSE 86; RESP 24
[2017-03-04 13:31] LABS: AADO2 Arterial 373.2 mmHg (7.0-24.0); Allen Test ACCEPTAB; Arterial Base Excess -2.7 mmol/L (-3.0-3); Arterial COHb 0.3 % (0.0-3.0); Arterial Fraction of Oxyhgb 98.7 % (93.0-99.0); Arterial HCO3 20.9 mmol/L (22.0-26.0); Arterial MetHb 0.5 % (0.0-1.5); Arterial Total Hemglobin 17.1 g/dl (12.0-18.0); MODE VENT - AC
== END 2017-03-02 02:00 | disposition expired | DRG 870 ==
LOC: E/R 15:40 → EDBD 15:40 → ICU 21:43 → UNDODISIN 03-02 01:04
PROVIDERS: ADMIT Internal Medicine; ATTEND Internal Medicine
PROC: 0BH17EZ Insertion of Endotracheal Airway into Trachea, Via Natural or Artificial Opening (ICD-10-PCS; principal; 2017-02-25)
PROC: 5A1955Z Respiratory Ventilation, Greater than 96 Consecutive Hours (ICD-10-PCS; 2017-02-25)
PROC: 03HB33Z Insertion of Infusion Device into Right Radial Artery, Percutaneous Approach (ICD-10-PCS; 2017-03-01)
PROC: 06HY33Z Insertion of Infusion Device into Lower Vein, Percutaneous Approach (ICD-10-PCS; 2017-03-01)
DX: A41.9 Sepsis, unspecified organism (principal); I46.9 Cardiac arrest, cause unspecified; J96.90 Respiratory failure, unspecified, unspecified whether with hypoxia or hypercapnia; N17.0 Acute kidney failure with tubular necrosis; G93.1 Anoxic brain damage, not elsewhere classified; J69.0 Pneumonitis due to inhalation of food and vomit; R65.21 Severe sepsis with septic shock; E87.2 Acidosis; E87.0 Hyperosmolality and hypernatremia; Z72.0 Tobacco use; F14.90 Cocaine use, unspecified, uncomplicated; F11.90 Opioid use, unspecified, uncomplicated; F15.90 Other stimulant use, unspecified, uncomplicated; F31.9 Bipolar disorder, unspecified; R73.9 Hyperglycemia, unspecified; D64.9 Anemia, unspecified; R40.2432 Glasgow coma scale score 3-8, at arrival to emergency department; Z66 Do not resuscitate; E87.5 Hyperkalemia
CPT/HCPCS: 36415; 36600; 70450; 71010; 76937; 80048; 80053; 80061; 80202; 80306; 80307; 81001; 81003; 82150; 82550; 82553; 82570; 82803; 82962; 83036; 83605; 83690; 83735; 84100; 84155; 84300; 84439; 84443; 84484; 85025; 85610; 85730; 87040; 87081; 87086; 92950; 93005; 93306; 94002; 94003; 94770; 95819; 96361; 96372; 96374; 96375; C1751; J0171; J0461; J0610; J0692; J1265; J1644; J1815; J2060; J2310; J2543; J3370; J7030; J7040; J7050; J7070; P9047

== ENCOUNTER 2017-03-01 22:27 | Inpatient (IN) | payer OTHER ==
[~2017-03-01] VITALS: Ht 175.3 cm; Wt 115.5 kg
[2017-03-02] VITALS (80 sets, daily range): BP systolic 107–200; BP diastolic 62–106; PULSE 68–92; RESP 12–22; Ht 175.3 cm; Wt 115.5 kg
[2017-03-02] MEDS ORDERED: HETASTARCH 6% NACL 500 ML IV* ONE (03:16)
[2017-03-02] MEDS ORDERED: SOD CHLORIDE 0.9% 1,000 ML IV SCH ×2 (03:17→08:10)
[2017-03-02] MEDS ORDERED: VASOPRESSIN 100 UNIT in SOD CHLORIDE 0.9% 95 ML IV SCH (03:30)
[2017-03-02 03:56] LABS: AADO2 Arterial 589.4 mmHg (7.0-24.0); Arterial Base Excess -10.3 mmol/L (-3.0-3); Arterial COHb 0.3 % (0.0-3.0); Arterial Fraction of Oxyhgb 96.4 % (93.0-99.0); Arterial MetHb 0.4 % (0.0-1.5); Arterial Total Hemglobin 12.6 g/dl (12.0-18.0); MODE VENT - PC
[2017-03-02 04:37] LABS: ABNORMAL IP MESSAGE 1; BASOPHILS % 0.3 % (0.0-2.0); EOSINOPHILS # 0.3 10^3/ul (0.0-0.5); EOSINOPHILS % 2.6 % (0.0-7.0); HEMOGLOBIN 10.1 g/dl (14.0-18.0); LYMPHOCYTES # 0.5 10^3/ul (0.8-2.9); LYMPHOCYTES % 5.1 % (15.0-51.0); MEAN CORPUSCULAR HEMOGLOBIN 30.1 pg (29.0-33.0); MEAN CORPUSCULAR HGB CONC 33.7 g/dl (32.0-37.0); MEAN CORPUSCULAR VOLUME 89.3 fl (82.0-101.0); MEAN PLATELET VOLUME 10.8 fl (7.4-10.4); MONOCYTE # 0.9 10^3/ul (0.3-0.9); MONOCYTES % 8.9 % (0.0-11.0); NEUTROPHILS % 82.5 % (39.0-77.0); PLATELET COUNT 184 10^3/UL (140-415); POSITIVE DIFF @See below; RED BLOOD COUNT 3.36 10^6/ul (4.70-6.10); RED CELL DISTRIBUTION WIDTH 13.8 % (11.5-14.5); WHITE BLOOD COUNT 9.7 10^3/ul (4.8-10.8)
[2017-03-02 04:53] LABS: INR 1.17; PT RATIO 1.2
[2017-03-02 04:54] LABS: PARTIAL THROMBOPLASTIN TIME 52.9 Sec (25.0-35.0)
[2017-03-02 04:57] LABS: MAGNESIUM 1.8 mg/dl (1.7-2.5); PHOSPHORUS 8.2 mg/dl (2.5-4.9)
[2017-03-02 04:58] LABS: ALBUMIN 2.8 g/dl (3.3-4.9); ALBUMIN/GLOBULIN RATIO 0.93; BILIRUBIN,INDIRECT 0.1 mg/dl (0-1.1); BILIRUBIN,TOTAL 0.1 mg/dl (0.2-1.3); CREATININE 8.3 mg/dl (0.61-1.24); POTASSIUM 4.8 mmol/L (3.5-5.1); TOTAL PROTEIN 5.8 g/dl (6.1-8.1)
--- NOTE | 2017-03-02 05:10 | RADRPT ---
PROCEDURE: Abdominal ultrasound, limited. CLINICAL INDICATION: Abdominal pain. TECHNIQUE: Multiple real-time images were acquired of the patient's liver utilizing a high resolu tion transducer. COMPARISON: None FINDINGS: The liver demonstrates increased echogenicity and size measuring 19.8 cm. There is no focal mass or intrahepatic biliary ductal dilatation. The portal vein is patent. IMPRESSION: Enlarged liver with fatty infiltration. .Cy Ornelas MD, Date Time Electronically viewed and signed by .Cy Ornelas MD, MD on 03/02/2017 05:09 .T/
[2017-03-02 05:11] LABS: CK-MB 3.68 ng/ml (0.0-2.4); TROPONIN-I 0.143 ng/ml (0.00-0.12)
[2017-03-02] MEDS: ACCU-CHEK XX SCH ×9 (05:21→21:15)
--- NOTE | 2017-03-02 05:21 | RADRPT ---
PROCEDURE: Chest. CLINICAL INDICATION: Chest pain. TECHNIQUE: Single frontal view of the chest was obtained. COMPARISON: 02/27/2017. FINDINGS: There is an endotracheal tube 5 cm above the melvin. There is a nasogastric tube extending to the s tomach. The cardiac silhouette is magnified. The aortic arch is unremarkable. There are bibasilar atelectasis/infiltrate and small pleural effusions. There is no pneumothorax. IMPRESSION: Bibasilar atelectasis/infiltrates and small pleural effusions, increased compared with the prior thania dy. Endotracheal and nasogastric tubes in place. .Cy Ornelas MD, MD Date Time Electronically viewed and signed by .Cy Ornelas MD, on 03/02/2017 05:21 .T/
[2017-03-02] MEDS: METHYLPRED. NA SUCC 500 MG in SOD CHLORIDE 0.9% 100 ML IVPB SCH ×3 (05:34→21:31)
[2017-03-02] MEDS ORDERED: HETASTARCH 6% NACL 500 ML BAG IV* ONE (06:00)
[2017-03-02] MEDS ORDERED: DOBUTamine/D5W 2 MG/ML DRIP 250 ML IV SCH (06:30)
[2017-03-02 07:49] LABS: ADD UMIC YES; UR ASCORBIC ACID NEGATIVE (NEGATIVE); UR BILIRUBIN (Dip) NEGATIVE (NEGATIVE); UR BLOOD (Dip) 3+ mg/dL (NEGATIVE); UR BUDDING YEAST MANY /HPF (NONE SEEN); UR CLARITY CLOUDY (CLEAR); UR COLOR YELLOW (YELLOW); UR GLUCOSE (Dip) NEGATIVE (NEGATIVE); UR KETONES (Dip) NEGATIVE (NEGATIVE); UR LEUKOCYTE ESTERASE (Dip) 2+ Leu/ul (NEGATIVE); UR NITRITE (Dip) NEGATIVE (NEGATIVE); UR RBC 95 /HPF (0-5); UR SPECIFIC GRAVITY (Dip) 1.011 (1.003-1.030); UR TOTAL PROTEIN (Dip) 2+ mg/dl (NEGATIVE); UR UROBILINOGEN (Dip) NEGATIVE (NEGATIVE)
[2017-03-02] MEDS: PIPER-TAZO 3.375 GM IV (PMX) 100 ML IVPB SCH ×2 (08:09→11:42)
--- NOTE | 2017-03-02 09:44 | CONS ---
EEG NOTE Report Details EEG note from 03/[address] Armijo consistent with Electroclinical silence, brain IKARA SANCHEZ MD Mar 02, 2017 09:44
[2017-03-02 10:15] LABS: ABNORMAL IP MESSAGE 1; BASOPHILS % 0.3 % (0.0-2.0); EOSINOPHILS % 0.6 % (0.0-7.0); HEMATOCRIT 32.4 % (42.0-52.0); HEMOGLOBIN 10.5 g/dl (14.0-18.0); LYMPHOCYTES # 0.3 10^3/ul (0.8-2.9); LYMPHOCYTES % 4.2 % (15.0-51.0); MEAN CORPUSCULAR HEMOGLOBIN 29.1 pg (29.0-33.0); MEAN CORPUSCULAR HGB CONC 32.4 g/dl (32.0-37.0); MEAN CORPUSCULAR VOLUME 89.8 fl (82.0-101.0); MEAN PLATELET VOLUME 10.8 fl (7.4-10.4); MONOCYTE # 0.3 10^3/ul (0.3-0.9); MONOCYTES % 3.7 % (0.0-11.0); NEUTROPHIL # 6.1 10^3/ul (1.6-7.5); NEUTROPHILS % 90.5 % (39.0-77.0); PLATELET COUNT 180 10^3/UL (140-415); POSITIVE DIFF @See below; RED BLOOD COUNT 3.61 10^6/ul (4.70-6.10); WHITE BLOOD COUNT 6.7 10^3/ul (4.8-10.8)
[2017-03-02 10:36] LABS: MAGNESIUM 1.8 mg/dl (1.7-2.5); PHOSPHORUS 9.2 mg/dl (2.5-4.9)
[2017-03-02 10:37] LABS: ALBUMIN 3.2 g/dl (3.3-4.9); ALBUMIN/GLOBULIN RATIO 1.06; BILIRUBIN,INDIRECT 0.1 mg/dl (0-1.1); BILIRUBIN,TOTAL 0.1 mg/dl (0.2-1.3); CREATININE 8.64 mg/dl (0.61-1.24); POTASSIUM 5.6 mmol/L (3.5-5.1); TOTAL PROTEIN 6.2 g/dl (6.1-8.1)
[2017-03-02 10:42] LABS: INR 1.2; PROTIME 15.3 Sec (12.2-14.2); PT RATIO 1.2
[2017-03-02 10:43] LABS: PARTIAL THROMBOPLASTIN TIME 51.5 Sec (25.0-35.0)
[2017-03-02 10:47] LABS: TROPONIN-I 0.108 ng/ml (0.00-0.12)
[2017-03-02 10:49] LABS: CK-MB 3.65 ng/ml (0.0-2.4)
[2017-03-02] MEDS ORDERED: DOPamine-D5W 1.6 MG/ML 250 ML IV SCH (11:00)
[2017-03-02] MEDS ORDERED: ALBUMIN HUMAN 25% 100 ML IV ONE ×2 (11:00→16:00)
[2017-03-02] MEDS ORDERED: FUROSEMIDE 100 MG INJ IV ONE (11:00)
[2017-03-02 11:50] LABS: AADO2 Arterial 561.3 mmHg (7.0-24.0); Arterial Base Excess -13.8 mmol/L (-3.0-3); Arterial COHb 0.3 % (0.0-3.0); Arterial Fraction of Oxyhgb 91.5 % (93.0-99.0); Arterial HCO3 17.5 mmol/L (22.0-26.0); Arterial MetHb 0.5 % (0.0-1.5); Arterial Total Hemglobin 12.5 g/dl (12.0-18.0); Blood Gas Low PEEP Setting 0 cmH2O; MODE VENT - BIPHASIC
--- NOTE | 2017-03-02 12:21 | RADRPT ---
PROCEDURE: XR Chest. CLINICAL INDICATION: 1 legacy organ donation. TECHNIQUE: Single frontal chest x-ray. COMPARISON: 04:17 a.m. FINDINGS: Endotracheal tube, nasogastric tube in place unchanged. There are bilateral lower lung atelectasis or infiltrates improved on the left since previous exam. .. Cardiomediastinal silhouette is stable .. The osseous structures are intact. IMPRESSION: Tubes and lines unchanged. Bibasilar atelectasis or infiltrates improved on the left.. RPTAT: QQ .Johnathan Crockett MD, MD Date Time Electronically viewed and signed by .Johnathan Crockett MD, MD on 03/02/2017 12:21 .L/
[2017-03-02] MEDS: OCULAR LUBRICANT 3.5 GM OPH OINT BOTH EYES SCH ×3 (13:16→21:15)
[2017-03-02] MEDS: SODIUM BICARBONATE (IV ADD) 150 MEQ in DEXTROSE 5% 1,000 ML IV SCH ×2 (13:16→20:40)
[2017-03-02 15:19] LABS: ABNORMAL IP MESSAGE 1; BASOPHILS % 0.1 % (0.0-2.0); EOSINOPHILS % 0.3 % (0.0-7.0); HEMATOCRIT 33.2 % (42.0-52.0); HEMOGLOBIN 10.9 g/dl (14.0-18.0); LYMPHOCYTES # 0.2 10^3/ul (0.8-2.9); MEAN CORPUSCULAR HEMOGLOBIN 29.9 pg (29.0-33.0); MEAN CORPUSCULAR HGB CONC 32.8 g/dl (32.0-37.0); MONOCYTE # 0.2 10^3/ul (0.3-0.9); MONOCYTES % 2.4 % (0.0-11.0); NEUTROPHIL # 7.5 10^3/ul (1.6-7.5); NEUTROPHILS % 94.6 % (39.0-77.0); PLATELET COUNT 169 10^3/UL (140-415); POSITIVE DIFF @See below; RED BLOOD COUNT 3.65 10^6/ul (4.70-6.10); RED CELL DISTRIBUTION WIDTH 13.8 % (11.5-14.5); WHITE BLOOD COUNT 7.9 10^3/ul (4.8-10.8)
[2017-03-02 15:23] LABS: AADO2 Arterial 517.5 mmHg (7.0-24.0); Arterial Base Excess -11.5 mmol/L (-3.0-3); Arterial COHb 0.3 % (0.0-3.0); Arterial Fraction of Oxyhgb 97.2 % (93.0-99.0); Arterial HCO3 17.9 mmol/L (22.0-26.0); Arterial MetHb 0.5 % (0.0-1.5); Arterial Total Hemglobin 11.7 g/dl (12.0-18.0); Blood Gas Low PEEP Setting 0 cmH2O; MODE VENT - BIPHASIC
[2017-03-02 15:33] LABS: INR 1.18; PROTIME 15.1 Sec (12.2-14.2); PT RATIO 1.2
[2017-03-02 15:34] LABS: PARTIAL THROMBOPLASTIN TIME 45.6 Sec (25.0-35.0)
[2017-03-02 15:39] LABS: MAGNESIUM 1.9 mg/dl (1.7-2.5); PHOSPHORUS 11.8 mg/dl (2.5-4.9)
[2017-03-02 15:40] LABS: ALBUMIN 3.5 g/dl (3.3-4.9); ALBUMIN/GLOBULIN RATIO 1.09; CALCIUM 7.9 mg/dl (8.4-10.2); TOTAL PROTEIN 6.7 g/dl (6.1-8.1)
[2017-03-02 15:43] LABS: POTASSIUM 6.7 mmol/L (3.5-5.1)
[2017-03-02 15:50] LABS: TROPONIN-I 0.081 ng/ml (0.00-0.12)
[2017-03-02] MEDS ORDERED: CA GLUCONATE (GM) 10% 10ML INJ ONE (15:56)
[2017-03-02] MEDS ORDERED: DEXTROSE 50% 50 ML SYRINGE IV ONE ×2 (16:00→22:30)
[2017-03-02] MEDS ORDERED: FUROSEMIDE 40 MG INJ IV ONE (16:00)
[2017-03-02] MEDS ORDERED: CA GLUCONATE (50 MG/ML) IV SYG IV* ONE (16:00)
[2017-03-02 16:05] LABS: CK-MB 3.42 ng/ml (0.0-2.4); CREATININE 8.29 mg/dl (0.61-1.24)
[2017-03-02] MEDS: INSULIN REGULAR, HUMAN 100 UNIT/1 ML 3ML VIAL IV PRN ×3 (16:19→22:40)
[2017-03-02 16:24] LABS: UR BACTERIA FEW /HPF (NONE SEEN); UR BUDDING YEAST MODERATE /HPF (NONE SEEN); UR RBC > 182 /HPF (0-5); UR WBC CLUMPS OCCASIONAL /HPF (NONE SEEN)
[2017-03-02] MEDS ORDERED: CALCIUM GLUCONATE 10% 2 GM in SOD CHLORIDE 0.9% 100 ML IVPB ONE (16:30)
[2017-03-02] MEDS ORDERED: INSULIN REGULAR 10 ML INJ IV PRN (16:30)
[2017-03-02] MEDS ORDERED: INSULIN REGULAR (1 UNIT/ML) SYRINGE IV PRN (17:30)
[2017-03-02 17:41] LABS: ABNORMAL IP MESSAGE 1; BASOPHILS % 0.2 % (0.0-2.0); HEMATOCRIT 30.8 % (42.0-52.0); HEMOGLOBIN 10.2 g/dl (14.0-18.0); LYMPHOCYTES # 0.2 10^3/ul (0.8-2.9); LYMPHOCYTES % 3.2 % (15.0-51.0); MEAN CORPUSCULAR HEMOGLOBIN 30.1 pg (29.0-33.0); MEAN CORPUSCULAR HGB CONC 33.1 g/dl (32.0-37.0); MEAN CORPUSCULAR VOLUME 90.9 fl (82.0-101.0); MONOCYTES % 0.2 % (0.0-11.0); NEUTROPHIL # 6.2 10^3/ul (1.6-7.5); NEUTROPHILS % 95.5 % (39.0-77.0); PLATELET COUNT 155 10^3/UL (140-415); POSITIVE DIFF @See below; RED BLOOD COUNT 3.39 10^6/ul (4.70-6.10); RED CELL DISTRIBUTION WIDTH 13.9 % (11.5-14.5); WHITE BLOOD COUNT 6.5 10^3/ul (4.8-10.8)
[2017-03-02] MEDS ORDERED: NA POLYST SULFON 15 GM/60 ML BTL PR ONE (18:00)
[2017-03-02 18:01] LABS: POTASSIUM 5.7 mmol/L (3.5-5.1)
[2017-03-02 18:19] LABS: CREATININE 8.25 mg/dl (0.61-1.24)
[2017-03-02 19:22] LABS: AADO2 Arterial 231.5 mmHg (7.0-24.0); Arterial COHb 0.3 % (0.0-3.0); Arterial Fraction of Oxyhgb 98.7 % (93.0-99.0); Arterial HCO3 18.4 mmol/L (22.0-26.0); Arterial MetHb 0.4 % (0.0-1.5); Arterial Total Hemglobin 11.4 g/dl (12.0-18.0); Blood Gas Low PEEP Setting 0 cmH2O; MODE VENT - BIPHASIC
[2017-03-02] MEDS ORDERED: HEPARIN 1000 UNITS/ML 10 ML INJ ONE ×2 (20:33→22:19)
[2017-03-02 21:38] LABS: ABNORMAL IP MESSAGE 1; BASOPHILS % 0.2 % (0.0-2.0); HEMOGLOBIN 10.1 g/dl (14.0-18.0); LYMPHOCYTES # 0.3 10^3/ul (0.8-2.9); LYMPHOCYTES % 4.5 % (15.0-51.0); MEAN CORPUSCULAR HEMOGLOBIN 28.9 pg (29.0-33.0); MEAN CORPUSCULAR HGB CONC 32.6 g/dl (32.0-37.0); MEAN CORPUSCULAR VOLUME 88.6 fl (82.0-101.0); MEAN PLATELET VOLUME 10.8 fl (7.4-10.4); MONOCYTE # 0.3 10^3/ul (0.3-0.9); MONOCYTES % 4.2 % (0.0-11.0); NEUTROPHIL # 5.6 10^3/ul (1.6-7.5); NEUTROPHILS % 90.1 % (39.0-77.0); PLATELET COUNT 158 10^3/UL (140-415); POSITIVE DIFF @See below; RED CELL DISTRIBUTION WIDTH 13.9 % (11.5-14.5); WHITE BLOOD COUNT 6.2 10^3/ul (4.8-10.8)
[2017-03-02 21:58] LABS: INR 1.16; PROTIME 14.9 Sec (12.2-14.2); PT RATIO 1.2
[2017-03-02 21:59] LABS: PARTIAL THROMBOPLASTIN TIME 45.8 Sec (25.0-35.0)
[2017-03-02] MEDS ORDERED: PIPER-TAZO 3.375 GM IV (PMX) 100 ML IVPB SCH (22:00)
[2017-03-02 22:02] LABS: ALBUMIN 3.5 g/dl (3.3-4.9); ALBUMIN/GLOBULIN RATIO 1.12; BILIRUBIN,INDIRECT 0.1 mg/dl (0-1.1); BILIRUBIN,TOTAL 0.1 mg/dl (0.2-1.3); CALCIUM 7.8 mg/dl (8.4-10.2); TOTAL PROTEIN 6.6 g/dl (6.1-8.1)
[2017-03-02 22:08] LABS: MAGNESIUM 1.9 mg/dl (1.7-2.5); PHOSPHORUS 11.8 mg/dl (2.5-4.9)
[2017-03-02 22:13] LABS: TROPONIN-I 0.083 ng/ml (0.00-0.12)
[2017-03-02 22:15] LABS: CK-MB 2.92 ng/ml (0.0-2.4); CREATININE 8.31 mg/dl (0.61-1.24)
[2017-03-02] MEDS ORDERED: CA CHLORIDE 10% 10 ML SYRINGE ONE (22:25)
[2017-03-02] MEDS ORDERED: MANNITOL 25% 50 ML INJ IV SCH (22:30)
[2017-03-02] MEDS ORDERED: CA CHLORIDE 10% 10 ML SYRINGE IV ONE (22:30)
[2017-03-02] MEDS ORDERED: FUROSEMIDE 20 MG INJ ONE ×2 (23:07→23:08)
[2017-03-03 00:03] LABS: ADD UMIC YES; UR ASCORBIC ACID NEGATIVE (NEGATIVE); UR BACTERIA FEW /HPF (NONE SEEN); UR BILIRUBIN (Dip) NEGATIVE (NEGATIVE); UR BLOOD (Dip) 2+ mg/dL (NEGATIVE); UR BUDDING YEAST MANY /HPF (NONE SEEN); UR CLARITY CLOUDY (CLEAR); UR COLOR YELLOW (YELLOW); UR GLUCOSE (Dip) NEGATIVE (NEGATIVE); UR KETONES (Dip) NEGATIVE (NEGATIVE); UR LEUKOCYTE ESTERASE (Dip) 1+ Leu/ul (NEGATIVE); UR MUCUS FEW /HPF (NONE SEEN); UR NITRITE (Dip) NEGATIVE (NEGATIVE); UR RBC 115 /HPF (0-5); UR TOTAL PROTEIN (Dip) 1+ mg/dl (NEGATIVE); UR UROBILINOGEN (Dip) NEGATIVE (NEGATIVE)
[2017-03-03] MEDS ORDERED: ROCURONIUM 50 MG INJ ONE (00:04)
[2017-03-04 11:34] LABS: AADO2 Arterial 231.5 mmHg (7.0-24.0); Arterial COHb 0.3 % (0.0-3.0); Arterial Fraction of Oxyhgb 98.7 % (93.0-99.0); Arterial HCO3 18.4 mmol/L (22.0-26.0); Arterial MetHb 0.4 % (0.0-1.5); Arterial Total Hemglobin 11.4 g/dl (12.0-18.0); Blood Gas Low PEEP Setting 0 cmH2O; MODE VENT - BIPHASIC
--- NOTE | 2017-03-06 16:00 | RADRPT ---
Vent Rate: 77 bpm RR Interval: 0 msec [place] Interval: 146 msec QRS Duration: 114 msec QT Interval: 432 msec QTC Interval: 488 msec P-R-T [place]: 59 - 61 - 56 degrees Normal sinus rhythm Prolonged QT Abnormal ECG Electronically Signed By: Reza Alfonso [id number]
== END 2017-03-02 22:30 | disposition expired | DRG 871 ==
LOC: ICU 03-02 00:57
PROVIDERS: ADMIT Internal Medicine; ATTEND Internal Medicine
DX: A41.9 Sepsis, unspecified organism (principal); R65.21 Severe sepsis with septic shock
CPT/HCPCS: 36600; 71010; 76705; 80048; 80053; 81001; 82150; 82247; 82248; 82330; 82550; 82553; 82803; 82962; 82977; 83605; 83615; 83690; 83735; 83930; 84100; 84484; 85025; 85610; 85730; 86900; 86901; 87040; 87070; 87086; 93005; 94003; J1250; J1940; C1752; J0610; J1265; J1644; J1815; J2150; J2543; J2930; J7030; J7070; P9047